=== PATIENT | female | born 1960 | race Caucasian/White ===

== ENCOUNTER 2018-08-16 14:37 | Observation (INO) | payer BC ==
[~2018-08-16] VITALS: Ht 154.9 cm; Wt 79.8 kg
[2018-08-16] MEDS ORDERED: HYDROMORPHONE 2MG/ML 2 MG/ML ML IM STA (14:42)
[2018-08-16] MEDS ORDERED: ONDANSETRON HCL 4 MG ORAL DISINTEGRATING TAB PO ONE (15:00)
--- NOTE | 2018-08-16 16:41 | Diagnostic Imaging Report ---
ADDENDUM #1 Dose modulation, iterative reconstruction, and/or weight based adjustment of the mA/kV was utilized to reduce the radiation dose to as low as reasonably achievable. Signed by: DR Jaun Darby M.D. on 09/03/2018 10:23 AM ORIGINAL REPORT History:Fall, hit right side of the face Comparison studies:CT head 5 28,016 Technique: Axial images were obtained from the brain, face and cervical spine. Coronal and sagittal reconstructions obtained from the axial data. Intravenous contrast: None Findings: Head CT: Scalp/skull: No abnormalities. No fractures, blastic or lytic lesions. Extra-axial spaces: No masses. No fluid collections. Brain sulci: Appropriate for age. Ventricles: Normal in size and configuration. No hydrocephalus. Parenchyma: Right subinsular and left insular small hypodensities, with mild volume loss, stable. No masses, hemorrhage or acute cortical vascular insults. Sellar/suprasellar region: No abnormalities Craniocervical junction: Patent foramen magnum. No Chiari one malformation. Maxillofacial CT: Soft tissues: Right central premaxillary soft tissue hematoma anterior aspect.. Bones: Nondisplaced fracture of the nasal spine and inferior nasal septum. No other facial fractures are seen. . Orbits: No abnormalities. Paranasal sinuses: Mucous retention cyst at the right maxillary sinus. Cervical spine CT: Fractures: None. Soft tissues: No gross abnormalities. Atlantoaxial articulation: No acute abnormality. Mild degenerative changes. Alignment: Normal lordosis. No scoliosis. Cervicomedullary junction: No abnormalities. The foramen magnum is patent. Vertebrae: No infection. Lucent lesions at C3, C4 and C5 vertebral bodies. Degenerative changes: Uncinate processes and facet hypertrophy results in moderate bilateral foraminal narrowing at C4-5. Decreased intervertebral space at C4-5 and C5-6.. Incidental findings: None. Impression: Head CT: 1. No acute intracranial abnormality. 2. Stable compared to previous examination. Facial CT: 1. Right central premaxillary hematoma. 2. Nondisplaced fracture of the nasal spine and adjacent nasal septum . Cervical spine CT: 1. No acute cervical abnormalities. 2. Cannot exclude ligament, spinal cord and or vascular abnormalities on the basis of this examination. 3. Nonspecific mucosal lesions in the cervical spine, this could be related to infiltrative marrow processes, recommend clinical correlation. Signed by: DR Juan Darby M.D. on 08/16/2018 4:37 PM
[2018-08-16] MEDS ORDERED: ONDANSETRON HCL 4 MG ORAL DISINTEGRATING TAB PO NR (17:15)
[2018-08-16] MEDS ORDERED: HYDROCODONE/APAP 10MG-325MG TAB PO NR (17:15)
[2018-08-16] MEDS ORDERED: HYDRALAZINE HCL 25 MG TAB PO ONE (17:30)
[2018-08-16] MEDS ORDERED: ALLERGY RELIEF10 M1 PO (17:36)
[2018-08-16] MEDS ORDERED: CYSTEX TABLET1 EACH PO (17:36)
[2018-08-16] MEDS ORDERED: TYLENOL # 31 EA PO (17:36)
[2018-08-16] MEDS ORDERED: MAXALT10 MG PO (17:36)
[2018-08-16] MEDS ORDERED: NORTRIPTYLINE H25 MG PO (17:36)
[2018-08-16] MEDS ORDERED: LINZESS PO (17:36)
[2018-08-16] MEDS ORDERED: XANAX1 MG PO (17:36)
--- NOTE | 2018-08-16 17:59 | Diagnostic Imaging Report ---
RIGHT SHOULDER, ELBOW, HAND, WRIST 2-3 VIEWS HISTORY: Pain status post fall COMPARISON: None FINDINGS: Bones: No displaced fracture. Incidentally noted, there is a bony exostosis at the attachment of the lateral epicondyle ligament. Osseous alignment is within normal limits. Joints: The joint spaces are well-maintained. Soft tissues: The soft tissues appear unremarkable. IMPRESSION: 1. No acute radiographic abnormality. 2. Incidentally found changes related to lateral epicondylitis Signed by: Dr. Dejan Lu M.D. on 08/16/2018 5:56 PM
[2018-08-16] MEDS ORDERED: PROMETHAZINE HCL 25 MG TAB PO NR (18:27)
[2018-08-16] MEDS ORDERED: ONDANSETRON HCL INJ 2 MG/ML VIAL IV NR (18:50)
[2018-08-16] MEDS: SODIUM CHLORIDE 0.9% 1000ML 1,000 ML IV SCH ×3 (19:13→21:35)
[2018-08-16] MEDS ORDERED: SODIUM CHLORIDE 0.9% 1000ML 1,000 ML IV SCH ×2 (19:28→20:15)
[2018-08-16] MEDS ORDERED: MORPHINE SULFATE 2 MG/ML SYR IV PRN ×2 (19:30→21:30)
[2018-08-16] MEDS ORDERED: ONDANSETRON HCL INJ 2 MG/ML VIAL IV PRN ×2 (19:30→21:30)
[2018-08-16] MEDS ORDERED: SODIUM CHLORIDE FLUSH 10 ML SYR INJ PRN ×2 (19:30→21:30)
[2018-08-16] MEDS ORDERED: SODIUM CHLORIDE 0.9% 1000ML 1,000 ML IV ONE (20:30)
[2018-08-16] MEDS ORDERED: KETOROLAC TROMETHAMINE 30 MG/ML VIAL IV PRN (20:45)
[2018-08-16] MEDS ORDERED: LABETALOL HCL 5 MG/ML 20ML VIAL IV PRN (20:45)
[2018-08-16] MEDS ORDERED: ACETAMINOPHEN 325 MG TAB PO PRN ×2 (21:00)
[2018-08-16 21:05] VITALS: BP 154/82
[2018-08-16] MEDS ORDERED: SODIUM CHLORIDE 0.9% 1000ML 1,000 ML ONE (21:06)
[2018-08-16] MEDS: KETOROLAC TROMETHAMINE 30 MG/ML VIAL IV PRN (21:35)
[2018-08-16 21:41] VITALS: BP 154/82
[2018-08-16] MEDS ORDERED: ALPRAZOLAM 1 MG TAB PO PRN (22:30)
[2018-08-16] MEDS ORDERED: METHENAMINE PO SCH (22:30)
[2018-08-16] MEDS ORDERED: SODIUM SALICYLATE PO SCH (22:30)
[2018-08-16 22:33] VITALS: BP 154/82
[2018-08-16] MEDS: NORTRIPTYLINE HCL 25 MG CAP PO SCH (23:01)
[2018-08-16 23:55] VITALS: BP 153/81
[2018-08-17] VITALS (8 sets, daily range): BP systolic 140–174; BP diastolic 60–98
[2018-08-17] MEDS: ACETAMINOPHEN 325 MG TAB PO PRN (04:12)
[2018-08-17 04:19] LABS: BASOPHILS % 0.2 % (0.0-1.0); EOSINOPHILS % 0.2 % (0.0-6.0); HEMATOCRIT 35.8 % (34.2-44.1); HEMOGLOBIN 11.8 g/dL (12.0-16.0); LYMPHOCYTES # (AUTO) 2.1 (1.0-3.2); LYMPHOCYTES % 21.4 % (18.0-39.1); MEAN CORPUSCULAR HEMOGLOBIN 31.1 pg (28-32); MEAN CORPUSCULAR VOLUME 94.2 fL (81-99); MONOCYTES % 10.2 % (4.4-11.3); NEUTROPHILS # (AUTO) 6.7 (2.1-6.9); NEUTROPHILS % 67.7 % (38.7-80.0); PLATELET COUNT 231 x10e3/uL (140-360); RED CELL DISTRIBUTION WIDTH 12.7 % (11.7-14.4)
[2018-08-17 04:23] LABS: INR 0.87; PROTHROMBIN TIME 12.6 seconds (11.9-14.5)
[2018-08-17 04:24] LABS: PARTIAL THROMBOPLASTIN TIME 29.4 seconds (23.8-35.5)
[2018-08-17 04:42] LABS: ALANINE AMINOTRANSFERASE 12 IU/L (0-55); ALBUMIN 3.2 g/dL (3.5-5.0); ALBUMIN/GLOBULIN RATIO 1.4 (0.8-2.0); ALKALINE PHOSPHATASE 61 IU/L (40-150); BLOOD UREA NITROGEN 9 mg/dL (7-26); BUN/CREATININE RATIO 14 (6-25); CALCIUM 9.2 mg/dL (8.4-10.2); CARBON DIOXIDE 29 mmol/L (22-29); CHLORIDE 106 mmol/L (98-107); CREATININE, SERUM 0.64 mg/dL (0.57-1.11); EST GLOMERULAR FILTRATION RATE > 60 ML/MIN (60-); GLUCOSE 111 mg/dL (74-118); POTASSIUM 3.6 mmol/L (3.5-5.1); SODIUM 137 mmol/L (136-145)
[2018-08-17 04:48] LABS: ANION GAP 5.6 mmol/L (8-16)
[2018-08-17] MEDS: SODIUM CHLORIDE 0.9% 1000ML 1,000 ML IV SCH (05:03)
[2018-08-17] MEDS: LORATADINE 10 MG TAB PO SCH (08:14)
[2018-08-17] MEDS ORDERED: LINZESS 72 MCG PO SCH (09:00)
[2018-08-17] MEDS: KETOROLAC TROMETHAMINE 30 MG/ML VIAL IV PRN ×2 (09:24→20:43)
[2018-08-17] MEDS: NORTRIPTYLINE HCL 25 MG CAP PO SCH ×2 (10:30→20:43)
[2018-08-17] MEDS: LABETALOL HCL 5 MG/ML 20ML VIAL IV PRN (11:45)
[2018-08-17] MEDS ORDERED: ZOLPIDEM TARTRATE 10 MG TAB PO PRN (12:30)
[2018-08-17] MEDS ORDERED: TETANUS/DIPHTHERIA TOX ADULT 0.5 ML SYR IM NR (12:45)
[2018-08-17] MEDS: SUMATRIPTAN SUCCINATE 25 MG TAB PO PRN (12:59)
--- NOTE | 2018-08-17 13:55 | History and Physical ---
HISTORY OF PRESENT ILLNESS: A 57 years old female with past medical history positive for migraine headaches. Apparently, she had a fall from chair, had a significant head injury. CT of head showed a nasal septal fracture. Cervical spine CT and x-ray of right arm and pelvis x-ray showed no evidence of any fracture. She is still complaining of severe right wrist pain. REVIEW OF SYSTEMS CARDIOVASCULAR: No chest pain or palpitation. RESPIRATORY: No shortness of breath. No cough. GASTROINTESTINAL: No nausea. No vomiting. No diarrhea. GENITOURINARY: No frequency. No dysuria. NEUROLOGIC: Severe migraine headache. PHYSICAL EXAMINATION VITAL SIGNS: Blood pressure 166/84, temperature 97.5 degrees Fahrenheit, heart rate is 93 per minute, respiratory rate 20 per minute, oxygen saturation 95%. HEART: Regular rhythm. Normal S1, S2 sounds. LUNGS: Clear bilaterally. ABDOMEN: Soft. EXTREMITIES: Show swelling on the right upper extremities. NEUROLOGIC: Alert and oriented x3. Cranial nerves II through XII within normal limits. Motor strength is 5/5 in upper and lower extremities. MUSCULOSKELETAL: She has significant swelling on the right forearm and right wrist and also on the facial examination, she has bruises around the both eyes. BLOOD WORK: We have BMP; sodium 137, potassium 3.6, chloride 106, CO2 of 29, BUN 9, creatinine 0.64, glucose 111. On the CBC; white blood count 9.87, hemoglobin 11.8, hematocrit 35.8, and platelet count 231,000. PT 12.6, INR 0.87, PTT 29.4, AST 13, ALT 12, total bilirubin 1.0, alkaline phosphatase 461. CT of the head showed no evidence of any bleed in the brain or skull fracture. CT of the head showed nasal fracture. CT of the cervical spine showed no evidence of any fractures. X-ray of the right arm showed no evidence of any fractures. FINAL IMPRESSION 1. Status post fall with a facial injury and nasal septal bone fracture. 2. Hypertension. 3. Migraine headache. 4. Right wrist pain. PLAN OF TREATMENT: We are going to continue Norvasc 5 mg daily, morphine 4 mg IV q.4 hours as needed, sumatriptan 50 mg IV q.6 hours as needed for migraine headaches, Toradol 15 mg IV q.8 h as needed, alprazolam 1 mg twice a day as needed, nortriptyline 25 mg at bedtime, labetalol 5 mg IV q.6 hours, Claritin 10 mg daily, Tylenol 650 mg IV q.6 hours as needed, and Tylenol with Codeine 1 tablet q.6 hours as needed. Job#: [id number] [place]
[2018-08-17] MEDS: ACETAMINOPHEN/CODEINE 300MG - 30MG TAB PO PRN (15:25)
[2018-08-18] VITALS (8 sets, daily range): BP systolic 130–182; BP diastolic 67–95
[2018-08-18] MEDS: SUMATRIPTAN SUCCINATE 25 MG TAB PO PRN ×2 (02:44→20:45)
--- NOTE | 2018-08-18 08:35 | Consultation ---
DATE OF CONSULTATION: August 18, 2018 HOSPITAL CONSULTATION HISTORY OF PRESENT ILLNESS: I was kindly asked to see this 57-year-old woman, who fell from a chair and hit her face on the cabinet and she experienced epistaxis initially, which had subsequently resolved. Workup with CT scan demonstrated nondisplaced fracture of the nasal spine and inferior nasal septum. Her history of present illness, past medical history, and past surgical history were reviewed in the chart and is pertinent for previous nasal surgery in 1999 for deviated nasal septum. EXAMINATION: The tympanic membranes and external auditory canals are normal. She has bilateral periorbital ecchymosis significantly worse on the right side. His ecchymosis has been felt from area and upper lip with extension of the ecchymosis around the oral cavity. Intranasal examination shows blood in the right side of the nose and minimal thick mucus on the left side of the nose. There is no palpable step-off. She has no palpable cervical adenopathy. Oral cavity examination is unremarkable. Posterior pharyngeal wall shows a small amount of old blood along the posterior pharyngeal wall. ASSESSMENT: Nondisplaced nasal fracture. PLAN 1. [place] nasal spray 2 puffs each side of nose q.4 h while awake. 2. Neosporin ointment applied inside each nostril t.i.d. Job#: [id number] CQ
[2018-08-18] MEDS: ACETAMINOPHEN 325 MG TAB PO PRN (08:46)
[2018-08-18] MEDS: LORATADINE 10 MG TAB PO SCH (08:51)
[2018-08-18] MEDS: AMLODIPINE BESYLATE 5 MG TAB PO SCH (08:51)
[2018-08-18] MEDS: NEOMYCIN/POLYMYXIN/BACITRACIN 15 GM TUBE TOP SCH ×3 (09:15→20:45)
[2018-08-18] MEDS: SALINE 0.65% NAS SOLN 1 SPRAY BTL SCH ×4 (09:20→20:45)
[2018-08-18] MEDS: KETOROLAC TROMETHAMINE 30 MG/ML VIAL IV PRN (13:43)
--- NOTE | 2018-08-18 14:18 | Diagnostic Imaging Report ---
TECHNIQUE: Magnetic resonance imaging of the RIGHT WRIST was performed WITHOUT injected contrast, on a 1.5 milo magnet. HISTORY: Pain, fall COMPARISON: None available. FINDINGS: Bone and bone marrow: Bone marrow edema within the volar lunate. The osseous alignment is within normal limits. Joints: Fluid within the joints is within physiologic limits. The joints spaces are well maintained. Ligaments: Scapholunate: Intact Lunotriquetral: Intact Triangular fibrocartilage complex: Intact Extrinsic ligaments: Mild edema in the dorsal carpal ligaments. Tendons: The flexor and extensor tendons are intact. Carpal tunnel: The median nerve is within normal limits. Other soft tissues: Otherwise, unremarkable. IMPRESSION: Mild edema/contusion in the volar lunate. No fracture. Dorsal carpal extrinsic ligament sprain. Signed by: Dr. Elias Puckett M.D. on 08/18/2018 2:15 PM
[2018-08-18] MEDS: LABETALOL HCL 5 MG/ML 20ML VIAL IV PRN (16:13)
[2018-08-18] MEDS: ALPRAZOLAM 1 MG TAB PO SCH (17:46)
[2018-08-18] MEDS: NORTRIPTYLINE HCL 25 MG CAP PO SCH (20:45)
[2018-08-19] VITALS: BP 135/80
[2018-08-19] MEDS: ACETAMINOPHEN/CODEINE 300MG - 30MG TAB PO PRN (02:26)
[2018-08-19 04:00] VITALS: BP 141/91
[2018-08-19] MEDS: SALINE 0.65% NAS SOLN 1 SPRAY BTL SCH ×2 (05:36→09:20)
[2018-08-19 07:30] VITALS: BP 137/84
[2018-08-19] MEDS: ALPRAZOLAM 1 MG TAB PO SCH (08:13)
[2018-08-19] MEDS: LORATADINE 10 MG TAB PO SCH (08:13)
[2018-08-19] MEDS: NEOMYCIN/POLYMYXIN/BACITRACIN 15 GM TUBE TOP SCH (08:13)
[2018-08-19] MEDS: AMLODIPINE BESYLATE 5 MG TAB PO SCH (08:13)
[2018-08-19] MEDS: SUMATRIPTAN SUCCINATE 25 MG TAB PO PRN (08:13)
[2018-08-19 08:46] VITALS: BP 141/91
[2018-08-19 11:49] VITALS: BP 156/87
--- OUTSIDE RECORDS SUMMARY | 2018-08-26 11:17 | XMS REPORT | Clinical Summary ---
Author Author [facility] Organization [facility] Address Unknown Phone Unavailable Care Team Providers Care Optical Sales Associate Name Role Phone Colby Farris DO PCP Allergies Active Allergy Reactions Severity Noted Date Comments Amoxicillin Other (See Comments), Low 02/01/2017 "messes my side up" Rash Unsure - several years Sulfamethoxazole-Trimetho Rash Low 06/18/2016 prim Codeine Other (See Comments) 02/16/2016 dizzy Levomilnacipran Anxiety, Rash, Other (See High 06/18/2016 Makes her feel bad Comments) Makes her feel bad Nitrofurantoin Other (See Comments) Medium 05/23/2017 Had reaction several Monohyd/M-Cryst years ago and unable to recall if it was a rash Had reaction several years ago and unable to recall if it was a rash Morphine Other (See Comments) Medium 09/05/2017 Causes headache/"migraine" Promethazine Rash, Other (See Low 06/18/2016 Jittery, feels bad Comments) Anxious Current Medications Prescription Sig. Disp. Refills Start End Date Status Date linaclotide (LINZESS) 145 Take 72 mcg by mouth Active mcg capsule daily before breakfast. olmesartan-hydrochlorothi Take 1 tablet by mouth Active azide (BENICAR HCT) every morning. 20-12.5 mg per tablet rizatriptan (MAXALT) 10 Take 10 mg by mouth once Active MG tablet as needed for migraine. May repeat in 2 hours if unresolved. Do not exceed 30 mg in 24 hours. estradiol (ESTRACE) 0.01 Insert 0.5 g into the 42.5 g 1 12/26/19 12/26/19 Active % (0.1 mg/gram) vaginal vagina 2 (two) times a 18 19 creamIndications: week. Dispense 1 tube. Prolapse of anterior vaginal wall, Urethral hypermobility, LEE (stress urinary incontinence, female), Vaginal atrophy, History of recurrent UTIs, Chronic interstitial cystitis tolterodine LA (DETROL 3 04/18/20 Active LA) 4 MG 24 hr capsule 18 ALPRAZolam (XANAX) 1 MG Take 1 mg by mouth Active tablet nightly as needed for anxiety. diazePAM (VALIUM) 5 MG Take 2.5-5 mg by mouth 3 12/02/19 Discontin tablet (three) times a day as 18 ued needed for anxiety. nortriptyline (PAMELOR) Take 25 mg by mouth 1 01/31/20 12/02/19 Discontin 25 MG capsule nightly. 17 18 ued ELMIRON 100 mg capsule Take 1 capsule by mouth 2 5 01/11/20 12/02/19 Discontin (two) times a day. 17 18 ued olmesartan-hydrochlorothi Take 1 tablet by mouth 0 01/25/20 12/02/19 Discontin azide (BENICAR HCT) every morning. 17 18 ued 20-12.5 mg per tablet rizatriptan (MAXALT) 10 Take 10 mg by mouth once 12/12/19 12/02/19 Discontin MG tablet as needed for migraine. 16 18 ued estradiol (ESTRACE) 0.01 Insert 0.5 g into the 42.5 g 1 05/08/20 10/24/20 Discontin % (0.1 mg/gram) vaginal vagina nightly. Every 17 17 ued creamIndications: Midline night for 2 weeks, then cystocele, Urethral three times a week. hypermobility, Vaginal atrophy, Stress incontinence in female, Dyspareunia in female LINZESS 145 mcg capsule Take 145 mcg by mouth 2 07/23/20 12/02/19 Discontin daily before breakfast. 17 18 ued sennosides-docusate Take 1 tablet by mouth 2 30 tablet 0 10/25/20 11/24/19 sodium (SENOKOT-S) 8.6-50 (two) times a day as 17 18 mg per tablet needed for constipation for up to 30 days. ciprofloxacin (CIPRO) 500 Take 1 tablet (500 mg 10 tablet 0 10/25/20 10/30/20 MG tablet total) by mouth 2 (two) 17 17 times a day for 5 days. amoxicillin-pot Take 1 tablet by mouth 2 11/05/20 11/14/19 clavulanate (AUGMENTIN) (two) times a day. 17 18 875-125 mg per tablet oseltamivir (TAMIFLU) 75 Take 1 capsule (75 mg 10 capsule 0 11/12/19 11/17/19 MG capsule total) by mouth 2 (two) 18 18 times a day for 5 days. buPROPion SR (WELLBUTRIN TK 1 T PO QAM 2 11/18/19 12/02/19 Discontin SR) 100 MG 12 hr tablet 18 18 ued diazePAM (VALIUM) 5 MG Take 2.5-5 mg by mouth 3 01/03/20 Discontin tablet (three) times a day as 18 ued needed for anxiety. pentosan polysulfate Take 100 mg by mouth 2 05/20/20 Discontin (ELMIRON) 100 mg capsule (two) times a day. 18 ued nortriptyline (PAMELOR) Take 25 mg by mouth 05/20/20 Discontin 25 MG capsule nightly. 18 ued ciprofloxacin (CIPRO) 500 Take 1 tablet (500 mg 12 tablet 0 12/04/19 12/10/19 MG tablet total) by mouth 2 (two) 18 18 times a day for 6 days. ondansetron (ZOFRAN) 4 MG Take 1 tablet (4 mg 20 tablet 0 12/29/19 01/03/20 Discontin tablet total) by mouth every 6 18 18 ued (six) hours for 5 days. traMADol (ULTRAM) 50 mg Take 1 tablet (50 mg 9 tablet 0 12/29/19 01/03/20 Discontin tablet total) by mouth every 8 18 18 ued (eight) hours as needed for moderate pain for up to 3 days. LORAZepam (ATIVAN) 0.5 MG Take 1 tablet (0.5 mg 30 tablet 0 01/03/20 02/01/20 tablet total) by mouth every 6 18 18 (six) hours as needed for anxiety for up to 30 doses. valsartan (DIOVAN) 80 MG Take 1 tablet (80 mg 30 tablet 0 01/04/20 02/04/20 tablet total) by mouth daily for 18 18 30 days. hydroCHLOROthiazide Take 1 capsule (12.5 mg 30 capsule 0 01/04/20 02/04/20 (MICROZIDE) 12.5 mg total) by mouth daily for 18 18 capsule 30 days. lubiprostone (AMITIZA) 8 Take 1 capsule (8 mcg 30 capsule 0 01/04/20 02/04/20 MCG capsule total) by mouth daily 18 18 with breakfast for 30 days. aspirin 81 mg chewable Chew 1 tablet (81 mg 30 tablet 0 01/04/20 02/04/20 tablet total) daily for 30 days. 18 18 atorvastatin (LIPITOR) 10 Take 1 tablet (10 mg 30 tablet 0 01/03/20 02/03/20 MG tablet total) by mouth nightly 18 18 for 30 days. Active Problems Problem Noted Date Fever, unknown origin 01/01/2018 Anxiety disorder 01/01/2018 History of seizure 01/01/2018 Polysubstance abuse (HCC) 01/01/2018 Hypertension 01/01/2018 Osteoarthritis 01/01/2018 Irritable bowel syndrome with constipation 01/01/2018 Altered mental status 12/31/2017 Intractable abdominal pain 12/02/2017 Tachycardia 11/10/2017 Abdominal pain in female 08/14/2017 SOB (shortness of breath) 02/01/2017 Chest pain on breathing 02/01/2017 Renal mass 07/12/2015 Overview: Overview: Incidentally noted Left Renal Mass on CT for LUQ pain Encounters Date Type Specialty Care Team Description 08/07/2018 Office Visit Urogynecology Dolores Mauro Recurrent UTI (Primary MD Davion Dx); Interstitial cystitis; Stress incontinence 07/22/2018 Telephone Urogynecology Dolores Mauro MD 07/21/2018 Emergency Emergency Medicine Rachelle Caldwell MD 07/03/2018 Telephone Obstetrics and Gynecology Dolores Mauro MD 07/01/2018 Telephone Obstetrics and Gynecology Dolores Mauro MD 06/23/2018 Telephone Urogynecology Dolores Mauro MD 05/22/2018 Telephone Urogynecology Daisy Grimm MA 05/20/2018 Office Visit Urogynecology Brenna Mujica NP Prolapse of anterior vaginal wall (Primary Dx); Midline cystocele; History of recurrent UTIs; Chronic interstitial cystitis; Encounter for fitting and adjustment of pessary; Vaginal atrophy 05/13/2018 Telephone Obstetrics and Gynecology Dolores Mauro MD 05/12/2018 Telephone Urogynecology Kelley Alvarez LVN 05/09/2018 [facility] Radiology Dolores Mauro Pelvic pain in female; Encounter MD Davion Pelvic pain 05/09/2018 Ancillary Radiology Dolores Mauro Pelvic pain Orders MD Davion 05/05/2018 Telephone Urogynecology Brenna Mujica, SUBGRADE TESTER 04/16/2018 Telephone Obstetrics and Gynecology Brenna Mujica, SUBGRADE TESTER 02/19/2018 Emergency Emergency Medicine Roman Larkin MD Flank pain (Primary Dx); Chronic thoracic back pain, unspecified back pain laterality; Anxiety 01/01/2018 Procedure Pass General Internal Medicine 12/31/2017 Emergency General Internal Medicine Kelsy Christian, Altered mental status, - MD unspecified altered 01/03/2018 Savage Pino, mental status type MD (Primary Dx); Marijuana abuse; Hypnotic intoxication with complication 12/29/2017 Emergency Emergency Medicine Juancarlos Mason Flank pain (Primary Dx); MD Mark Renal cyst 12/24/2017 Office Visit Urogynecology Brenna Mujica, ELIJAH Prolapse of anterior vaginal wall (Primary Dx); Urethral hypermobility; LEE (stress urinary incontinence, female); Vaginal atrophy; History of recurrent UTIs; Chronic interstitial cystitis 12/18/2017 Telephone Obstetrics and Gynecology Dolores Mauro MD 12/02/2017 Emergency General Internal Medicine Alphonso Gilliland MD Intractable abdominal - Talia Sahu MD pain (Primary Dx); 12/04/2017 Fabio Lewis MD Abdominal pain in female 11/10/2017 Emergency General Internal Medicine Ant Sandhu MD Tachycardia (Primary Dx); - Talia Sahu MD Nausea and vomiting, 11/12/2017 Emilio Sesay intractability of MD Kay vomiting not specified, unspecified vomiting type; Fever chills; Anxiety 10/24/2017 Emergency General Internal Medicine Fatou Dykes MD Abdominal pain in female - SharontonyaLuciano DO (Primary Dx); 10/25/2017 Acute cystitis without hematuria 09/05/2017 Emergency Emergency Medicine Fatou Dykes MD Generalized abdominal pain (Primary Dx) 08/19/2017 Telephone Urogynecology Dolores Mauro MD 08/19/2017 Telephone Obstetrics and Gynecology Dolores Mauro MD 08/16/2017 Telephone Obstetrics and Gynecology Dolores Mauro MD 08/15/2017 Orders Only Urogynecology Samantha Nguyen MA Pelvic pain in female (Primary Dx) 08/14/2017 Emergency General Internal Medicine Sidney Rodriguez DO Abdominal pain in female - Tate Driscoll MD (Primary Dx) 08/16/2017 after 08/15/2017 Immunizations Name Dates Previously Given Next Due FLUCELVAX QUAD PF (0.5mL 11/11/2017 syringe) Pneumococcal Conjugate 11/11/2017 13-Valent Family History Medical History Relation Name Comments Cancer Father Relation Name Status Comments Father Mother Alive Social History Tobacco Use Types Packs/Day Years Used Date Never Smoker Smokeless Tobacco: Never Used Alcohol Use Drinks/Week oz/Week Comments No Sex Assigned at Date Recorded Not on file Last Filed Vital Signs Vital Sign Reading Time Taken Blood Pressure 145/96 08/07/2018 2:17 PM CDT Pulse 79 08/07/2018 2:17 PM CDT Temperature 36.9 C (98.5 F) 08/07/2018 2:17 PM CDT Respiratory Rate 16 07/21/2018 6:46 PM CDT Oxygen Saturation 97% 07/21/2018 6:50 PM CDT Inhaled Oxygen - - Concentration Weight 79.4 kg (175 lb) 08/07/2018 2:17 PM CDT Height 154.9 cm (5' 1") 08/07/2018 2:17 PM CDT Body Mass Index 33.07 08/07/2018 2:17 PM CDT Plan of Treatment Date Type Specialty Care Team Description 09/19/2018 Office Visit Physical Therapy Dolores Mauro MD [address] [facility] [place] [address] Summer Staton, PT 02/05/2019 Office Visit Urogynecology Dolores Mauro MD [address] [facility] [place] [address] Health Maintenance Due Date Last Done Comments CERVICAL CANCER SCREENING 1981 BREAST CANCER SCREENING 2010 COLON CANCER SCREENING 2010 SHINGRIX VACCINE (#1) 2010 INFLUENZA VACCINE 06/11/2018 11/11/2017 Procedures Procedure Name Priority Date/Time Associated Diagnosis Comments MEASURE POST VOID Routine 08/07/2018 Recurrent UTI Results for this RESIDUAL 3:26 PM CDT procedure are in the results section. POC URINALYSIS DIPSTICK Routine 08/07/2018 Recurrent UTI Results for this 3:25 PM CDT procedure are in the results section. MICROSCOPIC EXAMINATION Routine 05/20/2018 Results for this 3:48 PM CDT procedure are in the results section. URINALYSIS, AUTOMATED Routine 05/20/2018 History of recurrent UTIs Results for this WITH MICROSCOPY 3:48 PM CDT Chronic interstitial procedure are in the cystitis results section. URINE CULTURE Routine 05/20/2018 Results for this 3:48 PM CDT procedure are in the results section. POC URINALYSIS DIPSTICK Routine 05/20/2018 History of recurrent UTIs Results for this 2:57 PM CDT Chronic interstitial procedure are in the cystitis results section. US PELVIC TRANSABDOMINAL Routine 05/09/2018 Pelvic pain Results for this 3:45 PM CDT procedure are in the results section. US PELVIC TRANSVAGINAL Routine 05/09/2018 Pelvic pain in female Results for this 3:45 PM CDT procedure are in the results section. XR CHEST 1 VW STAT 02/19/2018 Results for this 6:05 PM CDT procedure are in the results section. XR THORACIC SPINE 2 VW STAT 02/19/2018 Results for this 6:04 PM CDT procedure are in the results section. CT ABDOMEN PELVIS WO STAT 02/19/2018 Results for this CONTRAST 5:15 PM CDT procedure are in the results section. BLOOD CULTURE, AEROBIC & Routine 02/19/2018 Results for this ANAEROBIC 3:20 PM CDT procedure are in the results section. URINE CULTURE STAT 02/19/2018 Results for this 2:02 PM CDT procedure are in the results section. HCG QUALITATIVE, URINE STAT 02/19/2018 Results for this SCREEN 1:46 PM CDT procedure are in the results section. URINALYSIS SCREEN AND STAT 02/19/2018 Results for this MICROSCOPY, WITH REFLEX 1:46 PM CDT procedure are in the TO CULTURE results section. ZZESTIMATED GFR STAT 02/19/2018 Results for this 1:40 PM CDT procedure are in the results section. LIPASE LEVEL STAT 02/19/2018 Results for this 1:40 PM CDT procedure are in the results section. COMPREHENSIVE METABOLIC STAT 02/19/2018 Results for this PANEL 1:40 PM CDT procedure are in the results section. HC COMPLETE BLD COUNT STAT 02/19/2018 Results for this W/AUTO DIFF 1:40 PM CDT procedure are in the results section. ECG 12-LEAD STAT 02/19/2018 Results for this 1:30 PM CDT procedure are in the results section. CT ANGIOGRAM HEAD W WO Routine 01/03/2018 Results for this CONTRAST 7:10 PM DECORATING MACHINE TENDER procedure are in the results section. CT ANGIOGRAM NECK W WO Routine 01/03/2018 Results for this CONTRAST 7:10 PM DECORATING MACHINE TENDER procedure are in the results section. EEG AWAKE/DROWSY LESS Routine 01/01/2018 Results for this THAN 41 MIN 9:00 PM DECORATING MACHINE TENDER procedure are in the results section. MRI BRAIN W WO CONTRAST Routine 01/01/2018 Results for this 8:49 PM DECORATING MACHINE TENDER procedure are in the results section. LACTIC ACID LEVEL, SEPSIS Timed 12/31/2017 Results for this - NOW AND REPEAT 2X EVERY 11:16 PM DECORATING MACHINE TENDER procedure are in the 3 HOURS results section. RESPIRATORY PATHOGEN Routine 12/31/2017 Results for this PANEL 10:28 PM DECORATING MACHINE TENDER procedure are in the results section. LACTIC ACID LEVEL, SEPSIS Timed 12/31/2017 Results for this - NOW AND REPEAT 2X EVERY 7:27 PM DECORATING MACHINE TENDER procedure are in the 3 HOURS results section. ECG 12-LEAD STAT 12/31/2017 Results for this 4:50 PM DECORATING MACHINE TENDER procedure are in the results section. URINE DRUGS OF ABUSE STAT 12/31/2017 Results for this SCREEN 4:34 PM DECORATING MACHINE TENDER procedure are in the results section. URINALYSIS SCREEN AND STAT 12/31/2017 Results for this MICROSCOPY, WITH REFLEX 4:34 PM DECORATING MACHINE TENDER procedure are in the TO CULTURE results section. PROTHROMBIN TIME WITH INR STAT 12/31/2017 Results for this 4:34 PM DECORATING MACHINE TENDER procedure are in the results section. PARTIAL THROMBOPLASTIN STAT 12/31/2017 Results for this TIME (PTT) 4:34 PM DECORATING MACHINE TENDER procedure are in the results section. URINE CULTURE STAT 12/31/2017 Results for this 4:34 PM DECORATING MACHINE TENDER procedure are in the results section. BLOOD CULTURE, AEROBIC & Routine 12/31/2017 Results for this ANAEROBIC 4:34 PM DECORATING MACHINE TENDER procedure are in the results section. BLOOD CULTURE, AEROBIC & Routine 12/31/2017 Results for this ANAEROBIC 4:34 PM DECORATING MACHINE TENDER procedure are in the results section. T4 Routine 12/31/2017 Results for this 4:04 PM DECORATING MACHINE TENDER procedure are in the results section. THYROID STIMULATING Routine 12/31/2017 Results for this HORMONE 4:04 PM DECORATING MACHINE TENDER procedure are in the results section. ALCOHOL LEVEL, BLOOD STAT 12/31/2017 Results for this 4:04 PM DECORATING MACHINE TENDER procedure are in the results section. ZZESTIMATED GFR STAT 12/31/2017 Results for this 4:04 PM DECORATING MACHINE TENDER procedure are in the results section. TROPONIN STAT 12/31/2017 Results for this 4:04 PM DECORATING MACHINE TENDER procedure are in the results section. B NATRIURETIC PEPTIDE STAT 12/31/2017 Results for this 4:04 PM DECORATING MACHINE TENDER procedure are in the results section. COMPREHENSIVE METABOLIC STAT 12/31/2017 Results for this PANEL 4:04 PM DECORATING MACHINE TENDER procedure are in the results section. HC COMPLETE BLD COUNT STAT 12/31/2017 Results for this W/AUTO DIFF 4:04 PM DECORATING MACHINE TENDER procedure are in the results section. LACTIC ACID LEVEL, SEPSIS STAT 12/31/2017 Results for this - NOW AND REPEAT 2X EVERY 4:04 PM DECORATING MACHINE TENDER procedure are in the [address] HEAD WO CONTRAST STAT 12/31/2017 Results for this 3:39 PM DECORATING MACHINE TENDER procedure are in the results section. XR CHEST 1 VW PORTABLE STAT 12/31/2017 Results for this 3:33 PM DECORATING MACHINE TENDER procedure are in the results section. ECG ED PRELIMINARY Routine 12/31/2017 Results for this INTERPRETATION 3:11 PM DECORATING MACHINE TENDER procedure are in the results section. CT ABDOMEN PELVIS WO STAT 12/29/2017 Results for this CONTRAST 4:27 PM DECORATING MACHINE TENDER procedure are in the results section. ZZESTIMATED GFR STAT 12/29/2017 Results for this 3:50 PM DECORATING MACHINE TENDER procedure are in the results section. TROPONIN STAT 12/29/2017 Results for this 3:50 PM DECORATING MACHINE TENDER procedure are in the results section. LIPASE LEVEL STAT 12/29/2017 Results for this 3:50 PM DECORATING MACHINE TENDER procedure are in the results section. COMPREHENSIVE METABOLIC STAT 12/29/2017 Results for this PANEL 3:50 PM DECORATING MACHINE TENDER procedure are in the results section. URINALYSIS SCREEN AND STAT 12/29/2017 Results for this MICROSCOPY, WITH REFLEX 3:50 PM DECORATING MACHINE TENDER procedure are in the TO CULTURE results section. PARTIAL THROMBOPLASTIN STAT 12/29/2017 Results for this TIME (PTT) 3:50 PM DECORATING MACHINE TENDER procedure are in the results section. PROTHROMBIN TIME WITH INR STAT 12/29/2017 Results for this 3:50 PM DECORATING MACHINE TENDER procedure are in the results section. HC COMPLETE BLD COUNT STAT 12/29/2017 Results for this W/AUTO DIFF 3:50 PM DECORATING MACHINE TENDER procedure are in the results section. GRAM STAIN STAT 12/29/2017 Results for this 3:50 PM DECORATING MACHINE TENDER procedure are in the results section. URINE CULTURE STAT 12/29/2017 Results for this 3:50 PM DECORATING MACHINE TENDER procedure are in the results section. ZZESTIMATED GFR Routine 12/04/2017 Results for this 4:56 AM DECORATING MACHINE TENDER procedure are in the results section. COMPREHENSIVE METABOLIC Routine 12/04/2017 Results for this PANEL 4:56 AM DECORATING MACHINE TENDER procedure are in the results section. HC COMPLETE BLD COUNT Routine 12/04/2017 Results for this W/AUTO DIFF 4:56 AM DECORATING MACHINE TENDER procedure are in the results section. URINALYSIS SCREEN AND Routine 12/03/2017 Results for this MICROSCOPY, WITH REFLEX 12:01 AM DECORATING MACHINE TENDER procedure are in the TO CULTURE results section. GRAM STAIN Routine 12/02/2017 Results for this 11:40 PM DECORATING MACHINE TENDER procedure are in the results section. URINE CULTURE Routine 12/02/2017 Results for this 11:40 PM DECORATING MACHINE TENDER procedure are in the results section. CT ABDOMEN PELVIS WO STAT 12/02/2017 Results for this CONTRAST 2:48 PM DECORATING MACHINE TENDER procedure are in the results section. ZZESTIMATED GFR STAT 12/02/2017 Results for this 12:36 PM DECORATING MACHINE TENDER procedure are in the results section. HC COMPLETE BLD COUNT STAT 12/02/2017 Results for this W/AUTO DIFF 12:36 PM DECORATING MACHINE TENDER procedure are in the results section. LIPASE LEVEL STAT 12/02/2017 Results for this 12:36 PM DECORATING MACHINE TENDER procedure are in the results section. COMPREHENSIVE METABOLIC STAT 12/02/2017 Results for this PANEL 12:36 PM DECORATING MACHINE TENDER procedure are in the results section. MAGNESIUM LEVEL Routine 11/12/2017 Results for this 4:35 AM DECORATING MACHINE TENDER procedure are in the results section. ZZESTIMATED GFR Routine 11/12/2017 Results for this 4:35 AM DECORATING MACHINE TENDER procedure are in the results section. BASIC METABOLIC PANEL Routine 11/12/2017 Results for this 4:35 AM DECORATING MACHINE TENDER procedure are in the results section. HC COMPLETE BLD COUNT Routine 11/12/2017 Results for this W/AUTO DIFF 4:35 AM DECORATING MACHINE TENDER procedure are in the results section. MANUAL DIFFERENTIAL Routine 11/11/2017 Results for this 5:00 AM DECORATING MACHINE TENDER procedure are in the results section. ZZESTIMATED GFR Routine 11/11/2017 Results for this 5:00 AM DECORATING MACHINE TENDER procedure are in the results section. LACTIC ACID LEVEL Routine 11/11/2017 Results for this 5:00 AM DECORATING MACHINE TENDER procedure are in the results section. COMPREHENSIVE METABOLIC Routine 11/11/2017 Results for this PANEL 5:00 AM DECORATING MACHINE TENDER procedure are in the results section. PROTHROMBIN TIME WITH INR Routine 11/11/2017 Results for this 5:00 AM DECORATING MACHINE TENDER procedure are in the results section. CBC WITH PLATELET AND Routine 11/11/2017 Results for this DIFFERENTIAL 5:00 AM DECORATING MACHINE TENDER procedure are in the results section. RESPIRATORY PATHOGEN Routine 11/10/2017 Results for this PANEL 11:45 PM DECORATING MACHINE TENDER procedure are in the results section. CT CHEST W CONTRAST STAT 11/10/2017 Results for this ABDOMEN W CONTRAST PELVIS 5:20 PM DECORATING MACHINE TENDER procedure are in the W CONTRAST results section. URINE DRUGS OF ABUSE STAT 11/10/2017 Results for this SCREEN 5:14 PM DECORATING MACHINE TENDER procedure are in the results section. LACTIC ACID LEVEL Timed 11/10/2017 Results for this 4:45 PM DECORATING MACHINE TENDER procedure are in the results section. RESPIRATORY PATHOGEN Routine 11/10/2017 Results for this PANEL 4:40 PM DECORATING MACHINE TENDER procedure are in the results section. URINALYSIS SCREEN AND Routine 11/10/2017 Results for this MICROSCOPY, WITH REFLEX 4:00 PM DECORATING MACHINE TENDER procedure are in the TO CULTURE results section. URINE CULTURE Routine 11/10/2017 Results for this 4:00 PM DECORATING MACHINE TENDER procedure are in the results section. BLOOD CULTURE, AEROBIC & Routine 11/10/2017 Results for this ANAEROBIC 3:10 PM DECORATING MACHINE TENDER procedure are in the results section. XR CHEST 1 VW PORTABLE STAT 11/10/2017 Results for this 2:23 PM DECORATING MACHINE TENDER procedure are in the results section. MANUAL DIFFERENTIAL STAT 11/10/2017 Results for this 2:00 PM DECORATING MACHINE TENDER procedure are in the results section. ZZESTIMATED GFR STAT 11/10/2017 Results for this 2:00 PM DECORATING MACHINE TENDER procedure are in the results section. LACTIC ACID LEVEL STAT 11/10/2017 Results for this 2:00 PM DECORATING MACHINE TENDER procedure are in the results section. COMPREHENSIVE METABOLIC STAT 11/10/2017 Results for this PANEL 2:00 PM DECORATING MACHINE TENDER procedure are in the results section. PARTIAL THROMBOPLASTIN STAT 11/10/2017 Results for this TIME (PTT) 2:00 PM DECORATING MACHINE TENDER procedure are in the results section. PROTHROMBIN TIME WITH INR STAT 11/10/2017 Results for this 2:00 PM DECORATING MACHINE TENDER procedure are in the results section. CBC WITH PLATELET AND STAT 11/10/2017 Results for this DIFFERENTIAL 2:00 PM DECORATING MACHINE TENDER procedure are in the results section. BLOOD CULTURE, AEROBIC & Routine 11/10/2017 Results for this ANAEROBIC 2:00 PM DECORATING MACHINE TENDER procedure are in the results section. US GALLBLADDER STAT 10/25/2017 Results for this 7:15 AM DECORATING MACHINE TENDER procedure are in the results section. ZZESTIMATED GFR Routine 10/25/2017 Results for this 4:50 AM DECORATING MACHINE TENDER procedure are in the results section. COMPREHENSIVE METABOLIC Routine 10/25/2017 Results for this PANEL 4:50 AM DECORATING MACHINE TENDER procedure are in the results section. CBC WITH PLATELET AND Routine 10/25/2017 Results for this DIFFERENTIAL 4:50 AM DECORATING MACHINE TENDER procedure are in the results section. URINALYSIS SCREEN AND STAT 10/24/2017 Results for this MICROSCOPY, WITH REFLEX 12:00 PM DECORATING MACHINE TENDER procedure are in the TO CULTURE results section. GRAM STAIN STAT 10/24/2017 Results for this 12:00 PM DECORATING MACHINE TENDER procedure are in the results section. URINE CULTURE STAT 10/24/2017 Results for this 12:00 PM DECORATING MACHINE TENDER procedure are in the results section. CT ABDOMEN PELVIS W STAT 10/24/2017 Results for this CONTRAST 11:35 AM DECORATING MACHINE TENDER procedure are in the results section. ZZESTIMATED GFR STAT 10/24/2017 Results for this 10:40 AM DECORATING MACHINE TENDER procedure are in the results section. LIPASE LEVEL STAT 10/24/2017 Results for this 10:40 AM DECORATING MACHINE TENDER procedure are in the results section. AMYLASE LEVEL STAT 10/24/2017 Results for this 10:40 AM DECORATING MACHINE TENDER procedure are in the results section. COMPREHENSIVE METABOLIC STAT 10/24/2017 Results for this PANEL 10:40 AM DECORATING MACHINE TENDER procedure are in the results section. HC COMPLETE BLD COUNT STAT 10/24/2017 Results for this W/AUTO DIFF 10:40 AM DECORATING MACHINE TENDER procedure are in the results section. ECG ED PRELIMINARY Routine 09/05/2017 Results for this INTERPRETATION 2:06 PM CDT procedure are in the results section. URINALYSIS SCREEN AND Routine 09/05/2017 Results for this MICROSCOPY, WITH REFLEX 12:37 PM CDT procedure are in the TO CULTURE results section. GRAM STAIN Routine 09/05/2017 Results for this 12:37 PM CDT procedure are in the results section. URINE CULTURE Routine 09/05/2017 Results for this 12:37 PM CDT procedure are in the results section. ZZESTIMATED GFR STAT 09/05/2017 Results for this 11:22 AM CDT procedure are in the results section. HC COMPLETE BLD COUNT STAT 09/05/2017 Results for this W/AUTO DIFF 11:22 AM CDT procedure are in the results section. CREATINE KINASE, TOTAL STAT 09/05/2017 Results for this (CPK) 11:22 AM CDT procedure are in the results section. TROPONIN STAT 09/05/2017 Results for this 11:22 AM CDT procedure are in the results section. LIPASE LEVEL STAT 09/05/2017 Results for this 11:22 AM CDT procedure are in the results section. AMYLASE LEVEL STAT 09/05/2017 Results for this 11:22 AM CDT procedure are in the results section. COMPREHENSIVE METABOLIC STAT 09/05/2017 Results for this PANEL 11:22 AM CDT procedure are in the results section. ECG 12-LEAD STAT 09/05/2017 Results for this 10:48 AM CDT procedure are in the results section. CT ABDOMEN PELVIS W WO Routine 08/16/2017 Results for this CONTRAST 2:59 PM CDT procedure are in the results section. ZZESTIMATED GFR Routine 08/15/2017 Results for this 9:11 AM CDT procedure are in the results section. BASIC METABOLIC PANEL Routine 08/15/2017 Results for this 9:11 AM CDT procedure are in the results section. THYROID STIMULATING Routine 08/15/2017 Results for this HORMONE 9:11 AM CDT procedure are in the results section. after 08/15/2017 Results * Measure post void residual (08/07/2018 3:26 PM) Total volume, urine 32ml * POC urinalysis dipstick (08/07/2018 3:25 PM) Only the most recent of 2 results within the time period is included. Color urine, POC Yellow Clarity urine, POC Clear Glucose urine, POC Negative Negative Bilirubin urine, POC Negative Negative Ketones urine, POC Negative Negative Specific gravity urine, </=1.005 1.005 - 1.030 POC Blood urine, POC Negative Negative pH urine, POC 6.5 5.0, 5.5, 6.0, 6.5, 7.0, 7.5, 8.0, 8.5 Protein urine, POC Negative Negative Urobilinogen urine, POC <2.0 <2.0 Nitrite urine, POC Negative Negative Leukocyte esterase urine, Negative Negative POC Specimen Urine * Microscopic Examination (05/20/2018 3:48 PM) WBC, UA None seen 0 - 5 /hpf [facility] RBC, UA 0-2 0 - 2 /hpf [facility] Epithelial cells (non 0-10 0 - 10 /hpf [facility] renal) Bacteria, UA Few None seen/Few [facility] Narrative Performed At Performed at: [id number] Courtesy Car Driver: Rudi Correa MD, Phone:[phone] Performing Organization Address City/State/[facility] Phone Number [facility] * Urinalysis, automated with microscopy (05/20/2018 3:48 PM) Specific gravity, urine 1.009 1.005 - 1.030 [facility] pH, urine 7.0 5.0 - 7.5 [facility] Color, UA Yellow Yellow [facility] Appearance Clear Clear [facility] WBC esterase, urine Negative Negative [facility] Protein, UA Negative Negative/Trace [facility] Glucose, urine Negative Negative [facility] Ketones, UA Negative Negative [facility] Occult blood, urine Negative Negative [facility] Bilirubin, UA Negative Negative [facility] Urobilinogen, UA 0.2 0.2 - 1.0 mg/dL [facility] Nitrite, UA Negative Negative [facility] Microscopic examination CommentComment: Microscopic [facility] follows if indicated. Microscopic examination See below:Comment: Microscopic [facility] was indicated and was performed. Specimen Urine Narrative Performed At Performed at:[address] [place], [place] [id number] [employer] Car Driver: Rudi Correa MD, Phone:[phone] Performing Organization Address City/[facility] Phone Number [facility] * Urine culture (05/20/2018 3:48 PM) Only the most recent of 8 results within the time period is included. Urine culture No growth [facility] Narrative Performed At Performed at:01 - [facility] [place] [facility] [address], [id number] Courtesy Car Driver: Rudi Correa MD, Phone:[phone] Performing Organization Address City/[facility] Phone Number [facility] * US Pelvic Transabdominal (05/09/2018 3:45 PM) Narrative Performed At EXAMINATION:US PELVIC TRANSABDOMINAL [facility] CLINICAL HISTORY:R10.2 Pelvic and perineal pain COMPARISON:None. TECHNIQUE:Transabdominal and endovaginal sonographic images of the pelvis were obtained. Grayscale, color Doppler, and spectral waveform analysis of the ovarian vessels was performed. FINDINGS: Heterogeneous hypoechoic area is seen adjacent to the endometrial complex suggestive of a uterine fibroid, measuring approximately 1.3 x 0.5 x 1 cm. The uterus is otherwise unremarkable. The uterus measures 6.3 x 3.0 x 4.6 cm.. Nonspecific small amount of free fluid is seen within the endometrial cavity. The endometrial complex is otherwise unremarkable. The endometrial stripe measures 2 mm.. The ovaries are unremarkable. The right ovary measures 1.8 x 0.9 x 1.2 cm. Normal Doppler flow was present. The left ovary measures 1.9 x 1.2 x 2.5 cm. Normal Doppler flow was present. There is physiologic fluid in the pelvic cul-de-sac. Renal survey demonstrates no evidence of hydronephrosis. Impression: Unremarkable transabdominal and endovaginal pelvic ultrasound examination with the exception of probable small uterine fibroid and nonspecific small amount of free fluid within the endometrial cavity. [id number] Procedure Note Hm Interface, Radiology Results Incoming - 05/09/2018 4:23 PM CDT EXAMINATION: US PELVIC TRANSABDOMINAL CLINICAL HISTORY: R10.2 Pelvic and perineal pain COMPARISON: None. TECHNIQUE:Transabdominal and endovaginal sonographic images of the pelvis were obtained. Grayscale, color Doppler, and spectral waveform analysis of the ovarian vessels was performed. FINDINGS: Heterogeneous hypoechoic area is seen adjacent to the endometrial complex suggestive of a uterine fibroid, measuring approximately 1.3 x 0.5 x 1 cm. The uterus is otherwise unremarkable. The uterus measures 6.3 x 3.0 x 4.6 cm.. Nonspecific small amount of free fluid is seen within the endometrial cavity. The endometrial complex is otherwise unremarkable. The endometrial stripe measures 2 mm.. The ovaries are unremarkable. The right ovary measures 1.8 x 0.9 x 1.2 cm. Normal Doppler flow was present. The left ovary measures 1.9 x 1.2 x 2.5 cm. Normal Doppler flow was present. There is physiologic fluid in the pelvic cul-de-sac. Renal survey demonstrates no evidence of hydronephrosis. Impression: Unremarkable transabdominal and endovaginal pelvic ultrasound examination with the exception of probable small uterine fibroid and nonspecific small amount of free fluid within the endometrial cavity. [id number] Performing Organization Address City/State/Zipcode Phone Number [employer] [address] [place] [address] * US Pelvic Transvaginal (05/09/2018 3:45 PM) Narrative Performed At EXAMINATION:US PELVIC TRANSVAGINAL [facility] CLINICAL HISTORY:R10.2 Pelvic and perineal pain COMPARISON:None. TECHNIQUE:Transabdominal and endovaginal sonographic images of the pelvis were obtained. Grayscale, color Doppler, and spectral waveform analysis of the ovarian vessels was performed. FINDINGS: Heterogeneous hypoechoic area is seen adjacent to the endometrial complex suggestive of a uterine fibroid, measuring approximately 1.3 x 0.5 x 1 cm. The uterus is otherwise unremarkable. The uterus measures 6.3 x 3.0 x 4.6 cm.. Nonspecific small amount of free fluid is seen within the endometrial cavity. The endometrial complex is otherwise unremarkable. The endometrial stripe measures 2 mm.. The ovaries are unremarkable. The right ovary measures 1.8 x 0.9 x 1.2 cm. Normal Doppler flow was present. The left ovary measures 1.9 x 1.2 x 2.5 cm. Normal Doppler flow was present. There is physiologic fluid in the pelvic cul-de-sac. Renal survey demonstrates no evidence of hydronephrosis. Impression: Unremarkable transabdominal and endovaginal pelvic ultrasound examination with the exception of probable small uterine fibroid and nonspecific small amount of free fluid within the endometrial cavity. [id number] Procedure Note Interface, Radiology Results Incoming - 05/09/2018 4:24 PM CDT EXAMINATION: US PELVIC TRANSVAGINAL CLINICAL HISTORY: R10.2 Pelvic and perineal pain COMPARISON: None. TECHNIQUE:Transabdominal and endovaginal sonographic images of the pelvis were obtained. Grayscale, color Doppler, and spectral waveform analysis of the ovarian vessels was performed. FINDINGS: Heterogeneous hypoechoic area is seen adjacent to the endometrial complex suggestive of a uterine fibroid, measuring approximately 1.3 x 0.5 x 1 cm. The uterus is otherwise unremarkable. The uterus measures 6.3 x 3.0 x 4.6 cm.. Nonspecific small amount of free fluid is seen within the endometrial cavity. The endometrial complex is otherwise unremarkable. The endometrial stripe measures 2 mm.. The ovaries are unremarkable. The right ovary measures 1.8 x 0.9 x 1.2 cm. Normal Doppler flow was present. The left ovary measures 1.9 x 1.2 x 2.5 cm. Normal Doppler flow was present. There is physiologic fluid in the pelvic cul-de-sac. Renal survey demonstrates no evidence of hydronephrosis. Impression: Unremarkable transabdominal and endovaginal pelvic ultrasound examination with the exception of probable small uterine fibroid and nonspecific small amount of free fluid within the endometrial cavity. [id number] Performing Organization Address [facility] Phone Number [employer] [address] [place] [address] * XR Chest 1 Vw (02/19/2018 6:05 PM) Narrative Performed At EXAMINATION:XR CHEST 1 VW [facility] CLINICAL HISTORY:Chest Pain COMPARISON:December 31, 2017 chest IMPRESSION: Unremarkable single view chest The lungs are clear. The heart is not enlarged. The bony structures are within normal limits. [id number] Procedure Note Interface, Radiology Results Incoming - 02/19/2018 6:09 PM CDT EXAMINATION: XR CHEST 1 VW CLINICAL HISTORY: Chest Pain COMPARISON: December 31, 2017 chest IMPRESSION: Unremarkable single view chest The lungs are clear. The heart is not enlarged. The bony structures are within normal limits. [id number] Performing Organization Address [facility] Phone Number [employer] [address] [place] [address] * XR Thoracic Spine 2 Vw (02/19/2018 6:04 PM) Narrative Performed At EXAMINATION: XR THORACIC SPINE 2 VW [facility] CLINICAL HISTORY: Back pain COMPARISON:None IMPRESSION: Frontal and lateral views of the thoracic spine were obtained. Vertebral body heights are preserved. Endplates are intact without acute fracture. There are mild anterior ossified noted throughout the thoracic spine. There is no spondylolisthesis or acute osseous abnormality identified. Cardiac silhouette is normal. There is mild broad-based 5 degrees rightward curvature of the spine at T6. [facility]-[id number] Procedure Note Interface, Radiology Results Incoming - 02/19/2018 6:10 PM CDT EXAMINATION: XR THORACIC SPINE 2 VW CLINICAL HISTORY: Back pain COMPARISON: None IMPRESSION: Frontal and lateral views of the thoracic spine were obtained. Vertebral body heights are preserved. Endplates are intact without acute fracture. There are mild anterior ossified noted throughout the thoracic spine. There is no spondylolisthesis or acute osseous abnormality identified. Cardiac silhouette is normal. There is mild broad-based 5 degrees rightward curvature of the spine at T6. [facility]-[id number] Performing Organization Address City/State/Zipcode Phone Number [facility] [address] [place] [address] * CT Abdomen Pelvis Wo Contrast (02/19/2018 5:15 PM) Only the most recent of 3 results within the time period is included. Narrative Performed At EXAMINATION:CT ABDOMEN PELVIS WO CONTRAST [facility] CLINICAL HISTORY:ABDOMINAL PAIN TECHNIQUE:Multiple axial images of the abdomen and pelvis were obtained without intravenous administration of iodinated contrast. Sagittal and coronal computerized reformatted images were also obtained. The lack of intravenous contrast reduces the sensitivity of detecting solid organ disease. Scan was performed using radiation dose reduction techniques. COMPARISON:December 29, 2017 FINDINGS: Postsurgical change in the left kidney lower pole compatible with partial nephrectomy. Minimal adjacent fluid is seen. No hematoma or significant fluid collection. No hydronephrosis. Liver is mildly fatty. Grossly unremarkable gallbladder and pancreas. No significant bowel thickening or dilatation. Noninflamed appendix is at least partly visible. IMPRESSION: Grossly uncomplicated appearance status post partial left nephrectomy. [facility]-[id number] Procedure Note Interface, Radiology Results Incoming - 02/19/2018 5:24 PM CDT EXAMINATION: CT ABDOMEN PELVIS WO CONTRAST CLINICAL HISTORY: ABDOMINAL PAIN TECHNIQUE: Multiple axial images of the abdomen and pelvis were obtained without intravenous administration of iodinated contrast. Sagittal and coronal computerized reformatted images were also obtained. The lack of intravenous contrast reduces the sensitivity of detecting solid organ disease. Scan was performed using radiation dose reduction techniques. COMPARISON: December 29, 2017 FINDINGS: Postsurgical change in the left kidney lower pole compatible with partial nephrectomy. Minimal adjacent fluid is seen. No hematoma or significant fluid collection. No hydronephrosis. Liver is mildly fatty. Grossly unremarkable gallbladder and pancreas. No significant bowel thickening or dilatation. Noninflamed appendix is at least partly visible. IMPRESSION: Grossly uncomplicated appearance status post partial left nephrectomy. [facility]-[id number] Performing Organization Address [facility]/[place] [address] * Blood culture, aerobic & anaerobic (02/19/2018 3:20 PM) Only the most recent of 5 results within the time period is included. Blood culture isolate No growth after 5 days of [facility] DEPARTMENT OF incubation. PATHOLOGY AND Comment: GENOMIC MEDICINE Specimen Information Specimen Source: Blood Specimen Site: Arm Left Specimen Blood Performing Organization Address City/[facility] Phone Number [facility] DEPARTMENT OF [address] [place] [id number] PATHOLOGY AND GENOMIC MEDICINE * Urinalysis screen and microscopy, with reflex to culture (02/19/2018 1:46 PM) Only the most recent of 7 results within the time period is included. Specimen site Clean catch [facility] DEPARTMENT OF PATHOLOGY AND GENOMIC MEDICINE Color, UA Straw [facility] DEPARTMENT OF PATHOLOGY AND GENOMIC MEDICINE Appearance, UA Clear [facility] DEPARTMENT OF PATHOLOGY AND GENOMIC MEDICINE Specific gravity, UA 1.010 1.001 - 1.035 [facility] DEPARTMENT OF PATHOLOGY AND GENOMIC MEDICINE pH, UA 7.0 5.0 - 8.5 [facility] DEPARTMENT OF PATHOLOGY AND GENOMIC MEDICINE Protein, UA Negative Negative [facility] DEPARTMENT OF PATHOLOGY AND GENOMIC MEDICINE Glucose, UA Negative Negative [facility] DEPARTMENT OF PATHOLOGY AND GENOMIC MEDICINE Ketones, UA Trace (A) Negative [facility] DEPARTMENT OF PATHOLOGY AND GENOMIC MEDICINE Bilirubin, UA Negative Negative [facility] DEPARTMENT OF PATHOLOGY AND GENOMIC MEDICINE Blood, UA Negative Negative [facility] DEPARTMENT OF PATHOLOGY AND GENOMIC MEDICINE Nitrite, UA Negative Negative [facility] DEPARTMENT OF PATHOLOGY AND GENOMIC MEDICINE Urobilinogen, UA <2.0 <2.0 [facility] DEPARTMENT OF PATHOLOGY AND GENOMIC MEDICINE Leukocyte esterase, UA Negative Negative [facility] DEPARTMENT OF PATHOLOGY AND GENOMIC MEDICINE Epithelial cells, UA 3 /HPF [facility] DEPARTMENT OF PATHOLOGY AND GENOMIC MEDICINE WBC, UA 3 0 - 4 /HPF [facility] DEPARTMENT OF PATHOLOGY AND GENOMIC MEDICINE RBC, UA None seen 0 - 5 /HPF [facility] DEPARTMENT OF PATHOLOGY AND GENOMIC MEDICINE Bacteria, UA None seen None seen [facility] DEPARTMENT OF PATHOLOGY AND GENOMIC MEDICINE Yeast, UA None seen [facility] DEPARTMENT OF PATHOLOGY AND GENOMIC MEDICINE Yeast with pseudohyphae, None seen [facility] DEPARTMENT OF UA PATHOLOGY AND GENOMIC MEDICINE Specimen Urine Performing Organization Address City/[facility] Phone Number [facility] [place] [address] PATHOLOGY AND GENOMIC MEDICINE * hCG qualitative, urine screen (02/19/2018 1:46 PM) hCG qualitative, urine NegativeComment: Sensitivity [facility] DEPARTMENT OF of HCG test: 25 mIU/mL PATHOLOGY AND GENOMIC MEDICINE Specimen Urine Performing Organization Address [facility] [place] [address] PATHOLOGY AND GENOMIC MEDICINE * Estimated GFR (02/19/2018 1:40 PM) Only the most recent of 12 results within the time period is included. GFR Non Af Amer 86 mL/min/1.73 m2 [facility] DEPARTMENT OF PATHOLOGY AND GENOMIC MEDICINE GFR Af Amer >90 mL/min/1.73 m2 [facility] DEPARTMENT OF Comment: PATHOLOGY AND Chronic kidney disease: <60 GENOMIC MEDICINE mL/min/1.73m2 Kidney failure: <15 mL/min/1.73m2 The estimated GFR is calculated from the IDMS-traceable Modification of Diet in Renal Disease Equation. The accuracy of the calculation is poor when the creatinine is normal. Calculated values >90 mL/min/1.73m2 are not reported. This equation has not been validated in children (<18 years), women, the elderly (>70 years), or ethnic groups other than Caucasians and Americans. Specimen Plasma specimen Performing Organization Address City/[facility] Phone Number [facility] [place] [address] PATHOLOGY AND GENOMIC MEDICINE * CBC with platelet and differential (02/19/2018 1:40 PM) Only the most recent of 11 results within the time period is included. WBC 6.68 4.50 - 11.00 k/uL [facility] DEPARTMENT OF PATHOLOGY AND GENOMIC MEDICINE RBC 4.54 4.20 - 5.50 m/uL [facility] DEPARTMENT OF PATHOLOGY AND GENOMIC MEDICINE HGB 13.9 12.0 - 16.0 g/dL [facility] DEPARTMENT OF PATHOLOGY AND GENOMIC MEDICINE HCT 42.5 37.0 - 47.0 % [facility] DEPARTMENT OF PATHOLOGY AND GENOMIC MEDICINE MCV 93.6 82.0 - 100.0 fL [facility] DEPARTMENT OF PATHOLOGY AND GENOMIC MEDICINE MCH 30.6 27.0 - 34.0 pg [facility] DEPARTMENT OF PATHOLOGY AND GENOMIC MEDICINE MCHC 32.7 31.0 - 37.0 g/dL [facility] DEPARTMENT OF PATHOLOGY AND GENOMIC MEDICINE RDW - SD 43.3 37.0 - 55.0 fL [facility] DEPARTMENT OF PATHOLOGY AND GENOMIC MEDICINE MPV 9.7 8.8 - 13.2 fL [facility] DEPARTMENT OF PATHOLOGY AND GENOMIC MEDICINE Platelet count 289 150 - 400 k/uL [facility] DEPARTMENT OF PATHOLOGY AND GENOMIC MEDICINE Nucleated RBC 0.00 /100 WBC [facility] DEPARTMENT OF PATHOLOGY AND GENOMIC MEDICINE Neutrophils 51.8 39.0 - 69.0 % [facility] DEPARTMENT OF PATHOLOGY AND GENOMIC MEDICINE Lymphocytes 35.5 25.0 - 45.0 % [facility] DEPARTMENT OF PATHOLOGY AND GENOMIC MEDICINE Monocytes 8.5 0.0 - 10.0 % [facility] DEPARTMENT OF PATHOLOGY AND GENOMIC MEDICINE Eosinophils 3.3 0.0 - 5.0 % [facility] DEPARTMENT OF PATHOLOGY AND GENOMIC MEDICINE Basophils 0.6 0.0 - 1.0 % [facility] DEPARTMENT OF PATHOLOGY AND GENOMIC MEDICINE Immature granulocytes 0.3Comment: "Immature 0.0 - 1.0 % [facility] DEPARTMENT OF granulocytes" (promyelocytes, PATHOLOGY AND myelocytes, metamyelocytes) GENOMIC MEDICINE Specimen Blood Performing Organization Address City/[facility] [place] [address] PATHOLOGY AND GENOMIC MEDICINE * Lipase level (02/19/2018 1:40 PM) Only the most recent of 5 results within the time period is included. Lipase 27 13 - 60 U/L [facility] DEPARTMENT OF PATHOLOGY AND GENOMIC MEDICINE Specimen Plasma specimen Performing Organization Address City/[facility] [place] [address] PATHOLOGY AND GENOMIC MEDICINE * Comprehensive metabolic panel (02/19/2018 1:40 PM) Only the most recent of 10 results within the time period is included. Sodium 143 135 - 148 mEq/L [facility] DEPARTMENT OF PATHOLOGY AND GENOMIC MEDICINE Potassium 4.0 3.5 - 5.0 mEq/L [facility] DEPARTMENT OF PATHOLOGY AND GENOMIC MEDICINE Chloride 104 98 - 112 mEq/L [facility] DEPARTMENT OF PATHOLOGY AND GENOMIC MEDICINE CO2 26 24 - 31 mEq/L [facility] DEPARTMENT OF PATHOLOGY AND GENOMIC MEDICINE Anion gap 13 7 - 15 mEq/L [facility] DEPARTMENT OF Comment: PATHOLOGY AND Starting from February [facility] MEDICINE , anion gap calculation no longer incorporates potassium. Please note the change. BUN 12 6 - 20 mg/dL [facility] DEPARTMENT OF PATHOLOGY AND GENOMIC MEDICINE Creatinine 0.7 0.5 - 0.9 mg/dL [facility] DEPARTMENT OF PATHOLOGY AND GENOMIC MEDICINE Glucose 95 65 - 99 mg/dL [facility] DEPARTMENT OF PATHOLOGY AND GENOMIC MEDICINE Calcium 9.7 8.3 - 10.2 mg/dL [facility] [facility] DEPARTMENT OF PATHOLOGY AND GENOMIC MEDICINE Protein 7.0 6.3 - 8.3 g/dL [facility] DEPARTMENT OF Comment: PATHOLOGY AND GENOMIC MEDICINE 4.6-7.0 g/dL 1 week 4.4-7.6 g/dL 7 months-1year 5.1-7.3 g/dL 1-2 years5.6-7 .5 g/dL >3 years6.0-8 .0 g/dL 18-150 6.3-8.3 g/dL Albumin 3.7 3.5 - 5.0 g/dL [facility] DEPARTMENT OF PATHOLOGY AND GENOMIC MEDICINE A/G ratio 1.1 0.7 - 3.8 [facility] DEPARTMENT OF PATHOLOGY AND GENOMIC MEDICINE Alkaline phosphatase 63 35 - 104 U/L [facility] DEPARTMENT OF PATHOLOGY AND GENOMIC MEDICINE AST 17 10 - 35 U/L [facility] DEPARTMENT OF PATHOLOGY AND GENOMIC MEDICINE ALT 12 5 - 50 U/L [facility] DEPARTMENT OF PATHOLOGY AND GENOMIC MEDICINE Total bilirubin 1.3 (H) 0.0 - 1.2 mg/dL [facility] DEPARTMENT OF PATHOLOGY AND GENOMIC MEDICINE Specimen Plasma specimen Performing Organization Address City/State/Zipcode Phone Number [facility] DEPARTMENT OF [address] [place] [address] PATHOLOGY AND GENOMIC MEDICINE * ECG 12 lead (02/19/2018 1:30 PM) Only the most recent of 3 results within the time period is included. Ventricular rate 130 [facility] MUSE Atrial rate 130 [facility] MUSE VA interval 124 HM MUSE QRSD interval 76 [facility] MUSE QT interval 306 [facility] MUSE QTC interval 450 [facility] MUSE P axis 1 77 HM MUSE QRS axis 1 76 [facility] MUSE T wave axis 64 [facility] MUSE EKG impression Sinus tachycardia-Right atrial [facility] MUSE enlargement-Borderline ECG-In automated comparison with ECG of 31-DEC-2017 16:50,-No significant change was found- Performing Organization Address [facility] Phone Number [facility] MUSE [address] [place] [address] * CTA Neck W Wo Contrast (01/03/2018 7:10 PM) Narrative Performed At EXAMINATION:CT ANGIOGRAM NECK W WO CONTRAST [facility] COMPARISON:None CLINICAL HISTORY:altered mental status TECHNIQUE: 3-D and MPR reconstructed images are submitted. Up to date CT equipment and radiation dose reduction technique were utilized. FINDINGS: There is a tiny atherosclerotic plaque at the left bifurcation. However, using NASCET criteria, there is no significant stenosis. The right bifurcation is unremarkable. The vertebral and internal carotid arteries are otherwise unremarkable without evidence of dissection. IMPRESSION: Unremarkable study. 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 Up to date CT equipment and radiation dose reduction technique were utilized. FINDINGS: There is a tiny atherosclerotic plaque at the left bifurcation. However, using NASCET criteria, there is no significant stenosis. The right bifurcation is unremarkable. The vertebral and internal carotid arteries are otherwise unremarkable without evidence of dissection. IMPRESSION: Unremarkable study. [facility]-[id number] Performing Organization Address [facility] Phone Number [facility] [address] [place] [address] * CTA Head W Wo Contrast (01/03/2018 7:10 PM) Narrative Performed At EXAMINATION:CT ANGIOGRAM HEAD W WO CONTRAST [facility] COMPARISON:None CLINICAL HISTORY:altered mental status TECHNIQUE: 3-D and MPR images are submitted. Up to date CT equipment and radiation dose reduction technique were utilized. FINDINGS: There are no stenoses and no aneurysms. There is no evidence of spasm or dissection. There are no significant anatomic variants. IMPRESSION: Normal study. 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 Up to date CT equipment and radiation dose reduction technique were utilized. FINDINGS: There are no stenoses and no aneurysms. There is no evidence of spasm or dissection. There are no significant anatomic variants. IMPRESSION: Normal study. [facility]-[id number] Performing Organization Address City/[facility] Phone Number [facility] [address] [place] [address] * EEG (routine) (01/01/2018 9:00 PM) Impressions Performed At This abnormal electroencephalogram shows evidence of a mild generalized [facility] DEPARTMENT OF encephalopathy.No epileptiform activity is seen. PATHOLOGY AND Stacia Cano MD GENOMIC MEDICINE Narrative Performed At [facility] DEPARTMENT OF REFERRING PHYSICIAN: Dr Zazueta PATHOLOGY AND INTRODUCTION: GENOMIC MEDICINE The patient is a 57-year-old lady with altered mental status. EEG was performed to evaluate for seizures or other focal abnormalities. TECHNIQUE: This is a routine electroencephalogram recorded using the International 10/20 electrode placement system. The EEG is technically adequate for interpretation. FINDINGS: The background consists of frequencies in the theta range.There is superimposed diffuse low-voltage activity.No clear posterior dominant rhythm is seen. With the onset of drowsiness, there is mild attenuation and slowing of the background rhythm.No sleep patterns are seen. No epileptiform discharges, focal or lateralizing abnormalities are seen. Photic stimulation was performed with no abnormalities elicited. Performing Organization Address City/[facility] Phone Number [facility] [place] [place] [address] [place] [address] PATHOLOGY AND GENOMIC MEDICINE * MRI Brain W Wo Contrast (01/01/2018 8:49 PM) Narrative Performed At EXAMINATION:MRI BRAIN W WO CONTRAST [facility] COMPARISON: and December [address] CLINICAL HISTORY:altered mental statusrenal mass FINDINGS: Again noted is a prominent perivascular space on the right. There is one punctate focus of small vessel ischemic change in the left perifrontal white matter. There is no other abnormal signal intensity and no abnormal enhancement. No mass or extra-axial fluid collection. Intervals and sulci are normal in size shape and position. The major arteries and dural sinuses are patent. The sellar and pineal regions are normal. The craniovertebral junction and visualized portion of the upper cord are unremarkable. IMPRESSION: Unremarkable study. [facility]-[id number] Procedure Note Hm Interface, Radiology Results Incoming - 01/01/2018 8:58 PM DECORATING MACHINE TENDER EXAMINATION: MRI BRAIN W WO CONTRAST COMPARISON: and December [address] CLINICAL HISTORY: altered mental status renal mass FINDINGS: Again noted is a prominent perivascular space on the right. There is one punctate focus of small vessel ischemic change in the left perifrontal white matter. There is no other abnormal signal intensity and no abnormal enhancement. No mass or extra-axial fluid collection. Intervals and sulci are normal in size shape and position. The major arteries and dural sinuses are patent. The sellar and pineal regions are normal. The craniovertebral junction and visualized portion of the upper cord are unremarkable. IMPRESSION: Unremarkable study. [facility]-[id number] Performing Organization Address City/[facility]/Zipcode Phone Number [facility] [address] [place] [address] * Lactic acid level, SEPSIS - Now and repeat 2x every 3 hours (12/31/2017 11:16 PM) Only the most recent of 3 results within the time period is included. Lactic acid 0.6 0.5 - 2.2 mmol/L [facility] DEPARTMENT OF PATHOLOGY AND GENOMIC MEDICINE Specimen Plasma specimen Performing Organization Address City/[facility]/Zipcode Phone Number [facility] [place] [address] [place] [address] PATHOLOGY AND GENOMIC MEDICINE * Respiratory pathogen panel (12/31/2017 10:28 PM) Only the most recent of 3 results within the time period is included. Respiratory pathogen Negative for all pathogens [facility] DEPARTMENT OF panel tested: PATHOLOGY AND Negative for Adenovirus GENOMIC MEDICINE Negative for Coronavirus HKU1 Negative for Coronavirus NL63 Negative for Coronavirus 229E Negative for Coronavirus OC43 Negative for Human Metapneumovirus Negative for Rhinovirus/Enterovirus Negative for Influenza A Negative for Influenza A/H1 Negative for Influenza A/H3 Negative for Influenza A/H1-2009 Negative for Influenza B Negative for Parainfluenza Virus 1 Negative for Parainfluenza Virus 2 Negative for Parainfluenza Virus 3 Negative for Parainfluenza Virus 4 Negative for Respiratory Syncytial Virus Negative for Bordetella pertussis Negative for Chlamydophila pneumoniae Negative for Mycoplasma pneumoniae This real-time PCR assay detects the presence of nucleic acids (RNA or DNA) for the respiratory pathogens listed. A result of "Not-detected" does not exclude the possibility of the presence of one or more pathogens at concentrations less than the detectable limits of the assay. Comment: Specimen Information Specimen Source: Nares Specimen Site: Right and left lobes Specimen Nares - Right and left lobes Performing Organization Address City/State/Zipcode Phone Number [facility] DEPARTMENT OF [address] [place] [address] PATHOLOGY AND GENOMIC MEDICINE * Urine drugs of abuse screen (12/31/2017 4:34 PM) Only the most recent of 2 results within the time period is included. Amphetamine screen, urine Negative [facility] DEPARTMENT OF PATHOLOGY AND GENOMIC MEDICINE Methamphetamine screen, Negative [facility] DEPARTMENT OF urine PATHOLOGY AND GENOMIC MEDICINE Barbiturate screen, urine Negative [facility] DEPARTMENT OF PATHOLOGY AND GENOMIC MEDICINE Benzodiazepine screen, Positive (A) [facility] DEPARTMENT OF urine PATHOLOGY AND GENOMIC MEDICINE Cocaine screen, urine Negative [facility] DEPARTMENT OF PATHOLOGY AND GENOMIC MEDICINE Methadone screen, urine Negative [facility] DEPARTMENT OF PATHOLOGY AND GENOMIC MEDICINE Opiates screen, urine Negative [facility] DEPARTMENT OF PATHOLOGY AND GENOMIC MEDICINE Phencyclidine screen, Negative [facility] DEPARTMENT OF urine PATHOLOGY AND GENOMIC MEDICINE Cannabinoid screen, urine Positive (A) [facility] DEPARTMENT OF PATHOLOGY AND GENOMIC MEDICINE Tricyclic screen, urine Positive (A) [facility] DEPARTMENT OF Comment: PATHOLOGY AND Drug screen minimum [facility] MEDICINE concentration of detectability Amphetamines 1000 ng/mL Methamphetamines 1000 ng/mL Barbiturates 300 ng/mL Benzodiazepines 300 ng/mL Cocaine 300 ng/mL Methadone 300 ng/mL Opiates 300 ng/mL Phencyclidine 25 ng/mL Cannabinoids 50 ng/mL Tricyclics 1000 ng/mL Negative test results indicates presumptive evidence of lack of clinically significant drug concentration in this urine specimen. Positive test results are presumptive evidence of clinically significant drug concentration in this urine specimen. Testing performed for medical purposes only. Specimen Urine Performing Organization Address City/[facility]/Zipcode Phone Number [facility] [place] [place] [address] [place] [address] PATHOLOGY AND GENOMIC MEDICINE * Partial thromboplastin time, activated (12/31/2017 4:34 PM) Only the most recent of 3 results within the time period is included. PTT 27.5 23.0 - 36.0 sec [facility] DEPARTMENT OF Comment: PATHOLOGY AND PTT therapeutic range for GENOMIC MEDICINE unfractionated heparin is 61.0-112.0 seconds which corresponds to Anti-Xa 0.3-0.7 U/ml. Specimen Blood Performing Organization Address [facility] Phone Number [address] [place] [address] PATHOLOGY AND [employer] MED[facility]INE * Prothrombin time with INR (12/31/2017 4:34 PM) Only the most recent of 4 results within the time period is included. Prothrombin time 11.6 (L) 12.0 - 15.0 sec [facility] DEPARTMENT OF PATHOLOGY AND [employer] [facility]INE INR 0.8 [facility] DEPARTMENT OF Comment: PATHOLOGY AND The International Normalized [facility] Ratio (INR) is a therapeutic monitoring tool for patients who are stable on oral anticoagulant therapy. An INR of 2.0-3.0 is suggested for deep vein thrombosis/pulmonary embolism. Specimen Blood Performing Organization Address [facility] Phone Number [address] [place] [address] PATHOLOGY AND [employer] [facility]INE * Troponin (12/31/2017 4:04 PM) Only the most recent of 3 results within the time period is included. Troponin <0.300 0.000 - 0.300 ng/mL [facility] DEPARTMENT OF Comment: PATHOLOGY AND 0.30 - 1.49 GENOMIC MEDICINE ng/mlMay indicate increased risk of acute coronary syndrome. >=1.5 ng/ml Consistent with acute myocardial infarction. The diagnostic value of a single normal or non-diagnostic result is questionable.Serial samples at 2-6 hour intervals are required to rule out acute myocardial injury. Specimen Plasma specimen Performing Organization Address [facility] Phone Number [address] [place] [address] PATHOLOGY AND [employer] [facility]INE * Thyroid stimulating hormone (12/31/2017 4:04 PM) Only the most recent of 2 results within the time period is included. TSH 0.38 0.27 - 4.20 uIU/mL [facility] DEPARTMENT OF PATHOLOGY AND [employer] [facility]ICINE Specimen Plasma specimen Performing Organization Address [facility]/Zipcode Phone Number [address] [place] [address] PATHOLOGY AND GENOMIC MEDICINE * T4 (12/31/2017 4:04 PM) T4 9.5 4.5 - 11.7 ug/dL [facility] DEPARTMENT OF PATHOLOGY AND GENOMIC MEDICINE Specimen Plasma specimen Performing Organization Address [facility] Phone Number [address] [place] [address] PATHOLOGY AND GENOMIC MEDICINE * B natriuretic peptide (12/31/2017 4:04 PM) BNP 11 0 - 100 pg/mL [facility] DEPARTMENT OF PATHOLOGY AND GENOMIC MEDICINE Specimen Blood Performing Organization Address [facility] Phone Number [address] [place] [address] PATHOLOGY AND GENOMIC MEDICINE * Alcohol level, blood (12/31/2017 4:04 PM) Alcohol None Detected mg/dL [facility] DEPARTMENT OF Comment: PATHOLOGY AND Normal GENOMIC MEDICINE None Detected Legal Intoxication in [place]80 mg/dL (0.08%) - Whole Blood Toxic Concentration 200 mg/dL (0.2%) Potentially Fatal3 50 - 500 mg/dL (0.35 - 0.5%) Alcohol percent None Detected % [facility] DEPARTMENT OF PATHOLOGY AND GENOMIC MEDICINE Specimen Plasma specimen Performing Organization Address [facility] Phone Number [address] [place] [address] PATHOLOGY AND GENOMIC MEDICINE * CT Head Wo Contrast (12/31/2017 3:39 PM) Narrative Performed At EXAMINATION: CT HEAD WO CONTRAST HM [facility] CLINICAL HISTORY: AMS COMPARISON:CT brain noncontrast January 30, 2016 TECHNIQUE: Noncontrast enhanced images of the brain were obtained from the skull base to the vertex. Both soft tissue and bone reconstruction algorithms were performed. CT imaging was performed with iterative reconstruction technique and/or automated exposure control to reduce radiation dose. FINDINGS: The brain parenchyma is unremarkable. The tompkins-white matter differentiation is preserved. No evidence of acute intra or extra-axial hemorrhage, mass, mass effect or acute territorial infarction. There is no acute hydrocephalus. Basal cisterns are patent. Stable large perivascular space right basal ganglia unchanged. No acute soft tissue hematoma or laceration. Paranasal sinuses shows no acute air-fluid levels.Minimal chronic mucoperiosteal thickening anterior ethmoid air cells. Mastoid air cells are clear.No skull fractures or aggressive bony lesions. IMPRESSION: No acute intracranial abnormality identified. Prominent Virchow-Chuck space right basal ganglia unchanged [id number] Procedure Note Interface, Radiology Results Incoming - 12/31/2017 3:47 PM DECORATING MACHINE TENDER EXAMINATION: CT HEAD WO CONTRAST CLINICAL HISTORY: AMS COMPARISON: CT brain noncontrast January 30, 2016 TECHNIQUE: Noncontrast enhanced images of the brain were obtained from the skull base to the vertex. Both soft tissue and bone reconstruction algorithms were performed. CT imaging was performed with iterative reconstruction technique and/or automated exposure control to reduce radiation dose. FINDINGS: The brain parenchyma is unremarkable. The tompkins-white matter differentiation is preserved. No evidence of acute intra or extra-axial hemorrhage, mass, mass effect or acute territorial infarction. There is no acute hydrocephalus. Basal cisterns are patent. Stable large perivascular space right basal ganglia unchanged. No acute soft tissue hematoma or laceration. Paranasal sinuses shows no acute air-fluid levels. Minimal chronic mucoperiosteal thickening anterior ethmoid air cells. Mastoid air cells are clear. No skull fractures or aggressive bony lesions. IMPRESSION: No acute intracranial abnormality identified. Prominent Virchow-Chuck space right basal ganglia unchanged [id number] Performing Organization Address [facility] Phone Number [employer] [address] [place] [address] * XR Chest 1 Vw Portable (12/31/2017 3:33 PM) Only the most recent of 2 results within the time period is included. Narrative Performed At EXAMINATION:XR CHEST 1 VW PORTABLE [facility] CLINICAL HISTORY:Chest Pain COMPARISON:November 10, 2017 chest IMPRESSION: Unremarkable single view chest The lungs are clear. The heart is not enlarged. The bony structures are within normal limits. [id number] Procedure Note Interface, Radiology Results Incoming - 12/31/2017 3:38 PM DECORATING MACHINE TENDER EXAMINATION: XR CHEST 1 VW PORTABLE CLINICAL HISTORY: Chest Pain COMPARISON: November 10, 2017 chest IMPRESSION: Unremarkable single view chest The lungs are clear. The heart is not enlarged. The bony structures are within normal limits. [id number] Performing Organization Address [facility] Phone Number [facility] [address] [place] [address] * ECG ED Preliminary Interpretation - NOT AN ORDER (12/31/2017 3:11 PM) Only the most recent of 2 results within the time period is included. Narrative Performed At Kelsy Christian MD 12/31/20176:46 PM ECG ED Preliminary Interpretation - Not an Order Performed by: KELSY CHRISTIAN Authorized by: KELSY CHRISTIAN ECG reviewed by ED Physician in the absence of a radiology technologist: yes Interpretation: Interpretation: normal Rate: ECG rate:89 ECG rate assessment: normal Rhythm: Rhythm: sinus rhythm Ectopy: Ectopy: none QRS: QRS axis:Normal Conduction: Conduction: normal ST segments: ST segments:Normal T waves: T waves: normal * Gram stain (12/29/2017 3:50 PM) Only the most recent of 4 results within the time period is included. Gram stain result No WBC's [facility] DEPARTMENT OF Occasional Gram positive rods PATHOLOGY AND Comment: GENOMIC MEDICINE Specimen Information Specimen Source: Urine Specimen Site: Clean catch Specimen Urine Performing Organization Address City/[facility] [place] [place] [address] PATHOLOGY AND GENOMIC MEDICINE * Magnesium level (11/12/2017 4:35 AM) Magnesium 2.0 1.6 - 2.6 mg/dL [facility] DEPARTMENT OF PATHOLOGY AND GENOMIC MEDICINE Specimen Plasma specimen Performing Organization Address [facility] [place] [address] PATHOLOGY AND GENOMIC MEDICINE * Basic metabolic panel (11/12/2017 4:35 AM) Only the most recent of 2 results within the time period is included. Sodium 145 135 - 148 mEq/L [facility] DEPARTMENT OF PATHOLOGY AND GENOMIC MEDICINE Potassium 3.2 (L) 3.5 - 5.0 mEq/L [facility] DEPARTMENT OF PATHOLOGY AND GENOMIC MEDICINE Chloride 111 98 - 112 mEq/L [facility] DEPARTMENT OF PATHOLOGY AND GENOMIC MEDICINE CO2 23 (L) 24 - 31 mEq/L [facility] DEPARTMENT OF PATHOLOGY AND GENOMIC MEDICINE Anion gap 11 7 - 15 mEq/L [facility] DEPARTMENT OF Comment: PATHOLOGY AND Starting from February [employer] [facility]INE , anion gap calculation no longer incorporates potassium. Please note the change. BUN 12 6 - 20 mg/dL [facility] DEPARTMENT OF PATHOLOGY AND GENOMIC MEDICINE Creatinine 0.6 0.5 - 0.9 mg/dL [facility] DEPARTMENT OF PATHOLOGY AND GENOMIC MEDICINE Glucose 86 65 - 99 mg/dL [facility] DEPARTMENT OF PATHOLOGY AND GENOMIC MEDICINE Calcium 8.4 8.3 - 10.2 mg/dL [facility] DEPARTMENT OF PATHOLOGY AND GENOMIC MEDICINE Specimen Plasma specimen Performing Organization Address City/[facility] [place] [address] PATHOLOGY AND GENOMIC MEDICINE * Manual differential (11/11/2017 5:00 AM) Only the most recent of 2 results within the time period is included. Manual differential PERFORMED [facility] DEPARTMENT OF PATHOLOGY AND GENOMIC MEDICINE Neutrophils 29.0 (L) 39.0 - 69.0 % [facility] DEPARTMENT OF PATHOLOGY AND GENOMIC MEDICINE Lymphocytes 58.0 (H) 25.0 - 45.0 % [facility] DEPARTMENT OF PATHOLOGY AND GENOMIC MEDICINE Monocytes 9.0 0.0 - 10.0 % [facility] DEPARTMENT OF PATHOLOGY AND GENOMIC MEDICINE Eosinophils 3.0 0.0 - 5.0 % [facility] DEPARTMENT OF PATHOLOGY AND GENOMIC MEDICINE Basophils 0.0 0.0 - 1.0 % [facility] DEPARTMENT OF PATHOLOGY AND GENOMIC MEDICINE Metamyelocytes 0 % [facility] DEPARTMENT OF PATHOLOGY AND GENOMIC MEDICINE Promyelocytes 0 % [facility] DEPARTMENT OF PATHOLOGY AND GENOMIC MEDICINE Plasma cells 1 % [facility] DEPARTMENT OF PATHOLOGY AND GENOMIC MEDICINE Platelet slide review Alanna adequate [facility] [facility] DEPARTMENT OF PATHOLOGY AND GENOMIC MEDICINE Performing Organization Address [facility] Phone Number [facility] [place] [address] PATHOLOGY AND [employer] MEDICINE * Lactic acid level (11/11/2017 5:00 AM) Only the most recent of 3 results within the time period is included. Lactic acid 1.0 0.5 - 2.2 mmol/L [facility] DEPARTMENT OF PATHOLOGY AND GENOMIC MEDICINE Specimen Plasma specimen Performing Organization Address City/[facility] [place] [address] PATHOLOGY AND GENOMIC MEDICINE * CT Chest W Contrast Abdomen W Contrast Pelvis W Contrast (11/10/2017 5:20 PM) Narrative Performed At EXAMINATION:CT CHEST W CONTRAST ABDOMEN W CONTRAST PELVIS W CONTRAST HM [facility] CLINICAL HISTORY:tachycardiaabd pain TECHNIQUE:Multiple axial images of the chest, abdomen, and pelvis were obtained following intravenous administration of iodinated contrast. CT imaging was performed with iterative reconstruction technique and/or automated exposure control to reduce radiation dose. COMPARISON:10/24/2017 IMPRESSION: CHEST: 1. Aorta: Minimal calcification of the thoracic aorta. No aneurysm. 2. Heart: The heart is normal in size. Minimal coronary artery calcifications. 3. Pericardial Fluid: No pericardial effusion. 3. Mediastinum: No enlarged mediastinal or hilar lymphadenopathy. No mediastinal mass. 4. Airways: Central airways are patent. 5. Lungs: No acute infiltrates or suspicious pulmonary nodules or masses. The lungs are clear. 6. Pleural Fluid: No pleural effusions. 7. Bones: Degenerative changes of the osseous structures. No suspicious lesions. ABDOMEN: 1. Liver: There is fatty infiltration of liver. No focal mass. 2. Gallbladder: The gallbladder is normal. 3. Spleen: The spleen is not enlarged. 4. Pancreas: The pancreas is unremarkable. 5. Adrenal Glands: The adrenal glands are unremarkable. 6. Kidneys: Stable 1.6 cm enhancing mass in the lower pole medially in the left kidney. Small cyst in the left kidney. No change. The right kidney is unremarkable. No hydronephrosis. 7. Abdominal Aorta: Calcification of the abdominal aorta is noted. No aneurysm. 8. Nodes: No enlarged retroperitoneal or mesenteric lymphadenopathy. 9. Bowel: No bowel obstruction or inflammation. Diverticulosis without evidence of diverticulitis. The appendix is not seen. No inflammatory changes in the right lower quadrant. 10. Ascites: No ascites or fluid collections. PELVIS: 1.Pelvis: No mass, fluid collection or significant adenopathy. 2. Bones: Degenerative changes of the osseous structures. No suspicious lesions. 3. Other Findings: None [id number] Procedure Note [facility], Radiology Results [facility] - 11/10/2017 6:05 PM DECORATING MACHINE TENDER EXAMINATION: CT CHEST W CONTRAST ABDOMEN W CONTRAST PELVIS W CONTRAST CLINICAL HISTORY: tachycardia abd pain TECHNIQUE: Multiple axial images of the chest, abdomen, and pelvis were obtained following intravenous administration of iodinated contrast. CT imaging was performed with iterative reconstruction technique and/or automated exposure control to reduce radiation dose. COMPARISON: 10/24/2017 IMPRESSION: CHEST: 1. Aorta: Minimal calcification of the thoracic aorta. No aneurysm. 2. Heart: The heart is normal in size. Minimal coronary artery calcifications. 3. Pericardial Fluid: No pericardial effusion. 3. Mediastinum: No enlarged mediastinal or hilar lymphadenopathy. No mediastinal mass. 4. Airways: Central airways are patent. 5. Lungs: No acute infiltrates or suspicious pulmonary nodules or masses. The lungs are clear. 6. Pleural Fluid: No pleural effusions. 7. Bones: Degenerative changes of the osseous structures. No suspicious lesions. ABDOMEN: 1. Liver: There is fatty infiltration of liver. No focal mass. 2. Gallbladder: The gallbladder is normal. 3. Spleen: The spleen is not enlarged. 4. Pancreas: The pancreas is unremarkable. 5. Adrenal Glands: The adrenal glands are unremarkable. 6. Kidneys: Stable 1.6 cm enhancing mass in the lower pole medially in the left kidney. Small cyst in the left kidney. No change. The right kidney is unremarkable. No hydronephrosis. 7. Abdominal Aorta: Calcification of the abdominal aorta is noted. No aneurysm. 8. Nodes: No enlarged retroperitoneal or mesenteric lymphadenopathy. 9. Bowel: No bowel obstruction or inflammation. Diverticulosis without evidence of diverticulitis. The appendix is not seen. No inflammatory changes in the right lower quadrant. 10. Ascites: No ascites or fluid collections. PELVIS: 1. Pelvis: No mass, fluid collection or significant adenopathy. 2. Bones: Degenerative changes of the osseous structures. No suspicious lesions. 3. Other Findings: None [facility]-[id number] Performing Organization Address City/State/Zipcode Phone Number [facility] [address] [place] [address] * US Gallbladder (10/25/2017 7:15 AM) Narrative Performed At [facility] CLINICAL INDICATION:Cholecystitis COMPARISON:01/07/2017 FINDINGS: GALLBLADDER:No calculus or wall thickening. No findings for cholecystitis. CBD:CBD is normal in caliberand measures 5 mm. MAIN PORTAL VEIN:Doppler evaluation of the portal vein demonstrates normal hepatopedal flow. OTHER COMMENTS:Visualized portions of liver are homogeneous without mass. IMPRESSION: Negative gallbladder ultrasound. No findings for cholecystitis. Thank you for allowing us to participate in the care of your patient. [id number] Procedure Note Interface, Radiology Results Incoming - 10/25/2017 7:19 AM DECORATING MACHINE TENDER US GALLBLADDER CLINICAL INDICATION: Cholecystitis COMPARISON: 01/07/2017 FINDINGS: GALLBLADDER: No calculus or wall thickening. No findings for cholecystitis. CBD: CBD is normal in caliber and measures 5 mm. MAIN PORTAL VEIN: Doppler evaluation of the portal vein demonstrates normal hepatopedal flow. OTHER COMMENTS: Visualized portions of liver are homogeneous without mass. IMPRESSION: Negative gallbladder ultrasound. No findings for cholecystitis. Thank you for allowing us to participate in the care of your patient. [id number] Performing Organization Address City/State/Zipcode Phone Number [facility] [address] [place] [address] * CT Abdomen Pelvis W Contrast (10/24/2017 11:35 AM) Narrative Performed At EXAMINATION:[facility]BDOM[facility]EL[facility]:ABDOMINAL PAIN TECHNIQUE: Multiple axial images of the abdomen and pelvis were obtained following intravenous administration of iodinated contrast. Sagittal and coronal computerized reformatted images were also obtained. CT imaging was performed with iterative reconstruction technique and/or automated exposure control to reduce radiation dose. COMPARISON: August 16, 2017 CT abdomen pelvis FINDINGS: The lung bases are clear. There is no free intraperitoneal air or fluid. Abdomen: There is mild fatty infiltration of the liver. No focal hepatic abnormality. No abnormal enhancement. Gallbladder grossly unremarkable. No biliary distention. Portal veins patent. Spleen unremarkable. Adrenal glands normal size. Abdominal aorta normal caliber. Atherosclerosis abdominal aorta moderate in degree. No periaortic adenopathy. Symmetrical function from each kidney. 2.1 cm complex cyst medial aspect left kidney inferiorly similar to previous. Hounsfield units of 46. Less than 1 cm benign cortical cyst left mid kidney lateral posterior aspect unchanged as well. No tract calculi. No hydronephrosis. No bowel obstruction in the abdomen. Pelvis: Scattered fecal material in the colon. No bowel obstruction or distention. No diverticulitis. Appendix not identified. Uterus grossly unremarkable. No adnexal masses Bladder unremarkable in appearance as well. Punctate benign phleboliths in the pelvis as on previous. No ureteral distention or calculus. Minimal degenerative changes in the lower thoracic and upper lumbar spine. No compressive abnormality IMPRESSION: 2.1 cm complex enhancing cystic mass medial aspect left kidney stable in appearance compared to previous studies Additional 1 cm benign appearing cortical cyst left mid kidney unchanged as well. 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 Sagittal and coronal computerized reformatted images were also obtained. CT imaging was performed with iterative reconstruction technique and/or automated exposure control to reduce radiation dose. COMPARISON: August 16, 2017 CT abdomen pelvis FINDINGS: The lung bases are clear. There is no free intraperitoneal air or fluid. Abdomen: There is mild fatty infiltration of the liver. No focal hepatic abnormality. No abnormal enhancement. Gallbladder grossly unremarkable. No biliary distention. Portal veins patent. Spleen unremarkable. Adrenal glands normal size. Abdominal aorta normal caliber. Atherosclerosis abdominal aorta moderate in degree. No periaortic adenopathy. Symmetrical function from each kidney. 2.1 cm complex cyst medial aspect left kidney inferiorly similar to previous. Hounsfield units of 46. Less than 1 cm benign cortical cyst left mid kidney lateral posterior aspect unchanged as well. No tract calculi. No hydronephrosis. No bowel obstruction in the abdomen. Pelvis: Scattered fecal material in the colon. No bowel obstruction or distention. No diverticulitis. Appendix not identified. Uterus grossly unremarkable. No adnexal masses Bladder unremarkable in appearance as well. Punctate benign phleboliths in the pelvis as on previous. No ureteral distention or calculus. Minimal degenerative changes in the lower thoracic and upper lumbar spine. No compressive abnormality IMPRESSION: 2.1 cm complex enhancing cystic mass medial aspect left kidney stable in appearance compared to previous studies Additional 1 cm benign appearing cortical cyst left mid kidney unchanged as well. Fatty infiltration of the liver Otherwise unremarkable CT abdomen and pelvis [id number] Performing Organization Address [facility] Hospital[facility] Phone Number [facility] [address] [place] [address] * Amylase level (10/24/2017 10:40 AM) Only the most recent of 2 results within the time period is included. Amylase 55 13 - 73 U/L [facility] DEPARTMENT OF PATHOLOGY AND GENOMIC MEDICINE Specimen Plasma specimen Performing Organization Address [facility] Hospital[facility] Phone Number [address] [place] [address] PATHOLOGY AND GENOMIC MEDICINE * Creatine kinase, total (CPK) (09/05/2017 11:22 AM) Creatine kinase 49 26 - 192 U/L [facility] DEPARTMENT OF PATHOLOGY AND GENOMIC MEDICINE Specimen Plasma specimen Performing Organization Address [facility]/State/Zipcode Phone Number [facility] [place] [address] [place] [address] PATHOLOGY AND GENOMIC MEDICINE * CT Abdomen Pelvis W Wo Contrast (08/16/2017 2:59 PM) Narrative Performed At [facility] EXAMINATION:CT ABDOMEN PELVIS W WO CONTRAST CLINICAL HISTORY:PAINPELVIS, follow up on left kidney massabdominalpelvic pain TECHNIQUE: CT of the abdomen and pelvis was performed without contrast utilizing renal stone protocol. Subsequently, postcontrast CT of the abdomen and pelvis was obtained with multiphase renal mass and CT urogram protocol. Sagittal and coronal computerized reformatted images were also obtained. COMPARISON:December 26, 2015 FINDINGS: The liver and spleen appear normal in size. The liver demonstrates mild fatty infiltration. The gallbladder, adrenal glands pancreas appear unremarkable. The right kidney appears within normal limits. The left kidney is again noted to contain a small heterogeneously enhancing mass in the lower pole medially this measures approximately 2.2 x 2.2 cm which is consistent with malignant neoplasm and is increased slightly from previous at which time it measured 1.7 x 1.6 x 1.7 cm. There are no abnormal lymph nodes adjacent. The renal vein appears well-maintained. No extension into the adjacent fat is identified. The right kidney appears within normal limits. The urinary bladder appears unremarkable. There is no free fluid in the cul-de-sac or elsewhere in the abdomen or pelvis. IMPRESSION: 1. Increase in size in the malignant appearing small mass along the lower pole medially of the left kidney and clinical correlation is needed. There is no current evidence of distant metastatic disease. 2. The right kidney appears within normal limits. 3. Mild diffuse fatty infiltration of the liver . [id number] Procedure Note Interface, Radiology Results Incoming - 08/16/2017 3:21 PM CDT EXAMINATION: CT ABDOMEN PELVIS W WO CONTRAST CLINICAL HISTORY: PAIN PELVIS, follow up on left kidney mass abdominal pelvic pain TECHNIQUE: CT of the abdomen and pelvis was performed without contrast utilizing renal stone protocol. Subsequently, postcontrast CT of the abdomen and pelvis was obtained with multiphase renal mass and CT urogram protocol. Sagittal and coronal computerized reformatted images were also obtained. COMPARISON: December 26, 2015 FINDINGS: The liver and spleen appear normal in size. The liver demonstrates mild fatty infiltration. The gallbladder, adrenal glands pancreas appear unremarkable. The right kidney appears within normal limits. The left kidney is again noted to contain a small heterogeneously enhancing mass in the lower pole medially this measures approximately 2.2 x 2.2 cm which is consistent with malignant neoplasm and is increased slightly from previous at which time it measured 1.7 x 1.6 x 1.7 cm. There are no abnormal lymph nodes adjacent. The renal vein appears well-maintained. No extension into the adjacent fat is identified. The right kidney appears within normal limits. The urinary bladder appears unremarkable. There is no free fluid in the cul-de-sac or elsewhere in the abdomen or pelvis. IMPRESSION: 1. Increase in size in the malignant appearing small mass along the lower pole medially of the left kidney and clinical correlation is needed. There is no current evidence of distant metastatic disease. 2. The right kidney appears within normal limits. 3. Mild diffuse fatty infiltration of the liver . [id number] Performing Organization Address City/State/Zipcode Phone Number [facility] [address] [place] [address] after 08/15/2017 Insurance Payer Benefit Subscriber ID Type Phone Address Plan / Group BCBS BCBS OUT xxxxxxxxxxxx PPO OF STATE
--- OUTSIDE RECORDS SUMMARY | 2018-08-26 11:23 | XMS REPORT ---
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 Allergies, Adverse Reactions, Alerts This patient has no known allergies or adverse reactions. Medications This patient has no known medications. Results Test Description Test Time Test Comments Text Results Atomic Results Result Comments MRI WRIST RIGHT WO 2018-08-18 14:08:00 [facility] [address] [address] Patient Name: RJ FISCHER MR #: [id number] : 1960 Age/Sex: 57/F Req #: [id number] [facility] Physician: LUX BALLARD MD Ordered by: KENN ROBLES MD Report #: [id number] Location: [facility] Room/Bed: [place] [address] Procedure: [id number] MRI/MRI WRIST RIGHT WO Exam Date: Exam Time: REPORT STATUS: Signed TECHNIQUE: Magnetic resonance imaging of the RIGHT WRIST was performed WITHOUT injected contrast, on a 1.5 milo magnet. HISTORY: Pain, fall COMPARISON: None available. FINDINGS: Bone and bone marrow: Bone marrow edema within the volar lunate. The osseous alignment is within normal limits. Joints: Fluid within the joints is within physiologic limits. The joints spaces are well maintained. Ligaments: Scapholunate: Intact Lunotriquetral: Intact Triangular fibrocartilage complex: Intact Extrinsic ligaments: Mild edema in the dorsal carpal ligaments. Tendons: The flexor and extensor tendons are intact. Carpal tunnel: The median nerve is within normal limits. Other soft tissues: Otherwise, unremarkable. IMPRESSION: Mild edema/contusion in the volar lunate. No fracture. Dorsal carpal extrinsic ligament sprain. Signed by: Dr. Mery Jin M.D. on 08/18/2018 2:15 PM Dictated By: MERY JIN MD 14 Transcribed By: SYLVIA on 08/18/181414 COPY TO: KENN ROBLES MD WRIST COMPLETE LEFT 2018-08-16 17:53:00 [place] [address] Patient Name: RJ FISCHER MR #: [id number] : 1960 Age/Sex: 57/F Req #: [id number] Adm Physician: Ordered by: ELVIA CHAU BRIM SHAPER Report #: [id number] Location: ER Room/Bed: Procedure: [id number] DX/WRIST COMPLETE LEFT Exam Date: 08/16/18 Exam Time: 1532 REPORT STATUS: Signed RIGHT SHOULDER, ELBOW, HAND, WRIST 2-3 VIEWS HISTORY: Pain status post fall COMPARISON: None FINDINGS: Bones: No displaced fracture. Incidentally noted, there is a bony exostosis at the attachment of the lateral epicondyle ligament. Osseous alignment is within normal limits. Joints: The joint spaces are well-maintained. Soft tissues: The soft tissues appear unremarkable. IMPRESSION: 1. No acute radiographic abnormality. 2. Incidentally found changes related to lateral epicondylitis Signed by: Dr. Dejan Lu M.D. on 08/16/2018 5:56 PM Dictated By: DEJAN RESENDIZ MD 55 Transcribed By: SYLVIA on 08/16/181755 COPY TO: ELVIA CHAU NP HAND 3+ VIEWS LEFT 2018-08-16 17:53:00 [place] [address] Patient Name: RJ FISCHER MR #: [id number] : 1960 Age/Sex: 57/F Req #: [id number] Adm Physician: Ordered by: ELVIA CHAU NP Report #: [id number] Location: ER Room/Bed: Procedure: [id number] DX/HAND 3+ VIEWS LEFT Exam Date: 08/16/18 Exam Time: 1532 REPORT STATUS: Signed RIGHT SHOULDER, ELBOW, HAND, WRIST 2-3 VIEWS HISTORY: Pain status post fall COMPARISON: None FINDINGS: Bones: No displaced fracture. Incidentally noted, there is a bony exostosis at the attachment of the lateral epicondyle ligament. Osseous alignment is within normal limits. Joints: The joint spaces are well-maintained. Soft tissues: The soft tissues appear unremarkable. IMPRESSION: 1. No acute radiographic abnormality. 2. Incidentally found changes related to lateral epicondylitis Signed by: Dr. Dejan Lu M.D. on 08/16/2018 5:56 PM Dictated By: DEJAN RESENDIZ MD 55 Transcribed By: SYLVIA on 08/16/181755 COPY TO: KANDI,ELVIA BRIM SHAPER ELBOW RIGHT COMPLETE 2018-08-16 17:53:00 [address] [id number] [place] [address] Patient Name: RJ FISCHER MR #: [id number] : 1960 Age/Sex: 57/F Req #: [id number] Adm Physician: Ordered by: ELVIA CHAU BRIM SHAPER Report #: [id number] Location: ER Room/Bed: Procedure: [id number] DX/ELBOW RIGHT COMPLETE Exam Date: 08/16/18 Exam Time: 1532 REPORT STATUS: Signed RIGHT SHOULDER, ELBOW, HAND, WRIST 2-3 VIEWS HISTORY: Pain status post fall COMPARISON: None FINDINGS: Bones: No displaced fracture. Incidentally noted, there is a bony exostosis at the attachment of the lateral epicondyle ligament. Osseous alignment is within normal limits. Joints: The joint spaces are well-maintained. Soft tissues: The soft tissues appear unremarkable. IMPRESSION: 1. No acute radiographic abnormality. 2. Incidentally found changes related to lateral epicondylitis Signed by: Dr. Dejan Lu M.D. on 08/16/2018 5:56 PM Dictated By: DEJAN RESENDIZ MD 55 Transcribed By: SYLVIA on 08/16/181755 COPY TO: ELVIA CHAU NP SHOULDER RIGHT COMPLETE 2018-08-16 17:53:00 [address] [place] [id number] [place] [address] Patient Name: RJ FISCHER MR #: [id number] : 1960 Age/Sex: 57/F Req #: [id number] Adm Physician: Ordered by: ELVIA CHAU BRIM SHAPER Report #: [id number] Location: ER Room/Bed: Procedure: [id number] DX/SHOULDER RIGHT COMPLETE Exam Date: 08/16/18 Exam Time: 1532 REPORT STATUS: Signed RIGHT SHOULDER, ELBOW, HAND, WRIST 2-3 VIEWS HISTORY: Pain status post fall COMPARISON: None FINDINGS: Bones: No displaced fracture. Incidentally noted, there is a bony exostosis at the attachment of the lateral epicondyle ligament. Osseous alignment is within normal limits. Joints: The joint spaces are well-maintained. Soft tissues: The soft tissues appear unremarkable. IMPRESSION: 1. No acute radiographic abnormality. 2. Incidentally found changes related to lateral epicondylitis Signed by: Dr. Dejan Lu M.D. on 08/16/2018 5:56 PM Dictated By: DEJAN RESENDIZ MD 55 Transcribed By: SYLVIA on 08/16/181755 COPY TO: ELVIA CHAU BRIM SHAPER [facility] WO 2018-08-16 16:24:00 [place] [address] Patient Name: RJ FISCHER MR #: [id number] : 1960 Age/Sex: 57/F Req #: [id number] Adm Physician: Ordered by: ELVIA CHAU BRIM SHAPER Report #: [id number] Location: ER Room/Bed: Procedure: [id number] CT/CT MAXIO FAC/PARANAS WO Exam Date: 08/16/18 Exam Time: 1525 REPORT STATUS: Signed History:Fall, hit right side of the face Comparison studies:CT head 5 28,016 Technique: Axial images were obtained from the brain, face and cervical spine. Coronal and sagittal reconstructions obtained from the axial data. Intravenous contrast: None Findings: Head CT: Scalp/skull: No abnormalities. No fractures, blastic or lytic lesions. Extra-axial spaces: No masses. No fluid collections. Brain sulci: Appropriate for age. Ventricles: Normal in size and configuration. No hydrocephalus. Parenchyma: Right subinsular and left insular small hypodensities, with mild volume loss, stable. No masses, hemorrhage or acute cortical vascular insults. Sellar/suprasellar region: No abnormalities Craniocervical junction: Patent foramen magnum. No Chiari one malformation. Maxillofacial CT: Soft tissues: Right central premaxillary soft tissue hematoma anterior aspect.. Bones: Nondisplaced fracture of the nasal spine and inferior nasal septum. No other facial fractures are seen. . Orbits: No abnormalities. Paranasal sinuses: Mucous retention cyst at the right maxillary sinus. Cervical spine CT: Fractures: None. Soft tissues: No gross abnormalities. Atlantoaxial articulation: No acute abnormality. Mild degenerative changes. Alignment: Normal lordosis. No scoliosis. Cervicomedullary junction: No abnormalities. The foramen magnum is patent. Vertebrae: No infection. Lucent lesions at C3, C4 and C5 vertebral bodies. Degenerative changes: Uncinate processes and facet hypertrophy results in moderate bilateral foraminal narrowing at C4-5. Decreased intervertebral space at C4-5 and C5-6.. Incidental findings: None. Impression: Head CT: 1. No acute intracranial abnormality. 2. Stable compared to previous examination. Facial CT: 1. Right central premaxillary hematoma. 2. Nondisplaced fracture of the nasal spine and adjacent nasal septum . Cervical spine CT: 1. No acute cervical abnormalities. 2. Cannot exclude ligament, spinal cord and or vascular abnormalities on the basis of this examination. 3. Nonspecific mucosal lesions in the cervical spine, this could be related to infiltrative marrow processes, recommend clinical correlation. Signed by: DR Cole Darby M.D. on 08/16/2018 4:37 PM Dictated By: COLE NAVARRO MD 36 Transcribed By: SYLVIA on 08/16/181636 COPY TO: ELVIA CHAU NP CT CERVICAL SPINE WO 2018-08-16 16:24:00 [place] [address] Patient Name: RJ FISCHER MR #: [id number] : 1960 Age/Sex: 57/F Req #: [id number] Adm Physician: Ordered by: ELVIA CHAU BRIM SHAPER Report #: [id number] Location: ER Room/Bed: Procedure: [id number] CT/CT CERVICAL SPINE WO Exam Date: 08/16/18 Exam Time: 1525 REPORT STATUS: Signed History:Fall, hit right side of the face Comparison studies:CT head 5 28,016 Technique: Axial images were obtained from the brain, face and cervical spine. Coronal and sagittal reconstructions obtained from the axial data. Intravenous contrast: None Findings: Head CT: Scalp/skull: No abnormalities. No fractures, blastic or lytic lesions. Extra-axial spaces: No masses. No fluid collections. Brain sulci: Appropriate for age. Ventricles: Normal in size and configuration. No hydrocephalus. Parenchyma: Right subinsular and left insular small hypodensities, with mild volume loss, stable. No masses, hemorrhage or acute cortical vascular insults. Sellar/suprasellar region: No abnormalities Craniocervical junction: Patent foramen magnum. No Chiari one malformation. Maxillofacial CT: Soft tissues: Right central premaxillary soft tissue hematoma anterior aspect.. Bones: Nondisplaced fracture of the nasal spine and inferior nasal septum. No other facial fractures are seen. . Orbits: No abnormalities. Paranasal sinuses: Mucous retention cyst at the right maxillary sinus. Cervical spine CT: Fractures: None. Soft tissues: No gross abnormalities. Atlantoaxial articulation: No acute abnormality. Mild degenerative changes. Alignment: Normal lordosis. No scoliosis. Cervicomedullary junction: No abnormalities. The foramen magnum is patent. Vertebrae: No infection. Lucent lesions at C3, C4 and C5 vertebral bodies. Degenerative changes: Uncinate processes and facet hypertrophy results in moderate bilateral foraminal narrowing at C4-5. Decreased intervertebral space at C4-5 and C5-6.. Incidental findings: None. Impression: Head CT: 1. No acute intracranial abnormality. 2. Stable compared to previous examination. Facial CT: 1. Right central premaxillary hematoma. 2. Nondisplaced fracture of the nasal spine and adjacent nasal septum . Cervical spine CT: 1. No acute cervical abnormalities. 2. Cannot exclude ligament, spinal cord and or vascular abnormalities on the basis of this examination. 3. Nonspecific mucosal lesions in the cervical spine, this could be related to infiltrative marrow processes, recommend clinical correlation. Signed by: DR Cole Darby M.D. on 08/16/2018 4:37 PM Dictated By: COLE NAVARRO MD 1637 Transcribed By: SYLVIA on 08/16/18 1637 COPY TO: ELVIA CHAU NP CT BRAIN WO 2018-08-16 16:24:00 [place] [address] Patient Name: RJ FISCHER MR #: [id number] : 1960 Age/Sex: 57/F Req #: [id number] Adm Physician: Ordered by: ELVIA CHAU NP Report #: [id number] Location: ER Room/Bed: Procedure: [id number] CT/CT BRAIN WO Exam Date: 08/16/18 Exam Time: 1525 REPORT STATUS: Signed History:Fall, hit right side of the face Comparison studies:CT head 5 28,016 Technique: Axial images were obtained from the brain, face and cervical spine. Coronal and sagittal reconstructions obtained from the axial data. Intravenous contrast: None Findings: Head CT: Scalp/skull: No abnormalities. No fractures, blastic or lytic lesions. Extra-axial spaces: No masses. No fluid collections. Brain sulci: Appropriate for age. Ventricles: Normal in size and configuration. No hydrocephalus. Parenchyma: Right subinsular and left insular small hypodensities, with mild volume loss, stable. No masses, hemorrhage or acute cortical vascular insults. Sellar/suprasellar region: No abnormalities Craniocervical junction: Patent foramen magnum. No Chiari one malformation. Maxillofacial CT: Soft tissues: Right central premaxillary soft tissue hematoma anterior aspect.. Bones: Nondisplaced fracture of the nasal spine and inferior nasal septum. No other facial fractures are seen. . Orbits: No abnormalities. Paranasal sinuses: Mucous retention cyst at the right maxillary sinus. Cervical spine CT: Fractures: None. Soft tissues: No gross abnormalities. Atlantoaxial articulation: No acute abnormality. Mild degenerative changes. Alignment: Normal lordosis. No scoliosis. Cervicomedullary junction: No abnormalities. The foramen magnum is patent. Vertebrae: No infection. Lucent lesions at C3, C4 and C5 vertebral bodies. Degenerative changes: Uncinate processes and facet hypertrophy results in moderate bilateral fora lauryn narrowing at C4-5. Decreased intervertebral space at C4-5 and C5-6.. Incidental findings: None. Impression: Head CT: 1. No acute intracranial abnormality. 2. Stable compared to previous examination. Facial CT: 1. Right central premaxillary hematoma. 2. Nondisplaced fracture of the nasal spine and adjacent nasal septum . Cervical spine CT: 1. No acute cervical abnormalities. 2. Cannot exclude ligament, spinal cord and or vascular abnormalities on the basis of this examination. 3. Nonspecific mucosal lesions in the cervical spine, this could be related to infiltrative marrow processes, recommend clinical correlation. Signed by: DR Cole Darby M.D. on 08/16/2018 4:37 PM Dictated By: COLE NAAVRRO MD 1637 Transcribed By: SYLVIA on 08/16/18 1637 COPY TO: ELVIA CHAU NP
--- OUTSIDE RECORDS SUMMARY | 2018-08-26 11:23 | XMS REPORT | Clinical Summary ---
Author Author [employer] Organization [employer] Address Unknown Phone Unavailable Care Team Providers Care [facility] Quality Control Technician Name Role Phone Colby Farris DO PCP [...] 05/12/2018 Telephone Urogynecology Kelley Alvarez LVN 05/09/2018 [facility] Radiology Dolores Mauro Pelvic pain in female; Encounter MD Davion Pelvic pain 05/09/2018 Ancillary Radiology Dolores Mauro Pelvic pain Orders MD Davion 05/05/2018 Telephone Urogynecology Brenna Mujica, ORTHOPEDIC SHOES SALESPERSON 04/16/2018 Telephone Obstetrics and Gynecology Brenna Mujica, ORTHOPEDIC SHOES SALESPERSON 02/19/2018 Emergency Emergency Medicine Roman Larkin MD Flank pain (Primary Dx); Chronic thoracic back pain, unspecified back pain laterality; Anxiety 01/01/2018 Procedure Pass General Internal Medicine 12/31/2017 Emergency General Internal Medicine Kesly Christian, Altered mental status, - MD unspecified [...] Office Visit Physical Therapy Dolores Mauro MD [address] [facility] [place] [address] Summer Staton, PT 02/05/2019 Office Visit Urogynecology Dolores Mauro MD [address] [facility] [place] [address] Health Maintenance Due Date Last [...] 01/03/2018 Results for this CONTRAST 7:10 PM LEAD SECURITY OFFICER procedure are in the results section. CT ANGIOGRAM NECK W WO Routine 01/03/2018 Results for this CONTRAST 7:10 PM LEAD SECURITY OFFICER procedure are in the results section. EEG AWAKE/DROWSY LESS Routine 01/01/2018 Results for this THAN 41 MIN 9:00 PM LEAD SECURITY OFFICER procedure are in the results section. MRI BRAIN W WO CONTRAST Routine 01/01/2018 Results for this 8:49 PM LEAD SECURITY OFFICER procedure are in the results section. LACTIC ACID LEVEL, SEPSIS Timed 12/31/2017 Results for this - NOW AND REPEAT 2X EVERY 11:16 PM LEAD SECURITY OFFICER procedure are in the 3 HOURS results section. RESPIRATORY PATHOGEN Routine 12/31/2017 Results for this PANEL 10:28 PM LEAD SECURITY OFFICER procedure are in the results section. LACTIC ACID LEVEL, SEPSIS Timed 12/31/2017 Results for this - NOW AND REPEAT 2X EVERY 7:27 PM LEAD SECURITY OFFICER procedure are in the 3 HOURS results section. ECG 12-LEAD STAT 12/31/2017 Results for this 4:50 PM LEAD SECURITY OFFICER procedure are in the results section. URINE DRUGS OF ABUSE STAT 12/31/2017 Results for this SCREEN 4:34 PM LEAD SECURITY OFFICER procedure are in the results section. URINALYSIS SCREEN AND STAT 12/31/2017 Results for this MICROSCOPY, WITH REFLEX 4:34 PM LEAD SECURITY OFFICER procedure are in the TO CULTURE results section. PROTHROMBIN TIME WITH INR STAT 12/31/2017 Results for this 4:34 PM LEAD SECURITY OFFICER procedure are in the results section. PARTIAL THROMBOPLASTIN STAT 12/31/2017 Results for this TIME (PTT) 4:34 PM LEAD SECURITY OFFICER procedure are in the results section. URINE CULTURE STAT 12/31/2017 Results for this 4:34 PM LEAD SECURITY OFFICER procedure are in the results section. BLOOD CULTURE, AEROBIC & Routine 12/31/2017 Results for this ANAEROBIC 4:34 PM LEAD SECURITY OFFICER procedure are in the results section. BLOOD CULTURE, AEROBIC & Routine 12/31/2017 Results for this ANAEROBIC 4:34 PM LEAD SECURITY OFFICER procedure are in the results section. T4 Routine 12/31/2017 Results for this 4:04 PM LEAD SECURITY OFFICER procedure are in the results section. THYROID STIMULATING Routine 12/31/2017 Results for this HORMONE 4:04 PM LEAD SECURITY OFFICER procedure are in the results section. ALCOHOL LEVEL, BLOOD STAT 12/31/2017 Results for this 4:04 PM LEAD SECURITY OFFICER procedure are in the results section. ZZESTIMATED GFR STAT 12/31/2017 Results for this 4:04 PM LEAD SECURITY OFFICER procedure are in the results section. TROPONIN STAT 12/31/2017 Results for this 4:04 PM LEAD SECURITY OFFICER procedure are in the results section. B NATRIURETIC PEPTIDE STAT 12/31/2017 Results for this 4:04 PM LEAD SECURITY OFFICER procedure are in the results section. COMPREHENSIVE METABOLIC STAT 12/31/2017 Results for this PANEL 4:04 PM LEAD SECURITY OFFICER procedure are in the results section. HC COMPLETE BLD COUNT STAT 12/31/2017 Results for this W/AUTO DIFF 4:04 PM LEAD SECURITY OFFICER procedure are in the results section. LACTIC ACID LEVEL, SEPSIS STAT 12/31/2017 Results for this - NOW AND REPEAT 2X EVERY 4:04 PM LEAD SECURITY OFFICER procedure are in the [address] HEAD WO CONTRAST STAT 12/31/2017 Results for this 3:39 PM LEAD SECURITY OFFICER procedure are in the results section. XR CHEST 1 VW PORTABLE STAT 12/31/2017 Results for this 3:33 PM LEAD SECURITY OFFICER procedure are in the results section. ECG ED PRELIMINARY Routine 12/31/2017 Results for this INTERPRETATION 3:11 PM LEAD SECURITY OFFICER procedure are in the results section. CT ABDOMEN PELVIS WO STAT 12/29/2017 Results for this CONTRAST 4:27 PM LEAD SECURITY OFFICER procedure are in the results section. ZZESTIMATED GFR STAT 12/29/2017 Results for this 3:50 PM LEAD SECURITY OFFICER procedure are in the results section. TROPONIN STAT 12/29/2017 Results for this 3:50 PM LEAD SECURITY OFFICER procedure are in the results section. LIPASE LEVEL STAT 12/29/2017 Results for this 3:50 PM LEAD SECURITY OFFICER procedure are in the results section. COMPREHENSIVE METABOLIC STAT 12/29/2017 Results for this PANEL 3:50 PM LEAD SECURITY OFFICER procedure are in the results section. URINALYSIS SCREEN AND STAT 12/29/2017 Results for this MICROSCOPY, WITH REFLEX 3:50 PM LEAD SECURITY OFFICER procedure are in the TO CULTURE results section. PARTIAL THROMBOPLASTIN STAT 12/29/2017 Results for this TIME (PTT) 3:50 PM LEAD SECURITY OFFICER procedure are in the results section. PROTHROMBIN TIME WITH INR STAT 12/29/2017 Results for this 3:50 PM LEAD SECURITY OFFICER procedure are in the results section. HC COMPLETE BLD COUNT STAT 12/29/2017 Results for this W/AUTO DIFF 3:50 PM LEAD SECURITY OFFICER procedure are in the results section. GRAM STAIN STAT 12/29/2017 Results for this 3:50 PM LEAD SECURITY OFFICER procedure are in the results section. URINE CULTURE STAT 12/29/2017 Results for this 3:50 PM LEAD SECURITY OFFICER procedure are in the results section. ZZESTIMATED GFR Routine 12/04/2017 Results for this 4:56 AM LEAD SECURITY OFFICER procedure are in the results section. COMPREHENSIVE METABOLIC Routine 12/04/2017 Results for this PANEL 4:56 AM LEAD SECURITY OFFICER procedure are in the results section. HC COMPLETE BLD COUNT Routine 12/04/2017 Results for this W/AUTO DIFF 4:56 AM LEAD SECURITY OFFICER procedure are in the results section. URINALYSIS SCREEN AND Routine 12/03/2017 Results for this MICROSCOPY, WITH REFLEX 12:01 AM LEAD SECURITY OFFICER procedure are in the TO CULTURE results section. GRAM STAIN Routine 12/02/2017 Results for this 11:40 PM LEAD SECURITY OFFICER procedure are in the results section. URINE CULTURE Routine 12/02/2017 Results for this 11:40 PM LEAD SECURITY OFFICER procedure are in the results section. CT ABDOMEN PELVIS WO STAT 12/02/2017 Results for this CONTRAST 2:48 PM LEAD SECURITY OFFICER procedure are in the results section. ZZESTIMATED GFR STAT 12/02/2017 Results for this 12:36 PM LEAD SECURITY OFFICER procedure are in the results section. HC COMPLETE BLD COUNT STAT 12/02/2017 Results for this W/AUTO DIFF 12:36 PM LEAD SECURITY OFFICER procedure are in the results section. LIPASE LEVEL STAT 12/02/2017 Results for this 12:36 PM LEAD SECURITY OFFICER procedure are in the results section. COMPREHENSIVE METABOLIC STAT 12/02/2017 Results for this PANEL 12:36 PM LEAD SECURITY OFFICER procedure are in the results section. MAGNESIUM LEVEL Routine 11/12/2017 Results for this 4:35 AM LEAD SECURITY OFFICER procedure are in the results section. ZZESTIMATED GFR Routine 11/12/2017 Results for this 4:35 AM LEAD SECURITY OFFICER procedure are in the results section. BASIC METABOLIC PANEL Routine 11/12/2017 Results for this 4:35 AM LEAD SECURITY OFFICER procedure are in the results section. HC COMPLETE BLD COUNT Routine 11/12/2017 Results for this W/AUTO DIFF 4:35 AM LEAD SECURITY OFFICER procedure are in the results section. MANUAL DIFFERENTIAL Routine 11/11/2017 Results for this 5:00 AM LEAD SECURITY OFFICER procedure are in the results section. ZZESTIMATED GFR Routine 11/11/2017 Results for this 5:00 AM LEAD SECURITY OFFICER procedure are in the results section. LACTIC ACID LEVEL Routine 11/11/2017 Results for this 5:00 AM LEAD SECURITY OFFICER procedure are in the results section. COMPREHENSIVE METABOLIC Routine 11/11/2017 Results for this PANEL 5:00 AM LEAD SECURITY OFFICER procedure are in the results section. PROTHROMBIN TIME WITH INR Routine 11/11/2017 Results for this 5:00 AM LEAD SECURITY OFFICER procedure are in the results section. CBC WITH PLATELET AND Routine 11/11/2017 Results for this DIFFERENTIAL 5:00 AM LEAD SECURITY OFFICER procedure are in the results section. RESPIRATORY PATHOGEN Routine 11/10/2017 Results for this PANEL 11:45 PM LEAD SECURITY OFFICER procedure are in the results section. CT CHEST W CONTRAST STAT 11/10/2017 Results for this ABDOMEN W CONTRAST PELVIS 5:20 PM LEAD SECURITY OFFICER procedure are in the W CONTRAST results section. URINE DRUGS OF ABUSE STAT 11/10/2017 Results for this SCREEN 5:14 PM LEAD SECURITY OFFICER procedure are in the results section. LACTIC ACID LEVEL Timed 11/10/2017 Results for this 4:45 PM LEAD SECURITY OFFICER procedure are in the results section. RESPIRATORY PATHOGEN Routine 11/10/2017 Results for this PANEL 4:40 PM LEAD SECURITY OFFICER procedure are in the results section. URINALYSIS SCREEN AND Routine 11/10/2017 Results for this MICROSCOPY, WITH REFLEX 4:00 PM LEAD SECURITY OFFICER procedure are in the TO CULTURE results section. URINE CULTURE Routine 11/10/2017 Results for this 4:00 PM LEAD SECURITY OFFICER procedure are in the results section. BLOOD CULTURE, AEROBIC & Routine 11/10/2017 Results for this ANAEROBIC 3:10 PM LEAD SECURITY OFFICER procedure are in the results section. XR CHEST 1 VW PORTABLE STAT 11/10/2017 Results for this 2:23 PM LEAD SECURITY OFFICER procedure are in the results section. MANUAL DIFFERENTIAL STAT 11/10/2017 Results for this 2:00 PM LEAD SECURITY OFFICER procedure are in the results section. ZZESTIMATED GFR STAT 11/10/2017 Results for this 2:00 PM LEAD SECURITY OFFICER procedure are in the results section. LACTIC ACID LEVEL STAT 11/10/2017 Results for this 2:00 PM LEAD SECURITY OFFICER procedure are in the results section. COMPREHENSIVE METABOLIC STAT 11/10/2017 Results for this PANEL 2:00 PM LEAD SECURITY OFFICER procedure are in the results section. PARTIAL THROMBOPLASTIN STAT 11/10/2017 Results for this TIME (PTT) 2:00 PM LEAD SECURITY OFFICER procedure are in the results section. PROTHROMBIN TIME WITH INR STAT 11/10/2017 Results for this 2:00 PM LEAD SECURITY OFFICER procedure are in the results section. CBC WITH PLATELET AND STAT 11/10/2017 Results for this DIFFERENTIAL 2:00 PM LEAD SECURITY OFFICER procedure are in the results section. BLOOD CULTURE, AEROBIC & Routine 11/10/2017 Results for this ANAEROBIC 2:00 PM LEAD SECURITY OFFICER procedure are in the results section. US GALLBLADDER STAT 10/25/2017 Results for this 7:15 AM LEAD SECURITY OFFICER procedure are in the results section. ZZESTIMATED GFR Routine 10/25/2017 Results for this 4:50 AM LEAD SECURITY OFFICER procedure are in the results section. COMPREHENSIVE METABOLIC Routine 10/25/2017 Results for this PANEL 4:50 AM LEAD SECURITY OFFICER procedure are in the results section. CBC WITH PLATELET AND Routine 10/25/2017 Results for this DIFFERENTIAL 4:50 AM LEAD SECURITY OFFICER procedure are in the results section. URINALYSIS SCREEN AND STAT 10/24/2017 Results for this MICROSCOPY, WITH REFLEX 12:00 PM LEAD SECURITY OFFICER procedure are in the TO CULTURE results section. GRAM STAIN STAT 10/24/2017 Results for this 12:00 PM LEAD SECURITY OFFICER procedure are in the results section. URINE CULTURE STAT 10/24/2017 Results for this 12:00 PM LEAD SECURITY OFFICER procedure are in the results section. CT ABDOMEN PELVIS W STAT 10/24/2017 Results for this CONTRAST 11:35 AM LEAD SECURITY OFFICER procedure are in the results section. ZZESTIMATED GFR STAT 10/24/2017 Results for this 10:40 AM LEAD SECURITY OFFICER procedure are in the results section. LIPASE LEVEL STAT 10/24/2017 Results for this 10:40 AM LEAD SECURITY OFFICER procedure are in the results section. AMYLASE LEVEL STAT 10/24/2017 Results for this 10:40 AM LEAD SECURITY OFFICER procedure are in the results section. COMPREHENSIVE METABOLIC STAT 10/24/2017 Results for this PANEL 10:40 AM LEAD SECURITY OFFICER procedure are in the results section. HC COMPLETE BLD COUNT STAT 10/24/2017 Results for this W/AUTO DIFF 10:40 AM LEAD SECURITY OFFICER procedure are in the results section. ECG [...] seen/Few [facility] Narrative Performed At Performed at: [facility] [id number] Charge Nurse: Rudi Correa MD, Phone:[phone] Performing Organization Address City/State/[facility] Phone Number [facility] * Urinalysis, automated with [...] performed. Specimen Urine Narrative Performed At Performed at:[address] [place], [place] [id number] Charge Nurse: Rudi Correa MD, Phone:[phone] Performing Organization Address City/[facility] Phone Number [facility] * Urine culture (05/20/2018 3:48 PM) Only the most recent of 8 results within the time period is included. Urine culture No growth [facility] Narrative Performed At Performed at:01 - [facility] [address] [place], [id number] Charge Nurse: Rudi Correa MD, Phone:[phone] Performing Organization Address City/[facility] Phone Number [facility] * US Pelvic Transabdominal [...] of free fluid within the endometrial cavity. [id number] Procedure Note Hm Interface, Radiology Results Incoming [...] of free fluid within the endometrial cavity. [id number] Performing Organization Address City/State/Zipcode Phone Number [employer] [address] [place] [address] * US Pelvic Transvaginal (05/09/2018 3:45 PM) [...] of free fluid within the endometrial cavity. [id number] Procedure Note Interface, Radiology Results Incoming - [...] of free fluid within the endometrial cavity. [id number] Performing Organization Address [facility] Phone Number [facility] [address] [place] [address] * XR Chest 1 Vw (02/19/2018 6:05 PM) Narrative Performed At EXAMINATION:XR CHEST 1 VW [facility] CLINICAL HISTORY:Chest Pain COMPARISON:December 31, 2017 chest IMPRESSION: Unremarkable single view chest The lungs are clear. The heart is not enlarged. The bony structures are within normal limits. [id number] Procedure Note Interface, Radiology Results Incoming - 02/19/2018 6:09 PM CDT EXAMINATION: XR CHEST 1 VW CLINICAL HISTORY: Chest Pain COMPARISON: December 31, 2017 chest IMPRESSION: Unremarkable single view chest The lungs are clear. The heart is not enlarged. The bony structures are within normal limits. [id number] Performing Organization Address [facility] Phone Number [facility] [address] [place] [address] * XR Thoracic Spine 2 Vw (02/19/2018 [...] rightward curvature of the spine at T6. [id number] Procedure Note Interface, Radiology Results Incoming - [...] rightward curvature of the spine at T6. [facility]-[id number] Performing Organization Address City/State/Zipcode Phone Number [facility] [address] [place] [address] * CT Abdomen Pelvis Wo Contrast (02/19/2018 [...] uncomplicated appearance status post partial left nephrectomy. [facility]-[id number] Procedure Note Interface, Radiology Results Incoming - [...] uncomplicated appearance status post partial left nephrectomy. [facility]-[id number] Performing Organization Address [facility]/[place] [address] * Blood culture, aerobic & anaerobic (02/19/2018 3:20 PM) Only the most recent of 5 results within the time period is included. Blood culture isolate No growth after 5 days of [facility] DEPARTMENT OF incubation. PATHOLOGY AND Comment: GENOMIC MEDICINE Specimen Information Specimen Source: Blood Specimen Site: Arm Left Specimen Blood Performing Organization Address City/[facility] Phone Number [facility] DEPARTMENT OF [address] [place] [phone] PATHOLOGY AND GENOMIC MEDICINE * Urinalysis screen and microscopy, with reflex to culture (02/19/2018 1:46 PM) Only the most recent of 7 results within the time period is included. Specimen site Clean catch [facility] DEPARTMENT OF PATHOLOGY AND GENOMIC MEDICINE Color, UA Straw [facility] DEPARTMENT OF PATHOLOGY AND GENOMIC MEDICINE Appearance, UA Clear [facility] DEPARTMENT OF PATHOLOGY AND GENOMIC MEDICINE Specific gravity, UA 1.010 1.001 - 1.035 [facility] DEPARTMENT OF PATHOLOGY AND GENOMIC MEDICINE pH, UA 7.0 5.0 - 8.5 [facility] DEPARTMENT OF PATHOLOGY AND GENOMIC MEDICINE Protein, UA Negative Negative [facility] DEPARTMENT OF PATHOLOGY AND GENOMIC MEDICINE Glucose, UA Negative Negative [facility] DEPARTMENT OF PATHOLOGY AND GENOMIC MEDICINE Ketones, UA Trace (A) Negative [facility] DEPARTMENT OF PATHOLOGY AND GENOMIC MEDICINE Bilirubin, UA Negative Negative [facility] DEPARTMENT OF PATHOLOGY AND GENOMIC MEDICINE Blood, UA Negative Negative [facility] DEPARTMENT OF PATHOLOGY AND GENOMIC MEDICINE Nitrite, UA Negative Negative [facility] DEPARTMENT OF PATHOLOGY AND GENOMIC MEDICINE Urobilinogen, UA <2.0 <2.0 [facility] DEPARTMENT OF PATHOLOGY AND GENOMIC MEDICINE Leukocyte esterase, UA Negative Negative [facility] DEPARTMENT OF PATHOLOGY AND GENOMIC MEDICINE Epithelial cells, UA 3 /HPF [facility] DEPARTMENT OF PATHOLOGY AND GENOMIC MEDICINE WBC, UA 3 0 - 4 /HPF [facility] DEPARTMENT OF PATHOLOGY AND GENOMIC MEDICINE RBC, UA None seen 0 - 5 /HPF [facility] DEPARTMENT OF PATHOLOGY AND GENOMIC MEDICINE Bacteria, UA None seen None seen [facility] DEPARTMENT OF PATHOLOGY AND GENOMIC MEDICINE Yeast, UA None seen [facility] DEPARTMENT OF PATHOLOGY AND GENOMIC MEDICINE Yeast with pseudohyphae, None seen [facility] DEPARTMENT OF UA PATHOLOGY AND GENOMIC MEDICINE Specimen Urine Performing Organization Address City/[facility] Phone Number [facility] [place] [place] [address] PATHOLOGY AND GENOMIC MEDICINE * hCG qualitative, urine screen (02/19/2018 1:46 PM) hCG qualitative, urine NegativeComment: Sensitivity [facility] DEPARTMENT OF of HCG test: 25 mIU/mL PATHOLOGY AND GENOMIC MEDICINE Specimen Urine Performing Organization Address [facility] [place] [address] PATHOLOGY AND GENOMIC MEDICINE * Estimated GFR (02/19/2018 1:40 PM) Only the most recent of 12 results within the time period is included. GFR Non Af Amer 86 mL/min/1.73 m2 [facility] DEPARTMENT OF PATHOLOGY AND GENOMIC MEDICINE GFR Af Amer >90 mL/min/1.73 m2 [facility] DEPARTMENT OF Comment: PATHOLOGY AND Chronic kidney [...] Americans. Specimen Plasma specimen Performing Organization Address City/[facility] Phone Number [facility] [place] [address] PATHOLOGY AND GENOMIC MEDICINE * CBC with platelet and differential (02/19/2018 1:40 PM) Only the most recent of 11 results within the time period is included. WBC 6.68 4.50 - 11.00 k/uL [facility] DEPARTMENT OF PATHOLOGY AND GENOMIC MEDICINE RBC 4.54 4.20 - 5.50 m/uL [facility] DEPARTMENT OF PATHOLOGY AND GENOMIC MEDICINE HGB 13.9 12.0 - 16.0 g/dL [facility] DEPARTMENT OF PATHOLOGY AND GENOMIC MEDICINE HCT 42.5 37.0 - 47.0 % [facility] DEPARTMENT OF PATHOLOGY AND GENOMIC MEDICINE MCV 93.6 82.0 - 100.0 fL [facility] DEPARTMENT OF PATHOLOGY AND GENOMIC MEDICINE MCH 30.6 27.0 - 34.0 pg [facility] DEPARTMENT OF PATHOLOGY AND GENOMIC MEDICINE MCHC 32.7 31.0 - 37.0 g/dL [facility] DEPARTMENT OF PATHOLOGY AND GENOMIC MEDICINE RDW - SD 43.3 37.0 - 55.0 fL [facility] DEPARTMENT OF PATHOLOGY AND GENOMIC MEDICINE MPV 9.7 8.8 - 13.2 fL [facility] DEPARTMENT OF PATHOLOGY AND GENOMIC MEDICINE Platelet count 289 150 - 400 k/uL [facility] DEPARTMENT OF PATHOLOGY AND GENOMIC MEDICINE Nucleated RBC 0.00 /100 WBC [facility] DEPARTMENT OF PATHOLOGY AND GENOMIC MEDICINE Neutrophils 51.8 39.0 - 69.0 % [facility] DEPARTMENT OF PATHOLOGY AND GENOMIC MEDICINE Lymphocytes 35.5 25.0 - 45.0 % [facility] DEPARTMENT OF PATHOLOGY AND GENOMIC MEDICINE Monocytes 8.5 0.0 - 10.0 % [facility] DEPARTMENT OF PATHOLOGY AND GENOMIC MEDICINE Eosinophils 3.3 0.0 - 5.0 % [facility] DEPARTMENT OF PATHOLOGY AND GENOMIC MEDICINE Basophils 0.6 0.0 - 1.0 % [facility] DEPARTMENT OF PATHOLOGY AND GENOMIC MEDICINE Immature granulocytes 0.3Comment: "Immature 0.0 - 1.0 % [facility] DEPARTMENT OF granulocytes" (promyelocytes, PATHOLOGY AND myelocytes, metamyelocytes) GENOMIC MEDICINE Specimen Blood Performing Organization Address City/[facility] [place] [address] PATHOLOGY AND GENOMIC MEDICINE * Lipase level (02/19/2018 1:40 PM) Only the most recent of 5 results within the time period is included. Lipase 27 13 - 60 U/L [facility] DEPARTMENT OF PATHOLOGY AND GENOMIC MEDICINE Specimen Plasma specimen Performing Organization Address City/[facility] [place] [address] PATHOLOGY AND GENOMIC MEDICINE * Comprehensive metabolic panel (02/19/2018 1:40 PM) Only the most recent of 10 results within the time period is included. Sodium 143 135 - 148 mEq/L [facility] DEPARTMENT OF PATHOLOGY AND GENOMIC MEDICINE Potassium 4.0 3.5 - 5.0 mEq/L [facility] DEPARTMENT OF PATHOLOGY AND GENOMIC MEDICINE Chloride 104 98 - 112 mEq/L [facility] DEPARTMENT OF PATHOLOGY AND GENOMIC MEDICINE CO2 26 24 - 31 mEq/L [facility] DEPARTMENT OF PATHOLOGY AND GENOMIC MEDICINE Anion gap 13 7 - 15 mEq/L [facility] DEPARTMENT OF Comment: PATHOLOGY AND Starting from February [facility] MEDICINE , anion gap calculation no longer incorporates potassium. Please note the change. BUN 12 6 - 20 mg/dL [facility] DEPARTMENT OF PATHOLOGY AND GENOMIC MEDICINE Creatinine 0.7 0.5 - 0.9 mg/dL [facility] DEPARTMENT OF PATHOLOGY AND GENOMIC MEDICINE Glucose 95 65 - 99 mg/dL [facility] DEPARTMENT OF PATHOLOGY AND GENOMIC MEDICINE Calcium 9.7 8.3 - 10.2 mg/dL [facility] DEPARTMENT OF PATHOLOGY AND GENOMIC MEDICINE Protein 7.0 6.3 - 8.3 g/dL [facility] DEPARTMENT OF Comment: PATHOLOGY AND GENOMIC MEDICINE 4.6-7.0 g/dL 1 week 4.4-7.6 g/dL 7 months-1year 5.1-7.3 g/dL 1-2 years5.6-7 .5 g/dL >3 years6.0-8 .0 g/dL 18-150 6.3-8.3 g/dL Albumin 3.7 3.5 - 5.0 g/dL [facility] DEPARTMENT OF PATHOLOGY AND GENOMIC MEDICINE A/G ratio 1.1 0.7 - 3.8 [facility] DEPARTMENT OF PATHOLOGY AND GENOMIC MEDICINE Alkaline phosphatase 63 35 - 104 U/L [facility] DEPARTMENT OF PATHOLOGY AND GENOMIC MEDICINE AST 17 10 - 35 U/L [facility] DEPARTMENT OF PATHOLOGY AND GENOMIC MEDICINE ALT 12 5 - 50 U/L [facility] DEPARTMENT OF PATHOLOGY AND GENOMIC MEDICINE Total bilirubin 1.3 (H) 0.0 - 1.2 mg/dL [facility] DEPARTMENT OF PATHOLOGY AND GENOMIC MEDICINE Specimen Plasma specimen Performing Organization Address City/State/Zipcode Phone Number [facility] DEPARTMENT OF [address] [place] [address] PATHOLOGY AND GENOMIC MEDICINE * ECG 12 lead (02/19/2018 1:30 PM) Only the most recent of 3 results within the time period is included. Ventricular rate 130 HM MUSE Atrial rate 130 HM MUSE SC interval 124 HM MUSE QRSD interval 76 [facility] MUSE QT interval 306 [facility] MUSE QTC interval 450 [facility] MUSE P axis 1 77 HM MUSE QRS axis 1 76 [facility] MUSE T wave axis 64 [facility] MUSE EKG impression Sinus tachycardia-Right atrial [facility] MUSE enlargement-Borderline ECG-In automated comparison with ECG of 31-DEC-2017 16:50,-No significant change was found- Performing Organization Address [facility] Phone Number [facility] MUSE [address] [place] [address] * CTA Neck W Wo Contrast (01/03/2018 [...] without evidence of dissection. IMPRESSION: Unremarkable study. [facility]-[id number] Procedure Note Hm Interface, Radiology Results Incoming - 01/03/2018 7:20 PM LEAD SECURITY OFFICER EXAMINATION: CT ANGIOGRAM NECK W WO CONTRAST [...] without evidence of dissection. IMPRESSION: Unremarkable study. [id number] Performing Organization Address [facility] Phone Number [facility] [address] [place] [address] * CTA Head W Wo Contrast (01/03/2018 [...] no significant anatomic variants. IMPRESSION: Normal study. [facility]-[id number] Procedure Note Interface, Radiology Results Incoming - 01/03/2018 7:22 PM LEAD SECURITY OFFICER EXAMINATION: CT ANGIOGRAM HEAD W WO CONTRAST COMPARISON: None CLINICAL HISTORY: altered mental status TECHNIQUE: 3-D and MPR images are submitted. Up to date CT equipment and radiation dose reduction technique were utilized. FINDINGS: There are no stenoses and no aneurysms. There is no evidence of spasm or dissection. There are no significant anatomic variants. IMPRESSION: Normal study. [facility]-[id number] Performing Organization Address City/[facility] Phone Number [facility] [address] [place] [address] * EEG (routine) (01/01/2018 9:00 PM) Impressions Performed At This abnormal electroencephalogram shows evidence of a mild generalized [facility] DEPARTMENT OF encephalopathy.No epileptiform activity is seen. PATHOLOGY AND Stacia Cano MD GENOMIC MEDICINE Narrative Performed At [facility] DEPARTMENT OF REFERRING PHYSICIAN: Dr Zazueta [...] with no abnormalities elicited. Performing Organization Address City/[facility] Phone Number [facility] [place] [place] [address] [place] [address] PATHOLOGY AND GENOMIC MEDICINE * MRI Brain [...] upper cord are unremarkable. IMPRESSION: Unremarkable study. [facility]-[id number] Procedure Note Hm Interface, Radiology Results Incoming - 01/01/2018 8:58 PM LEAD SECURITY OFFICER EXAMINATION: MRI BRAIN W WO CONTRAST COMPARISON: [...] upper cord are unremarkable. IMPRESSION: Unremarkable study. [facility]-[id number] Performing Organization Address City/[facility]/Zipcode Phone Number [facility] [address] [place] [address] * Lactic acid level, SEPSIS - Now and repeat 2x every 3 hours (12/31/2017 11:16 PM) Only the most recent of 3 results within the time period is included. Lactic acid 0.6 0.5 - 2.2 mmol/L [facility] DEPARTMENT OF PATHOLOGY AND GENOMIC MEDICINE Specimen Plasma specimen Performing Organization Address City/[facility]/Zipcode Phone Number [facility] [place] [place] [address] [place] [address] PATHOLOGY AND GENOMIC MEDICINE * Respiratory pathogen panel (12/31/2017 10:28 PM) Only the most recent of 3 results within the time period is included. Respiratory pathogen Negative for all pathogens [facility] DEPARTMENT OF panel tested: PATHOLOGY AND Negative [...] lobes Performing Organization Address City/State/Zipcode Phone Number [facility] DEPARTMENT OF [address] [place] [address] PATHOLOGY AND GENOMIC MEDICINE * Urine drugs of abuse screen (12/31/2017 4:34 PM) Only the most recent of 2 results within the time period is included. Amphetamine screen, urine Negative [facility] DEPARTMENT OF PATHOLOGY AND GENOMIC MEDICINE Methamphetamine screen, Negative [facility] DEPARTMENT OF urine PATHOLOGY AND GENOMIC MEDICINE Barbiturate screen, urine Negative [facility] DEPARTMENT OF PATHOLOGY AND GENOMIC MEDICINE Benzodiazepine screen, Positive (A) [facility] DEPARTMENT OF urine PATHOLOGY AND GENOMIC MEDICINE Cocaine screen, urine Negative [facility] DEPARTMENT OF PATHOLOGY AND GENOMIC MEDICINE Methadone screen, urine Negative [facility] DEPARTMENT OF PATHOLOGY AND GENOMIC MEDICINE Opiates screen, urine Negative [facility] DEPARTMENT OF PATHOLOGY AND GENOMIC MEDICINE Phencyclidine screen, Negative [facility] DEPARTMENT OF urine PATHOLOGY AND GENOMIC MEDICINE Cannabinoid screen, urine Positive (A) [facility] DEPARTMENT OF PATHOLOGY AND GENOMIC MEDICINE Tricyclic screen, urine Positive (A) [facility] DEPARTMENT OF Comment: PATHOLOGY AND Drug screen minimum [facility] MEDICINE concentration of detectability Amphetamines 1000 ng/mL [...] purposes only. Specimen Urine Performing Organization Address City/[facility]/Zipcode Phone Number [facility] [place] [place] [address] [place] [address] PATHOLOGY AND GENOMIC MEDICINE * Partial thromboplastin time, activated (12/31/2017 4:34 PM) Only the most recent of 3 results within the time period is included. PTT 27.5 23.0 - 36.0 sec [facility] DEPARTMENT OF Comment: PATHOLOGY AND PTT therapeutic range for GENOMIC MEDICINE unfractionated heparin is 61.0-112.0 seconds which corresponds to Anti-Xa 0.3-0.7 U/ml. Specimen Blood Performing Organization Address [facility] Phone Number [address] [place] [address] PATHOLOGY AND [employer] MEDICINE * Prothrombin time with INR (12/31/2017 4:34 PM) Only the most recent of 4 results within the time period is included. Prothrombin time 11.6 (L) 12.0 - 15.0 sec [facility] DEPARTMENT OF PATHOLOGY AND [employer] MEDICINE INR 0.8 [facility] DEPARTMENT OF Comment: PATHOLOGY AND The International Normalized [facility] Ratio (INR) is a therapeutic monitoring tool for patients who are stable on oral anticoagulant therapy. An INR of 2.0-3.0 is suggested for deep vein thrombosis/pulmonary embolism. Specimen Blood Performing Organization Address [facility] Phone Number [address] [place] [address] PATHOLOGY AND [employer] MEDICINE * Troponin (12/31/2017 4:04 PM) Only the most recent of 3 results within the time period is included. Troponin <0.300 0.000 - 0.300 ng/mL [facility] DEPARTMENT OF Comment: PATHOLOGY AND 0.30 - 1.49 GENOMIC MEDICINE ng/mlMay indicate increased risk of acute coronary syndrome. >=1.5 ng/ml Consistent with acute myocardial infarction. The diagnostic value of a single normal or non-diagnostic result is questionable.Serial samples at 2-6 hour intervals are required to rule out acute myocardial injury. Specimen Plasma specimen Performing Organization Address [facility] Phone Number [address] [place] [address] PATHOLOGY AND [employer] MEDICINE * Thyroid stimulating hormone (12/31/2017 4:04 PM) Only the most recent of 2 results within the time period is included. TSH 0.38 0.27 - 4.20 uIU/mL [facility] DEPARTMENT OF PATHOLOGY AND [employer] MEDICINE Specimen Plasma specimen Performing Organization Address [facility]/Zipcode Phone Number [address] [place] [address] PATHOLOGY AND GENOMIC MEDICINE * T4 (12/31/2017 4:04 PM) T4 9.5 4.5 - 11.7 ug/dL [facility] DEPARTMENT OF PATHOLOGY AND GENOMIC MEDICINE Specimen Plasma specimen Performing Organization Address [facility] Phone Number [address] [place] [address] PATHOLOGY AND GENOMIC MEDICINE * B natriuretic peptide (12/31/2017 4:04 PM) BNP 11 0 - 100 pg/mL [facility] DEPARTMENT OF PATHOLOGY AND GENOMIC MEDICINE Specimen Blood Performing Organization Address [facility] Phone Number [address] [place] [address] PATHOLOGY AND GENOMIC MEDICINE * Alcohol level, blood (12/31/2017 4:04 PM) Alcohol None Detected mg/dL [facility] DEPARTMENT OF Comment: PATHOLOGY AND Normal GENOMIC MEDICINE None Detected Legal Intoxication in [place]80 mg/dL (0.08%) - Whole Blood Toxic Concentration 200 mg/dL (0.2%) Potentially Fatal3 50 - 500 mg/dL (0.35 - 0.5%) Alcohol percent None Detected % [facility] DEPARTMENT OF PATHOLOGY AND GENOMIC MEDICINE Specimen Plasma specimen Performing Organization Address [facility] Phone Number [address] [place] [address] PATHOLOGY AND GENOMIC MEDICINE * CT Head [...] Prominent Virchow-Chuck space right basal ganglia unchanged [id number] Procedure Note Interface, Radiology Results Incoming - 12/31/2017 3:47 PM LEAD SECURITY OFFICER EXAMINATION: CT HEAD WO CONTRAST CLINICAL HISTORY: [...] Prominent Virchow-Chuck space right basal ganglia unchanged [id number] Performing Organization Address [facility] Phone Number [employer] [address] [place] [address] * XR Chest 1 Vw Portable (12/31/2017 3:33 PM) Only the most recent of 2 results within the time period is included. Narrative Performed At EXAMINATION:XR CHEST 1 VW PORTABLE [facility] CLINICAL HISTORY:Chest Pain COMPARISON:November 10, 2017 chest IMPRESSION: Unremarkable single view chest The lungs are clear. The heart is not enlarged. The bony structures are within normal limits. [id number] Procedure Note Interface, Radiology Results Incoming - 12/31/2017 3:38 PM LEAD SECURITY OFFICER EXAMINATION: XR CHEST 1 VW PORTABLE CLINICAL HISTORY: Chest Pain COMPARISON: November 10, 2017 chest IMPRESSION: Unremarkable single view chest The lungs are clear. The heart is not enlarged. The bony structures are within normal limits. [id number] Performing Organization Address [facility] Phone Number [facility] [address] [place] [address] * ECG ED Preliminary Interpretation - NOT AN ORDER (12/31/2017 3:11 PM) Only the most recent of 2 results within the time period is included. Narrative Performed At Kelsy Christian MD 12/31/20176:46 PM ECG ED Preliminary Interpretation - Not an Order Performed by: KELSY CHRISTIAN Authorized by: KELSY CHRISTIAN ECG reviewed by ED Physician in the absence of a telegraphic service dispatcher: yes Interpretation: Interpretation: normal Rate: ECG rate:89 ECG rate assessment: normal Rhythm: Rhythm: sinus rhythm Ectopy: Ectopy: none QRS: QRS axis:Normal Conduction: Conduction: normal ST segments: ST segments:Normal T waves: T waves: normal * Gram stain (12/29/2017 3:50 PM) Only the most recent of 4 results within the time period is included. Gram stain result No WBC's [facility] DEPARTMENT OF Occasional Gram positive rods PATHOLOGY AND Comment: GENOMIC MEDICINE Specimen Information Specimen Source: Urine Specimen Site: Clean catch Specimen Urine Performing Organization Address City/[facility] [place] [address] PATHOLOGY AND GENOMIC MEDICINE * Magnesium level (11/12/2017 4:35 AM) Magnesium 2.0 1.6 - 2.6 mg/dL [facility] DEPARTMENT OF PATHOLOGY AND GENOMIC MEDICINE Specimen Plasma specimen Performing Organization Address [facility] [place] [address] PATHOLOGY AND GENOMIC MEDICINE * Basic metabolic panel (11/12/2017 4:35 AM) Only the most recent of 2 results within the time period is included. Sodium 145 135 - 148 mEq/L [facility] DEPARTMENT OF PATHOLOGY AND GENOMIC MEDICINE Potassium 3.2 (L) 3.5 - 5.0 mEq/L [facility] DEPARTMENT OF PATHOLOGY AND GENOMIC MEDICINE Chloride 111 98 - 112 mEq/L [facility] DEPARTMENT OF PATHOLOGY AND GENOMIC MEDICINE CO2 23 (L) 24 - 31 mEq/L [facility] DEPARTMENT OF PATHOLOGY AND GENOMIC MEDICINE Anion gap 11 7 - 15 mEq/L [facility] DEPARTMENT OF Comment: PATHOLOGY AND Starting from February [employer] MEDICINE , anion gap calculation no longer incorporates potassium. Please note the change. BUN 12 6 - 20 mg/dL [facility] DEPARTMENT OF PATHOLOGY AND GENOMIC MEDICINE Creatinine 0.6 0.5 - 0.9 mg/dL [facility] DEPARTMENT OF PATHOLOGY AND GENOMIC MEDICINE Glucose 86 65 - 99 mg/dL [facility] DEPARTMENT OF PATHOLOGY AND GENOMIC MEDICINE Calcium 8.4 8.3 - 10.2 mg/dL [facility] DEPARTMENT OF PATHOLOGY AND GENOMIC MEDICINE Specimen Plasma specimen Performing Organization Address City/[facility] [place] [address] PATHOLOGY AND GENOMIC MEDICINE * Manual differential (11/11/2017 5:00 AM) Only the most recent of 2 results within the time period is included. Manual differential PERFORMED [facility] DEPARTMENT OF PATHOLOGY AND GENOMIC MEDICINE Neutrophils 29.0 (L) 39.0 - 69.0 % [facility] DEPARTMENT OF PATHOLOGY AND GENOMIC MEDICINE Lymphocytes 58.0 (H) 25.0 - 45.0 % [facility] DEPARTMENT OF PATHOLOGY AND GENOMIC MEDICINE Monocytes 9.0 0.0 - 10.0 % [facility] DEPARTMENT OF PATHOLOGY AND GENOMIC MEDICINE Eosinophils 3.0 0.0 - 5.0 % [facility] DEPARTMENT OF PATHOLOGY AND GENOMIC MEDICINE Basophils 0.0 0.0 - 1.0 % [facility] DEPARTMENT OF PATHOLOGY AND GENOMIC MEDICINE Metamyelocytes 0 % [facility] DEPARTMENT OF PATHOLOGY AND GENOMIC MEDICINE Promyelocytes 0 % [facility] DEPARTMENT OF PATHOLOGY AND GENOMIC MEDICINE Plasma cells 1 % [facility] DEPARTMENT OF PATHOLOGY AND GENOMIC MEDICINE Platelet slide review Alanna adequate [facility] DEPARTMENT OF PATHOLOGY AND GENOMIC MEDICINE Performing Organization Address [facility] Phone Number [facility] [place] [address] PATHOLOGY AND [employer] MEDICINE * Lactic acid level (11/11/2017 5:00 AM) Only the most recent of 3 results within the time period is included. Lactic acid 1.0 0.5 - 2.2 mmol/L [facility] DEPARTMENT OF PATHOLOGY AND GENOMIC MEDICINE Specimen Plasma specimen Performing Organization Address City/[facility] [place] [address] PATHOLOGY AND GENOMIC MEDICINE * CT Chest [...] No suspicious lesions. 3. Other Findings: None [facility]-[id number] Procedure Note [facility], Radiology Results [facility] - 11/10/2017 6:05 PM LEAD SECURITY OFFICER EXAMINATION: CT CHEST W CONTRAST ABDOMEN W [...] No suspicious lesions. 3. Other Findings: None [facility]-[id number] Performing Organization Address City/State/Zipcode Phone Number [facility] [address] [place] [address] * US Gallbladder (10/25/2017 7:15 AM) Narrative Performed At [facility] CLINICAL INDICATION:Cholecystitis COMPARISON:01/07/2017 FINDINGS: GALLBLADDER:No calculus [...] participate in the care of your patient. [id number] Procedure Note Interface, Radiology Results Incoming - 10/25/2017 7:19 AM LEAD SECURITY OFFICER US GALLBLADDER CLINICAL INDICATION: Cholecystitis COMPARISON: 01/07/2017 [...] participate in the care of your patient. [id number] Performing Organization Address City/State/Zipcode Phone Number [facility] [address] [place] [address] * CT Abdomen Pelvis W Contrast (10/24/2017 11:35 AM) Narrative Performed At EXAMINATION:[facility] CLINICAL HISTORY:ABDOMINAL PAIN TECHNIQUE: Multiple axial images [...] liver Otherwise unremarkable CT abdomen and pelvis [id number] Procedure Note Interface, Radiology Results Incoming - 10/24/2017 12:29 PM LEAD SECURITY OFFICER EXAMINATION: CT ABDOMEN PELVIS W CONTRAST CLINICAL [...] liver Otherwise unremarkable CT abdomen and pelvis [id number] Performing Organization Address [facility] Phone Number [facility] [address] [place] [address] * Amylase level (10/24/2017 10:40 AM) Only the most recent of 2 results within the time period is included. Amylase 55 13 - 73 U/L [facility] DEPARTMENT OF PATHOLOGY AND GENOMIC MEDICINE Specimen Plasma specimen Performing Organization Address [facility] Phone Number [address] [place] [address] PATHOLOGY AND GENOMIC MEDICINE * Creatine kinase, total (CPK) (09/05/2017 11:22 AM) Creatine kinase 49 26 - 192 U/L [facility] DEPARTMENT OF PATHOLOGY AND GENOMIC MEDICINE Specimen Plasma specimen Performing Organization Address [facility]/State/Zipcode Phone Number [facility] [place] [place] [address] [place] [address] PATHOLOGY AND GENOMIC MEDICINE * CT Abdomen [...] diffuse fatty infiltration of the liver . [id number] Procedure Note Interface, Radiology Results Incoming - [...] diffuse fatty infiltration of the liver . [id number] Performing Organization Address City/State/Zipcode Phone Number [facility] [address] [place] [address] after 08/15/2017 Insurance Payer Benefit Subscriber ID Type Phone Address Plan / Group BCBS BCBS OUT xxxxxxxxxxxx PPO OF STATE
--- NOTE | 2018-10-09 02:36 | Discharge Summary ---
CHIEF COMPLAINT: Left renal mass. FINAL DIAGNOSES: Status post fall, facial contusion, nasal septal fracture, migraine headache. DISPOSITION: Home. A 57-year-old female presents to the ER after sustaining a fall injuring her head, face, right shoulder, right elbow, left wrist, and left hand. The injury occurred at home, where she had her fall. She complains of moderate pain. She states of no neck pain or loss of consciousness. No numbness or dizziness or loss of vision, weakness or headache. No nausea or vomiting. However, with her fall, she did sustain a skin laceration. She has history of cancer. She has a surgical history of left nephrectomy. She is a tobacco abuser. Underwent evaluation and review in the emergency room. X-rays of multiple sites were taken. Admission will be made for monitoring and observation regarding acute traumatic pain in the face, right upper extremity, left upper extremity, pain, acute anterior transient epistaxis, moderate closed head injury, closed nondisplaced nasal fracture. She was on the med surg floor undergoing care, cardiac diet. She was on IV fluids. Given morphine sulfate for pain management. Her daily medications were continuing as well. BP medications were being adjusted appropriately. Laboratory studies shows stable electrolytes. Kidney functions stable. Glucose 111. CBC stable. Underwent ENT review regarding her nasal fracture. Was reviewed by Dr. Salcedo. Patient can be cleared for discharge from an ENT standpoint. She was being maintained on a full liquid diet. Complaining also of right wrist pain, headache. On 08/18, it was noted that her BP was 182/89. Further adjustments were being made of her BP meds labs continued to be stable and she was able to be cleared for discharge on 08/19/2018, to be followed up with her PCP and ENT. Before discharge, she did receive a tetanus vaccination. She will continue on her current diet. No equipment or supplies necessary, drains or Haque needed. Activity level as directed by me, as well as by Dr. Salcedo. She will be returning to Dr. Salcedo's office for follow up ENT review in 1 week. She will be returning to her PCPs office in 1 week. She will continue with her routine daily medications. If she has any further complaints, symptoms, failed to be stable with medications, she will be calling her PCP. Dictated By: AUBREY Saleem Job#: [id number]
== END 2018-08-19 14:15 | disposition home or self-care (01) ==
LOC: ER 14:37 → MED/SURG 19:35 → ER 20:48 → IMCU 08-18 08:10
DX: S02.2XXA Fracture of nasal bones, initial encounter for closed fracture (principal); S09.8XXA Other specified injuries of head, initial encounter; Y92.019 Unspecified place in single-family (private) house as the place of occurrence of the external cause; M25.511 Pain in right shoulder; M25.521 Pain in right elbow; M25.532 Pain in left wrist; M79.642 Pain in left hand; R04.0 Epistaxis; W07.XXXA Fall from chair, initial encounter; I10 Essential (primary) hypertension; G43.909 Migraine, unspecified, not intractable, without status migrainosus; M25.531 Pain in right wrist; F41.9 Anxiety disorder, unspecified; W22.8XXA Striking against or struck by other objects, initial encounter
CPT/HCPCS: 36415; 70450; 70486; 72125; 73030; 73080; 73110; 73130; 73221; 80053; 82948; 85025; 85610; 85730; 90714; 96374; 96375; 96376; 99284; G0378 ×4; J1170; J1885 ×3; J2405; J3490; J7030 ×2; 90471

== ENCOUNTER 2018-11-16 22:59 | Emergency (ER) | payer BC ==
[~2018-11-16] VITALS: Ht 154.9 cm; Wt 81.6 kg
[~2018-11-16 22:59] MED LIST: ALLERGY RELIEF10 M1 PO; CYSTEX TABLET1 EACH PO; LINZESS PO; MAXALT10 MG PO; NORTRIPTYLINE H25 MG PO; TYLENOL # 31 EA PO; XANAX1 MG PO
--- OUTSIDE RECORDS SUMMARY | 2018-11-16 23:01 | XMS REPORT | Clinical Summary ---
Author Author [employer] Address Unknown Phone Unavailable Care Team Providers Care Micropaleontologist Name Role Phone Colby Farris DO PCP Allergies Comments Active Allergy Reactions Severity Noted Date "messes my side up" Unsure - several years Amoxicillin Other (See Low 02/01/2017 Comments), Rash Sulfamethoxazole-Trimetho Rash Low 06/18/2016 prim dizzy Codeine Other (See 02/16/2016 Comments) Makes her feel bad Makes her feel bad Levomilnacipran Anxiety, High 06/18/2016 Rash, Other (See Comments) Had reaction several years ago and unable to recall if it was a rash Had reaction several years ago and unable to recall if it was a rash Nitrofurantoin Other (See Medium 05/23/2017 Monohyd/M-Cryst Comments) Causes headache/"migraine" Morphine Other (See Medium 09/05/2017 Comments) Jittery, feels bad Anxious Promethazine Rash, Other Low 06/18/2016 (See Comments) Medications End Date Status Medication Sig Dispensed Refills Start Date Active linaclotide (LINZESS) 145 Take 72 mcg 0 mcg capsule by mouth daily before breakfast. Active olmesartan-hydrochlorothi Take 1 tablet 0 azide (BENICAR HCT) by mouth 20-12.5 mg per tablet every morning. Active rizatriptan (MAXALT) 10 Take 10 mg by 0 MG tablet mouth once as needed for migraine. May repeat in 2 hours if unresolved. Do not exceed 30 mg in 24 hours. 12/26/2018 Active estradiol (ESTRACE) 0.01 Insert 0.5 g 42.5 g 1 12/26/201 % (0.1 mg/gram) vaginal into the 8 creamIndications: vagina 2 Prolapse of anterior (two) times a vaginal wall, Urethral week. hypermobility, LEE Dispense 1 (stress urinary tube. incontinence, female), Vaginal atrophy, History of recurrent UTIs, Chronic interstitial cystitis Active tolterodine LA (DETROL 3 LA) 4 MG 24 hr capsule 8 Active ALPRAZolam (XANAX) 1 MG Take 1 mg by 0 tablet mouth nightly as needed for anxiety. 12/02/2017 Discontinued diazePAM (VALIUM) 5 MG Take 2.5-5 mg 0 tablet by mouth 3 (three) times a day as needed for anxiety. 12/02/2017 Discontinued nortriptyline (PAMELOR) Take 25 mg by 1 25 MG capsule mouth 7 nightly. 12/02/2017 Discontinued ELMIRON 100 mg capsule Take 1 5 capsule by 7 mouth 2 (two) times a day. 12/02/2017 Discontinued olmesartan-hydrochlorothi Take 1 tablet 0 azide (BENICAR HCT) by mouth 7 20-12.5 mg per tablet every morning. 12/02/2017 Discontinued rizatriptan (MAXALT) 10 Take 10 mg by 0 MG tablet mouth once as 6 needed for migraine. 12/02/2017 Discontinued LINZESS 145 mcg capsule Take 145 mcg 2 by mouth 7 daily before breakfast. 11/24/2017 sennosides-docusate Take 1 tablet 30 tablet 0 sodium (SENOKOT-S) 8.6-50 by mouth 2 7 mg per tablet (two) times a day as needed for constipation for up to 30 days. 11/17/2017 oseltamivir (TAMIFLU) 75 Take 1 10 capsule 0 MG capsule capsule (75 8 mg total) by mouth 2 (two) times a day for 5 days. 12/02/2017 Discontinued buPROPion SR (WELLBUTRIN TK 1 T PO 2 SR) 100 MG 12 hr tablet QAM 8 01/03/2018 Discontinued diazePAM (VALIUM) 5 MG Take 2.5-5 mg 0 tablet by mouth 3 (three) times a day as needed for anxiety. 05/20/2018 Discontinued pentosan polysulfate Take 100 mg 0 (ELMIRON) 100 mg capsule by mouth 2 (two) times a day. 05/20/2018 Discontinued nortriptyline (PAMELOR) Take 25 mg by 0 25 MG capsule mouth nightly. 12/10/2017 ciprofloxacin (CIPRO) 500 Take 1 tablet 12 tablet 0 MG tablet (500 mg 8 total) by mouth 2 (two) times a day for 6 days. 01/03/2018 Discontinued ondansetron (ZOFRAN) 4 MG Take 1 tablet 20 tablet 0 tablet (4 mg total) 8 by mouth every 6 (six) hours for 5 days. 01/03/2018 Discontinued traMADol (ULTRAM) 50 mg Take 1 tablet 9 tablet 0 tablet (50 mg total) 8 by mouth every 8 (eight) hours as needed for moderate pain for up to 3 days. 01/31/2018 LORAZepam (ATIVAN) 0.5 MG Take 1 tablet 30 tablet 0 tablet (0.5 mg 8 total) by mouth every 6 (six) hours as needed for anxiety for up to 30 doses. 02/03/2018 valsartan (DIOVAN) 80 MG Take 1 tablet 30 tablet 0 tablet (80 mg total) 8 by mouth daily for 30 days. 02/03/2018 hydroCHLOROthiazide Take 1 30 capsule 0 (MICROZIDE) 12.5 mg capsule (12.5 8 capsule mg total) by mouth daily for 30 days. 02/03/2018 lubiprostone (AMITIZA) 8 Take 1 30 capsule 0 MCG capsule capsule (8 8 mcg total) by mouth daily with breakfast for 30 days. 02/03/2018 aspirin 81 mg chewable Chew 1 tablet 30 tablet 0 tablet (81 mg total) 8 daily for 30 days. 02/02/2018 atorvastatin (LIPITOR) 10 Take 1 tablet 30 tablet 0 MG tablet (10 mg total) 8 by mouth nightly for 30 days. Active Problems Problem Noted Date Fever, unknown origin 01/01/2018 Anxiety disorder 01/01/2018 History of seizure 01/01/2018 Polysubstance abuse 01/01/2018 Hypertension 01/01/2018 Osteoarthritis 01/01/2018 Irritable bowel syndrome with constipation 01/01/2018 Altered mental status 12/31/2017 Intractable abdominal pain 12/02/2017 Tachycardia 11/10/2017 Abdominal pain in female 08/14/2017 SOB (shortness of breath) 02/01/2017 Chest pain on breathing 02/01/2017 Renal mass 07/12/2015 Overview: Overview: Incidentally noted Left Renal Mass on CT for LUQ pain Encounters Care Team Description Date Type Specialty Dolores Mauro MD 09/25/2018 Telephone Obstetrics and Gynecology Dolores Mauro MD 09/22/2018 Telephone Urogynecology Dolores Mauro MD Recurrent UTI (Primary Dx); Interstitial cystitis; Stress incontinence 08/07/2018 Office Visit Urogynecology Dolores Mauro MD 07/22/2018 Telephone Urogynecology Rachelle Caldwell MD 07/21/2018 Emergency Emergency Medicine Dolores Mauro MD 07/03/2018 Telephone Obstetrics and Gynecology Dolores Mauro MD 07/01/2018 Telephone Obstetrics and Gynecology Dolores Mauro MD 06/23/2018 Telephone Urogynecology Daisy Grimm MA 05/22/2018 Telephone Urogynecology Brenna Mujica NP Prolapse of anterior vaginal wall (Primary Dx); Midline cystocele; History of recurrent UTIs; Chronic interstitial cystitis; Encounter for fitting and adjustment of pessary; Vaginal atrophy 05/20/2018 Office Visit UrogynecologDolores Lawler MD 05/13/2018 Telephone Obstetrics and Gynecology Kelley Alvarez LVN 05/12/2018 Telephone Urogynecology Dolores Mauro MD Pelvic pain in female; Pelvic pain 05/09/2018 Hospital Radiology Encounter Brenna Mujica NP 05/05/2018 Telephone Urogynecology Brenna Mujica NP 04/16/2018 Telephone Obstetrics and Gynecology Roman Larkin MD Flank pain (Primary Dx); Chronic thoracic back pain, unspecified back pain laterality; Anxiety 02/19/2018 Emergency Emergency Medicine Kelsy Christian MD Mayen Nunez, Jose Isaias, MD Altered mental status, unspecified altered mental status type (Primary Dx); Marijuana abuse; Hypnotic intoxication with complication 12/31/2017 Emergency General Internal Medicine - 01/03/2018 Juancarlos Mason MD Flank pain (Primary Dx); Renal cyst 12/29/2017 Emergency Emergency Medicine Brenna Mujica NP Prolapse of anterior vaginal wall (Primary Dx); Urethral hypermobility; LEE (stress urinary incontinence, female); Vaginal atrophy; History of recurrent UTIs; Chronic interstitial cystitis 12/24/2017 Office Visit Urogynecology Dolores Mauro MD 12/18/2017 Telephone Obstetrics and Gynecology Alphonso Gilliland MD Joglekar, Swati, MD Cherian, Cecil, MD Intractable abdominal pain (Primary Dx); Abdominal pain in female 12/02/2017 Emergency General Internal Medicine - 12/04/2017 after 11/15/2017 Immunizations Name Dates Previously Given Next Due FLUCELVAX QUAD PF (0.5mL 11/11/2017 syringe) Pneumococcal Conjugate 11/11/2017 13-Valent Family History Medical History Relation Name Comments Cancer Father Relation Name Status Comments Father Mother Alive Social History Date Tobacco Use Types Packs/Day Years Used Never Smoker Smokeless Tobacco: Never Used Alcohol Use Drinks/Week oz/Week Comments No Sex Assigned at Date Recorded Not on file Industry Job Start Date Occupation Not on file Not on file Not on file Travel End Travel History Travel Start No recent travel history available. Last Filed Vital Signs Time Taken Vital Sign Reading 08/07/2018 2:17 PM CDT Blood Pressure 145/96 08/07/2018 2:17 PM CDT Pulse 79 08/07/2018 2:17 PM CDT Temperature 36.9 C (98.5 F) 07/21/2018 6:46 PM CDT Respiratory Rate 16 07/21/2018 6:50 PM CDT Oxygen Saturation 97% - Inhaled Oxygen - Concentration 08/07/2018 2:17 PM CDT Weight 79.4 kg (175 lb) 08/07/2018 2:17 PM CDT Height 154.9 cm (5' 1") 08/07/2018 2:17 PM CDT Body Mass Index 33.07 Plan of Treatment Care Team Description Date Type Specialty Dolores Mauro MD [address] [facility] [address] [place], [place] [id number] [phone] 02/05/2019 Office Visit Urogynecology Health Maintenance Due Date Last Done Comments CERVICAL CANCER SCREENING 1981 BREAST CANCER SCREENING 2010 COLON CANCER SCREENING 2010 SHINGLES VACCINES (1 of 2010 2) INFLUENZA VACCINE 06/11/2018 11/11/2017 Procedures Comments Procedure Name Priority Date/Time Associated Diagnosis MEASURE POST VOID Routine 08/07/2018 Recurrent UTI RESIDUAL 3:26 PM CDT POC URINALYSIS DIPSTICK Routine 08/07/2018 Recurrent UTI 3:25 PM CDT MICROSCOPIC EXAMINATION Routine 05/20/2018 3:48 PM CDT URINALYSIS, AUTOMATED Routine 05/20/2018 History of recurrent UTIs WITH MICROSCOPY 3:48 PM CDT Chronic interstitial cystitis URINE CULTURE Routine 05/20/2018 3:48 PM CDT POC URINALYSIS DIPSTICK Routine 05/20/2018 History of recurrent UTIs 2:57 PM CDT Chronic interstitial cystitis US PELVIC TRANSABDOMINAL Routine 05/09/2018 Pelvic pain 3:45 PM CDT US PELVIC TRANSVAGINAL Routine 05/09/2018 Pelvic pain in female 3:45 PM CDT XR CHEST 1 VW STAT 02/19/2018 6:05 PM CDT XR THORACIC SPINE 2 VW STAT 02/19/2018 6:[address] ABDOMEN PELVIS WO STAT 02/19/2018 CONTRAST 5:15 PM CDT BLOOD CULTURE, AEROBIC & Routine 02/19/2018 ANAEROBIC 3:20 PM CDT URINE CULTURE STAT 02/19/2018 2:02 PM CDT HCG QUALITATIVE, URINE STAT 02/19/2018 SCREEN 1:46 PM CDT URINALYSIS SCREEN AND STAT 02/19/2018 MICROSCOPY, WITH REFLEX 1:46 PM CDT TO CULTURE ZZESTIMATED GFR STAT 02/19/2018 1:40 PM CDT LIPASE LEVEL STAT 02/19/2018 1:40 PM CDT COMPREHENSIVE METABOLIC STAT 02/19/2018 PANEL 1:40 PM CDT HC COMPLETE BLD COUNT STAT 02/19/2018 W/AUTO DIFF 1:40 PM CDT ECG 12-LEAD STAT 02/19/2018 1:[address] ANGIOGRAM HEAD W WO Routine 01/03/2018 CONTRAST 7:[address] ANGIOGRAM NECK W WO Routine 01/03/2018 CONTRAST 7:10 PM RUBBER DOWN EEG AWAKE/DROWSY LESS Routine 01/01/2018 THAN 41 MIN 9:00 PM RUBBER DOWN MRI BRAIN W WO CONTRAST Routine 01/01/2018 8:49 PM RUBBER DOWN LACTIC ACID LEVEL, SEPSIS Timed 12/31/2017 - NOW AND REPEAT 2X EVERY 11:16 PM RUBBER DOWN 3 HOURS RESPIRATORY PATHOGEN Routine 12/31/2017 PANEL 10:28 PM RUBBER DOWN LACTIC ACID LEVEL, SEPSIS Timed 12/31/2017 - NOW AND REPEAT 2X EVERY 7:27 PM RUBBER DOWN 3 HOURS ECG 12-LEAD STAT 12/31/2017 4:50 PM RUBBER DOWN URINE DRUGS OF ABUSE STAT 12/31/2017 SCREEN 4:34 PM RUBBER DOWN URINALYSIS SCREEN AND STAT 12/31/2017 MICROSCOPY, WITH REFLEX 4:34 PM RUBBER DOWN TO CULTURE PROTHROMBIN TIME WITH INR STAT 12/31/2017 4:34 PM RUBBER DOWN PARTIAL THROMBOPLASTIN STAT 12/31/2017 TIME (PTT) 4:34 PM RUBBER DOWN URINE CULTURE STAT 12/31/2017 4:34 PM RUBBER DOWN BLOOD CULTURE, AEROBIC & Routine 12/31/2017 ANAEROBIC 4:34 PM RUBBER DOWN BLOOD CULTURE, AEROBIC & Routine 12/31/2017 ANAEROBIC 4:34 PM RUBBER DOWN T4 Routine 12/31/2017 4:04 PM RUBBER DOWN THYROID STIMULATING Routine 12/31/2017 HORMONE 4:04 PM RUBBER DOWN ALCOHOL LEVEL, BLOOD STAT 12/31/2017 4:04 PM RUBBER DOWN ZZESTIMATED GFR STAT 12/31/2017 4:04 PM RUBBER DOWN TROPONIN STAT 12/31/2017 4:04 PM RUBBER DOWN B NATRIURETIC PEPTIDE STAT 12/31/2017 4:04 PM RUBBER DOWN COMPREHENSIVE METABOLIC STAT 12/31/2017 PANEL 4:04 PM RUBBER DOWN HC COMPLETE BLD COUNT STAT 12/31/2017 W/AUTO DIFF 4:04 PM RUBBER DOWN LACTIC ACID LEVEL, SEPSIS STAT 12/31/2017 - NOW AND REPEAT 2X EVERY 4:04 PM RUBBER DOWN [address] HEAD WO CONTRAST STAT 12/31/2017 3:39 PM RUBBER DOWN XR CHEST 1 VW PORTABLE STAT 12/31/2017 3:33 PM RUBBER DOWN ECG ED PRELIMINARY Routine 12/31/2017 INTERPRETATION 3:[address] ABDOMEN PELVIS WO STAT 12/29/2017 CONTRAST 4:27 PM RUBBER DOWN ZZESTIMATED GFR STAT 12/29/2017 3:50 PM RUBBER DOWN TROPONIN STAT 12/29/2017 3:50 PM RUBBER DOWN LIPASE LEVEL STAT 12/29/2017 3:50 PM RUBBER DOWN COMPREHENSIVE METABOLIC STAT 12/29/2017 PANEL 3:50 PM RUBBER DOWN URINALYSIS SCREEN AND STAT 12/29/2017 MICROSCOPY, WITH REFLEX 3:50 PM RUBBER DOWN TO CULTURE PARTIAL THROMBOPLASTIN STAT 12/29/2017 TIME (PTT) 3:50 PM RUBBER DOWN PROTHROMBIN TIME WITH INR STAT 12/29/2017 3:50 PM RUBBER DOWN HC COMPLETE BLD COUNT STAT 12/29/2017 W/AUTO DIFF 3:50 PM RUBBER DOWN GRAM STAIN STAT 12/29/2017 3:50 PM RUBBER DOWN URINE CULTURE STAT 12/29/2017 3:50 PM RUBBER DOWN ZZESTIMATED GFR Routine 12/04/2017 4:56 AM RUBBER DOWN COMPREHENSIVE METABOLIC Routine 12/04/2017 PANEL 4:56 AM RUBBER DOWN HC COMPLETE BLD COUNT Routine 12/04/2017 W/AUTO DIFF 4:56 AM RUBBER DOWN URINALYSIS SCREEN AND Routine 12/03/2017 MICROSCOPY, WITH REFLEX 12:01 AM RUBBER DOWN TO CULTURE GRAM STAIN Routine 12/02/2017 11:40 PM RUBBER DOWN URINE CULTURE Routine 12/02/2017 11:[address] ABDOMEN PELVIS WO STAT 12/02/2017 CONTRAST 2:48 PM RUBBER DOWN ZZESTIMATED GFR STAT 12/02/2017 12:36 PM RUBBER DOWN HC COMPLETE BLD COUNT STAT 12/02/2017 W/AUTO DIFF 12:36 PM RUBBER DOWN LIPASE LEVEL STAT 12/02/2017 12:36 PM RUBBER DOWN COMPREHENSIVE METABOLIC STAT 12/02/2017 PANEL 12:36 PM RUBBER DOWN after 11/15/2017 Results * Measure post void residual (08/07/2018 3:26 PM CDT) Total volume, urine 32ml * POC urinalysis dipstick (08/07/2018 3:25 PM CDT) Only the most recent of 2 results [...] Specimen Urine * Microscopic Examination (05/20/2018 3:48 PM CDT) WBC, UA None seen 0 - 5 /hpf [facility] RBC, UA 0-2 0 - 2 /hpf [facility] Epithelial cells (non 0-10 0 - 10 /hpf [facility] renal) Bacteria, UA Few None seen/Few [facility] Narrative Performed At Performed at:01 - [facility] [place], [id number] Eyeglass Lens Cutter: Rudi Correa MD, Phone:[phone] Performing Organization Address City/State/[facility] Phone Number [facility] * Urinalysis, automated with microscopy (05/20/2018 3:48 PM CDT) Specific gravity, urine 1.009 1.005 - 1.030 [...] performed. Specimen Urine Narrative Performed At Performed at: [facility] [address] [place], [id number] Eyeglass Lens Cutter: Rudi Correa MD, Phone:[phone] Performing Organization Address [facility] Phone Number [facility] * Urine culture (05/20/2018 3:48 PM CDT) Only the most recent of 5 results within the time period is included. Urine culture No growth [facility] Narrative Performed At Performed at: - [facility] [address] [place], [id number] Eyeglass Lens Cutter: Rudi Correa MD, Phone:[phone] Performing Organization Address [facility] Phone Number [facility] * US Pelvic Transabdominal (05/09/2018 3:45 PM CDT) Narrative Performed At EXAMINATION:US PELVIC TRANSABDOMINAL RADIANT [...] of free fluid within the endometrial cavity. [id number] Procedure Note Hm Interface, Radiology Results Incoming [...] of free fluid within the endometrial cavity. [id number] Performing Organization Address City/State/Zipcode Phone Number [facility] [address] [place] [address] * US Pelvic Transvaginal (05/09/2018 3:45 PM CDT) Narrative Performed At EXAMINATION:US PELVIC TRANSVAGINAL TANG CLINICAL HISTORY:R10.2 Pelvic and perineal pain COMPARISON:None. [...] of free fluid within the endometrial cavity. [id number] Procedure Note Interface, Radiology Results Incoming - [...] of free fluid within the endometrial cavity. [id number] Performing Organization Address City/State/Zipcode Phone Number [facility] [address] [place] [address] * XR Chest 1 Vw (02/19/2018 6:05 PM CDT) Narrative Performed At EXAMINATION:XR CHEST 1 VW RADIANT CLINICAL HISTORY:Chest Pain COMPARISON:December 31, 2017 chest IMPRESSION: Unremarkable single view chest The lungs are clear. The heart is not enlarged. The bony structures are within normal limits. [id number] Procedure Note Interface, Radiology Results Incoming - 02/19/2018 6:09 PM CDT EXAMINATION: XR CHEST 1 VW CLINICAL HISTORY: Chest Pain COMPARISON: December 31, 2017 chest IMPRESSION: Unremarkable single view chest The lungs are clear. The heart is not enlarged. The bony structures are within normal limits. [id number] Performing Organization Address [facility]/Zipcode Phone Number [facility] [address] [place] [address] * XR Thoracic Spine 2 Vw (02/19/2018 6:04 PM CDT) Narrative Performed At EXAMINATION: XR THORACIC SPINE [...] rightward curvature of the spine at T6. [id number] Procedure Note Interface, Radiology Results Incoming - [...] rightward curvature of the spine at T6. [id number] Performing Organization Address [facility] Phone Number [facility] [address] [place] [address] * CT Abdomen Pelvis Wo Contrast (02/19/2018 5:15 PM CDT) Only the most recent of 3 results within the time period is included. Narrative Performed At EXAMINATION:[facility]EN [facility] CLINICAL H[facility]:ABDOMINAL PAIN TECHNIQUE:Multiple axial images of [...] uncomplicated appearance status post partial left nephrectomy. [facility]-[id number] Procedure Note [facility], Radiology Results Incoming - 02/19/2018 5:24 PM [...] uncomplicated appearance status post partial left nephrectomy. [facility]-[id number] Performing Organization Address [facility] [place] [address] * Blood culture, aerobic & anaerobic (02/19/2018 3:20 PM CDT) Only the most recent of 3 results within the time period is included. Blood culture isolate No growth after 5 days of [facility] DEPARTMENT OF incubation. PATHOLOGY AND Comment: GENOMIC MEDICINE Specimen Information Specimen Source: Blood Specimen Site: Arm Left Specimen Blood Performing Organization Address City/[facility] Phone Number [facility] DEPARTMENT OF [address] [place] [phone] PATHOLOGY AND GENOMIC MEDICINE * Urinalysis screen and microscopy, with reflex to culture (02/19/2018 1:46 PM CDT) Only the most recent of 4 results within the time period is included. Specimen site Clean catch [facility] DEPARTMENT OF PATHOLOGY AND GENOMIC MEDICINE Color, UA Straw [facility] DEPARTMENT OF PATHOLOGY AND GENOMIC MEDICINE Appearance, UA Clear [facility] DEPARTMENT OF PATHOLOGY AND GENOMIC MEDICINE Specific gravity, UA 1.010 1.001 - 1.035 [facility] DEPARTMENT OF PATHOLOGY AND GENOMIC MEDICINE pH, UA 7.0 5.0 - 8.5 [facility] DEPARTMENT OF PATHOLOGY AND GENOMIC MEDICINE Protein, UA Negative Negative [facility] DEPARTMENT OF PATHOLOGY AND GENOMIC MEDICINE Glucose, UA Negative Negative [facility] DEPARTMENT OF PATHOLOGY AND GENOMIC MEDICINE Ketones, UA Trace (A) Negative [facility] DEPARTMENT OF PATHOLOGY AND GENOMIC MEDICINE Bilirubin, UA Negative Negative [facility] DEPARTMENT OF PATHOLOGY AND GENOMIC MEDICINE Blood, UA Negative Negative [facility] DEPARTMENT OF PATHOLOGY AND GENOMIC MEDICINE Nitrite, UA Negative Negative [facility] DEPARTMENT OF PATHOLOGY AND GENOMIC MEDICINE Urobilinogen, UA <2.0 <2.0 [facility] DEPARTMENT OF PATHOLOGY AND GENOMIC MEDICINE Leukocyte esterase, UA Negative Negative [facility] DEPARTMENT OF PATHOLOGY AND GENOMIC MEDICINE Epithelial cells, UA 3 /HPF [facility] DEPARTMENT OF PATHOLOGY AND GENOMIC MEDICINE WBC, UA 3 0 - 4 /HPF [facility] DEPARTMENT OF PATHOLOGY AND GENOMIC MEDICINE RBC, UA None seen 0 - 5 /HPF [facility] DEPARTMENT OF PATHOLOGY AND GENOMIC MEDICINE Bacteria, UA None seen None seen [facility] DEPARTMENT OF PATHOLOGY AND GENOMIC MEDICINE Yeast, UA None seen [facility] DEPARTMENT OF PATHOLOGY AND GENOMIC MEDICINE Yeast with pseudohyphae, None seen [facility] DEPARTMENT OF PATHOLOGY AND GENOMIC MEDICINE Specimen Urine Performing Organization Address City/[facility] Cent[facility]ode Phone Number [address] [address] PATHOLOGY AND GENOMIC MEDICINE * hCG qualitative, urine screen (02/19/2018 1:46 PM CDT) hCG qualitative, urine NegativeComment: Sensitivity [facility] DEPARTMENT OF of HCG test: 25 mIU/mL PATHOLOGY AND GENOMIC MEDICINE Specimen Urine Performing Organization Address [facility] Phone Number [address] [address] PATHOLOGY AND GENOMIC MEDICINE * Estimated GFR (02/19/2018 1:40 PM CDT) Only the most recent of 5 results within the time period is included. GFR Non Af Amer 86 mL/min/1.73 m2 [facility] DEPARTMENT OF PATHOLOGY AND GENOMIC MEDICINE GFR Af Amer >90 mL/min/1.73 m2 [facility] DEPARTMENT OF Comment: PATHOLOGY AND [...] Americans. Specimen Plasma specimen Performing Organization Address City/[facility] Cent[facility]ode Phone Number [address] [address] PATHOLOGY AND GENOMIC MEDICINE * CBC with platelet and differential (02/19/2018 1:40 PM CDT) Only the most recent of 5 results within the time period is included. WBC 6.68 4.50 - 11.00 k/uL [facility] DEPARTMENT OF PATHOLOGY AND GENOMIC MEDICINE RBC 4.54 4.20 - 5.50 m/uL [facility] DEPARTMENT OF PATHOLOGY AND GENOMIC MEDICINE HGB 13.9 12.0 - 16.0 g/dL [facility] DEPARTMENT OF PATHOLOGY AND GENOMIC MEDICINE HCT 42.5 37.0 - 47.0 % [facility] DEPARTMENT OF PATHOLOGY AND GENOMIC MEDICINE MCV 93.6 82.0 - 100.0 fL [facility] DEPARTMENT OF PATHOLOGY AND GENOMIC MEDICINE MCH 30.6 27.0 - 34.0 pg [facility] DEPARTMENT OF PATHOLOGY AND GENOMIC MEDICINE MCHC 32.7 31.0 - 37.0 g/dL [facility] DEPARTMENT OF PATHOLOGY AND GENOMIC MEDICINE RDW - SD 43.3 37.0 - 55.0 fL [facility] DEPARTMENT OF PATHOLOGY AND GENOMIC MEDICINE MPV 9.7 8.8 - 13.2 fL [facility] DEPARTMENT OF PATHOLOGY AND GENOMIC MEDICINE Platelet count 289 150 - 400 k/uL [facility] DEPARTMENT OF PATHOLOGY AND GENOMIC MEDICINE Nucleated RBC 0.00 /100 WBC [facility] DEPARTMENT OF PATHOLOGY AND GENOMIC MEDICINE Neutrophils 51.8 39.0 - 69.0 % [facility] DEPARTMENT OF PATHOLOGY AND GENOMIC MEDICINE Lymphocytes 35.5 25.0 - 45.0 % [facility] DEPARTMENT OF PATHOLOGY AND GENOMIC MEDICINE Monocytes 8.5 0.0 - 10.0 % [facility] DEPARTMENT OF PATHOLOGY AND GENOMIC MEDICINE Eosinophils 3.3 0.0 - 5.0 % [facility] DEPARTMENT OF PATHOLOGY AND GENOMIC MEDICINE Basophils 0.6 0.0 - 1.0 % [facility] DEPARTMENT OF PATHOLOGY AND GENOMIC MEDICINE Immature granulocytes 0.3Comment: "Immature 0.0 - 1.0 % [facility] DEPARTMENT OF granulocytes" (promyelocytes, PATHOLOGY AND myelocytes, metamyelocytes) GENOMIC MEDICINE Specimen Blood Performing Organization Address City/State/Zipcode Phone Number [facility] OF [address] [place] [address] PATHOLOGY AND GENOMIC MEDICINE * Lipase level (02/19/2018 1:40 PM CDT) Only the most recent of 3 results within the time period is included. Lipase 27 13 - 60 U/L [facility] DEPARTMENT OF PATHOLOGY AND GENOMIC MEDICINE Specimen Plasma specimen Performing Organization Address City/[facility] [place] [facility] Cent[facility]ode Phone Number [facility] [address] [place] [address] PATHOLOGY AND GENOMIC MEDICINE * Comprehensive metabolic panel (02/19/2018 1:40 PM CDT) Only the most recent of 5 results within the time period is included. Sodium 143 135 - 148 mEq/L [facility] DEPARTMENT OF PATHOLOGY AND GENOMIC MEDICINE Potassium 4.0 3.5 - 5.0 mEq/L [facility] DEPARTMENT OF PATHOLOGY AND GENOMIC MEDICINE Chloride 104 98 - 112 mEq/L [facility] DEPARTMENT OF PATHOLOGY AND GENOMIC MEDICINE CO2 26 24 - 31 mEq/L [facility] DEPARTMENT OF PATHOLOGY AND GENOMIC MEDICINE Anion gap 13 7 - 15 mEq/L [facility] DEPARTMENT OF Comment: PATHOLOGY AND Starting from February GENOMIC MEDICINE , anion gap calculation no longer incorporates potassium. Please note the change. BUN 12 6 - 20 mg/dL [facility] DEPARTMENT OF PATHOLOGY AND GENOMIC MEDICINE Creatinine 0.7 0.5 - 0.9 mg/dL [facility] DEPARTMENT OF PATHOLOGY AND GENOMIC MEDICINE Glucose 95 65 - 99 mg/dL [facility] DEPARTMENT OF PATHOLOGY AND GENOMIC MEDICINE Calcium 9.7 8.3 - 10.2 mg/dL [facility] DEPARTMENT OF PATHOLOGY AND GENOMIC MEDICINE Protein 7.0 6.3 - 8.3 g/dL [facility] DEPARTMENT OF Comment: PATHOLOGY AND GENOMIC MEDICINE 4.6-7.0 g/dL 1 week 4.4-7.6 g/dL 7 months-1year 5.1-7.3 g/dL 1-2 years5.6-7 .5 g/dL >3 years6.0-8 .0 g/dL 18-150 6.3-8.3 g/dL Albumin 3.7 3.5 - 5.0 g/dL [facility] DEPARTMENT OF PATHOLOGY AND GENOMIC MEDICINE A/G ratio 1.1 0.7 - 3.8 [facility] DEPARTMENT OF PATHOLOGY AND GENOMIC MEDICINE Alkaline phosphatase 63 35 - 104 U/L [facility] DEPARTMENT OF PATHOLOGY AND GENOMIC MEDICINE AST 17 10 - 35 U/L [facility] DEPARTMENT OF PATHOLOGY AND GENOMIC MEDICINE ALT 12 5 - 50 U/L [facility] DEPARTMENT OF PATHOLOGY AND GENOMIC MEDICINE Total bilirubin 1.3 (H) 0.0 - 1.2 mg/dL [facility] DEPARTMENT OF PATHOLOGY AND GENOMIC MEDICINE Specimen Plasma specimen Performing Organization Address City/State/Zipcode Phone Number [facility] DEPARTMENT OF [address] [place] [address] PATHOLOGY AND GENOMIC MEDICINE * ECG 12 lead (02/19/2018 1:30 PM CDT) Only the most recent of 2 results within the time period is included. Ventricular rate 130 [facility] Atrial rate 130 [facility] OH interval 124 [facility] QRSD interval 76 [facility] QT interval 306 [facility] QTC interval 450 [facility] P axis 1 77 [facility] QRS axis 1 76 [facility] T wave axis 64 [facility] EKG impression Sinus tachycardia-Right atrial [facility] MUSE enlargement-Borderline ECG-In automated comparison with ECG of 31-DEC-2017 16:50,-No significant change was found- Performing Organization Address [facility] [place] [facility] Centercomt Phone Number [facility] MUSE [address] [place] [address] * CTA Neck W Wo Contrast (01/03/2018 7:10 PM RUBBER DOWN) Narrative Performed At EXAMINATION:CT ANGIOGRAM NECK W [...] without evidence of dissection. IMPRESSION: Unremarkable study. [facility]-[id number] Procedure Note Interface, Radiology Results Incoming - 01/03/2018 7:20 PM RUBBER DOWN EXAMINATION: CT ANGIOGRAM NECK W WO CONTRAST [...] without evidence of dissection. IMPRESSION: Unremarkable study. [facility]-[id number] Performing Organization Address [facility] [place] [facility] Centercomt Phone Number [facility] [address] [place] [address] * CTA Head W Wo Contrast (01/03/2018 7:10 PM RUBBER DOWN) Narrative Performed At EXAMINATION:CT ANGIOGRAM HEAD W WO CONTRAST [facility] COMPARISON:None CLINICAL HISTORY:altered mental status TECHNIQUE: 3-D and MPR images are submitted. Up to date CT equipment and radiation dose reduction technique were utilized. FINDINGS: There are no stenoses and no aneurysms. There is no evidence of spasm or dissection. There are no significant anatomic variants. IMPRESSION: Normal study. [facility]-[id number] Procedure Note Hm Interface, Radiology Results Incoming - 01/03/2018 7:22 PM RUBBER DOWN EXAMINATION: CT ANGIOGRAM HEAD W WO CONTRAST COMPARISON: None CLINICAL HISTORY: altered mental status TECHNIQUE: 3-D and MPR images are submitted. Up to date CT equipment and radiation dose reduction technique were utilized. FINDINGS: There are no stenoses and no aneurysms. There is no evidence of spasm or dissection. There are no significant anatomic variants. IMPRESSION: Normal study. [facility]-[id number] Performing Organization Address City/[facility] [place] [facility] Centercode Phone Number [facility] [address] [place] [address] * EEG (routine) (01/01/2018 9:00 PM RUBBER DOWN) Impressions Performed At This abnormal electroencephalogram shows evidence of a mild generalized [facility] DEPARTMENT OF encephalopathy.No epileptiform activity is seen. PATHOLOGY AND Stacia Cano MD GENOMIC MEDICINE Narrative Performed At [facility] DEPARTMENT OF REFERRING PHYSICIAN: Dr Zazueta PATHOLOGY [...] with no abnormalities elicited. Performing Organization Address City/State/Zipcode Phone Number [facility] DEPARTMENT OF [address] [place] [address] [place] [address] PATHOLOGY AND GENOMIC MEDICINE * MRI Brain W Wo Contrast (01/01/2018 8:49 PM RUBBER DOWN) Narrative Performed At EXAMINATION:MRI BRAIN W WO [...] upper cord are unremarkable. IMPRESSION: Unremarkable study. [facility]-[id number] Procedure Note Interface, Radiology Results Incoming - 01/01/2018 8:58 PM RUBBER DOWN EXAMINATION: MRI BRAIN W WO CONTRAST COMPARISON: [...] upper cord are unremarkable. IMPRESSION: Unremarkable study. [facility]-[id number] Performing Organization Address City/[facility]/Zipcode Phone Number [facility] [address] [place] [address] * Lactic acid level, SEPSIS - Now and repeat 2x every 3 hours (12/31/2017 11:16 PM RUBBER DOWN) Only the most recent of 3 results within the time period is included. Lactic acid 0.6 0.5 - 2.2 mmol/L [facility] DEPARTMENT OF PATHOLOGY AND GENOMIC MEDICINE Specimen Plasma specimen Performing Organization Address City/[facility]/Zipcode Phone Number [facility] DEPARTMENT OF [address] [place] [address] [place] [address] PATHOLOGY AND GENOMIC MEDICINE * Respiratory pathogen panel (12/31/2017 10:28 PM RUBBER DOWN) Respiratory pathogen Negative for all pathogens [facility] DEPARTMENT OF panel tested: PATHOLOGY [...] Right and left lobes Performing Organization Address City/[facility] [place] [facility] Centercode Phone Number [facility] DEPARTMENT OF [address] [place] [address] PATHOLOGY AND GENOMIC MEDICINE * Urine drugs of abuse screen (12/31/2017 4:34 PM RUBBER DOWN) Amphetamine screen, urine Negative [facility] DEPARTMENT OF PATHOLOGY AND GENOMIC MEDICINE Methamphetamine screen, Negative [facility] DEPARTMENT OF urine PATHOLOGY AND GENOMIC MEDICINE Barbiturate screen, urine Negative [facility] DEPARTMENT OF PATHOLOGY AND GENOMIC MEDICINE Benzodiazepine screen, Positive (A) [facility] DEPARTMENT OF urine PATHOLOGY AND GENOMIC MEDICINE Cocaine screen, urine Negative [facility] DEPARTMENT OF PATHOLOGY AND GENOMIC MEDICINE Methadone screen, urine Negative [facility] DEPARTMENT OF PATHOLOGY AND GENOMIC MEDICINE Opiates screen, urine Negative [facility] DEPARTMENT OF PATHOLOGY AND GENOMIC MEDICINE Phencyclidine screen, Negative [facility] DEPARTMENT OF urine PATHOLOGY AND GENOMIC MEDICINE Cannabinoid screen, urine Positive (A) [facility] DEPARTMENT OF PATHOLOGY AND GENOMIC MEDICINE Tricyclic screen, urine Positive (A) [facility] DEPARTMENT OF Comment: PATHOLOGY AND Drug screen minimum GENOMIC MEDICINE concentration of detectability Amphetamines 1000 ng/mL [...] purposes only. Specimen Urine Performing Organization Address City/State/Zipcode Phone Number [address] [place] [address] PATHOLOGY AND [facility] * Partial thromboplastin time, activated (12/31/2017 4:34 PM RUBBER DOWN) Only the most recent of 2 results within the time period is included. PTT 27.5 23.0 - 36.0 sec [facility] DEPARTMENT OF Comment: PATHOLOGY AND PTT therapeutic range for GENOMIC MEDICINE unfractionated heparin is 61.0-112.0 seconds which corresponds to Anti-Xa 0.3-0.7 U/ml. Specimen Blood Performing Organization Address [facility] Phone Number [address] [place] [address] PATHOLOGY AND [facility] MEDICINE * Prothrombin time with INR (12/31/2017 4:34 PM RUBBER DOWN) Only the most recent of 2 results within the time period is included. Prothrombin time 11.6 (L) 12.0 - 15.0 sec [facility] DEPARTMENT OF PATHOLOGY AND GENOMIC MEDICINE INR 0.8 [facility] DEPARTMENT OF Comment: PATHOLOGY AND The International Normalized [facility] MEDICINE Ratio (INR) is a therapeutic monitoring tool for patients who are stable on oral anticoagulant therapy. An INR of 2.0-3.0 is suggested for deep vein thrombosis/pulmonary embolism. Specimen Blood Performing Organization Address [facility] Phone Number [address] [place] [address] PATHOLOGY AND [facility] MEDICINE * Troponin (12/31/2017 4:04 PM RUBBER DOWN) Only the most recent of 2 results within the time period is included. Troponin <0.300 0.000 - 0.300 ng/mL [facility] DEPARTMENT OF Comment: PATHOLOGY AND 0.30 - 1.49 GENOMIC MEDICINE ng/mlMay indicate increased risk of acute coronary syndrome. >=1.5 ng/ml Consistent with acute myocardial infarction. The diagnostic value of a single normal or non-diagnostic result is questionable.Serial samples at 2-6 hour intervals are required to rule out acute myocardial injury. Specimen Plasma specimen Performing Organization Address [facility] [place] [facility] Centercode Phone Number [address] [place] [address] PATHOLOGY AND [facility]IC[facility] * Thyroid stimulating hormone (12/31/2017 4:04 PM RUBBER DOWN) TSH 0.38 0.27 - 4.20 uIU/mL [facility] DEPARTMENT OF PATHOLOGY AND GENOMIC MEDICINE Specimen Plasma specimen Performing Organization Address [facility] Phone Number [address] [place] [address] PATHOLOGY AND GENOMIC MEDICINE * T4 (12/31/2017 4:04 PM RUBBER DOWN) T4 9.5 4.5 - 11.7 ug/dL [facility] DEPARTMENT OF PATHOLOGY AND GENOMIC MEDICINE Specimen Plasma specimen Performing Organization Address [facility] Phone Number [address] [place] [address] PATHOLOGY AND GENOMIC MEDICINE * B natriuretic peptide (12/31/2017 4:04 PM RUBBER DOWN) BNP 11 0 - 100 pg/mL [facility] OF PATHOLOGY AND GENOMIC MEDICINE Specimen Blood Performing Organization Address [facility] Number [address] [place] [address] PATHOLOGY AND GENOMIC MEDICINE * Alcohol level, blood (12/31/2017 4:04 PM RUBBER DOWN) Alcohol None Detected mg/dL [facility] DEPARTMENT OF Comment: PATHOLOGY AND Normal GENOMIC MEDICINE None Detected Legal Intoxication in [place]80 mg/dL (0.08%) - Whole Blood Toxic Concentration 200 mg/dL (0.2%) Potentially Fatal3 50 - 500 mg/dL (0.35 - 0.5%) Alcohol percent None Detected % [facility] DEPARTMENT OF PATHOLOGY AND GENOMIC MEDICINE Specimen Plasma specimen Performing Organization Address [facility] Phone Number [address] [place] [address] PATHOLOGY AND GENOMIC MEDICINE * CT Head Wo Contrast (12/31/2017 3:39 PM RUBBER DOWN) Narrative Performed At EXAMINATION: CT HEAD WO [...] Prominent Virchow-Chuck space right basal ganglia unchanged [id number] Procedure Note Interface, Radiology Results Incoming - 12/31/2017 3:47 PM RUBBER DOWN EXAMINATION: CT HEAD WO CONTRAST CLINICAL HISTORY: [...] Prominent Virchow-Chuck space right basal ganglia unchanged [id number] Performing Organization Address City/State/Zipcode Phone Number [facility] [address] [place] [address] * XR Chest 1 Vw Portable (12/31/2017 3:33 PM RUBBER DOWN) Narrative Performed At EXAMINATION:XR [facility]ST [facility] CLINICAL H[facility]ORY:Chest Pain COMPARISON:November 10, 2017 chest IMPRESSION: Unremarkable single view chest The lungs are clear. The heart is not enlarged. The bony structures are within normal limits. [id number] Procedure Note Interface, Radiology Results Incoming - 12/31/2017 3:38 PM RUBBER DOWN EXAMINATION: XR CHEST 1 VW PORTABLE CLINICAL HISTORY: Chest Pain COMPARISON: November 10, 2017 chest IMPRESSION: Unremarkable single view chest The lungs are clear. The heart is not enlarged. The bony structures are within normal limits. [id number] Performing Organization Address [facility] [place] [facility] Centercomt Phone Number [facility] [address] [place] [address] * ECG ED Preliminary Interpretation - NOT AN ORDER (12/31/2017 3:11 PM RUBBER DOWN) Narrative Performed At Kelsy Christian MD 12/31/20176:46 PM ECG ED Preliminary Interpretation - Not an Order Performed by: KELSY CHRISTIAN Authorized by: KELSY CHRISTIAN ECG reviewed by ED Physician in the absence of a office rn: yes Interpretation: Interpretation: normal Rate: ECG rate:89 ECG rate assessment: normal Rhythm: Rhythm: sinus rhythm Ectopy: Ectopy: none QRS: QRS axis:Normal Conduction: Conduction: normal ST segments: ST segments:Normal T waves: T waves: normal * Gram stain (12/29/2017 3:50 PM RUBBER DOWN) Only the most recent of 2 results within the time period is included. Gram stain result No WBC's [facility] DEPARTMENT OF Occasional Gram positive rods PATHOLOGY AND Comment: GENOMIC MEDICINE Specimen Information Specimen Source: Urine Specimen Site: Clean catch Specimen Urine Performing Organization Address [facility] [place] [facility] Centercomt Phone Number [facility] DEPARTMENT OF [address] [place] [address] PATHOLOGY AND GENOMIC MEDICINE after 11/15/2017 Insurance Payer Benefit Subscriber ID Type Phone Address Plan / Group BCBS BCBS OUT xxxxxxxxxxxx PPO OF STATE ([place]) [place] [address] Advance Directives Patient has advance care planning documents, and code status on file. For more i nformation, please contact: Navneet Pate [address] [place] [address] Date Inactivated Comments Code Status Date Activated 01/04/2018 1:30 AM Full Code 12/31/2017 11:23 PM Code Status decision reached by: Patient 10/25/2017 4:33 PM Full Code 10/24/2017 3:39 PM Code Status decision reached by: Patient 08/16/2017 9:39 PM Full Code 08/14/2017 5:16 PM Code Status decision reached by: Patient
[2018-11-17 00:36] LABS: COLOR,URINE YELLOW (YELLOW)
[2018-11-17 00:37] LABS: BILIRUBIN,URINE NEGATIVE (NEGATIVE); CLARITY,URINE CLOUDY (CLEAR); KETONES,URINE NEGATIVE (NEGATIVE); LEUKOCYTE ESTERASE ,URINE 2+ (NEGATIVE); NITRITE,URINE NEGATIVE (NEGATIVE); PROTEIN,URINE DIPSTICK NEGATIVE (NEGATIVE); URINE UROBILINOGEN 0.2 mg/dL (0.2 - 1)
[2018-11-17 01:00] LABS: BACTERIA,URINE FEW /HPF; EPITHELIAL CELLS,URINE FEW /LPF; MUCUS,URINE FEW (RARE); RBC,URINE 21-50 /HPF (0-5); WBC,URINE (MAN) >50 /HPF (0-5)
[2018-11-17] MEDS ORDERED: CEFTRIAXONE SOD 1 GM VIAL IM ONE (01:15)
[2018-11-17] MEDS ORDERED: PHENAZOPYRIDINE HCL 100 MG TAB PO ONE (01:15)
[2018-11-17 01:28] VITALS: BP 142/87
== END 2018-11-17 01:55 | disposition home or self-care (01) ==
LOC: ER 22:59
DX: R30.0 Dysuria (principal); R10.2 Pelvic and perineal pain; N30.01 Acute cystitis with hematuria; Z85.528 Personal history of other malignant neoplasm of kidney
CPT/HCPCS: 81001; 87086; 87186; 99283; J0696

== ENCOUNTER 2019-03-31 20:09 | Emergency (ER) | payer BC ==
[~2019-03-31] VITALS: Ht 154.9 cm; Wt 81.6 kg
--- OUTSIDE RECORDS SUMMARY | 2019-03-31 20:11 | XMS REPORT | Clinical Summary ---
Author Author [facility] [facility] Organization [employer] [facility] Address Unknown Phone Unavailable Care Team Providers Care Tax Manager Cpa Name Role Phone Colby Farris DO PCP [...] not exceed 30 mg in 24 hours. Active tolterodine LA (DETROL 3 LA) 4 MG 24 hr capsule 8 Active ALPRAZolam (XANAX) 1 MG Take 1 mg by 0 tablet mouth nightly as needed for anxiety. 05/20/2018 Discontinued pentosan polysulfate Take 100 mg 0 (ELMIRON) 100 mg capsule by mouth 2 (two) times a day. 05/20/2018 Discontinued nortriptyline (PAMELOR) Take 25 mg by 0 25 MG capsule mouth nightly. 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 hypermobility, LEE Dispense 1 (stress urinary tube. incontinence, female), Vaginal atrophy, History of recurrent UTIs, Chronic interstitial cystitis Active Problems Problem Noted Date Fever, unknown [...] of pessary; Vaginal atrophy 05/20/2018 Office Visit Urogynecology Dolores Mauro MD 05/13/2018 Telephone Obstetrics and Gynecology Antonio KelleyLUIS 05/12/2018 Telephone Urogynecology Dolores Mauro MD Pelvic pain in female; Pelvic pain 05/09/2018 Hospital Radiology Encounter Brenna Mujica NP 05/05/2018 Telephone Urogynecology Brenna Mujica NP 04/16/2018 Telephone Obstetrics and Gynecology after 03/30/2018 Immunizations Name Dates Previously Given Next Due [...] Body Mass Index 33.07 Plan of Treatment Health Maintenance Due Date Last Done Comments BREAST CANCER SCREENING 2010 COLON CANCER SCREENING 2010 SHINGLES VACCINES (#1) 2010 INFLUENZA VACCINE 06/11/2019 11/11/2017 Procedures Comments Procedure Name Priority Date/Time [...] Pelvic pain in female 3:45 PM CDT after 03/30/2018 Results * Measure post void residual (08/07/2018 3:26 PM CDT) Total volume, 32ml urine * POC urinalysis dipstick (08/07/2018 3:25 PM CDT) Only the most recent of 2 results within the time period is included. Color urine, Yellow POC Clarity urine, Clear POC Glucose urine, Negative Negative POC Bilirubin Negative Negative urine, POC Ketones urine, Negative Negative POC Specific </=1.005 1.005 - 1.030 gravity urine, POC Blood urine, Negative Negative POC pH urine, POC 6.5 5.0, 5.5, 6.0, 6.5, 7.0, 7.5, 8.0, 8.5 Protein urine, Negative Negative POC Urobilinogen <2.0 <2.0 urine, POC Nitrite urine, Negative Negative POC Leukocyte Negative Negative esterase urine, POC Specimen Urine * Microscopic Examination (05/20/2018 3:48 PM CDT) WBC, UA None seen 0 - 5 /hpf [facility] RBC, UA 0-2 0 - 2 /hpf [facility] Epithelial 0-10 0 - 10 /hpf [facility] cells (non renal) Bacteria, UA Few None seen/Few [facility] Specimen Narrative Performed At Performed at:[address] [place], [place] [id number] African Studies Professor: Rudi Correa MD, Phone:[phone] Performing Organization Address [facility] Phone Number [facility] * Urinalysis, automated with microscopy (05/20/2018 3:48 PM CDT) Pathologist [facility] Specific 1.009 1.005 - 1.030 [facility] gravity, urine pH, urine 7.0 5.0 - 7.5 [facility] Color, UA Yellow Yellow [facility] Appearance Clear Clear [facility] WBC esterase, Negative Negative [facility] urine Protein, UA Negative Negative/Trace [facility] Glucose, urine Negative Negative [facility] Ketones, UA Negative Negative [facility] Occult blood, Negative Negative [facility] urine Bilirubin, UA Negative Negative [facility] Urobilinogen, 0.2 0.2 - 1.0 mg/dL [facility] UA Nitrite, UA Negative Negative [facility] Microscopic CommentComment: Microscopic [facility] examination follows if indicated. Microscopic See below:Comment: Microscopic [facility] examination was indicated and was performed. Specimen Urine Narrative Performed At Performed at:[address] [place], [place] [id number] African Studies Professor: Rudi Correa MD, Phone:[phone] Performing Organization Address [facility] Phone Number [facility] * Urine culture (05/20/2018 3:48 PM CDT) [facility] Urine culture No growth [facility] Specimen Narrative Performed At Performed at:[address] [place], [place] [id number] African Studies Professor: Rudi Correa MD, Phone:[phone] Performing Organization Address [facility] Phone Number [facility] * US Pelvic Transabdominal (05/09/2018 3:45 PM CDT) Specimen Narrative Performed At EXAMINATION:US PELVIC TRANSABDOMINAL [facility] CLINICAL HISTORY:R10.2 Pelvic and perineal pain [...] of free fluid within the endometrial cavity. [id number] Procedure Note Interface, Radiology Results - 05/09/2018 4:23 PM CDT EXAMINATION: US [...] of free fluid within the endometrial cavity. [id number] Performing Organization Address City/State/Zipcode Phone Number [facility] [address] [place] [address] * US Pelvic Transvaginal (05/09/2018 3:45 PM CDT) Specimen Narrative Performed At EXAMINATION:[facility]R10.2 Pelvic and perineal pain COMPARISON:None. [...] of free fluid within the endometrial cavity. [id number] Procedure Note Interface, Radiology Results Incoming - [...] of free fluid within the endometrial cavity. [id number] Performing Organization Address City/State/Zipcode Phone Number [facility] [address] [place] [address] after 03/30/2018 Insurance Type Payer Benefit Subscriber ID Effective Phone Address Plan / Dates Group PPO BCBS BCBS OUT xxxxxxxxxxxx 2015- OF STATE Present Advance Directives Patient has advance care planning documents, and code status on file. For more i nformation, please contact: Navneet Pate [address] [place] [address] Date Inactivated Comments Code Status Date Activated 01/04/2018 1:30 AM Full Code 12/31/2017 11:23 PM Code Status decision reached by: Patient 10/25/2017 4:33 PM Full Code 10/24/2017 3:39 PM Code Status decision reached by: Patient 08/16/2017 9:39 PM Full Code 08/14/2017 5:16 PM Code Status decision reached by: Patient
[2019-03-31] MEDS ORDERED: ONDANSETRON HCL INJ 2MG/ML 2ML 2 MG/ML VIAL IV NR (20:44)
[2019-03-31] MEDS ORDERED: MORPHINE SULFATE INJ 4 MG/ML INJ 1ML IV STA (20:44)
[2019-03-31] MEDS ORDERED: SODIUM CHLORIDE 0.9% 1000ML 1,000 ML IV STA (20:44)
[2019-03-31 22:46] LABS: BASOPHILS # (AUTO) 0.1 (0.0-0.1); BASOPHILS % 0.5 % (0.0-1.0); EOSINOPHILS # (AUTO) 0.1 (0.0-0.4); EOSINOPHILS % 0.4 % (0.0-6.0); HEMATOCRIT 43.9 % (34.2-44.1); HEMOGLOBIN 14.5 g/dL (12.0-16.0); LYMPHOCYTES # (AUTO) 3.1 (1.0-3.2); LYMPHOCYTES % 25.1 % (18.0-39.1); MEAN CORPUSCULAR HEMOGLOBIN 30.6 pg (28-32); MEAN CORPUSCULAR VOLUME 92.6 fL (81-99); MONOCYTES # (AUTO) 1.2 (0.2-0.8); MONOCYTES % 9.5 % (4.4-11.3); NEUTROPHILS # (AUTO) 7.9 (2.1-6.9); NEUTROPHILS % 64.1 % (38.7-80.0); PLATELET COUNT 277 x10e3/uL (140-360); RED BLOOD COUNT 4.74 x10e6/uL (3.6-5.1); RED CELL DISTRIBUTION WIDTH 13.1 % (11.7-14.4)
[2019-03-31 22:52] LABS: INR 0.82; PROTHROMBIN TIME 11.8 seconds (11.9-14.5)
[2019-03-31 22:53] LABS: PARTIAL THROMBOPLASTIN TIME 28.3 seconds (23.8-35.5)
[2019-03-31 23:03] LABS: ALANINE AMINOTRANSFERASE 21 IU/L (0-55); ALBUMIN 4.4 g/dL (3.5-5.0); ALBUMIN/GLOBULIN RATIO 1.5 (0.8-2.0); ALKALINE PHOSPHATASE 77 IU/L (40-150); AMYLASE 68 U/L (25-125); ANION GAP 20.6 mmol/L (8-16); BLOOD UREA NITROGEN 14 mg/dL (7-26); BUN/CREATININE RATIO 17 (6-25); CALCIUM 10.4 mg/dL (8.4-10.2); CARBON DIOXIDE 24 mmol/L (22-29); CHLORIDE 95 mmol/L (98-107); CREATINE KINASE 82 IU/L (29-168); CREATININE, SERUM 0.82 mg/dL (0.57-1.11); EST GLOMERULAR FILTRATION RATE > 60 ML/MIN (60-); GLUCOSE 113 mg/dL (74-118); LIPASE 41 U/L (8-78); MAGNESIUM 2.4 MG/DL (1.3-2.1); POTASSIUM 3.6 mmol/L (3.5-5.1); SODIUM 136 mmol/L (136-145)
[2019-04-01 00:24] LABS: CLARITY,URINE CLOUDY (CLEAR); COLOR,URINE YELLOW (YELLOW); KETONES,URINE NEGATIVE (NEGATIVE); LEUKOCYTE ESTERASE ,URINE NEGATIVE (NEGATIVE); NITRITE,URINE NEGATIVE (NEGATIVE); PROTEIN,URINE DIPSTICK NEGATIVE (NEGATIVE); URINE UROBILINOGEN 0.2 mg/dL (0.2 - 1)
[2019-04-01 00:25] LABS: BILIRUBIN,URINE NEGATIVE (NEGATIVE)
[2019-04-01] MEDS ORDERED: SODIUM CHLORIDE 0.9% 50ML 50 ML ONE (00:28)
[2019-04-01] MEDS ORDERED: IOPAMIDOL 370 MG/ML 200 ML INFUS..BTL INJ ONE (00:29)
[2019-04-01 00:35] LABS: BACTERIA,URINE FEW /HPF; EPITHELIAL CELLS,URINE MODERATE /LPF; RBC,URINE 0-5 /HPF (0-5)
--- NOTE | 2019-04-01 01:31 | Diagnostic Imaging Report ---
Examination: Single AP view of the chest. COMPARISON: None. INDICATION: Chest pain DISCUSSION: Lines/tubes: None. Lungs: The lungs are well inflated and clear. No pneumonia or pulmonary edema. Pleura: No pleural effusion or pneumothorax. Heart and mediastinum: The heart and the mediastinum are unremarkable. Bones and soft tissues: No acute bony abnormalities. IMPRESSION: 1. No acute cardiopulmonary abnormalities. Signed by: Dr. Elias Puckett M.D. on 04/01/2019 1:28 AM
--- NOTE | 2019-04-01 01:35 | NUR ---
REPORT GIVEN TO ANA PITTMAN.
--- NOTE | 2019-04-01 01:40 | Diagnostic Imaging Report ---
EXAMINATION: CT of the abdomen and pelvis with contrast. TECHNIQUE: Helical CT images of the abdomen and pelvis were performed from the lung bases to the lesser trochanters after the intravenous administration of 100 cc of Isovue 300 and the oral administration of none. Coronal and sagittal reformatted images were obtained.Dose modulation, iterative reconstruction, and/or weight based adjustment of the mA/kV was utilized to reduce the radiation dose to as low as reasonably achievable. COMPARISON: None. CLINICAL HISTORY:Abdominal pain DISCUSSION: ABDOMEN/PELVIS: LOWER THORAX:Unremarkable. HEPATOBILIARY: No focal hepatic lesions. No intra-or extrahepatic biliary ductal dilation. The gallbladder is normal. SPLEEN: No splenomegaly. PANCREAS: No focal masses or ductal dilatation. ADRENALS: No adrenal nodules. KIDNEYS/URETERS: No hydronephrosis, stones, or calculi. Subcentimeter cyst in the inferior pole left kidney. PELVIC ORGANS/BLADDER: The bladder is normal. PERITONEUM/RETROPERITONEUM: No free air or fluid. LYMPH NODES: No intra-abdominal, retroperitoneal, pelvic or inguinal lymphadenopathy. VESSELS: Limited evaluation. GI TRACT: No distention or wall thickening. BONES AND SOFT TISSUE: No bony destructive lesions. No soft tissue abnormalities. IMPRESSION: No acute CT finding. Signed by: Dr. Elias Pcukett M.D. on 04/01/2019 1:37 AM
[2019-04-01] MEDS ORDERED: KETOROLAC TROMETHAMINE 30 MG/ML VIAL IV STA (02:00)
[2019-04-01 02:53] VITALS: BP 115/85
== END 2019-04-01 03:07 | disposition home or self-care (01) ==
LOC: ER 20:09
DX: R07.89 Other chest pain (principal); I10 Essential (primary) hypertension; E86.0 Dehydration; R00.0 Tachycardia, unspecified; Z85.528 Personal history of other malignant neoplasm of kidney; N39.0 Urinary tract infection, site not specified; F41.9 Anxiety disorder, unspecified; Z88.6 Allergy status to analgesic agent; Z88.1 Allergy status to other antibiotic agents; Z88.8 Allergy status to other drugs, medicaments and biological substances; Z87.891 Personal history of nicotine dependence
CPT/HCPCS: 36415; 71045; 74177; 80053; 81001; 82150; 82550; 82553; 83690; 83735; 84484; 85025; 85610; 85730; 93005; 94760; 99284; J2270; J2405; J7030; Q9967; J1885

== ENCOUNTER 2019-06-19 11:51 | Observation (INO) | payer BC ==
[~2019-06-19] VITALS: Ht 154.9 cm; Wt 98.0 kg
--- OUTSIDE RECORDS SUMMARY | 2019-06-19 11:54 | XMS REPORT | Clinical Summary ---
Author Author [facility] Organization [facility] Address Unknown Phone Unavailable Care Team Providers Care Senior Director Creative Services Name Role Phone Colby Farris DO PCP [...] tablet mouth nightly as needed for anxiety. 12/26/2018 estradiol (ESTRACE) 0.01 Insert 0.5 g [...] Gynecology Dolores Mauro MD 06/23/2018 Telephone Urogynecology after 06/18/2018 Immunizations Name Dates Previously Given Next Due [...] Last Done Comments BREAST CANCER SCREENING 2010 COLONOSCOPY SCREENING 2010 SHINGLES VACCINES (#1) 2010 INFLUENZA VACCINE 06/11/2019 11/11/2017 Procedures Comments Procedure Name Priority Date/Time Associated Diagnosis MEASURE POST VOID Routine 08/07/2018 Recurrent UTI RESIDUAL 3:26 PM CDT POC URINALYSIS DIPSTICK Routine 08/07/2018 Recurrent UTI 3:25 PM CDT after 06/18/2018 Results * Measure post void residual (08/07/2018 3:26 PM CDT) Total volume, 32ml urine * POC urinalysis dipstick (08/07/2018 3:25 PM CDT) Color urine, Yellow POC Clarity urine, Clear [...] Negative Negative esterase urine, POC Specimen Urine after 06/18/2018 Insurance Type Payer Benefit Subscriber ID Effective Phone Address Plan / Dates Group PPO BCBS BCBS OUT xxxxxxxxxxxx 2015- OF STATE Present Advance Directives Patient has advance care planning documents, and code status on file. For more i nformation, please contact: Navneet Pate [address] [place] [address] Date Inactivated Comments Code Status Date Activated 01/04/2018 1:30 AM Full Code 12/31/2017 11:23 PM Code Status decision reached by: Patient 10/25/2017 4:33 PM Full Code 10/24/2017 3:39 PM Code Status decision reached by: Patient 08/16/2017 9:39 PM Full Code 08/14/2017 5:16 PM Code Status decision reached by: Patient
[2019-06-19] MEDS ORDERED: SODIUM CHLORIDE 0.9% 1000ML 1,000 ML IV STA (12:09)
[2019-06-19] MEDS ORDERED: HYDROMORPHONE 1MG/1ML INJ IV STA (12:09)
[2019-06-19] MEDS ORDERED: ONDANSETRON HCL INJ 2MG/ML 2ML 2 MG/ML VIAL IV STA (12:09)
[2019-06-19 12:35] LABS: BASOPHILS # (AUTO) 0.1 (0.0-0.1); BASOPHILS % 0.6 % (0.0-1.0); EOSINOPHILS # (AUTO) 0.2 (0.0-0.4); EOSINOPHILS % 1.8 % (0.0-6.0); HEMATOCRIT 46.1 % (34.2-44.1); HEMOGLOBIN 15.6 g/dL (12.0-16.0); LYMPHOCYTES # (AUTO) 2.4 (1.0-3.2); LYMPHOCYTES % 26.8 % (18.0-39.1); MEAN CORPUSCULAR HEMOGLOBIN 31.1 pg (28-32); MEAN CORPUSCULAR HGB CONC 33.8 g/dL (31-35); MEAN CORPUSCULAR VOLUME 91.8 fL (81-99); NEUTROPHILS # (AUTO) 5.4 (2.1-6.9); NEUTROPHILS % 59.4 % (38.7-80.0); PLATELET COUNT 362 x10e3/uL (140-360); RED BLOOD COUNT 5.02 x10e6/uL (3.6-5.1); RED CELL DISTRIBUTION WIDTH 12.7 % (11.7-14.4)
[2019-06-19 12:36] LABS: BILIRUBIN,URINE MODERATE (NEGATIVE); CLARITY,URINE CLEAR (CLEAR); COLOR,URINE YELLOW (YELLOW); KETONES,URINE 1+ (NEGATIVE); LEUKOCYTE ESTERASE ,URINE NEGATIVE (NEGATIVE); NITRITE,URINE NEGATIVE (NEGATIVE); PROTEIN,URINE DIPSTICK 1+ (NEGATIVE); URINE UROBILINOGEN 0.2 mg/dL (0.2 - 1)
[2019-06-19 12:53] LABS: ALANINE AMINOTRANSFERASE 27 IU/L (0-55); ALBUMIN 4.3 g/dL (3.5-5.0); ALBUMIN/GLOBULIN RATIO 1.3 (0.8-2.0); ALKALINE PHOSPHATASE 69 IU/L (40-150); ANION GAP 15.6 mmol/L (8-16); BLOOD UREA NITROGEN 12 mg/dL (7-26); BUN/CREATININE RATIO 15 (6-25); CALCIUM 10.1 mg/dL (8.4-10.2); CARBON DIOXIDE 24 mmol/L (22-29); CHLORIDE 102 mmol/L (98-107); CREATINE KINASE 81 IU/L (29-168); CREATININE, SERUM 0.78 mg/dL (0.57-1.11); EST GLOMERULAR FILTRATION RATE > 60 ML/MIN (60-); GLUCOSE 121 mg/dL (74-118); POTASSIUM 3.6 mmol/L (3.5-5.1); SODIUM 138 mmol/L (136-145)
[2019-06-19 13:10] LABS: INR 0.88; PROTHROMBIN TIME 12.4 seconds (11.9-14.5)
[2019-06-19 13:11] LABS: PARTIAL THROMBOPLASTIN TIME 32.6 seconds (23.8-35.5)
[2019-06-19 13:19] LABS: BACTERIA,URINE FEW /HPF; EPITHELIAL CELLS,URINE FEW /LPF; WBC,URINE (MAN) 0-5 /HPF (0-5)
--- NOTE | 2019-06-19 14:27 | Diagnostic Imaging Report ---
EXAMINATION: CHEST SINGLE (PORTABLE) INDICATION: Dizziness COMPARISON: Chest radiograph of 03/31/2019 FINDINGS: LINES/TUBES:EKG leads overlie the chest. LUNGS:The lungs are well-inflated. No focal consolidation or pulmonary edema. PLEURA:No pleural effusion or pneumothorax. MEDIASTINUM:The cardiomediastinal silhouette appears normal in size and shape. BONES/SOFT TISSUES:No acute osseous injury. ABDOMEN:No free air under the diaphragm. IMPRESSION: No focal pneumonia or pulmonary edema. Signed by: Thierno Rangel MD on 06/19/2019 2:24 PM
--- NOTE | 2019-06-19 14:33 | Diagnostic Imaging Report ---
EXAM: CT Abdomen and Pelvis WITH intravenous contrast INDICATION: Abdominal pain COMPARISON: CT abdomen pelvis of 08/05/2015 TECHNIQUE: Abdomen and pelvis were scanned utilizing a multidetector helical scanner from the lung base to the pubic symphysis after administration of IV contrast. Coronal and sagittal reformations were obtained. Routine protocol was performed. Scan was performed when during portal venous phase. IV CONTRAST: 100mL of Isovue 370 ORAL CONTRAST: Water COMPLICATIONS: None RADIATION DOSE: Total DLP: 763.8 mGy*cm Dose modulation, iterative reconstruction, and/or weight based adjustment of the mA/kV was utilized to reduce the radiation dose to as low as reasonably achievable. FINDINGS: LOWER THORAX: Normal. HEPATOBILIARY: Hepatic steatosis. No focal liver lesions. No biliary ductal dilatation. The gallbladder appears unremarkable. SPLEEN: No splenomegaly. PANCREAS: No focal masses or ductal dilatation. ADRENALS: No adrenal nodules. KIDNEYS/URETERS: No hydronephrosis or renal calculi. 1 cm left lower pole renal cyst. No solid mass lesion. PELVIC ORGANS/BLADDER: Unremarkable. PERITONEUM / RETROPERITONEUM: No free air or fluid. LYMPH NODES: No lymphadenopathy. VESSELS: Atherosclerotic calcifications of the nonaneurysmal abdominal aorta and major branches. GI TRACT: Mild colonic diverticulosis. No CT evidence of diverticulitis. No abnormal bowel wall thickening. No bowel obstruction. BONES AND SOFT TISSUES: No acute osseous injury. No suspicious lytic or blastic lesions. IMPRESSION: No acute findings in the abdomen or pelvis. Hepatic steatosis. Signed by: Thierno Rangel MD on 06/19/2019 2:29 PM
[2019-06-19] MEDS ORDERED: SODIUM CHLORIDE 0.9% 50ML 50 ML ONE (14:48)
[2019-06-19] MEDS ORDERED: IOPAMIDOL 370 MG/ML 200 ML INFUS..BTL INJ ONE (14:49)
[2019-06-19] MEDS: SODIUM CHLORIDE 0.9% 1000ML 1,000 ML IV SCH ×2 (15:30→23:46)
[2019-06-19] MEDS: ONDANSETRON HCL INJ 2MG/ML 2ML 2 MG/ML VIAL IV PRN ×2 (15:30→18:39)
--- OUTSIDE RECORDS SUMMARY | 2019-06-19 15:32 | XMS REPORT | Clinical Summary ---
Author Author [facility] Organization [facility] Address Unknown Phone Unavailable Care Team Providers Care Engraving Patternmaker Name Role Phone Colby Farris DO PCP [...] more i nformation, please contact: Navneet Pate [address] [place] [address] Date Inactivated Comments Code Status Date Activated 01/04/2018 1:30 AM Full Code 12/31/2017 11:23 PM Code Status decision reached by: Patient 10/25/2017 4:33 PM Full Code 10/24/2017 3:39 PM Code Status decision reached by: Patient 08/16/2017 9:39 PM Full Code 08/14/2017 5:16 PM Code Status decision reached by: Patient
[2019-06-19] MEDS ORDERED: ASPIR 8181 MG PO (15:58)
[2019-06-19] MEDS ORDERED: CIPRO500 MG PO (15:58)
[2019-06-19] MEDS ORDERED: MONTELUKAST SOD10 MG PO (15:59)
[2019-06-19] MEDS ORDERED: BENICAR20 MG PO (16:00)
--- NOTE | 2019-06-19 16:57 | NUR ---
RECEIVED REPORT FROM FARSHAD REDDY IN ER. AWAITING FOR PT TO ARRIVE TO FLOOR
--- NOTE | 2019-06-19 17:10 | NUR ---
RECEIVED PT TO FLOOR AA0X3 PT C/O PAIN TO LLQ 8/10 NO PAIN MED ON CHART . PAGING MD Scruggs BALLARD FOR ORDERS AT THIS TIME PT REPORTS TENDERNESS UPON PALPATION AND MOVEMENT TO ABD NO NAUSEA AT THIS TIME IV TO THE RIGHT FA 20 WITH NS AT 125CC.HR SITE IS CLEAN AND DRY WILL CONTINUE TO MONITOR PT AT THIS TIME . SIDE RAILSX2, BED WHEELS LOCKED ,CALL LIGHT IS WITHIN EASY REACH INSTRUCTED TO CALL FOR ASSISTANCE IF NEEDED
[2019-06-19 17:16] VITALS: BP 147/80
[2019-06-19 17:30] VITALS: BP 147/80
[2019-06-19 17:40] VITALS: BP 147/80
--- NOTE | 2019-06-19 17:54 | NUR ---
PAGED MD Sheba BALLARD FOR ORDERS ON PAIN MEDICATIONS AWAITING FOR CALL BACK
--- NOTE | 2019-06-19 18:11 | NUR ---
SPOKE WITH MD Sheba BALLARD REGARDING PT C/O OF PAIN NEW ORDERS RECEIVED HOME MEDICATION RENEWAL RECEIVED WELL
[2019-06-19] MEDS ORDERED: SODIUM SALICYLATE PO PRN (18:15)
[2019-06-19] MEDS ORDERED: METHENAMINE PO PRN (18:15)
[2019-06-19] MEDS: KETOROLAC TROMETHAMINE 30 MG/ML VIAL IM PRN (18:39)
[2019-06-19 19:10] VITALS: BP 139/82
--- NOTE | 2019-06-19 20:40 | NUR ---
PATIENT ASSISTED TO THE RESTROOM TO VOID, SHE'S NOW BACK IN BED WITH BED ALARM ON AND CALL LIGHT WITHIN EASY REACH. NO RESPIRATORY DISTRESS OBSERVED, PATIENT DENIES PAIN.
[2019-06-19] MEDS: MONTELUKAST SODIUM 10 MG TAB PO SCH (21:49)
[2019-06-19] MEDS: NORTRIPTYLINE HCL 25 MG CAP PO SCH (21:49)
[2019-06-19] MEDS: ALPRAZOLAM 1 MG TAB PO PRN (23:46)
[2019-06-20] VITALS (7 sets, daily range): BP systolic 106–117; BP diastolic 65–80
--- NOTE | 2019-06-20 01:51 | NUR ---
PATIENT IS ASLEEP, SHE'S EASY TO AROUSE. NO RESPIRATORY DISTRESS OBSERVED, SHE DENIES PAIN. CALL LIGHT WITHIN EASY REACH, BED ALARM ON.
--- NOTE | 2019-06-20 03:35 | NUR ---
WALKING ROUNDS MADE, OFFER TO ASSIST PATIENT TO THE RESTROOM BUT SHE STATES "I DON'T HAVE THE URGE TO VOID NOW". BED ALARM ON, CALL LIGHT WITHIN EASY REACH.
[2019-06-20 06:23] LABS: BASOPHILS % 0.5 % (0.0-1.0); EOSINOPHILS # (AUTO) 0.2 (0.0-0.4); HEMATOCRIT 35.6 % (34.2-44.1); HEMOGLOBIN 11.4 g/dL (12.0-16.0); LYMPHOCYTES # (AUTO) 2.5 (1.0-3.2); LYMPHOCYTES % 42.6 % (18.0-39.1); MEAN CORPUSCULAR HEMOGLOBIN 30.7 pg (28-32); MONOCYTES # (AUTO) 0.7 (0.2-0.8); MONOCYTES % 11.9 % (4.4-11.3); NEUTROPHILS # (AUTO) 2.5 (2.1-6.9); NEUTROPHILS % 41.7 % (38.7-80.0); PLATELET COUNT 231 x10e3/uL (140-360); RED BLOOD COUNT 3.71 x10e6/uL (3.6-5.1); RED CELL DISTRIBUTION WIDTH 12.8 % (11.7-14.4)
[2019-06-20 06:35] LABS: ANION GAP 10.5 mmol/L (8-16); BLOOD UREA NITROGEN 10 mg/dL (7-26); BUN/CREATININE RATIO 16 (6-25); CALCIUM 8.3 mg/dL (8.4-10.2); CARBON DIOXIDE 24 mmol/L (22-29); CHLORIDE 109 mmol/L (98-107); CREATININE, SERUM 0.64 mg/dL (0.57-1.11); EST GLOMERULAR FILTRATION RATE > 60 ML/MIN (60-); GLUCOSE 88 mg/dL (74-118); POTASSIUM 3.5 mmol/L (3.5-5.1); SODIUM 140 mmol/L (136-145)
[2019-06-20] MEDS: SODIUM CHLORIDE 0.9% 1000ML 1,000 ML IV SCH ×3 (08:10→18:33)
[2019-06-20] MEDS: ALPRAZOLAM 1 MG TAB PO PRN (08:10)
[2019-06-20] MEDS: OLMESARTAN 20 MG TAB PO SCH (08:38)
[2019-06-20] MEDS: LINZESS 72 MCG PO SCH (08:39)
[2019-06-20] MEDS: ONDANSETRON HCL INJ 2MG/ML 2ML 2 MG/ML VIAL IV PRN (08:57)
[2019-06-20] MEDS: KETOROLAC TROMETHAMINE 30 MG/ML VIAL IM PRN (08:57)
[2019-06-20] MEDS ORDERED: ASPIRIN 81 MG CHEW TAB PO SCH (09:00)
[2019-06-20] MEDS ORDERED: LORATADINE 10 MG TAB PO SCH ×2 (09:00→21:00)
[2019-06-20] MEDS ORDERED: ACETAMINOPHEN/CODEINE 300MG - 30MG TAB PO PRN (11:45)
[2019-06-20 13:50] LABS: BILIRUBIN,URINE NEGATIVE (NEGATIVE); CLARITY,URINE CLEAR (CLEAR); COLOR,URINE YELLOW (YELLOW); KETONES,URINE NEGATIVE (NEGATIVE); LEUKOCYTE ESTERASE ,URINE NEGATIVE (NEGATIVE); NITRITE,URINE NEGATIVE (NEGATIVE); PROTEIN,URINE DIPSTICK NEGATIVE (NEGATIVE); URINE UROBILINOGEN 0.2 mg/dL (0.2 - 1)
[2019-06-20 13:58] LABS: BACTERIA,URINE FEW /HPF; EPITHELIAL CELLS,URINE FEW /LPF; RBC,URINE 0-5 /HPF (0-5); WBC,URINE (MAN) 0-5 /HPF (0-5)
--- NOTE | 2019-06-20 14:46 | Diagnostic Imaging Report ---
EXAM: Renal Ultrasound INDICATION: ^LEFT KIDNEY COMPARISON: CT dated 06/19/2019 TECHNIQUE: Transverse and longitudinal images of the kidneys and bladder were obtained. FINDINGS: Right Kidney: Size: 11 cm Echogenicity: Normal Parenchymal thickness: Normal Collecting system: No hydronephrosis Stones: None Cyst/Mass: None Left Kidney: Size: 10.9 cm Echogenicity: Normal Parenchymal thickness: Normal Collecting system: No hydronephrosis Stones: None Cyst/Mass: Mid to inferior pole cyst measuring 1.1 x 0.9 x 1 cm. Bladder: Unremarkable. Bilateral ureteral jets were seen. IMPRESSION: Unremarkable renal ultrasound exam. 1.1 cm left renal simple cyst. Signed by: Dr. Jama Muller MD on 06/20/2019 2:43 PM
[2019-06-20] MEDS: MONTELUKAST SODIUM 10 MG TAB PO SCH (21:07)
[2019-06-20] MEDS: NORTRIPTYLINE HCL 25 MG CAP PO SCH (21:07)
[2019-06-21] VITALS: BP 105/57
[2019-06-21] MEDS: ALPRAZOLAM 1 MG TAB PO PRN ×2 (00:03→09:37)
[2019-06-21 04:00] VITALS: BP 113/76
[2019-06-21] MEDS: SODIUM CHLORIDE 0.9% 1000ML 1,000 ML IV SCH (05:55)
[2019-06-21 06:06] LABS: BASOPHILS % 0.6 % (0.0-1.0); EOSINOPHILS # (AUTO) 0.2 (0.0-0.4); EOSINOPHILS % 3.7 % (0.0-6.0); HEMOGLOBIN 11.2 g/dL (12.0-16.0); LYMPHOCYTES # (AUTO) 2.1 (1.0-3.2); LYMPHOCYTES % 38.7 % (18.0-39.1); MEAN CORPUSCULAR HEMOGLOBIN 30.8 pg (28-32); MEAN CORPUSCULAR VOLUME 96.2 fL (81-99); MONOCYTES # (AUTO) 0.6 (0.2-0.8); MONOCYTES % 11.4 % (4.4-11.3); NEUTROPHILS # (AUTO) 2.5 (2.1-6.9); NEUTROPHILS % 45.2 % (38.7-80.0); PLATELET COUNT 230 x10e3/uL (140-360); RED BLOOD COUNT 3.64 x10e6/uL (3.6-5.1); RED CELL DISTRIBUTION WIDTH 12.8 % (11.7-14.4)
[2019-06-21 06:10] LABS: ANION GAP 9.4 mmol/L (8-16); BLOOD UREA NITROGEN 5 mg/dL (7-26); BUN/CREATININE RATIO 8 (6-25); CALCIUM 8.2 mg/dL (8.4-10.2); CARBON DIOXIDE 25 mmol/L (22-29); CHLORIDE 113 mmol/L (98-107); CREATININE, SERUM 0.62 mg/dL (0.57-1.11); EST GLOMERULAR FILTRATION RATE > 60 ML/MIN (60-); GLUCOSE 78 mg/dL (74-118); POTASSIUM 3.4 mmol/L (3.5-5.1); SODIUM 144 mmol/L (136-145)
--- NOTE | 2019-06-21 07:07 | NUR ---
patient endorsed to next shift for continuity of care.
--- NOTE | 2019-06-21 07:12 | NUR ---
No stone noted in urine
[2019-06-21] MEDS: LINZESS 72 MCG PO SCH (07:55)
[2019-06-21] MEDS: OLMESARTAN 20 MG TAB PO SCH (07:55)
[2019-06-21 08:27] VITALS: BP 107/60
[2019-06-21 08:30] VITALS: BP 107/60
[2019-06-21] MEDS ORDERED: POTASSIUM CHLORIDE 20 MEQ TAB CR PO NR (10:00)
--- NOTE | 2019-06-21 10:52 | NUR ---
DC INSTRUCTIONS GIVEN PT VERBALIZED UNDERSTANDING IV DC PRESSURE DRESSING APPLIED AND TAPED PT IS NOW OFF UNIT TO HOME
[2019-06-21] MEDS ORDERED: ASPIRIN 81 MG CHEW TAB PO SCH (21:00)
--- NOTE | 2019-07-21 20:38 | Discharge Summary ---
CHIEF COMPLAINT: Constant left lower abdominal pain. FINAL DIAGNOSES: 1. Lower abdominal pain. 2. Interstitial cystitis. 3. Hypertension. DISPOSITION: Home. HOSPITAL COURSE: A 58-year-old female with history of hypertension, interstitial cystitis, history of left kidney CA, status post partial left nephrectomy, presents to the ER with a 1-week history of possible abdominal pain. No fever or chills. No dysuria or polyuria. No nausea or vomiting. No diarrhea. We reviewed in the emergency room. Studies were performed. The patient was demonstrating moderate , we will rule out tenderness. Clinical data and x-rays were performed. The patient was admitted to facility regarding left lower abdominal pain. History of left renal CA, status post partial nephrectomy, ataxia, sepsis, hypertension. We will be continuing home medications. We will be addressing IV hydration, analgesic issues to be addressed as well. From the emergency room, the patient was placed on the Med-Surg floor, was receiving a cardiac diet. The patient was continuing to complain of lower abdominal pain, aggravated with movement. She was placed on appropriate medications. Laboratory studies were being reviewed. UTI studies were being evaluated. Ultrasound of left kidney was being requested. the patient had improved. She was resting comfortably, is in no acute distress. Responded well to medications. Ultrasound of the kidney was unremarkable. The patient is cleared for discharge and was able to be released home on 06/21/2019 in stable condition. IMAGING: Chest x-ray revealing no focal pneumonia or pulmonary edema. X-rays of abdomen and pelvis CT, no acute findings in the abdomen and pelvis. Hepatic steatosis. Final studies of renal ultrasound revealing unremarkable renal ultrasound study. A 1.1 cm left renal simple cyst. CULTURES: Urine, unremarkable. LABORATORY STUDIES: CBC showing normal white cell counts, H and H were stable. Platelets were stable. Followup CBCs continued to reveal stable white cell counts, H and H values fell, as her stay continued. Final H and H are 11.2 and 35.0. Urinalysis; 1+ protein, 1+ ketones, large amount of bilirubin, 0-5 wbc's per high-power field, and few bacteria. Chemistries reveals initial electrolyte panel to be normal. Kidney functions are normal. Glucose is 121. Initial total bilirubin was 1.4. AST, ALT normal. Followup chemistries shows a slow decline in potassium showed final study of 3.4, BUN and creatinine remained stable. Final glucose 78. As mentioned the patient responded well and was able to be discharged home. IVs were discontinued. With discharge, she will be continuing on her current diet. No equipments or supplies are necessary. No drains or Haque was needed. Activity level as directed by myself. Followup care should be returning to her PCP within 7-10 days. DISCHARGE MEDICATIONS: She will be continuing on: 1. Codeine. 2. Acetaminophen 300 mg tablet one every 6 hours as needed for pain. 3. Xanax 1 mg p.o. b.i.d. 4. Aspirin 81 mg 1 tablet p.o. daily. 5. Cipro 500 mg p.o. q.12 #30. 6. Loratadine 10 mg p.o. daily. 7. Cystex one tablet p.o. p.r.n. 8. Montelukast sodium 10 mg p.o. daily. 9. Nortriptyline 50 mg p.o. at bedtime. 10. Benicar 20 mg p.o. daily. 11. Maxalt 10 mg p.o. b.i.d. 12. Linzess 72 mcg p.o. daily. She was instructed if she was to have recurrence of symptoms or other questions or concerns, she is to contact her PCP. Dictated by AUBREY Saleem MD JAYE Jordan/KOJO /[id number]
== END 2019-06-21 10:48 | disposition home or self-care (01) ==
LOC: ER 11:51 → ERHOLD 15:01 → MED/SURG 17:05
DX: N30.10 Interstitial cystitis (chronic) without hematuria (principal); R53.1 Weakness; R10.32 Left lower quadrant pain; Z88.1 Allergy status to other antibiotic agents; Z88.5 Allergy status to narcotic agent; Z88.8 Allergy status to other drugs, medicaments and biological substances; I10 Essential (primary) hypertension; Z87.442 Personal history of urinary calculi; Z87.440 Personal history of urinary (tract) infections; F41.9 Anxiety disorder, unspecified; Z83.3 Family history of diabetes mellitus; Z82.49 Family history of ischemic heart disease and other diseases of the circulatory system; Z85.53 Personal history of malignant neoplasm of renal pelvis; Z90.5 Acquired absence of kidney; K76.0 Fatty (change of) liver, not elsewhere classified
CPT/HCPCS: 36415 ×3; 71045; 74177; 76770; 80048 ×2; 80053; 81001 ×2; 82550; 82553; 83036; 84484; 85025 ×3; 85610; 85730; 87086 ×2; 93005; 99284; G0378 ×3; J1170; J1885 ×2; J2405 ×2; J7030 ×3; Q9967

== ENCOUNTER 2019-12-30 11:48 | Emergency (ER) | payer BC ==
[~2019-12-30] VITALS: Ht 154.9 cm; Wt 90.7 kg
[~2019-12-30 11:48] MED LIST changes: +ASPIR 8181 MG PO; +BENICAR20 MG PO; +CIPRO500 MG PO; +MONTELUKAST SOD10 MG PO
--- OUTSIDE RECORDS SUMMARY | 2019-12-30 11:50 | XMS REPORT | Summary of Care ---
Author Author [facility] Organization [facility] Address Unknown Phone Unavailable Care Team Providers Care Administrative Professional Name Role Phone Colby Farris MD PCP Reason for Referral * Consult, Test & Treat (Routine) Referred By Contact Referred To Contact Status Reason Specialty Diagnoses / Procedures Khris Streeter MD [address], [facility] [place] [address] [place] [facility] [address] [place] [address], [facility] [place] [address] E-Auth Not Urology Diagnoses Needed Female stress incontinence Recurrent UTI P rocedures VIDEO URODYNAMICS UT COMPLEX CYSTOMETROGRAM VOIDING PRESSURE STUDIES UT ELECTRO-UROFLOWMET RY, FIRST UT ANAL/URINARY MUSCLE STUDY UT VOIDING PRESS STUDY INTRA-ABDOMINAL VOID UT X-RAY URETHROCYSTOGRAM+V OIDING UT INJECTION FOR BLADDER X-RAY CHG URINALYSIS NONAUTO W/O SCOPE Reason for Visit * Reason Comments Medical Concern * Consult, Test & Treat (Routine) Referred By Contact Referred To Contact Status Reason Specialty Diagnoses / Procedures Ronni Oreilly MD [address] [id number] Khris Streeter MD [address], [facility] [place] [address] Authorization Consult, Test, and Urology Diagnoses Not Needed Treat Chronic interstitial cystitis P rocedures UT OFFICE OUTPATIENT NEW 30 MINUTES UT OFFICE OUTPATIENT VISIT 15 MINUTES Encounter Details Care Team Description Date Type Department Khris Streeter MD [address], [place] [address] Medical Concern 06/30/2019 Office Visit [facility] Medicine Urology [address], [place] [address] Allergies Comments Active Allergy Reactions Severity Noted Date "messes my side up" Unsure - several years "messes my side up" Amoxicillin Other (See Low 02/01/2017 Comments), Rash dizzy Codeine Other (See 02/16/2016 Comments) Duloxetine Hcl 05/25/2019 headache Duloxetine Hydrochloride Other (See 05/01/2018 Comments) Makes her feel bad Makes her feel bad Makes her feel bad Levomilnacipran Anxiety, High 06/18/2016 Other (See Comments), Rash Lexapro 05/25/2019 Causes headache/"migraine" Morphine Other (See Medium 09/05/2017 Comments) Had reaction several years ago and unable to recall if it was a rash Had reaction several years ago and unable to recall if it was a rash Had reaction several years ago and unable to recall if it was a rash Nitrofurantoin Other (See Medium 05/23/2017 Comments) Jittery, feels bad Anxious Jittery, feels bad Promethazine Other (See Low 06/18/2016 Comments), Rash Sulfamethoxazole-Trimetho Rash Low 06/18/2016 prim Bupropion Hydrobromide 05/25/2019 documented as of this encounter (statuses as of 06/30/2019) Medications End Date Status Medication Sig Dispensed Refills Start Date Active LINZESS 72 MCG CAPS TK 1 C PO QD 0 9 Active lorazepam (ATIVAN) 1 MG 0 tablet 9 Active rizatriptan (MAXALT) 10 TK 1 T PO QD 2 MG tablet PRN 9 Active acetaminophen-codeine Take 1 Tab by 0 (TYLENOL #3) 300-30 MG mouth. 8 per tablet Active estradiol (ESTRACE Place 2 g 0 VAGINAL) 0.1 MG/GM vaginally vaginal cream daily. Active hydrOXYzine (ATARAX) 25 Take 1 Tab by 30 Tab 3 MG tabletIndications: mouth at 9 Chronic interstitial bedtime. cystitis Active Meth-Hyo-M Bl-Na Phos-Ph Take 118 mg 90 Cap 3 Baldemar (URIBEL) 118 MG by mouth 3 9 CAPSIndications: Chronic times daily interstitial cystitis, as needed for Recurrent UTI Pain or Other (chronic interstitial cystitis). Active nortriptyline (PAMELOR) Take 50 mg by 0 50 MG capsule mouth nightly. 06/30/2019 Discontinued cefdinir (OMNICEF) 300 MG TK 1 C PO Q 0 capsule 12 H FOR 10 9 DAYS 06/30/2019 Discontinued Nutritional Supplements Take by 0 (BENECALORIE OR) mouth. 06/30/2019 Discontinued Methenamine-Sodium Take by 0 Salicylate (CYSTEX OR) mouth. documented as of this encounter (statuses as of 06/30/2019) Active Problems No known active problemsdocumented as of this encounter (statuses as of 06/30/2019) Social History Date Tobacco Use Types Packs/Day Years Used Never Smoker Smokeless Tobacco: Never Used Drinks/Week oz/Week Comments Alcohol Use Never Alcohol Habits Answer Date Recorded How often do you have a drink containing alcohol? Never 05/25/2019 How many drinks containing alcohol do you have on Not asked a typical day when you are drinking? How often do you have six or more drinks on one Not asked occasion? Sex Assigned at Date Recorded Not on file Industry Job Start Date Occupation Not on file Not on file Not on file Travel End Travel History Travel Start No recent travel history available. documented as of this encounter Last Filed Vital Signs Reading Time Taken Comments Vital Sign 120/76 06/30/2019 1:37 PM CDT Blood Pressure 96 06/30/2019 1:37 PM CDT Pulse - - Temperature - - Respiratory Rate - - Oxygen Saturation - - Inhaled Oxygen Concentration - - Weight 154.9 cm (5' 1") 06/30/2019 1:37 PM CDT Height - - Body Mass Index documented in this encounter Progress Notes * Raine Ace CMA - 06/30/2019 2:32 PM CDT Review of Systems Constitutional: Positive for activity change, appetite change, chills, diaphores is and fatigue. HENT: Positive for sinus pressure and voice change. Eyes: Negative. Respiratory: Positive for cough. Cardiovascular: Negative for chest pain. Gastrointestinal: Positive for abdominal pain and constipation. Endocrine: Negative. Genitourinary: Positive for flank pain, frequency and urgency. Musculoskeletal: Positive for back pain. Allergic/Immunologic: Negative. Neurological: Positive for headaches. Hematological: Bruises/bleeds easily. Psychiatric/Behavioral: Positive for agitation, behavioral problems and confusio n. The patient is nervous/anxious. All other systems reviewed and are negative. * Khris Streeter MD - 06/30/2019 1:50 PM CDT Referring Physician Ronni Oreilly MD [address] [place] [address] Patient Name: Kimberly Nagy :1960 [facility] ID#:[id number] Ms. Nagy is a 58 y.o. year old female who present to me for evaluation. Pt referred by Dr. Oreilly with symptoms of recurrent UTI's vs IC (prior diagnosis 10 years ago), LEE and pelvic prolapse. Pt also with h/o RCCA s/p partial left n ephrectomy but followed at [facility]. Pt gets "UTI" symptoms once a month that keeps h er in bed for one week although cultures negative. Symptoms of UTI include legs hurting, emotional, pain in lower abdomen and left side and dysuria. Nocturia x 1, freq q2hr, urgency, no urge incontinence, + LEE to coughing/sneezing. . Has done 1 session of pelvic floor therapy. On estrace cream. Tried maribell ila but did not help. Past Medical History: Diagnosis Date Anxiety Arthritis back Bladder prolapse, female, acquired Cyst of left kidney H/O seasonal allergies High blood pressure History of recurrent UTIs Interstitial cystitis Migraine Personal history of kidney cancer 2018 Past Surgical History: Procedure Laterality Date HX PARTIAL NEPHRECTOMY HX TONSILLECTOMY Medications Outpatient Medications Prior to Visit Medication Sig Dispense Refill acetaminophen-codeine Take 1 Tab by mouth. cefdinir TK 1 C PO Q 12 H FOR [address] 2 g vaginally daily. LINZESS TK 1 C PO QD 0 lorazepam Methenamine-Sodium Salicylate (CYSTEX OR) Take by mouth. Nutritional Supplements (BENECALORIE OR) Take by mouth. rizatriptan TK 1 T PO QD PRN 2 No facility-administered medications prior to visit. Current Outpatient Medications: acetaminophen-codeine (TYLENOL #3) 300-30 MG per tablet, Take 1 Tab by mout h., Disp: , Rfl: cefdinir (OMNICEF) 300 MG capsule, TK 1 C PO Q 12 H FOR 10 DAYS, Disp: , Rf l: 0 estradiol (ESTRACE VAGINAL) 0.1 MG/GM vaginal cream, Place 2 g vaginally da sheree., Disp: , Rfl: LINZESS 72 MCG CAPS, TK 1 C PO QD, Disp: , Rfl: 0 lorazepam (ATIVAN) 1 MG tablet, , Disp: , Rfl: Methenamine-Sodium Salicylate (CYSTEX OR), Take by mouth., Disp: , Rfl: Nutritional Supplements (BENECALORIE OR), Take by mouth., Disp: , Rfl: rizatriptan (MAXALT) 10 MG tablet, TK 1 T PO QD PRN, Disp: , Rfl: 2 Social History Socioeconomic History Marital status: Spouse name: Not on file Number of children: Not on file Years of education: Not on file Highest education level: Not on file Occupational History Not on file Social Needs Financial resource strain: Not on file Food insecurity: Worry: Not on file Inability: Not on file Transportation needs: Medical: Not on file Non-medical: Not on file Tobacco Use Smoking status: Never Smoker Smokeless tobacco: Never Used Substance and Sexual Activity Alcohol use: Never Frequency: Never Drug use: Not on file Sexual activity: Not on file Lifestyle Physical activity: Days per week: Not on file Minutes per session: Not on file Stress: Not on file Relationships Social connections: Talks on phone: Not on file Gets together: Not on file Attends amish service: Not on file Active member of club or organization: Not on file Attends meetings of clubs or organizations: Not on file Relationship status: Not on file Intimate partner violence: Fear of current or ex partner: Not on file Emotionally abused: Not on file Physically abused: Not on file Forced sexual activity: Not on file Other Topics Concerns: Not on file Social History Narrative Not on file family history includes Cancer in her father; HIV/AIDS in her sister; brain inju ry in her brother. Allergies Allergen Reactions Levomilnacipran Anxiety, Other (See Comments) and Rash Makes her feel bad Makes her feel bad Makes her feel bad Morphine Other (See Comments) Causes headache/"migraine" Nitrofurantoin Other (See Comments) Had reaction several years ago and unable to recall if it was a rash Had reaction several years ago and unable to recall if it was a rash Had reaction several years ago and unable to recall if it was a rash Codeine Other (See Comments) dizzy Cymbalta [Duloxetine Hcl] Duloxetine Hydrochloride Other (See Comments) headache Lexapro Wellbutrin [Bupropion Hydrobromide] Amoxicillin Other (See Comments) and Rash "messes my side up" Unsure - several years "messes my side up" Promethazine Other (See Comments) and Rash Jittery, feels bad Anxious Jittery, feels bad Sulfamethoxazole-Trimethoprim Rash Review of Systems: Constitutional: Positive for activity change, appetite change, chills, diaphores is and fatigue. HENT: Positive for sinus pressure and voice change. Eyes: Negative. Respiratory: Positive for cough. Cardiovascular: Negative for chest pain. Gastrointestinal: Positive for abdominal pain and constipation. Endocrine: Negative. Genitourinary: Positive for flank pain, frequency and urgency. Musculoskeletal: Positive for back pain. Allergic/Immunologic: Negative. Neurological: Positive for headaches. Hematological: Bruises/bleeds easily. Psychiatric/Behavioral: Positive for agitation, behavioral problems and confusio n. The patient is nervous/anxious. All other systems reviewed and are negative. Physical Exam: Vitals: see in note above GENERAL: Well developed, well nourished, in no acute distress HEAD: Normocephalic and atraumatic CHEST Regular respiratory rate CV Regular rate and rhythm ABDOMEN: Soft and non-tender without masses, BACK: No CVAT PELVIC EXAM Vulva: Normal appearance, normal hair distribution, no lesions or masses. Urethra: Normal, no masses, non-tender, no discharge. Bladder: Normal, no masses, non-tender, non-distended. Vagina: Normal, + cystourethrocele, + urethral hypermobility NEURO: ROTHMAN well. Patient alert and oriented x3. PSYCH: Alert and cooperative; normal mood and affect; normal attention span and con centration Most Recent Labs: Results for orders placed or performed in visit on 06/30/19 (from the past 4032 hour(s)) POCT URINALYSIS DIPSTICK Collection Time: 06/30/19 12:00 AM Result Value Ref Range COLOR UA Yellow YELLOW/STRAW CLARITY UA Clear CLEAR GLUCOSE UA Negative NEGATIVE BILIRUBIN UA Negative NEGATIVE KETONES UA Negative NEGATIVE SPECIFIC GRAVITY UA 1.005 1.005 - 1.035 BLOOD UA Negative NEGATIVE PH UA 6.0 5 - 9 PROTEIN UA Negative NEGATIVE UROBILINOGEN UA 0.02 E.U/DL NORMAL MG/DL LEUKOCYTE ESTERASE UA Negative NEGATIVE NITRITE UA Negative NEGATIVE REDUCING SUBSTANCES URINE NEGATIVE Results for orders placed or performed in visit on 05/25/19 (from the past 4032 hour(s)) POCT URINALYSIS DIPSTICK Collection Time: 05/25/19 12:00 AM Result Value Ref Range COLOR UA Yellow YELLOW/STRAW CLARITY UA Clear CLEAR GLUCOSE UA Negative NEGATIVE BILIRUBIN UA Negative NEGATIVE KETONES UA Negative NEGATIVE SPECIFIC GRAVITY UA 1.005 1.005 - 1.035 BLOOD UA Negative NEGATIVE PH UA 7.5 5 - 9 PROTEIN UA Negative NEGATIVE UROBILINOGEN UA 0.02 E.U/DL NORMAL MG/DL LEUKOCYTE ESTERASE UA Negative NEGATIVE NITRITE UA Negative NEGATIVE REDUCING SUBSTANCES URINE NEGATIVE URINALYSIS W REFLEX MICRO Collection Time: 05/26/19 12:00 AM Result Value Ref Range COLOR UA YELLOW YELLOW-STRAW CLARITY UA CLEAR CLEAR SPECIFIC GRAVITY UA 1.010 1.005 - 1.035 LEUKOCYTE ESTERASE UA NEGATIVE NEGATIVE NITRITE UA NEGATIVE NEGATIVE PH UA 7.5 5.0 - 9.0 PROTEIN UA NEGATIVE NEGATIVE GLUCOSE UA NEGATIVE NEGATIVE KETONES UA NEGATIVE NEGATIVE UROBILINOGEN UA 0.2 <=2.0 MG/DL BILIRUBIN UA NEGATIVE NEGATIVE OCCULT BLOOD UA NEGATIVE NEGATIVE CULTURE, URINE/SENSITIVITY ON ALL Collection Time: 05/26/19 6:19 PM Result Value Ref Range CULTURE, URINE/SENSITIVITY ON ALL SPECIMEN NUMBER: [id number] Urinalysis: neg PVR: 80 ml Most Recent Imaging: No images are attached to the encounter. Assessment: 1. IC vs UTI 2. LEE with cystourethrocele Plan: 1. Standing order for urine culture 2. Florajen/ellura info, continue estrace 3. Rx hydroxyzine 25mg po qhs and uribelle prn 4. RTC for VUDS documented in this encounter Plan of Treatment Care Team Description Date Type Specialty Khris Streeter MD [address] [place] [address] [address], [place] [address] 07/28/2019 Procedure visit Urology Order Schedule Name Type Priority Associated Diagnoses Ordered: 06/30/2019 DOMINGO,POST-VOID Procedure Routine Chronic interstitial RES,US,NON-IMG cystitis 1 Occurrences starting 06/30/2019 until 06/30/2020 VIDEO URODYNAMICS Procedure Routine Female stress incontinence Recurrent UTI Health Maintenance Due Date Last Done Comments COLON CANCER SCREENIN1960 COLONOSCOPY MAMMOGRAM ANNUAL 1960 TETANUS SHOT (ADULT) 1975 BMI FOLLOW UP PLAN 1978 HEPATITIS C SCREENING 1978 HIV SCREENING 1978 CERVICAL CANCER SCREENING 1981 3 YEAR FOLLOW UP FLU VACCINE > 6 MONTHS 06/11/2019 PREVNAR >=65 (PCV13) 2025 11/11/2017 documented as of this encounter Procedures Comments Procedure Name Priority Date/Time Associated Diagnosis POCT URINALYSIS DIPSTICK Routine 06/30/2019 Chronic interstitial cystitis documented in this encounter Results * POCT URINALYSIS DIPSTICK (06/30/2019) COLOR UA Yellow YELLOW/STRAW CLARITY UA Clear CLEAR GLUCOSE UA Negative NEGATIVE BILIRUBIN UA Negative NEGATIVE KETONES UA Negative NEGATIVE SPECIFIC 1.005 1.005 - 1.035 GRAVITY UA BLOOD UA Negative NEGATIVE PH UA 6.0 5 - 9 PROTEIN UA Negative NEGATIVE UROBILINOGEN UA 0.02 E.U/DL NORMAL MG/DL LEUKOCYTE Negative NEGATIVE ESTERASE UA NITRITE UA Negative NEGATIVE REDUCING NEGATIVE SUBSTANCES URINE Specimen documented in this encounter Visit Diagnoses Diagnosis Chronic interstitial cystitis - Primary Female stress incontinence Recurrent UTI Urinary tract infection, site not specified documented in this encounter Insurance Type Payer Benefit Subscriber ID Effective Phone Address Plan / Dates Group PPO BLUE CROSS BLUE SHIELD OUT OF xxxxxxxxxxxx 2015- [facility] BCBS Present [id number] - PPO - [place], [place] BC[place] [id number] documented as of this encounter
[2019-12-30] MEDS ORDERED: MAGNESIUM/ALUMINUM/SIMETHICONE 30 ML UDC PO ONE (12:15)
[2019-12-30] MEDS ORDERED: MAGNESIUM/ALUMINUM/SIMETHICONE 30 ML UDC ONE (12:35)
[2019-12-30] MEDS ORDERED: LORAZEPAM INJ 2 MG/ML VIAL IM ONE (13:30)
== END 2019-12-30 14:00 | disposition home or self-care (01) ==
LOC: FSED 11:48
DX: F41.1 Generalized anxiety disorder (principal); R09.89 Other specified symptoms and signs involving the circulatory and respiratory systems; Z85.528 Personal history of other malignant neoplasm of kidney; Z90.5 Acquired absence of kidney
CPT/HCPCS: 99282; J2060

== ENCOUNTER 2020-03-28 14:45 | Observation (INO) | payer BC, OTHER ==
[~2020-03-28] VITALS: Ht 154.9 cm; Wt 104.3 kg
--- OUTSIDE RECORDS SUMMARY | 2020-03-28 14:48 | XMS REPORT | Clinical Summary ---
Author Author [facility] Organization [facility] Address Unknown Phone Unavailable Care Team Providers Care Manager Transportation Planning Name Role Phone Colby Farris DO PCP Allergies Comments Active Allergy Reactions Severity Noted Date "messes my side up" Unsure - several years "messes my side up" Unsure - several years "messes my side up" Amoxicillin Other (See Low 02/01/2017 Comments), Rash Bupropion Hydrobromide Headache 05/25/2019 dizzy Codeine Other (See 02/16/2016 Comments) headache headache Duloxetine Other (See 05/01/2018 Comments) Escitalopram Oxalate Headache 05/25/2019 Makes her feel bad Makes her feel [...] (See Medium 05/23/2017 Monohyd/M-Cryst Comments) Causes headache/"migraine" Causes headache/"migraine" Morphine Other (See Medium 09/05/2017 Comments) Had reaction several years ago and unable to recall if it was a rash Had reaction several years ago and unable to recall if it was a rash Had reaction several years ago and unable to recall if it was a rash Nitrofurantoin Other (See Medium 05/23/2017 Comments) Jittery, feels bad Anxious Jittery, feels bad Anxious Jittery, feels bad Promethazine Rash, Other Low 06/18/2016 (See Comments) Sulfamethoxazole-Trimetho Rash Low 08/06/2016 prim Medications End Date Status Medication Sig Dispensed [...] tablet mouth nightly as needed for anxiety. Active tiZANidine (ZANAFLEX) 4 tizanidine 4 0 MG tablet mg tablet Active acetaminophen-codeine every 6 (six) 0 01/14/20 1 (TYLENOL WITH CODEINE #3) hours. 8 300-30 mg per tablet Active ciprofloxacin (CIPRO) 500 0 08/04/ MG tablet 9 Active fluticasone propionate 0 (FLONASE) 50 9 mcg/actuation nasal spray Active hydrOXYzine (ATARAX) 25 hydroxyzine 0 MG tablet HCl 25 mg 9 tablet Active rizatriptan (MAXALT) 10 TK 1 T PO QD 0 03/25/ 201 MG tablet PRN 9 Active olmesartan-hydrochlorothi olmesartan 20 0 azide (BENICAR HCT) mg-hydrochlor 20-12.5 mg per tablet othiazide 12.5 mg tablet Active LINZESS 72 mcg capsule Take 72 mcg 1 07/12/ 01 by mouth 9 daily. Active estradiol (ESTRACE) 0.01 Estrace 0.01% 42.5 g 0 % (0.1 mg/gram) vaginal (0.1 mg/gram) 9 cream vaginal cream- insert 0.5 gram into Vagina at night time 2-3 times per week 10/23/2019 Discontinued (Reorder) estradiol (ESTRACE) 0.01 Estrace 0.01% 0 % (0.1 mg/gram) vaginal (0.1 mg/gram) cream vaginal cream Active Problems Problem Noted Date Fever, unknown origin 01/01/2018 Anxiety disorder 01/01/2018 History of seizure 01/01/2018 Polysubstance abuse 01/01/2018 Hypertension 01/01/2018 Osteoarthritis 01/01/2018 Irritable bowel syndrome with constipation 8 Altered mental status 12/31/2017 Intractable abdominal pain 12/02/2017 Tachycardia 11/10/2017 Abdominal pain in female 08/14/2017 SOB (shortness of breath) 02/01/2017 Chest pain on breathing 02/01/2017 Renal mass 07/12/2015 Overview: Overview: Incidentally noted Left Renal Mass on C T for LUQ pain Encounters Care Team Description Date Type Specialty Donna Garces LVN 10/23/2019 Orders Only Urogynecology Hector Sosa RN 10/22/2019 Refill Urogynecology Dolores Mauro MD 10/22/2019 Telephone Obstetrics and Gyne cology Denice Willams MD 08/19/2019 Telephone Obstetrics and Gyne cology Denice Willams MD 08/18/2019 Telephone Obstetrics and Gyne cology Denice Willams MD 08/17/2019 Telephone Obstetrics and Gyne cology Denice Willams MD 08/05/2019 Lab Lab Denice Willams MD Postmenopausal bleeding 08/05/2019 Ancillary Obstetrics and Gyne cology Procedure Denice Willams MD Postmenopausal bleeding (Primary Dx); Vaginal atrophy 08/05/2019 Office Visit Obstetrics and Gyne cology after 03/28/2019 Immunizations Name Administration Dates Next Due FLUCELVAX QUAD PF 11/11/2017 Pneumococcal Conjugate 11/11/2017 13-Valent Family History Medical History Relation Name Comments Cancer Father Relation Name Status Comments Father Mother Alive Social History Date Tobacco Use Types Packs/Day Years Used Never Smoker Smokeless Tobacco: Never Used Drinks/Week oz/Week Comments Alcohol Use No Sex Assigned at Date Recorded Not on file Industry Job Start Date Occupation Not on file Not on file Not on file Travel End Travel History Travel Start No recent travel history available. Last Filed Vital Signs Reading Time Taken Comments Vital Sign 145/93 08/05/2019 11:41 AM CDT Blood Pressure 132 08/05/2019 11:41 AM CDT Pulse - - Temperature - - Respiratory Rate - - Oxygen Saturation - - Inhaled Oxygen Concentration 90.3 kg (199 lb) 08/05/2019 11:41 AM CDT Weight 154.9 cm (5' 1") 08/05/2019 11:41 AM CDT Height 37.6 08/05/2019 11:41 AM CDT Body Mass Index Plan of Treatment Health Maintenance Due Date Last Done Comments CERVICAL CANCER SCREENING 1981 BREAST CANCER SCREENING 2010 COLONOSCOPY SCREENING 2010 SHINGLES VACCINES (#1) 2010 INFLUENZA VACCINE 06/11/2020 11/11/2017 Procedures Comments Procedure Name Priority Date/Time Associated Diag nosis US PELVIC TRANSVAGINAL Routine 08/05/2019 Postmen opausal bleeding 1:27 PM CDT AL BIOPSY OF UTERUS Routine 08/05/2019 Postmenopa usal bleeding LINING 11:15 AM CDT SURGICAL PATHOLOGY Routine 08/05/2019 REQUEST 7:55 AM CDT after 03/28/2019 Results * US Pelvic Transvaginal (08/05/2019 1:27 PM CDT) Specimen Narrative Performed At [facility] Uterus: 5.91 x 3.06 x 3.05 cm He terogenous uterus Endometrium: 5.39mm Free Fluid: no Rt Ovary: Not seen Rt Adnexa: wnl Lt Ovary: 1.09 x 0.97 x 0.82cm Lt Adnexa: wnl 6cm uterus, endometrium >5mm with some heterogeneity Correspond findings with endometrial bi opsy Denice Willams MD Performing Organization Address [facility] Number [facility] [address] [place] [address] * Endometrial biopsy (08/05/2019 11:15 AM CDT) Narrative Performed At Denice Willams MD 08/06/20 8:12 AM Endometrial biopsy Date/Time: 08/06/2019 8:11 AM Performed by: Denice Willams MD Authorized by: Denice Willams M D Consent: Consent obtained: Verbal and writte n Procedural risks discussed: Bleedin g, possible continued pain and infection (perforation of uterus) Patient questions answered: yes Patient agrees, verbalizes understand ing, and wants to proceed: yes Indication: Indications: Post-menopausal bleeding Pre-procedure: Pre-procedure timeout performed: yes Prepped with: Betadine Procedure: Procedure performed: Endometrial bi opsy Procedure details: endometrial biopsy with Pipelle Cervix cleaned and prepped: yes Tenaculum applied to cervix: yes Uterus sounded: yes Uterus sound depth (cm): 6 Cervix dilated: no Specimen collected: specimen collecte d and sent to pathology Findings: Normal Post-procedure: No complications: yes Estimated blood loss (mL): 0 Patient tolerated procedure well with no complications: yes Findings: Uterus size: <6 weeks Cervix: normal Adnexa: normal * Surgical pathology request (08/05/2019 7:55 AM CDT) [facility] DEPARTMENT OF PATHOLOGY AND GENOMIC MEDICINE Surgical See link below for PDF Lab [facility] DEPART [facility] pathology Report OF PATHOLOGY report AND GENOMIC MEDICINE Result status This is Final Report for [facility] DEPARTME NT [id number] OF PATHOLOGY AND GENOMIC MEDICINE Specimen Performing Organization Address City/State[facility] Ph [facility] Number [facility] DEPARTMENT OF [address] [place] [phone] PATHOLOGY AND GENOMIC MEDICINE after 03/28/2019 Insurance Type Payer Benefit Subscriber ID Effective Phone Address Plan / Dates Group PPO BCBS BCBS OUT xxxxxxxxxxxx 2015- OF STATE Present Advance Directives For more information, please contact: [phone] Patient [employer] Explanation Type Date Recorded Advance Directives, 12/31/2017 3:43 PM Living Will and Medical Power of Patented Hogshead As[employer]er Date Inactivated Comments Code Status Date Activated 01/04/2018 1:30 AM Full Code 12/31/2017 11:23 PM Code Status decision reached by: Patient 10/25/2017 4:33 PM Full Code 10/24/2017 3:39 PM Code Status decision reached by: Patient 08/16/2017 9:39 PM Full Code 08/14/2017 5:16 PM Code Status decision reached by: Patient
--- OUTSIDE RECORDS SUMMARY | 2020-03-28 14:48 | XMS REPORT ---
Author Author [facility] t Organization [facility] t Address [address] [place] [address] Phone Unavailable Care Team Providers Care Oil Sprayer Name Role Phone RALPH SAUCEDO DO PCP Donna Garces LVN Attphys Unavailable Ian PEREZ, Ria Young Attphys Unavailable Zunilda PALMER, Chuckie Bernal Attphys [phone] Imer PALMER, Soumya Galdamez Attphys Ferdinand PALMER, P Khris Attphys BALLARD, SOUHEIL Attphys Unavailable Neymar DODSON LAIRD Attphys Unavailable BALLARD, SOUHEIL Admphys Unavailable Payers Payer Name Policy Type Policy Number Effective Date Expiration Date S ource [employer] [facility] [id number] 2015 00:00:00 [facility] BCBSBCBS OUT OF [id number]/2014-PresentPPO xxxxxxxxxxxx 2015 00:00:00 Navneet [employer] [facility] [id number] 2015 00:00:00 [facility] [id number] 2015 00:00:00 [facility] [id number] 2015 00:00:00 [facility] [id number] 2015 00:00:00 [facility] Problems Condition Name Condition Details Condition Category Status Onset Date Resolution Date Last Treatment Date Treating Clinician Comments Source Fever, unknown origin Fever, unknown origin Disease Active 201 06-12-21 00:00:00 Navneet justin Anxiety disorder Anxiety disorder Disease Active 2018-01-01 00:00:00 Navneet Pate History of seizure History of seizure Disease Active 2018-01-01 00:00:0 0 Navneet Pate Polysubstance abuse Polysubstance abuse Disease Active 2018-01-01 00:00 :00 Navneet Pate Hypertension Hypertension Disease Active 2018-01-01 00:00:00 Navneet Pate Osteoarthritis Osteoarthritis Disease Active 2018-01-01 00:00:00 Navneet Pate Irritable bowel syndrome with constipation Irritable b owel syndrome with constipation Disease Active 2018-01-01 00:00:00 Navneet Pate Altered mental status Altered mental status Disease Active 201 06-12-20 00:00:00 Navneet justin Intractable abdominal pain Intractable abdominal pain Disease Active 2017-12-02 00:00:00 Navneet singh Tachycardia Tachycardia Disease Active 2017-11-10 00:00:00 Navneet Pate Abdominal pain in female Abdominal pain in female Disease Acti ve 2017-08-14 00:00:[address] SOB (shortness of breath) SOB (shortness of breath) Disease Ac tive 2017-02-01 00:00:[address] Chest pain on breathing Chest pain on breathing Disease Active 2017-02-01 00:00:[address] Renal mass Renal mass Disease Active 2015-07-12 00:00:00 Overview: Overview: Incidentally noted Left Renal Mass on CT for LUQ pain Navneet Pate Allergies, Adverse Reactions, Alerts Allergy Name Allergy Type Status Severity Reaction(s) Onset Date Inacti ve Date Treating Clinician Comments Source Bupropion Hydrobromide Propensity to adverse reactions to drug Acti ve Headache 2019-05-25 00:00:00 Navneet Pate Escitalopram Oxalate Propensity to adverse reactions to drug Active Headache 2019-05-25 00:00:00 Navneet Meth odist Morphine Propensity to adverse reactions Active Unknown head ache 2019-03-31 00:00:00 [facility] Sulfamethoxazole Allergy to Substance Active Unknown unk 2018-11-16 00:00:00 [facility] Trimethoprim Allergy to Substance Active Unknown unk 2018-11-16 00:00: 00 [facility] Amoxicillin Allergy to Substance Active Moderate rash 2018-11-16 00:00: 00 [facility] Promethazine Allergy to Substance Active Moderate panic attack 2018-11-16 00:00:00 [facility] Bupropion Allergy to Substance Active Mild headache 2018-11-16 00:00:00 [facility] Duloxetine Allergy to Substance Active Mild headache 2018-11-16 00:00:0 0 [facility] Escitalopram Allergy to Substance Active Mild headache 2018-11-16 00 :00:00 [facility] Levomilnacipran Allergy to Substance Active Unknown headache 2018-11-16 00:00:00 [facility] Duloxetine Propensity to adverse reactions to drug Active Other (See Comments) 2018-05-01 00:00:00 headacheheadache Sara ston Taoism Morphine Propensity to adverse reactions to drug Active Other (See Comments) 2017-09-05 00:00:00 Causes headache/"migraine"Ca uses headache/"migraine" Navneet Pate Nitrofurantoin Monohyd/M-Cryst Propensity to adverse reactions to d rug Active Other (See Comments) 2017-05-23 00:00:00 Had howard ction several years ago and unable to recall if it was a rash Had reaction several years ago and unable to recall if it was a rash Navneet Pate Nitrofurantoin Propensity to adverse reactions to drug Active Other (See Comments) 2017-05-23 00:00:00 Had reaction several years ago and unable to recall if it was a rash Had reaction several years ago and unable to recall if it was a rash Had reaction several years ago and unable to recall if it was a rash Navneet Pate Amoxicillin Propensity to adverse reactions to drug Active Other (See Comments), Rash 2017-02-01 00:00:00 "messes my s quincy up"Unsure - several years "messes my side up"Unsure - several years "messes my side up" Navneet Pate Levomilnacipran Propensity to adverse reactions to drug Active Anxiety, Rash, Other (See Comments) 2016-06-18 00:00:00 Makes h er feel badMakes her feel badMakes her feel badMakes her feel badMakes her feel bad Navneet Pate Promethazine Propensity to adverse reactions to drug Active Rash, Other (See Comments) 2016-06-18 00:00:00 Jittery, fee ls badAnxious Jittery, feels badAnxious Jittery, feels bad Navneet Pate Sulfamethoxazole-Trimethoprim Propensity to adverse reactions to dr ug Active Rash 2016-06-18 00:00:00 Navneet Pate Codeine Propensity to adverse reactions to drug Active Other (See Comments) 2016-02-16 00:00:00 dizzy Navneet Meth odist Family History Family Member Diagnosis Comments Start Date Stop Date Source Natural father Cancer [facility]odist Social History Social Habit Start Date Stop Date Quantity Comments Source Sex Assigned At Sara morenoli Pate Alcohol intake 2019-08-06 00:00:00 2019-08-06 00:00:00 Current non-drinker of alcohol (finding) Navneet Pate Smoking Status Start Date Stop Date Source Never smoker Navneet justin Medications Ordered Medication Name Filled Medication Name Start Date Stop Da te Current Medication? Ordering Clinician Indication Dosage Frequency Signature (SIG) Comments Components Source estradiol (ESTRACE) 0.01 % (0.1 mg/gram) vaginal cream 2019-10-23 15:02:19 2019-10-23 00:00:00 No Estrace 0.01% (0.1 m g/gram) vaginal cream Navneet Pate estradiol (ESTRACE) 0.01 % (0.1 mg/gram) vaginal cream 2019-10-23 00:00:00 Yes Estrace 0.01% ( 0.1 mg/gram) vaginal cream- insert 0.5 gram into Vagina at night time 2-3 times per week Navneet Pate olmesartan-hydrochlorothiazide (BENICAR HCT) 20-12.5 mg per tablet 2019-08-05 17:00:12 Yes olmesartan 20 mg-hydrochlorot hiazide 12.5 mg tablet Navneet Pate rizatriptan (MAXALT) 10 MG tablet 2019-08-05 16:59:08 Yes 10mg Take 10 mg by mouth once as needed for migraine. May repeat in 2 hours if unresolved. Do not exceed 30 mg in 24 hours. Navneet hernandez tiZANidine (ZANAFLEX) 4 MG tablet 2019-08-05 16:59:08 Yes tizanidine 4 mg tablet Navneet Pate linaclotide (LINZESS) 145 mcg capsule 2019-08-05 16:51:57 Y es 72ug QD Take 72 mcg by mouth daily before breakfast. Navneet Pate olmesartan-hydrochlorothiazide (BENICAR HCT) 20-12.5 mg per tablet 2019-08-05 16:51:57 Yes 1{tbl} QD Take 1 tablet by mouth every morning. Navneet Pate ALPRAZolam (XANAX) 1 MG tablet 2019-08-05 16:51:57 Yes 1mg QD Take 1 mg by mouth nightly as needed for anxiety. Navneet Pate ciprofloxacin (CIPRO) 500 MG tablet 2019-08-04 00:00:00 Yes Navneet Pate fluticasone propionate (FLONASE) 50 mcg/actuation nasal spra y 2019-08-04 00:00:00 Yes Navneet Pate LINZESS 72 mcg capsule 2019-07-12 00:00:00 Yes 72ug QD Take 72 mcg by mouth daily. Navneet Pate hydrOXYzine (ATARAX) 25 MG tablet 2019-06-30 00:00:00 Yes hydroxyzine HCl 25 mg tablet Navneet lombardi rizatriptan (MAXALT) 10 MG tablet 2019-03-25 00:00:00 Yes TK 1 T PO QD PRN Navneet Pate tolterodine LA (DETROL LA) 4 MG 24 hr capsule 2018-04-18 00:00:0 0 Yes Navneet justin acetaminophen-codeine (TYLENOL WITH CODEINE #3) 300-30 mg pe r tablet 2018-01-13 00:00:00 Yes Q6H every 6 (six) hour bianca Pate Acetaminophen/Codeine Phosphate (Tylenol # 3*) 1 Ea Ta b Acetaminophen/Codeine Phosphate (Tylenol # 3*) 1 Ea Tab Yes 1 Every 6 Hours as needed for Pain [facility] Alprazolam (Xanax*) 1 Mg Tablet Alprazolam (Xanax*) 1 Mg Tablet Yes 1 Twice A Day as needed for Anxiety [facility] Aspirin (Aspir 81) 81 Mg Tablet. Aspirin (Aspir 81) 81 Mg Tablet. Yes 1 Daily [facility] Ciprofloxacin Hcl (Cipro) 500 Mg Tablet Ciprofloxacin Hcl (C ipro) 500 Mg Tablet Yes 500 Every 12 Hours [facility] Linzess Linzess Yes 72 Daily [facility] Loratadine (Allergy Relief) 10 Mg Tablet Loratadine (A llergy Relief) 10 Mg Tablet Yes 10 Daily [facility] Methenamine/Sodium Salicylate (Cystex Tablet) 1 Each T ablet Methenamine/Sodium Salicylate (Cystex Tablet) 1 Each Tablet Yes 1 As Needed for Urinary Pain [facility] Montelukast Sodium 10 Mg Tablet Montelukast Sodium 10 Mg Tablet Yes 10 Daily [facility] Nortriptyline Hcl 25 Mg Capsule Nortriptyline Hcl 25 Mg Capsule Yes 50 Bedtime [facility] Olmesartan Medoxomil (Benicar) 20 Mg Tablet Olmesartan Medoxomil (Benicar) 20 Mg Tablet Yes 20 Daily [facility] Rizatriptan Benzoate (Maxalt) 10 Mg Tablet Rizatriptan Benzoate (Maxalt) 10 Mg Tablet Yes 10 Twice A Day as needed for Migra ine [facility] Immunizations Ordered Immunization Name Filled Immunization Name Date Status Comments Source Pneumococcal Conjugate 13-Valent 2017-11-11 00:00:00 Compl eted Navneet Carbajalist FLUCELVAX QUAD PF 2017-11-11 00:00:00 Completed Navneet Pate Vital Signs Vital Name Observation Time Observation Value Comments Source Systolic blood pressure 2019-08-05 16:41:00 145 mm[Hg] Navneet Pate Diastolic blood pressure 2019-08-05 16:41:00 93 mm[Hg] Navneet Pate Heart rate 2019-08-05 16:41:00 132 /min Navneet Pate Body height 2019-08-05 16:41:00 154.9 cm Navneet Pate Body weight 2019-08-05 16:41:00 90.266 kg Navneet Pate BMI 2019-08-05 16:41:00 37.60 kg/m2 Navneet Pate Procedures Procedure Date / Time Performed Performing Clinician [facility] e US PELVIC TRANSVAGINAL 2019-08-05 18:27:42 Denice Willams [place] BIOPSY OF UTERUS LINING 2019-08-05 16:15:00 Denice Willams SURGICAL PATHOLOGY REQUEST 2019-08-05 12:55:00 Denice Willams Ultrasound, renal 2019-06-20 00:00:00 LUX BALLARD [facility] Computed tomography of abdomen and pelvis with contrast 2018 00:00:00 [facility] Computed tomography of abdomen and pelvis with contrast 2018 00:00:00 [facility] Plan of Care Planned Activity Planned Date Details Comments Source Future Scheduled Test 2020-06-11 00:00:00 INFLUENZA VACCINE [code = INFLUENZA VACCINE] [facility] Future Scheduled Test 2010 00:00:00 BREAST CANCER SCRE ENING [code = BREAST CANCER SCREENING] [facility] Future Scheduled Test 2010 00:00:00 COLONOSCOPY SCREEN ING [code = COLONOSCOPY SCREENING] [facility] Future Scheduled Test 2010 00:00:00 SHINGLES VACCINES (#1) [code = SHINGLES VACCINES (#1)] [facility] Future Scheduled Test 1981 00:00:00 Screening for roddy gnant neoplasm of cervix (procedure) [code = 285232342] Navneet Olivas t Encounters Start Date/Time End Date/Time Encounter Type Admission Type Attendi [facility] Care Department Encounter ID Source 2019-12-30 11:48:00 2019-12-30 14:00:00 Departed Emergency Room [facility] [id number] [facility] 2019-06-30 13:17:39 2019-06-30 14:11:40 Office Visit Ferdinand Khris [facility] [id number] 2019-06-19 15:01:00 2019-06-21 10:48:00 Discharged Inpatient (obs) 1 [facility] [id number] [facility] 2019-03-31 20:09:00 2019-04-01 03:07:00 Departed Emergency Room 1 GERALDO DODSON [facility] [id number] [facility] 2018-11-16 22:59:00 2018-11-17 01:55:00 Departed Emergency Room [facility] [id number] [facility] 2018-08-16 19:35:00 2018-08-19 14:15:00 Discharged Inpatient (obs) 1 [facility]ALLARD[facility] [id number] [facility] Results Test Description Test Time Test Comments Results Result Comments Source Surgical pathology request 2019-08-09 15:37:24 Test Item Case number (test code = [id number]) [id number] Surgical pathology report (test code = 2255) See link below for PDF Lab Report Result status (test code = 2668448) This is Final Report for [id number] Navneet Fitzgerald Pelvic [id number] 19:46:10Uterus: 5.91 x 3.06 x 3.05 cm Heterogenous uterus Endometrium: 5.39mm Free Fluid: no Rt Ovary: Not seenRt Adnexa: wnl Lt Ovary: 1.09 x 0.97 x 0.82cmLt Adnexa: wnl 6cm uterus, endometrium >5mm with some heterogeneityCorrespond findings with endometrial biopsy [facility] Willams [facility] [id number] 16:15:00Denice Willams MD 08/06/2019 8:12 AMEndometrial biopsyDate/Time: 08/06/2019 8:11 AMPerformed by: Denice Willams MDAuthorized by: Denice Willams MD Consent: Consent obtained: Verbal and written Procedural risks discussed: Bleeding, possible continued pain and infection (perforation of uterus) Patient questions answered: yes Patient agrees, verbalizes understanding, and wants to proceed: yes Indication: Indications: Post-menopausal bleeding Pre-procedure: Pre- procedure timeout performed: yes Prepped with: Betadine Procedure: Procedure performed: Endometrial biopsy Procedure details: endometrial biopsy with Pipelle Cervix cleaned and prepped: yes Tenaculum applied to cervix: yes Uterus sounded: yes Uterus sound depth (cm): 6 Cervix dilated: no Specimen collected: specimen collected and sent to pathology Findings: NormalPost-procedure: No complications: yes Estimated blood loss (mL): 0 Patient tolerated procedure well with no complications: yes Findings: Uterus size: <6 weeks Cervix: normal Adnexa: [facility] 2019-06-21 06:43:00* Test Item Value Reference Range Interpretation Comments Sodium Level (test code = 2951-2) 144 136-145 [facility] CampusPotassium [id number] 06:43:00* Test Item Value Reference Range Interpretation Comments Potassium Level (test code = 2823-3) 3.4 3.5-5.1 [facility] CampusChloride Erfsk0679-02-06 06:43:00* Test Item Value Reference Range Interpretation Comments Chloride Level (test code = 2075-0) 113 98-107 [facility] CampusCarbon Dioxide [id number] 06:43:00* Test Item Value Reference Range Interpretation Comments Carbon Dioxide Level (test code = 2028-9) 25 22-29 [facility] CampusAnion [id number] 06:43:00* Test Item Value Reference Range Interpretation Comments Anion Gap (test code = 43107-4) 9.4 8-16 [facility] CampusBlood Urea [id number] 06:43:00* Test Item Value Reference Range Interpretation Comments Blood Urea Nitrogen (test code = 3094-0) 5 7-26 [facility] CampusCreatinine2019-08-11 06:43:00* Test Item Value Reference Range Interpretation Comments Creatinine (test code = 2160-0) 0.62 0.57-1.11 [facility] CampusBUN/Creatinine [id number] 06:43:00* Test Item Value Reference Range Interpretation Comments BUN/Creatinine Ratio (test code = 3097-3) 8 6-25 [facility] CampusEstimat Glomerular Filtration Rate 2019-06-21 06:43:00* Test Item Value Reference Range Interpretation Comments Estimat Glomerular Filtration Rate (test code = 826629873) > 60 >60 Ranges were taken from the National Kidney Disease Education Program and the [facility] Kid[facility] Foundation literature.Reference ranges:60 or greater: Iyxfxz43-45 ( for 3 consecutive months): Chronic kidney disease 15 or less: Kidney failureThe [facility] of [facility] CampusGlucose [id number] 06:43:00* Test Item Value Reference Range Interpretation Comments Glucose Level (test code = IFJ5115) 78 74-118 [facility] CampusCalcium [id number] 06:43:00* Test Item Value Reference Range Interpretation Comments Calcium Level (test code = 05660-0) 8.2 8.4-10.2 [facility] CampusWhite Blood [id number] 06:38:00* Test Item Value Reference Range Interpretation Comments White Blood Count (test code = 6690-2) 5.42 4.8-10.8 [facility] CampusRed Blood [id number] 06:38:00* Test Item Value Reference Range Interpretation Comments Red Blood Count (test code = 789-8) 3.64 3.6-5.1 [facility] CampusHemoglobin2019-08-11 06:38:00* Test Item Value Reference Range Interpretation Comments Hemoglobin (test code = 48193-9) 11.2 12.0-16.0 [facility] CampusHematocrit2019-08-11 06:38:00* Test Item Value Reference Range Interpretation Comments Hematocrit (test code = 4544-3) 35.0 34.2-44.1 [facility] CampusMean Corpuscular [id number] 06:38:00* Test Item Value Reference Range Interpretation Comments Mean Corpuscular Volume (test code = 787-2) 96.2 81-99 [facility] CampusMean Corpuscular Tvjkrkbibj0806-07-31 06:38:00* Test Item Value Reference Range Interpretation Comments Mean Corpuscular Hemoglobin (test code = 785-6) 30.8 28-32 [facility] CampusMean Corpuscular Hemoglobin Concent 2019-06-21 06:38:00* Test Item Value Reference Range Interpretation Comments Mean Corpuscular Hemoglobin Concent (test code = 786-4) 32.0 31-35 [facility] CampusRed Cell Distribution [id number] 06:38:00* Test Item Value Reference Range Interpretation Comments Red Cell Distribution Width (test code = 87908-2) 12.8 11.7 -14.4 [facility] CampusPlatelet [id number] 06:38:00* Test Item Value Reference Range Interpretation Comments Platelet Count (test code = 777-3) 230 140-360 [facility] CampusNeutrophils (%) (Auto)2019-06-21 06:38:00 * Test Item Value Reference Range Interpretation Comments Neutrophils (%) (Auto) (test code = 91196-1) 45.2 38.7-80.0 [facility] CampusLymphocytes (%) (Auto)2019-06-21 06:38:00 * Test Item Value Reference Range Interpretation Comments Lymphocytes (%) (Auto) (test code = 736-9) 38.7 18.0-39.1 [facility] CampusMonocytes (%) (Auto)2019-06-21 06:38:00* Test Item Value Reference Range Interpretation Comments Monocytes (%) (Auto) (test code = 5905-5) 11.4 4.4-11.3 [facility] CampusEosinophils (%) (Auto)2019-06-21 06:38:00 * Test Item Value Reference Range Interpretation Comments Eosinophils (%) (Auto) (test code = 713-8) 3.7 0.0-6.0 [facility] CampusBasophils (%) (Auto)2019-06-21 06:38:00* Test Item Value Reference Range Interpretation Comments Basophils (%) (Auto) (test code = 706-2) 0.6 0.0-1.0 [facility] CampusIM GRANULOCYTES %2019-06-21 06:38:00* Test Item Value Reference Range Interpretation Comments IM GRANULOCYTES % (test code = IM GRANULOCYTES %) 0.4 0.0- 1.0 [facility] CampusNeutrophils # (Auto)2019-06-21 06:38:00* Test Item Value Reference Range Interpretation Comments Neutrophils # (Auto) (test code = 751-8) 2.5 2.1-6.9 [facility] CampusLymphocytes # (Auto)2019-06-21 06:38:00* Test Item Value Reference Range Interpretation Comments Lymphocytes # (Auto) (test code = 50512-6) 2.1 1.0-3.2 [facility] CampusMonocytes # (Auto)2019-06-21 06:38:00* Test Item Value Reference Range Interpretation Comments Monocytes # (Auto) (test code = 742-7) 0.6 0.2-0.8 [facility] CampusEosinophils # (Auto)2019-06-21 06:38:00* Test Item Value Reference Range Interpretation Comments Eosinophils # (Auto) (test code = 711-2) 0.2 0.0-0.4 [facility] CampusBasophils # (Auto)2019-06-21 06:38:00* Test Item Value Reference Range Interpretation Comments Basophils # (Auto) (test code = 704-7) 0.0 0.0-0.1 [facility] CampusAbsolute Immature Granulocyte (auto 2019-06-21 06:38:00* Test Item Value Reference Range Interpretation Comments Absolute Immature Granulocyte (auto (gregory t code = Absolute Immature Granulocyte (auto) 0.02 0-0.1 [facility] CampusUS RENAL RETROPERITONEAL [id number] 14:29:00 [facility] [address] [place] [address] Patient Name: RJ FISCHER MR #: [id number] : 1960 Age/Sex: 58/F Req #: [id number] Adm Physician: LUX BALLARD MD Ordered by: LUX BALLARD MD Report #: [id number] Location: MED/SURG Room/Bed: [facility] Procedure: [id number] US/US RENAL RETROPERITONEAL COMP Exam Date: 06/20/19 Exam Time: 1302 REPORT STATUS: Sig floyd EXAM: Renal Ultrasound INDICATION: LEFT KIDNEY COMPARISO N: CT dated 06/19/2019 TECHNIQUE: Transverse and longitudinal images of the kid neys and bladder were obtained. FINDINGS: Right Kidney: Size: 11 cm Echogenicity: Normal Parenchymal thickness: Norm al Collecting system: No hydronephrosis Stones: None Cyst/ Mass: None Left Kidney: Size: 10.9 cm Echogenicity: Normal Parenchymal thickness: Normal Collecting system: No hydronephro sis Stones: None Cyst/Mass: Mid to inferior pole cyst measuring 1. 1 x 0.9 x 1 cm. Bladder: Unremarkable. Bilateral ureteral jets were seen . IMPRESSION: Unremarkable renal ultrasound exam. 1.1 cm left renal sim ple cyst. Signed by: Dr. Jama Leggett MD on 06/20/2019 2:43 PM Dict ated By: JAMA LEGGETT MD 1443 COPY TO: LUX BALLARD MD Urine [id number] 13:58:00* Test Item Value Reference Range Interpretation Comments Urine WBC (test code = 5821-4) 0-5 0-5 [facility] CampusUrine [id number] 13:58:00* Test Item Value Reference Range Interpretation Comments Urine RBC (test code = 24951-5) 0-5 0-5 [facility] CampusUrine Vvishrzn8642-04-97 13:58:00* Test Item Value Reference Range Interpretation Comments Urine Bacteria (test code = 47607-7) FEW NONE [facility] Epithelial Afkat1554-28-54 13:58:00 * Test Item Value Reference Range Interpretation Comments Urine Epithelial Cells (test code = 56089-7) FEW NONE [facility] Msefy5348-84-21 13:54:00* Test Item Value Reference Range Interpretation Comments Urine Color (test code = 5778-6) YELLOW YELLOW [facility] Zmlnmxm2997-36-13 13:54:00* Test Item Value Reference Range Interpretation Comments Urine Clarity (test code = 20908-5) CLEAR CLEAR [facility] Specific Ixplhgv6400-93-36 13:54:00 * Test Item Value Reference Range Interpretation Comments Urine Specific [place] (test code = 5811-5) <=1.005 1.010-1.02 5 [facility] tO1411-05-47 13:54:00* Test Item Value Reference Range Interpretation Comments Urine pH (test code = 74852-8) 6.5 5-7 [facility] Leukocyte Ccebgvxi7172-56-63 13:54:00* Test Item Value Reference Range Interpretation Comments Urine Leukocyte Esterase (test code = 96754-9) NEGATIVE NEGATIV E [facility] Fbhyfgn4500-20-09 13:54:00* Test Item Value Reference Range Interpretation Comments Urine Nitrite (test code = 27277-2) NEGATIVE NEGATIVE [facility] Ybwlppx7213-51-72 13:54:00* Test Item Value Reference Range Interpretation Comments Urine Protein (test code = 03679-0) NEGATIVE NEGATIVE [facility] Glucose (UA)2019-06-20 13:54:00* Test Item Value Reference Range Interpretation Comments Urine Glucose (UA) (test code = 17107-8) NEGATIVE NEGATIVE [facility] Sigumdc4582-20-59 13:54:00* Test Item Value Reference Range Interpretation Comments Urine Ketones (test code = 77015-4) NEGATIVE NEGATIVE [facility] Nkuaqnahfvid3223-84-46 13:54:00* Test Item Value Reference Range Interpretation Comments Urine Urobilinogen (test code = 46852-1) 0.2 0.2-1 [facility] Jvxqldvco2524-89-77 13:54:00* Test Item Value Reference Range Interpretation Comments Urine Bilirubin (test code = 1977-8) NEGATIVE NEGATIVE [facility] Hlyad2131-15-91 13:54:00* Test Item Value Reference Range Interpretation Comments Urine Blood (test code = 91670-6) NEGATIVE NEGATIVE [facility] CampusHemoglobin A1c Rgovave1831-74-05 12:05:00 * Test Item Value Reference Range Interpretation Comments Hemoglobin A1c Percent (test code = Hemoglobin A1c Percent) 5.5 4.0-7.0 [facility] CampusCT ABDOMEN/PELVIS U0517-18-83 14:24:00 [place] [address] Patient Name: RJ FISCHER MR #: [id number] : 1960 Age/Sex: 58/F Req #: [id number] Adm Physician: Ordered by: KELLY MORA WATER RESOURCE CONSULTANT Report #: [id number] Location: ER Room/Bed: Procedure: [id number] CT/ CT ABDOMEN/PELVIS W Exam Date: 06/19/19 Exam Time: 1 403 REPORT STATUS: Signed EXAM: CT Abdomen and Pelvis WITH intravenous contrast INDICATION: Abdominal jonathan n COMPARISON: CT abdomen pelvis of 08/05/2015 TECHNIQUE: Abdomen and pe lvis were scanned utilizing a multidetector helical scanner from the lung base to the pubic symphysis after administration of IV contrast. Coronal and sagit jeremy reformations were obtained. Routine protocol was performed. Scan was perfo rmed when during portal venous phase. IV CONTRAST: 100mL of Isovue 370 ORAL CONTRAST: Water COMPLICATIONS: None RADIATION DOSE: Total DLP: 763.8 mGy*cm Dose modulation, iterative reconstruction, and/or weight based adjustment of the mA/kV was utilized to reduce the radiat ion dose to as low as reasonably achievable. FINDINGS: LOWER THORAX: N ormal. HEPATOBILIARY: Hepatic steatosis. No focal liver lesions. No biliary ductal dilatation. The gallbladder appears unremarkable. SPLEEN: No sple nomegaly. PANCREAS: No focal masses or ductal dilatation. ADRENALS: No adrenal nodules. KIDNEYS/URETERS: No hydronephrosis or renal calculi. 1 cm le ft lower pole renal cyst. No solid mass lesion. PELVIC ORGANS/BLADDER: Unrem arkable. PERITONEUM / RETROPERITONEUM: No free air or fluid. LYMPH NODES: No lymphadenopathy. VESSELS: Atherosclerotic calcifications of the nonaneurys mal abdominal aorta and major branches. GI TRACT: Mild colonic diverticul osis. No CT evidence of diverticulitis. No abnormal bowel wall thickening. No bowel obstruction. BONES AND SOFT TISSUES: No acute osseous injury. No susp icious lytic or blastic lesions. IMPRESSION: No acute findings in the abdomen or pelvis. Hepatic steatosis. Signed by: Rosenda De La Rosa MD on 06/19/2019 2:29 PM Dictated By: ROSENDA DE LA ROSA MD 28 BARREL MARKER Y TO: KELLY MORA NP CHEST SINGLE (PORTABLE)2019-06-19 14:23:00 [facility] [address] [place] [address] Patient Name: RJ FISCHER MR #: [id number] : 1960 Age/Sex: 58/F Req #: [id number] Adm Physician: Ordered by: KELLY MORA NP Report #: [id number] Location: ER Room/Bed: Procedure: [id number] DX/ CHEST SINGLE (PORTABLE) Exam Date: 06/19/19 Exam Richard e: 1340 REPORT STATUS: Signed EX AMINATION: CHEST SINGLE (PORTABLE) INDICATION: Dizziness COMPARIS ON: Chest radiograph of 03/31/2019 FINDINGS: LINES/TUBES:EKG leads overlie the chest. LUNGS:The lungs are well-inflated. No focal consolidati on or pulmonary edema. PLEURA:No pleural effusion or pneumothorax. MED IASTINUM:The cardiomediastinal silhouette appears normal in size and shape. BONES/SOFT TISSUES:No acute osseous injury. ABDOMEN:No free air under the diaphragm. IMPRESSION: No focal pneumonia or pulmonary edema. Si gned by: Rosenda De La Rosa MD on 06/19/2019 2:24 PM Dictated By: ROSENDA DE LA ROSA MD E lectronically Signed By: ROSENDA DE LA ROSA MD on 06/19/191423 Transcribed By: SYLVIA on 06/19/191423 COPY TO: KELLY MORA NP Prothrombin Time 2019-06-19 13:15:00* Test Item Value Reference Range Interpretation Comments Prothrombin Time (test code = 5902-2) 12.4 11.9-14.5 [facility] International Ratio 2019-06-19 13:15:00* Test Item Value Reference Range Interpretation Comments Prothromb Time International Ratio (test code = 6301-6) 0.88 Oral Anticoagulant Therapy INR Values:1. Low Intensity Therapy 1.5 - 2.02 . Moderate Intensity Therapy 2.0 - 3.03. High Intensity Therapy(1) 2.5 - 3. 54. High Intensity Therapy(2) 3.0 - 4.05. Panic Value INR > 5.0 [facility] CampusActivated Partial Thromboplast Time 2019-06-19 13:15:00* Test Item Value Reference Range Interpretation Comments Activated Partial Thromboplast Time (test code = 16099-4) 32.6 23.8-35.5 [facility] CampusCreatine Kinase LF7780-96-80 13:01:00* Test Item Value Reference Range Interpretation Comments Creatine Kinase MB (test code = 89518-0) 1.10 0-5.0 [facility] CampusTroponin H9800-34-80 13:01:00* Test Item Value Reference Range Interpretation Comments Troponin I (test code = FUT2291) < 0.001 0-0.300 [facility] CampusTotal Gbpkrpcvz9559-11-97 12:55:00* Test Item Value Reference Range Interpretation Comments Total Bilirubin (test code = 1975-2) 1.4 0.2-1.2 [facility] CampusAspartate Amino Transf (AST/SGOT) 2019-06-19 12:55:00* Test Item Value Reference Range Interpretation Comments Aspartate Amino Transf (AST/SGOT) (test code = Aspartate Amino Transf (AST/SGOT)) 27 5-34 [facility] CampusAlanine Aminotransferase (ALT/SGPT) 2019-06-19 12:55:00* Test Item Value Reference Range Interpretation Comments Alanine Aminotransferase (ALT/SGPT) (test code = 1742-6) 27 0-55 [facility] CampusTotal Gutdrlw1873-81-61 12:55:00* Test Item Value Reference Range Interpretation Comments Total Protein (test code = 2885-2) 7.6 6.5-8.1 [facility] CampusAlbumin2019-08-09 12:55:00* Test Item Value Reference Range Interpretation Comments Albumin (test code = 1751-7) 4.3 3.5-5.0 [facility] CampusGlobulin2019-08-09 12:55:00* Test Item Value Reference Range Interpretation Comments Globulin (test code = 52554-3) 3.3 2.3-3.5 [facility] CampusAlbumin/Globulin Elnmv1246-82-02 12:55:00 * Test Item Value Reference Range Interpretation Comments Albumin/Globulin Ratio (test code = 1759-0) 1.3 0.8-2.0 [facility] CampusAlkaline Xxrwhtncdam6574-22-00 12:55:00* Test Item Value Reference Range Interpretation Comments Alkaline Phosphatase (test code = 6768-6) 69 40-150 [facility] CampusCreatine Fvotnr2246-50-73 12:55:00* Test Item Value Reference Range Interpretation Comments Creatine Kinase (test code = 2157-6) 81 29-168 [facility] CampusCT ABDOMEN/PELVIS Q8140-37-42 01:28:00 [place] [address] Patient Name: RJ FISCHER MR #: [id number] : 1960 Age/Sex: 58/F Req #: [id number] Adm Physician: Ordered by: KELLY MORA W[employer] RESOURCE CONSULTANT Report #: [id number] Location: ER Room/Bed: Procedure: [id number] CT/ CT ABDOMEN/PELVIS W Exam Date: 04/01/19 Exam Time: 0 030 REPORT STATUS: Signed EXAMIN ATION: CT of the abdomen and pelvis with contrast. TECHNIQUE: Helical CT images of the abdomen and pelvis were performed from the lung bases to the le sser trochanters after the intravenous administration of 100 cc of Isovue 300 and the oral administration of none. Coronal and sagittal reformatted images were obtained.Dose modulation, iterative reconstruction, and/or weight based a djustment of the mA/kV was utilized to reduce the radiation dose to as low as reasonably achievable. COMPARISON: None. CLINICAL HISTORY:Abdominal pain DISCUSSION: ABDOMEN/PELVIS: LOWER THORAX:Unremarkable. HEPATOBILIARY: No focal hepatic lesions. No intra-or extrahepatic biliary ductal dilation. The gallbladder is normal. SPLEEN: No splenomegaly. PANCREAS: No focal masses or ductal dilatation. ADRENALS: No adrenal nodules. KIDNEYS/URETERS: No hydronephrosis, stones, or calculi. Subcentime ter cyst in the inferior pole left kidney. PELVIC ORGANS/BLADDER: The penelope dder is normal. PERITONEUM/RETROPERITONEUM: No free air or fluid. LY MPH NODES: No intra-abdominal, retroperitoneal, pelvic or inguinal lymphadenop athy. VESSELS: Limited evaluation. GI TRACT: No distention or wall thi ckening. BONES AND SOFT TISSUE: No bony destructive lesions. No soft tis luis abnormalities. IMPRESSION: No acute CT finding. Signed b y: Dr. Mery Jin M.D. on 04/01/2019 1:37 AM Dictated By: MERY DOMINGUEZ MD 6 Transc ribed By: SYLVIA on 04/01/19136 COPY TO: KELLY MORA NP CHEST SINGLE (PORTABLE)2019-04-01 01:27:00 [place] [address] Patient Name: RJ FISCHER MR #: [id number] : 1960 Age/Sex: 58/F Req #: [id number] Adm Physician: Ordered by: KELLY MORA NP Report #: [id number] Location: ER Room/Bed: Procedure: [id number] DX/ CHEST SINGLE (PORTABLE) Exam Date: 03/31/19 Exam Richard e: 2138 REPORT STATUS: Signed Ex amination: Single AP view of the chest. COMPARISON: None. INDICATION: Chest pain DISCUSSION: Lines/tubes: None. Lungs: The lungs are well inflated and clear. No pneumonia or pulmonary edema. Pleura: No pleural effusion or pneumothorax. Heart and mediastinum: The heart and the mediastinum are unremarkable. Bones and soft tissues: No acute bony abnor malities. IMPRESSION: 1. No acute cardiopulmonary abnormalities. Signed by: Dr. Mery Jin M.D. on 04/01/2019 1:28 AM Dictated By: MERY JIN MD 7 Transcribed By: SYLVIA on 04/01/19127 COPY TO: KELLY MORA W[employer] RESOURCE CONSULTANT Magnesium Igaxr1692-06-94 23:03:00* Test Item Value Reference Range Interpretation Comments Magnesium Level (test code = 15419-2) 2.4 1.3-2.1 [facility] CampusAmylase Xvcrb1319-58-56 23:03:00* Test Item Value Reference Range Interpretation Comments Amylase Level (test code = 1798-8) 68 25-125 [facility] CampusLipase2019-05-21 23:03:00* Test Item Value Reference Range Interpretation Comments Lipase (test code = 3040-3) 41 8-78 [facility] CampusMRI WRIST RIGHT TZ4450-81-78 14:08:00 [place] [address] Patient Name: RJ FISCHER MR #: [id number] : 1960 Age/Sex: 57/F Req #: [id number] Adm Physician: LUX BALLARD MD Ordered by: KENN ROBLES MD Report #: [id number] Locat ion: IMCU Room/Bed: [facility] 186-1 Procedure: [id number] M RI/MRI WRIST RIGHT WO Exam Date: Exam Time: REPORT STATUS: Signed TECHNIQUE: Magnetic resonance imaging of the RIGHT WR IST was performed WITHOUT injected contrast, on a 1.5 milo magnet. HIST ORY: Pain, fall COMPARISON: None available. FINDINGS: Bone and bone m arrow: Bone marrow edema within the volar lunate. The osseous alignment is within normal limits. Joints: Fluid within the joints is within ph ysiologic limits. The joints spaces are well maintained. Ligaments: Scapholunate: Intact Lunotriquetral: Intact Triangular f ibrocartilage complex: Intact Extrinsic ligaments: Mild edema in the do rsal carpal ligaments. Tendons: The flexor and extensor tendons are intac t. Carpal tunnel: The median nerve is within normal limits. Other s oft tissues: Otherwise, unremarkable. IMPRESSION: Mild edema/contu damien in the volar lunate. No fracture. Dorsal carpal extrinsic ligament sp rain. Signed by: Dr. Mery Jin M.D. on 08/18/2018 2:15 PM Dicta kim By: MERY JIN MD 1415 COPY TO: KENN ROBLES MD WRIST COMPLETE JRBT9319-33-32 17:53:00 [place] [address] Patient Name: RJ FISCHER MR #: [id number] : 1960 Age/Sex: 57/F Req #: [id number] Adm Physician: Ordered by: ELVIA CHAU W[employer] RESOURCE CONSULTANT Report #: [id number] Location: ER Room/Bed: Procedure: [id number] DX/WRIST COMPLETE LEFT Ex am Date: 08/16/18 Exam Time: 1532 REPORT STATUS : Signed RIGHT SHOULDER, ELBOW, HAND, WRIST 2-3 VIEWS HISTORY: Pain sta tus post fall COMPARISON: None FINDINGS: Bones: No displaced fracture. Incidentally noted, there is a bony exostosis at the attachment of the lateral epicondyle ligament. Osseous alignment is within normal limits. Joints: The joint spaces are well-maintained. Soft tissues: The s oft tissues appear unremarkable. IMPRESSION: 1. No acute radiographi c abnormality. 2. Incidentally found changes related to lateral epicondylitis Signed by: Dr. Cuba Lu M.D. on 08/16/2018 5:56 PM Dictated By: CUBA RESENDIZ MD 55 COPY TO: ELVIA CHAU W[employer] RESOURCE CONSULTANT HAND 3+ VIEWS [id number] 17:53:00 [place] [address] Patient Name: RJ FISCHER MR #: [id number] : 1960 Age/Sex: 57/F Req #: [id number] Adm Physician: Ordered by: ELVIA CHAU W[employer] RESOURCE CONSULTANT Report #: [id number] Location: ER Room/Bed: Procedure: [id number] DX/HAND 3+ VIEWS LEFT Exa m Date: 08/16/18 Exam Time: 1532 REPORT STATUS: Signed RIGHT SHOULDER, ELBOW, HAND, WRIST 2-3 VIEWS HISTORY: Pain stat us post fall COMPARISON: None FINDINGS: Bones: No displaced f racture. Incidentally noted, there is a bony exostosis at the attachment of the lateral epicondyle ligament. Osseous alignment is within normal limits. Joints: The joint spaces are well-maintained. Soft tissues: The so ft tissues appear unremarkable. IMPRESSION: 1. No acute radiographic abnormality. 2. Incidentally found changes related to lateral epicondylitis Signed by: Dr. Cuba Lu M.D. on 08/16/2018 5:56 PM Dictated By: Ria RESENDIZ MD 55 COPY TO: Ney CHAU WATER RESOURCE CONSULTANT ELBOW RIGHT [id number] 17:53:00 [place] [address] Patient Name: RJ FISCHER MR #: [id number] : 1960 Age/Sex: 57/F Req #: [id number] Adm Physician: Ordered by: ELVIA CHAU W[employer] RESOURCE CONSULTANT Report #: [id number] Location: ER Room/Bed: Procedure: [id number] DX/ELBOW RIGHT COMPLETE E xam Date: 08/16/18 Exam Time: 1532 REPORT STATU S: Signed RIGHT SHOULDER, ELBOW, HAND, WRIST 2-3 VIEWS HISTORY: Pain st atus post fall COMPARISON: None FINDINGS: Bones: No displaced fracture. Incidentally noted, there is a bony exostosis at the attachment of the lateral epicondyle ligament. Osseous alignment is within normal limits. Joints: The joint spaces are well-maintained. Soft tissues: The soft tissues appear unremarkable. IMPRESSION: 1. No acute radiograph ic abnormality. 2. Incidentally found changes related to lateral epicondyliti s Signed by: Dr. Cuba Lu M.D. on 08/16/2018 5:56 PM Dictated By: CUBA RESENDIZ MD 55 COPY TO: ELVIA CHAU NP SHOULDER RIGHT [id number] 17:53:00 [place] [address] Patient Name: RJ FISCHER MR #: [id number] : 1960 Age/Sex: 57/F Req #: [id number] Adm Physician: Ordered by: ELVIA CHAU NP Report #: [id number] Location: ER Room/Bed: Procedure: [id number] DX/SHOULDER RIGHT COMPLETE Exam Date: 08/16/18 Exam Time: [address] ATUS: Signed RIGHT SHOULDER, ELBOW, HAND, WRIST 2-3 VIEWS HISTORY: Pain status post fall COMPARISON: None FINDINGS: Bones: No displa ivory fracture. Incidentally noted, there is a bony exostosis at the attachmen t of the lateral epicondyle ligament. Osseous alignment is within normal becerra its. Joints: The joint spaces are well-maintained. Soft tissues: T he soft tissues appear unremarkable. IMPRESSION: 1. No acute radiogr aphic abnormality. 2. Incidentally found changes related to lateral epicondyl itis Signed by: Dr. Cuba Lu M.D. on 08/16/2018 5:56 PM Dictated By: CUBA RESENDIZ MD 55 COPY TO: ELVIA MEJIA NP CT MAXIO FAC/PARANAS [id number] 16:24:00 [place] [address] Patient Name: RJ FISCHER MR #: [id number] : 1960 Age/Sex: 57/F Req #: [id number] Adm Physician: LUX BALLARD MD Ordered by: ELVIA CHAU NP Report #: [id number] Location: [facility] Room/Bed: [place] [address] Procedure: [id number]/CT MAXIO FAC/PARANAS WO Exam Date: 08/16/18 Ex am Time: 1525 REPORT STATUS: Signed ADDENDUM #1 Dose modulation, iterative reconstruct ion, and/or weight based adjustment of the mA/kV was utilized to reduce the ra diation dose to as low as reasonably achievable. Signed by: DR Cole Darby M.D. on 09/03/2018 10:23 AM ORIGINAL REPORT History:Fall, hit right side of the face Comparison studies:CT head 5 28,016 Technique: Axial images were obtained from the brain, face and cervical s pine. Coronal and sagittal reconstructions obtained from the axial data. Int ravenous contrast: None Findings: Head CT: Scalp/skull: No abn ormalities. No fractures, blastic or lytic lesions. Extra-axial spaces: No masses. No fluid collections. Brain sulci: Appropriate for age. Ventricl es: Normal in size and configuration. No hydrocephalus. Parenchyma: Righ t subinsular and left insular small hypodensities, with mild volume loss, stab le. No masses, hemorrhage or acute cortical vascular insults. Sellar/sup rasellar region: No abnormalities Craniocervical junction: Patent foramen magn um. No Chiari one malformation. Maxillofacial CT: Soft tissues: Ri ght central premaxillary soft tissue hematoma anterior aspect.. Bones: N ondisplaced fracture of the nasal spine and inferior nasal septum. No other fa cial fractures are seen. . Orbits: No abnormalities. Paranasal sin uses: Mucous retention cyst at the right maxillary sinus. Cervical spine CT: Fractures: None. Soft tissues: No gross abnormalities. Atlantoax ial articulation: No acute abnormality. Mild degenerative changes. Alignment: Normal lordosis. No scoliosis. Cervicomedullary junction: No abnormalities. Th e foramen magnum is patent. Vertebrae: No infection. Lucent lesions at C 3, C4 and C5 vertebral bodies. Degenerative changes: Uncinate processes and facet hypertrophy results in moderate bilateral foraminal narrowing at C4- 5. Decreased intervertebral space at C4-5 and C5-6.. Incidental findings: None. Impression: Head CT: 1. No acute intracranial abnormality. 2. Stable compared to previous examination. Facial CT: 1. Right central premaxillary hematoma. 2. Nondisplaced fracture of the nasal spine and adj acent nasal septum . Cervical spine CT: 1. No acute cervical abnormaliti es. 2. Cannot exclude ligament, spinal cord and or vascular abnormalities on the basis of this examination. 3. Nonspecific mucosal lesions in the cervic al spine, this could be related to infiltrative marrow processes, recommend cl inical correlation. Signed by: DR Cole Darby M.D. on 08/16/2018 4 :37 PM Dictated By: COLE NAVARRO MD 1023 Transcribed By: SYLVIA on 08/16/18 1637 COPY TO: ELVIA CHAU WATER RESOURCE CONSULTANT CT CERVICAL SPINE [id number] 16:24:00 [place] [address] Patient Name: RJ FISCHER MR #: [id number] : [birth year] Age/Sex: 57/F Req #: [id number] Adm Physician: LUX BALLARD MD Ordered by: ELVIA CHAU W[employer] RESOURCE CONSULTANT Report #: [id number] Location: [facility] Room/Bed: [place] [address] Procedure: [id number]/CT CERVICAL SPINE WO Exam Date: 08/16/18 Exam Time: 1525 REPORT STATUS: Signed ADDENDUM #1 Dose modulation, iterative reconstruction, and/or weight based adjustment of the mA/kV was utilized to reduce the radia tion dose to as low as reasonably achievable. Signed by: DR Cole Darby M.D. on 09/03/2018 10:23 AM ORIGINAL REPORT Hi story:Fall, hit right side of the face Comparison studies:CT head 5 28,016 Technique: Axial images were obtained from the brain, face and cervical spin e. Coronal and sagittal reconstructions obtained from the axial data. Intrav enous contrast: None Findings: Head CT: Scalp/skull: No abnorm alities. No fractures, blastic or lytic lesions. Extra-axial spaces: No mas ses. No fluid collections. Brain sulci: Appropriate for age. Ventricles: Normal in size and configuration. No hydrocephalus. Parenchyma: Right s ubinsular and left insular small hypodensities, with mild volume loss, stable. No masses, hemorrhage or acute cortical vascular insults. Sellar/supras ellar region: No abnormalities Craniocervical junction: Patent foramen magnum. No Chiari one malformation. Maxillofacial CT: Soft tissues: Right central premaxillary soft tissue hematoma anterior aspect.. Bones: Nond isplaced fracture of the nasal spine and inferior nasal septum. No other facia l fractures are seen. . Orbits: No abnormalities. Paranasal sinuse s: Mucous retention cyst at the right maxillary sinus. Cervical spine CT: Fractures: None. Soft tissues: No gross abnormalities. Atlantoaxial articulation: No acute abnormality. Mild degenerative changes. Alignment: Nor mal lordosis. No scoliosis. Cervicomedullary junction: No abnormalities. The f oramen magnum is patent. Vertebrae: No infection. Lucent lesions at C3, C4 and C5 vertebral bodies. Degenerative changes: Uncinate processes an d facet hypertrophy results in moderate bilateral foraminal narrowing at C4-5. Decreased intervertebral space at C4-5 and C5-6.. Incidental findings: N one. Impression: Head CT: 1. No acute intracranial abnormality. 2 . Stable compared to previous examination. Facial CT: 1. Right central premaxillary hematoma. 2. Nondisplaced fracture of the nasal spine and adjace nt nasal septum . Cervical spine CT: 1. No acute cervical abnormalities. 2. Cannot exclude ligament, spinal cord and or vascular abnormalities on the basis of this examination. 3. Nonspecific mucosal lesions in the cervical spine, this could be related to infiltrative marrow processes, recommend clini abdiaziz correlation. Signed by: DR Cole Darby M.D. on 08/16/2018 4:37 PM Dictated By: COLE NAVARRO MD 1020 Transcribed By: SYLVIA on 08/16/18 3937 COPY TO: ELVIA CHAU NP CT BRAIN [id number] 16:24:00 [facility] [address] [address] Patient Name: RJ FISCHER MR #: [id number] : 1960 Age/Sex: 57/F Req #: [id number] Adm Physician: LUX BALLARD MD Ordered by: ELVIA CHAU NP Report #: [id number] Location: [facility] Room/Bed: [place] [address] Procedure: 1006-[id number]/CT BRAIN WO Exam Date: 08/16/18 Exam Time: 152 5 REPORT STATUS: Signed ADDENDUM #1 Dose modulation, iterative reconstruction, and/or weight based adjustment of the mA/kV was utilized to reduce the radiation dose to as low as reasonably achievable. Signed by: DR Cole Darby M.D. on 09/03/2018 10:23 AM ORIGINAL REPORT History:Fal l, hit right side of the face Comparison studies:CT head 5 28,016 [employer] ue: Axial images were obtained from the brain, face and cervical spine. Kyle nal and sagittal reconstructions obtained from the axial data. Intravenous con trast: None Findings: Head CT: Scalp/skull: No abnormalities. No fractures, blastic or lytic lesions. Extra-axial spaces: No masses. No fluid collections. Brain sulci: Appropriate for age. Ventricles: Normal i n size and configuration. No hydrocephalus. Parenchyma: Right subinsular and left insular small hypodensities, with mild volume loss, stable. No ma sses, hemorrhage or acute cortical vascular insults. Sellar/suprasellar reg ion: No abnormalities Craniocervical junction: Patent foramen magnum. No Marciano ri one malformation. Maxillofacial CT: Soft tissues: Right central premaxillary soft tissue hematoma anterior aspect.. Bones: Nondisplaced fracture of the nasal spine and inferior nasal septum. No other facial fractur es are seen. . Orbits: No abnormalities. Paranasal sinuses: Muco us retention cyst at the right maxillary sinus. Cervical spine CT: Fra ctures: None. Soft tissues: No gross abnormalities. Atlantoaxial articula tion: No acute abnormality. Mild degenerative changes. Alignment: Normal lordo sis. No scoliosis. Cervicomedullary junction: No abnormalities. The foramen ma gnum is patent. Vertebrae: No infection. Lucent lesions at C3, C4 and C5 vertebral bodies. Degenerative changes: Uncinate processes and facet h ypertrophy results in moderate bilateral foraminal narrowing at C4-5. Decrease d intervertebral space at C4-5 and C5-6.. Incidental findings: None. Impression: Head CT: 1. No acute intracranial abnormality. 2. Stable compared to previous examination. Facial CT: 1. Right central premaxill yaya hematoma. 2. Nondisplaced fracture of the nasal spine and adjacent nasal septum . Cervical spine CT: 1. No acute cervical abnormalities. 2. Ca nnot exclude ligament, spinal cord and or vascular abnormalities on the basis of this examination. 3. Nonspecific mucosal lesions in the cervical spine, th is could be related to infiltrative marrow processes, recommend clinical corre lation. Signed by: DR Cole Darby M.D. on 08/16/2018 4:37 PM Dictated By: COLE NAVARRO MD 1023 Transcribed By: SYLVIA on 08/16/18 1177 COPY TO: ELVIA CHAU NP
[2020-03-28] MEDS ORDERED: ONDANSETRON HCL INJ 2MG/ML 2ML 2 MG/ML VIAL IV STA (16:23)
[2020-03-28] MEDS ORDERED: MORPHINE SULFATE INJ 4 MG/ML INJ 1ML IV STA (16:23)
[2020-03-28] MEDS ORDERED: SODIUM CHLORIDE 0.9% 1000ML 1,000 ML IV STA (16:23)
[2020-03-28 16:37] LABS: BILIRUBIN,URINE NEGATIVE (NEGATIVE); CLARITY,URINE SL CLOUDY (CLEAR); COLOR,URINE YELLOW (YELLOW); KETONES,URINE NEGATIVE (NEGATIVE); LEUKOCYTE ESTERASE ,URINE NEGATIVE (NEGATIVE); NITRITE,URINE NEGATIVE (NEGATIVE); PROTEIN,URINE DIPSTICK NEGATIVE (NEGATIVE); URINE UROBILINOGEN 0.2 mg/dL (0.2 - 1)
--- NOTE | 2020-03-28 17:08 | Diagnostic Imaging Report ---
Examination: Single AP view of the chest. COMPARISON: Portable chest 04/19/2019 INDICATION: Frequent UTI, mid abdominal pain IMPRESSION: 1. Lines and Tubes: None 2. Lungs are grossly clear. No consolidation or effusion. 3. Cardiomediastinal silhouette is normal. Pulmonary vasculature is normal. 4. No acute bony abnormalities. Signed by: Dr. Wu Jack M.D. on 03/28/2020 5:05 PM
[2020-03-28 17:26] LABS: BASOPHILS # (AUTO) 0.1 (0.0-0.1); BASOPHILS % 0.7 % (0.0-1.0); EOSINOPHILS # (AUTO) 0.1 (0.0-0.4); EOSINOPHILS % 1.6 % (0.0-6.0); HEMATOCRIT 46.7 % (34.2-44.1); HEMOGLOBIN 15.1 g/dL (12.0-16.0); LYMPHOCYTES # (AUTO) 2.7 (1.0-3.2); LYMPHOCYTES % 31.9 % (18.0-39.1); MEAN CORPUSCULAR HEMOGLOBIN 29.7 pg (28-32); MEAN CORPUSCULAR HGB CONC 32.3 g/dL (31-35); MEAN CORPUSCULAR VOLUME 91.9 fL (81-99); MONOCYTES # (AUTO) 0.8 (0.2-0.8); MONOCYTES % 9.8 % (4.4-11.3); NEUTROPHILS # (AUTO) 4.6 (2.1-6.9); NEUTROPHILS % 55.5 % (38.7-80.0); PLATELET COUNT 328 x10e3/uL (140-360); RED BLOOD COUNT 5.08 x10e6/uL (3.6-5.1); RED CELL DISTRIBUTION WIDTH 13.8 % (11.7-14.4)
[2020-03-28 17:35] LABS: INR 0.8; PROTHROMBIN TIME 11.5 seconds (11.9-14.5)
[2020-03-28 17:36] LABS: PARTIAL THROMBOPLASTIN TIME 29.6 seconds (23.8-35.5)
[2020-03-28 17:45] LABS: ALANINE AMINOTRANSFERASE 35 IU/L (0-55); ALBUMIN 4.3 g/dL (3.5-5.0); ALBUMIN/GLOBULIN RATIO 1.2 (0.8-2.0); ALKALINE PHOSPHATASE 65 IU/L (40-150); ANION GAP 17.7 mmol/L (8-16); BLOOD UREA NITROGEN 12 mg/dL (7-26); BUN/CREATININE RATIO 15 (6-25); CALCIUM 10.3 mg/dL (8.4-10.2); CARBON DIOXIDE 23 mmol/L (22-29); CHLORIDE 104 mmol/L (98-107); CREATINE KINASE 144 IU/L (29-168); CREATININE, SERUM 0.81 mg/dL (0.57-1.11); EST GLOMERULAR FILTRATION RATE > 60 ML/MIN (60-); GLUCOSE 122 mg/dL (74-118); POTASSIUM 3.7 mmol/L (3.5-5.1); SODIUM 141 mmol/L (136-145)
--- NOTE | 2020-03-28 19:04 | Diagnostic Imaging Report ---
EXAMINATION: CT of the abdomen and pelvis with contrast. TECHNIQUE: Spiral CT images of the abdomen and pelvis were performed from the lung bases to the lesser trochanters after the intravenous administration of 100 cc of Isovue 370 and the oral administration of moderate. Coronal and sagittal reformatted images were obtained. COMPARISON: CT abdomen and pelvis with contrast 06/19/2019 CLINICAL HISTORY:Abdominal pain, bladder pressure for 5 days, recent UTI DISCUSSION: ABDOMEN/PELVIS: LOWER THORAX:Unremarkable. HEPATOBILIARY: Diffuse hepatic steatosis. The liver is borderline enlarged, measuring 15.4 cm in the right midclavicular line. No focal hepatic lesions. No intra or extrahepatic biliary ductal dilation. GALLBLADDER: No radio-opaque stones or sludge. No wall thickening. SPLEEN: No splenomegaly. PANCREAS: No focal masses or ductal dilatation. ADRENALS: No adrenal nodules. KIDNEYS/URETERS: No hydronephrosis, stones, or solid mass lesions. No perinephric stranding. Stable 7 mm hypodense lesion in the left mid to inferior aspect, which is too small to characterize (series 2, image 41). PELVIC ORGANS/BLADDER: Bladder is unremarkable, without focal lesions or wall thickening. Uterus is unremarkable. No adnexal masses. Multiple pelvic phleboliths. PERITONEUM/RETROPERITONEUM: No free air or fluid. LYMPH NODES: No intra-abdominal, retroperitoneal, pelvic or inguinal lymphadenopathy. VESSELS: The celiac trunk,superior and inferior mesenteric and bilateral renal arteries are patent The portal, superior mesenteric and splenic veins are patent. Mild atherosclerotic calcification of the distal abdominal aorta. GI TRACT: No bowel dilation or evidence of obstruction. No pericolonic inflammatory changes. Stomach is unremarkable. Appendix is well visualized and unremarkable. BONES AND SOFT TISSUE: No aggressive lytic lesions. Mildly degenerated discs in the lower thoracic spine. Small fat-containing umbilical hernia, stable IMPRESSION: 1. No acute abdominopelvic abnormalities. No CT evidence of pyelonephritis. 2. Borderline enlarged liver with diffuse hepatic steatosis. No focal lesions. Signed by: Dr. Wu Jack M.D. on 03/28/2020 7:01 PM
[2020-03-28] MEDS ORDERED: MORPHINE SULFATE 2 MG/ML SYR 1ML IV PRN (19:15)
--- OUTSIDE RECORDS SUMMARY | 2020-03-28 19:15 | XMS REPORT | Clinical Summary ---
Author Author [facility] Organization [facility] Address Unknown Phone Unavailable Care Team Providers Care Arbitrator Name Role Phone Colby Farris DO PCP [...] 08/05/2019 Postmen opausal bleeding 1:27 PM CDT HI BIOPSY OF UTERUS Routine 08/05/2019 Postmenopa usal [...] opsy Denice Willams MD Performing Organization [facility] [address] [place] [address] * Endometrial biopsy (08/05/2019 11:15 AM CDT) Narrative Performed At Denice Willams MD 08/06/20 8:12 AM Endometrial biopsy Date/Time: 08/06/2019 8:11 AM Performed by: Denice Willams MD Authorized by: Denice Willasm M D Consent: Consent obtained: Verbal and [...] Surgical pathology request (08/05/2019 7:55 AM CDT) [facility] DEPARTMENT OF PATHOLOGY AND GENOMIC MEDICINE Surgical See link below for PDF Lab [facility] DEPART [facility] pathology Report OF PATHOLOGY report AND GENOMIC MEDICINE Result status This is Final Report for [facility] DEPARTME NT [id number] OF PATHOLOGY AND GENOMIC MEDICINE Specimen Performing Organization Address [facility] DEPARTMENT OF [address] [place] [id number] PATHOLOGY AND GENOMIC MEDICINE after 03/28/2019 Insurance Type Payer Benefit Subscriber ID Effective Phone Address Plan / Dates Group PPO BCBS BCBS OUT xxxxxxxxxxxx 2015- OF STATE Present Advance Directives For more information, please contact: [phone] 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
--- OUTSIDE RECORDS SUMMARY | 2020-03-28 19:16 | XMS REPORT ---
Author Author [facility] t Organization [facility] t Address [address] [place] [address] Phone Unavailable Care Team Providers Care Biological Chemist Name Role Phone RALPH SAUCEDO DO PCP ELEAZAR ALLEN Attphys Unavailable Mili MCNAMARAN, Donna Attphys Unavailable Ian PEREZ, Ria Young Attphys Unavailable Chuckie Mauro MD Attphys [phone] Imer PALMER, Soumya Galdamez Attphys Ferdinand PALMER, Georgiana Pinedo Attphys BALLARD, SOUHEIL Attphys Unavailable Neymar DODSON Attphys Unavailable BALLARD, SOUHEIL Admphys Unavailable Payers Payer Name Policy Type Policy Number Effective Date Expiration Date S renate [employer] [facility] [id number] 2015 00:00:00 [facility] BCBSBCBS OUT OF [id number]/11/2014-PresentPPO [id number] 2015 00:00:00 Navneet Pate [facility] [id number] 2015 00:00:00 [facility] [id number] 2015 00:00:00 [facility] [id number] 2015 00:00:00 [facility] [id number] 2015 00:00:00 [facility] Problems Condition Name Condition Details Condition Category [...] of breath) Disease Ac tive 2017-02-01 00:00:[address] Chest pain on breathing Chest pain on breathing Disease Active 2017-02-01 00:00:00 Navneet Luis Daniel singh Renal mass Renal mass Disease Active 2015-07-12 [...] reactions Active Unknown head ache 2019-03-31 00:00:00 [facility] Sulfamethoxazole Allergy to Substance Active Unknown unk 2018-11-16 00:00:00 [facility] Trimethoprim Allergy to Substance Active Unknown unk 2018-11-16 00:00: 00 [facility] Amoxicillin Allergy to Substance Active Moderate rash 2018-11-16 00:00: 00 [facility] Promethazine Allergy to Substance Active Moderate panic attack 2018-11-16 00:00:00 [facility] Bupropion Allergy to Substance Active Mild headache 2018-11-16 00:00:00 [facility] Duloxetine Allergy to Substance Active Mild headache 2018-11-16 00:00:0 0 [facility] Escitalopram Allergy to Substance Active Mild headache 2018-11-16 00 :00:00 [facility] Levomilnacipran Allergy to Substance Active Unknown headache 2018-11-16 00:00:00 [facility] Duloxetine Propensity to adverse reactions to drug Active Other (See Comments) 2018-05-01 00:00:00 headacheheadache Sara ston [facility] Morphine Propensity to adverse reactions to drug [...] Quantity Comments Source Sex Assigned At Sara Pate Alcohol intake 2019-08-06 00:00:00 2019-08-06 00:00:00 [...] 00:00:00 Yes Q6H every 6 (six) hour sBarry Pate Acetaminophen/Codeine Phosphate (Tylenol # 3*) 1 Ea Ta b Acetaminophen/Codeine Phosphate (Tylenol # 3*) 1 Ea Tab Yes 1 Every 6 Hours as needed for Pain [facility] Alprazolam (Xanax*) 1 Mg Tablet Alprazolam (Xanax*) 1 Mg Tablet Yes 1 Twice A Day as needed for Anxiety [facility] Aspirin (Aspir 81) 81 Mg Tablet. Aspirin (Aspir 81) 81 Mg Tablet. Yes 1 Daily [facility] Ciprofloxacin Hcl (Cipro) 500 Mg Tablet Ciprofloxacin Hcl (C ipro) 500 Mg Tablet Yes 500 Every 12 Hours [facility] Linzess Linzess Yes 72 Daily [facility] Loratadine (Allergy Relief) 10 Mg Tablet Loratadine (A llergy Relief) 10 Mg Tablet Yes 10 Daily [facility] Methenamine/Sodium Salicylate (Cystex Tablet) 1 Each T ablet Methenamine/Sodium Salicylate (Cystex Tablet) 1 Each Tablet Yes 1 As Needed for Urinary Pain [facility] Montelukast Sodium 10 Mg Tablet Montelukast Sodium 10 Mg Tablet Yes 10 Daily [facility] Nortriptyline Hcl 25 Mg Capsule Nortriptyline Hcl 25 Mg Capsule Yes 50 Bedtime [facility] Olmesartan Medoxomil (Benicar) 20 Mg Tablet Olmesartan Medoxomil (Benicar) 20 Mg Tablet Yes 20 Daily [facility] Rizatriptan Benzoate (Maxalt) 10 Mg Tablet Rizatriptan Benzoate (Maxalt) 10 Mg Tablet Yes 10 Twice A Day as needed for Migra ine [facility] Immunizations Ordered Immunization Name Filled Immunization Name [...] Procedure Date / Time Performed Performing Clinician [facility] e US PELVIC TRANSVAGINAL 2019-08-05 18:27:42 Denice Willmas MA BIOPSY OF UTERUS LINING 2019-08-05 16:15:00 Denice Willams SURGICAL PATHOLOGY REQUEST 2019-08-05 12:55:00 Denice Willams Ultrasound, renal 2019-06-20 00:00:00 LUX BALLARD [facility] Computed tomography of abdomen and pelvis with contrast 2018 00:00:00 [facility] Computed tomography of abdomen and pelvis with contrast 2018 00:00:00 [facility] Plan of Care Planned Activity Planned Date [...] gnant neoplasm of cervix (procedure) [code = 035221130] [facility] Encounters Start Date/Time End Date/Time Encounter Type Admission Type Attendi [facility] Care Department Encounter ID Source 2019-12-30 11:48:00 2019-12-30 14:00:00 Departed Emergency Room [facility] [id number] [facility] 2019-06-30 13:17:39 2019-06-30 14:11:40 Office Visit Khris Streeter [facility] [id number] 2019-06-19 15:01:00 2019-06-21 10:48:00 Discharged Inpatient (obs) 1 BALLARD, [facility] [id number] [facility] 2019-03-31 20:09:00 2019-04-01 03:07:00 Departed Emergency Room 1 GERALDO DODSON [facility] [id number] [facility] 2018-11-16 22:59:00 2018-11-17 01:55:00 Departed Emergency Room [facility] [id number] [facility] 2018-08-16 19:35:00 2018-08-19 14:15:00 Discharged Inpatient (obs) 1 [facility] [id number] [facility] Results Test Description Test Time Test Comments Results Result Comments Source CT ABDOMEN/PELVIS W 2020-03-28 18:53:00 [facility] [address] [address] Patient Name: RJ FISCHER MR #: [id number] : 1960 Age/Sex: 59/F Req #: [id number] Adm Physician: Ordered by: ELEAZAR ALLEN DO Report #: [id number] Location: ER Room/Bed: Procedure: [id number] CT/CT ABDOMEN/PELVIS W Exam Date: 03/28/20 Exam Time: 1824 REPORT STATUS: Signed EXAMINATION: CT of the abdomen and pelvis with contrast. TECHNIQUE: Spiral CT images of the abdomen and pelvis were performed from the lung bases to the lesser trochanters after the intravenous administration of 100 cc of Isovue 370 and the oral administration of moderate. Coronal and sagittal reformatted images were obtained. COMPARISON: CT abdomen and pelvis with contrast 06/19/2019 CLINICAL HISTORY:Abdominal pain, bladder pressure for 5 days, recent UTI DISCUSSION: ABDOMEN/PELVIS: LOWER THORAX:Unremarkable. HEPATOBILIARY: Diffuse hepatic steatosis. The liver is borderline enlarged, measuring 15.4 cm in the right midclavicular line. No focal hepatic lesions. No intra or extrahepatic biliary ductal dilation. GALLBLADDER: No radio- opaque stones or sludge. No wall thickening. SPLEEN: No splenomegaly. PANCREAS: No focal masses or ductal dilatation. ADRENALS: No adrenal nodules. KIDNEYS/URETERS: No hydronephrosis, stones, or solid mass lesions. No perinephric stranding. Stable 7 mm hypodense lesion in the left mid to inferior aspect, which is too small to characterize (series 2, image 41). PELVIC ORGANS/BLADDER: Bladder is unremarkable, without focal lesions or wall thickening. Uterus is unremarkable. No adnexal masses. Multiple pelvic phleboliths. PERITONEUM/RETROPERITONEUM: No free air or fluid. LYMPH NODES: No intra-abdominal, retroperitoneal, pelvic or inguinal lymphadenopathy. VESSELS: The celiac trunk,superior and inferior mesenteric and bilateral renal arteries are patent The portal, superior mesenteric and splenic veins are patent. Mild atherosclerotic calcification of the distal abdominal aorta. GI TRACT: No bowel dilation or evidence of obstruction. No pericolonic inflammatory changes. Stomach is unremarkable. Appendix is well visualized and unremarkable. BONES AND SOFT TISSUE: No aggressive lytic lesions. Mildly degenerated discs in the lower thoracic spine. Small fat- containing umbilical hernia, stable IMPRESSION: 1. No acute abdominopelvic abnormalities. No CT evidence of pyelonephritis. 2. Borderline enlarged liver with diffuse hepatic steatosis. No focal lesions. Signed by: Dr. Wu Jay M.D. on 03/28/2020 7:01 PM Dictated By: WU JAY MD 00 Transcribed By: SYLVIA on 03/28/201900 COPY TO: ELEAZAR ALLEN DO CHEST SINGLE (PORTABLE) 2020-03-28 17:04:[address] [address] Patient Name: RJ FISCHER MR #: [id number] : 1960 Age/Sex: 59/F Req #: [id number] Adm Physician: Ordered by: KELLY MORA NP Report #: [id number] Location: ER Room/Bed: Procedure: [id number] DX/CHEST SINGLE (PORTABLE) Exam Date: Exam Time: REPORT STATUS: Signed Examination: Single AP view of the chest. COMPARISON: Portable chest 04/19/2019 INDICATION: Frequent UTI, mid abdominal pain IMPRESSION: 1. Lines and Tubes: None 2. Lungs are grossly clear. No consolidation or effusion. 3. Cardiomediastinal silhouette is normal. Pulmonary vasculature is normal. 4. No acute bony abnormalities. Signed by: Dr. Wu Jay M.D. on 03/28/2020 5:05 PM Dictated By: WU JAY MD 04 Transcribed By: SYLVIA on 03/28/201704 COPY TO: KELLY MORA NP Surgical pathology request 2019-08-09 15:37:24 Test Item Case number (test code = 7300100) [id number] Surgical pathology report (test code = 2255) See link below for PDF Lab Report Result status (test code = 9985974) This is Final Report for [id number] [facility] Uuupkfvotanz7903-44-85 19:46:10Uterus: 5.91 x 3.06 x 3.05 cm Heterogenous uterus Endometrium: 5.39mm Free Fluid: no Rt Ovary: Not seenRt Adnexa: wnl Lt Ovary: 1.09 x 0.97 x 0.82cmLt Adnexa: wnl 6cm uterus, endometrium >5mm with some heterogeneityCorrespond findings with endometrial biopsy Denice Willams MD [facility] nudodp7651-72-53 16:15:00Denice Willams MD 08/06/2019 8:12 AMEndometrial biopsyDate/Time: [...] size: <6 weeks Cervix: normal Adnexa: normal [facility] 2019-06-21 06:43:00* Test Item Value Reference Range Interpretation Comments Sodium Level (test code = 2951-2) 144 136-145 [facility] CenterPotassium Rjdiz9509-61-33 06:43:00* Test Item Value Reference Range Interpretation Comments Potassium Level (test code = 2823-3) 3.4 3.5-5.1 [facility] CenterChloride Sztdt5682-74-21 06:43:00* Test Item Value Reference Range Interpretation Comments Chloride Level (test code = 2075-0) 113 98-107 [facility] CenterCarbon Dioxide Ckvyo8803-42-85 06:43:00* Test Item Value Reference Range Interpretation Comments Carbon Dioxide Level (test code = 2028-9) 25 22-29 [facility] CenterAnion Old3027-61-23 06:43:00* Test Item Value Reference Range Interpretation Comments Anion Gap (test code = 05965-1) 9.4 8-16 [facility] CenterBlood Urea Ylqetvao5280-36-46 06:43:00* Test Item Value Reference Range Interpretation Comments Blood Urea Nitrogen (test code = 3094-0) 5 7-26 [facility] CenterCreatinine2019-08-11 06:43:00* Test Item Value Reference Range Interpretation Comments Creatinine (test code = 2160-0) 0.62 0.57-1.11 [facility] CenterBUN/Creatinine Fkpwq7547-87-74 06:43:00* Test Item Value Reference Range Interpretation Comments BUN/Creatinine Ratio (test code = 3097-3) 8 6-25 [facility] CenterEstimat Glomerular Filtration Rate 2019-06-21 06:43:00* Test Item Value Reference Range Interpretation Comments Estimat Glomerular Filtration Rate (test code = 137832519) > 60 >60 Ranges were taken from the National Kidney Disease Education Program and the [employer] [facility] healthcare systemsal Kid[employer] Foundation literature.Reference ranges:60 or greater: Flhfbv92-66 ( for 3 consecutive months): Chronic kidney disease 15 or less: Kidney failureConnally Memorial Medical CenterGlucose Tpzoa4575-36-37 06:43:00* Test Item Value Reference Range Interpretation Comments Glucose Level (test code = SMM0262) 78 74-118 [facility] CenterCalcium Qfnpa8907-55-45 06:43:00* Test Item Value Reference Range Interpretation Comments Calcium Level (test code = 71386-6) 8.2 8.4-10.2 [facility] CenterWhite Blood Jbxrh8133-20-74 06:38:00* Test Item Value Reference Range Interpretation Comments White Blood Count (test code = 6690-2) 5.42 4.8-10.8 [facility] CenterRed Blood Fylwb8550-94-31 06:38:00* Test Item Value Reference Range Interpretation Comments Red Blood Count (test code = 789-8) 3.64 3.6-5.1 [facility] CenterHemoglobin2019-08-11 06:38:00* Test Item Value Reference Range Interpretation Comments Hemoglobin (test code = 17960-7) 11.2 12.0-16.0 [facility] CenterHematocrit2019-08-11 06:38:00* Test Item Value Reference Range Interpretation Comments Hematocrit (test code = 4544-3) 35.0 34.2-44.1 [facility] CenterMean Corpuscular Nwqasb5288-97-11 06:38:00* Test Item Value Reference Range Interpretation Comments Mean Corpuscular Volume (test code = 787-2) 96.2 81-99 [facility] CenterMean Corpuscular Hepkhhpztv8753-23-33 06:38:00* Test Item Value Reference Range Interpretation Comments Mean Corpuscular Hemoglobin (test code = 785-6) 30.8 28-32 [facility] CenterMean Corpuscular Hemoglobin Concent 2019-06-21 06:38:00* Test Item Value Reference Range Interpretation Comments Mean Corpuscular Hemoglobin Concent (test code = 786-4) 32.0 31-35 [facility] CenterRed Cell Distribution Vmdmo0717-93-69 06:38:00* Test Item Value Reference Range Interpretation Comments Red Cell Distribution Width (test code = 10063-3) 12.8 11.7 -14.4 [facility] CenterPlatelet Utzmd7262-64-21 06:38:00* Test Item Value Reference Range Interpretation Comments Platelet Count (test code = 777-3) 230 140-360 [facility] CenterNeutrophils (%) (Auto)2019-06-21 06:38:00 * Test Item Value Reference Range Interpretation Comments Neutrophils (%) (Auto) (test code = 62954-9) 45.2 38.7-80.0 [facility] CenterLymphocytes (%) (Auto)2019-06-21 06:38:00 * Test Item Value Reference Range Interpretation Comments Lymphocytes (%) (Auto) (test code = 736-9) 38.7 18.0-39.1 [facility] CenterMonocytes (%) (Auto)2019-06-21 06:38:00* Test Item Value Reference Range Interpretation Comments Monocytes (%) (Auto) (test code = 5905-5) 11.4 4.4-11.3 [facility] CenterEosinophils (%) (Auto)2019-06-21 06:38:00 * Test Item Value Reference Range Interpretation Comments Eosinophils (%) (Auto) (test code = 713-8) 3.7 0.0-6.0 [facility] CenterBasophils (%) (Auto)2019-06-21 06:38:00* Test Item Value Reference Range Interpretation Comments Basophils (%) (Auto) (test code = 706-2) 0.6 0.0-1.0 [facility] CenterIM GRANULOCYTES %2019-06-21 06:38:00* Test Item Value Reference Range Interpretation Comments IM GRANULOCYTES % (test code = IM GRANULOCYTES %) 0.4 0.0- 1.0 [facility] CenterNeutrophils # (Auto)2019-06-21 06:38:00* Test Item Value Reference Range Interpretation Comments Neutrophils # (Auto) (test code = 751-8) 2.5 2.1-6.9 [facility] CenterLymphocytes # (Auto)2019-06-21 06:38:00* Test Item Value Reference Range Interpretation Comments Lymphocytes # (Auto) (test code = 75567-0) 2.1 1.0-3.2 [facility] CenterMonocytes # (Auto)2019-06-21 06:38:00* Test Item Value Reference Range Interpretation Comments Monocytes # (Auto) (test code = 742-7) 0.6 0.2-0.8 [facility] CenterEosinophils # (Auto)2019-06-21 06:38:00* Test Item Value Reference Range Interpretation Comments Eosinophils # (Auto) (test code = 711-2) 0.2 0.0-0.4 [facility] CenterBasophils # (Auto)2019-06-21 06:38:00* Test Item Value Reference Range Interpretation Comments Basophils # (Auto) (test code = 704-7) 0.0 0.0-0.1 [facility] CenterAbsolute Immature Granulocyte (auto 2019-06-21 06:38:00* Test Item Value Reference Range Interpretation Comments Absolute Immature Granulocyte (auto (gregory t code = Absolute Immature Granulocyte (auto) 0.02 0-0.1 [facility] CenterUS RENAL RETROPERITONEAL GDEU8435-34-72 14:29:[address] [address] Patient Name: RJ FISCHER MR #: [id number] : 1960 Age/Sex: 58/F Req #: [id number] Adm Physician: LUX BALLARD MD Ordered by: LUX BALLARD MD Report #: [id number] Location: MED/SURG Room/Bed: [facility] Procedure: [id number] US/US RENAL RETROPERITONEAL COMP Exam Date: 06/20/19 [...] 1443 COPY TO: LUX BALLARD MD Urine WJZ7756-99-74 13:58:00* Test Item Value Reference Range Interpretation Comments Urine WBC (test code = 5821-4) 0-5 0-5 [facility] CenterUrine ONG8233-64-99 13:58:00* Test Item Value Reference Range Interpretation Comments Urine RBC (test code = 47359-5) 0-5 0-5 [facility] CenterUrine Zvuzjuyq8233-28-50 13:58:00* Test Item Value Reference Range Interpretation Comments Urine Bacteria (test code = 28051-3) FEW NONE [facility] CenterUrine Epithelial Mzeko1629-46-70 13:58:00 * Test Item Value Reference Range Interpretation Comments Urine Epithelial Cells (test code = 05519-1) FEW NONE [facility] CenterUrine Oynil6970-88-55 13:54:00* Test Item Value Reference Range Interpretation Comments Urine Color (test code = 5778-6) YELLOW YELLOW [facility] CenterUrine Mhsmbrt4099-44-65 13:54:00* Test Item Value Reference Range Interpretation Comments Urine Clarity (test code = 69534-2) CLEAR CLEAR [facility] CenterUrine Specific Yohnwdn5979-92-21 13:54:00 * Test Item Value Reference Range Interpretation Comments Urine Specific [place] (test code = 5811-5) <=1.005 1.010-1.02 5 [facility] CenterUrine oI4367-43-83 13:54:00* Test Item Value Reference Range Interpretation Comments Urine pH (test code = 20499-1) 6.5 5-7 [facility] CenterUrine Leukocyte Fdyzunxp5514-30-37 13:54:00* Test Item Value Reference Range Interpretation Comments Urine Leukocyte Esterase (test code = 31498-7) NEGATIVE NEGATIV E [facility] CenterUrine Sgeeexs8735-73-95 13:54:00* Test Item Value Reference Range Interpretation Comments Urine Nitrite (test code = 40222-5) NEGATIVE NEGATIVE [facility] Oheailo9958-04-33 13:54:00* Test Item Value Reference Range Interpretation Comments Urine Protein (test code = 64111-5) NEGATIVE NEGATIVE [facility] Glucose (UA)2019-06-20 13:54:00* Test Item Value Reference Range Interpretation Comments Urine Glucose (UA) (test code = 93613-7) NEGATIVE NEGATIVE [facility] CenterUrine Abqcfqd2418-93-68 13:54:00* Test Item Value Reference Range Interpretation Comments Urine Ketones (test code = 70131-1) NEGATIVE NEGATIVE [facility] Xuvpcdbsauom1069-27-86 13:54:00* Test Item Value Reference Range Interpretation Comments Urine Urobilinogen (test code = 71649-2) 0.2 0.2-1 [facility] CenterUrine Gujiualdw6557-68-55 13:54:00* Test Item Value Reference Range Interpretation Comments Urine Bilirubin (test code = 1977-8) NEGATIVE NEGATIVE [facility] CenterUrine Wlblu9334-58-46 13:54:00* Test Item Value Reference Range Interpretation Comments Urine Blood (test code = 26637-1) NEGATIVE NEGATIVE [facility] CenterHemoglobin A1c Nyfhtar0837-48-87 12:05:00 * Test Item Value Reference Range Interpretation Comments Hemoglobin A1c Percent (test code = Hemoglobin A1c Percent) 5.5 4.0-7.0 [facility] CenterCT [facility]BDOMEN[facility]PELVIS A0850-28-36 14:24:00 [facility] [address] [address] Patient Name: RJ FISCHER MR #: [id number] : 1960 Age/Sex: 58/F Req #: [id number] Adm Physician: Ordered by: KELLY MORA DESKIDDING MACHINE OPERATOR Report #: [id number] Location: ER Room/Bed: Procedure: [id number] CT/ CT ABDOMEN/PELVIS W Exam Date: 06/19/19 [...] By: ROSENDA DE LA ROSA MD 28 Transcribed By: SYLVIA on 06/19/191428 TREE PLANTER Y TO: KELLY MORA NP CHEST SINGLE (PORTABLE)2019-06-19 14:23:00 [address] [address] Patient Name: RJ FISCHER MR #: [id number] : 1960 Age/Sex: 58/F Req #: [id number] Adm Physician: Ordered by: KELLY MORA NP Report #: [id number] Location: ER Room/Bed: Procedure: [id number] DX/ CHEST SINGLE (PORTABLE) Exam Date: 06/19/19 [...] Time (test code = 5902-2) 12.4 11.9-14.5 [facility] CenterProthromb Time International Ratio 2019-06-19 13:15:00* Test Item Value Reference Range Interpretation Comments Prothromb Time International Ratio (test code = 6301-6) 0.88 Oral Anticoagulant Therapy INR Values:1. Low Intensity Therapy 1.5 - 2.02 . Moderate Intensity Therapy 2.0 - 3.03. High Intensity Therapy(1) 2.5 - 3. 54. High Intensity Therapy(2) 3.0 - 4.05. Panic Value INR > 5.0 [facility] CenterActivated Partial Thromboplast Time 2019-06-19 13:15:00* Test Item Value Reference Range Interpretation Comments Activated Partial Thromboplast Time (test code = 09120-2) 32.6 23.8-35.5 [facility] CenterCreatine Kinase HP8911-14-07 13:01:00* Test Item Value Reference Range Interpretation Comments Creatine Kinase MB (test code = 49457-4) 1.10 0-5.0 [facility] CenterTroponin N6277-59-32 13:01:00* Test Item Value Reference Range Interpretation Comments Troponin I (test code = NWL1090) < 0.001 0-0.300 [facility] CenterTotal Vhxajldnp6693-42-34 12:55:00* Test Item Value Reference Range Interpretation Comments Total Bilirubin (test code = 1975-2) 1.4 0.2-1.2 [facility] CenterAspartate Amino Transf (AST/SGOT) 2019-06-19 12:55:00* Test Item Value Reference Range Interpretation Comments Aspartate Amino Transf (AST/SGOT) (test code = Aspartate Amino Transf (AST/SGOT)) 27 5-34 [facility] CenterAlanine Aminotransferase (ALT/SGPT) 2019-06-19 12:55:00* Test Item Value Reference Range Interpretation Comments Alanine Aminotransferase (ALT/SGPT) (test code = 1742-6) 27 0-55 [facility] CenterTotal Ywvppyd8172-52-82 12:55:00* Test Item Value Reference Range Interpretation Comments Total Protein (test code = 2885-2) 7.6 6.5-8.1 [facility] CenterAlbumin2019-08-09 12:55:00* Test Item Value Reference Range Interpretation Comments Albumin (test code = 1751-7) 4.3 3.5-5.0 [facility] CenterGlobulin2019-08-09 12:55:00* Test Item Value Reference Range Interpretation Comments Globulin (test code = 27244-1) 3.3 2.3-3.5 [facility] CenterAlbumin/Globulin Atvge9066-69-23 12:55:00 * Test Item Value Reference Range Interpretation Comments Albumin/Globulin Ratio (test code = 1759-0) 1.3 0.8-2.0 [facility] CenterAlkaline Qjqsstmbvam3866-59-74 12:55:00* Test Item Value Reference Range Interpretation Comments Alkaline Phosphatase (test code = 6768-6) 69 40-150 [facility] CenterCreatine Yhicit1700-40-60 12:55:00* Test Item Value Reference Range Interpretation Comments Creatine Kinase (test code = 2157-6) 81 29-168 [facility] CenterCT ABDOMEN/PELVIS C2719-12-59 01:28:00 [address] [address] Patient Name: RJ FISCHER MR #: [id number] : 1960 Age/Sex: 58/F Req #: [id number] Adm Physician: Ordered by: KELLY MORA DESKIDDING MACHINE OPERATOR Report #: [id number] Location: ER Room/Bed: Procedure: [id number] CT/ CT ABDOMEN/PELVIS W Exam Date: 04/01/19 [...] KELLY MORA NP CHEST SINGLE (PORTABLE)2019-04-01 01:27:00 [facility] [address] [address] Patient Name: RJ FISCHER MR #: [id number] : 1960 Age/Sex: 58/F Req #: [id number] Adm Physician: Ordered by: KELLY MORA NP Report #: [id number] Location: ER Room/Bed: Procedure: [id number] DX/ CHEST SINGLE (PORTABLE) Exam Date: 03/31/19 Exam Richard e: [id number] REPORT STATUS: Signed Ex amination: Single AP [...] SYLVIA on 04/01/19127 COPY TO: KELLY MORA DESKIDDING MACHINE OPERATOR Magnesium [id number] 23:03:00* Test Item Value Reference Range Interpretation Comments Magnesium Level (test code = 50714-1) 2.4 1.3-2.1 [facility] [id number] 23:03:00* Test Item Value Reference Range Interpretation Comments Amylase Level (test code = 1798-8) 68 25-125 [facility]2019[facility] 23:03:00* Test Item Value Reference Range Interpretation Comments Lipase (test code = 3040-3) 41 8-78 [facility] [id number] 14:08:00 [facility] [address] [address] Patient Name: RJ FISCHER MR #: [id number] : 1960 Age/Sex: 57/F Req #: [id number] Adm Physician: LUX BALLARD MD Ordered by: KENN ROBLES MD Report #: [id number] Locat ion: IMCU Room/Bed: [place] [address] Procedure: [id number] M RI/MRI WRIST RIGHT WO Exam Date: [...] PM Dicta kim By: MERY JIN MD 14 COPY TO: KENN ROBLES MD WRIST COMPLETE [id number] 17:53:[address] [place] [address] [address] Patient Name: RJ FISCHER MR #: [id number] : 1960 Age/Sex: 57/F Req #: [id number] Adm Physician: Ordered by: ELVIA CHAU NP Report #: [id number] Location: ER Room/Bed: Procedure: [id number] DX/WRIST COMPLETE LEFT Ex am Date: 08/16/18 [...] RESENDIZ MD 55 COPY TO: ELVIA CHAU DESKIDDING MACHINE OPERATOR HAND 3+ VIEWS [id number] 17:53:00 [facility] [address] [address] Patient Name: RJ FISCHER MR #: [id number] : 1960 Age/Sex: 57/F Req #: [id number] Adm Physician: Ordered by: ELVIA CHAU DESKIDDING MACHINE OPERATOR Report #: [id number] Location: ER Room/Bed: Procedure: [id number] DX/HAND 3+ VIEWS LEFT Exa m Date: [...] RESENDIZ MD 55 COPY TO: Ney CHAU DESKIDDING MACHINE OPERATOR ELBOW RIGHT [id number] 17:53:[id number] [address] Patient Name: RJ FISCHER MR #: [id number] : 1960 Age/Sex: 57/F Req #: [id number] Adm Physician: Ordered by: ELVIA CHAU DESKIDDING MACHINE OPERATOR Report #: [id number] Location: ER Room/Bed: Procedure: [id number] DX/ELBOW RIGHT COMPLETE E xam Date: 08/16/18 [...] RESENDIZ MD 55 COPY TO: ELVIA CHAU DESKIDDING MACHINE OPERATOR SHOULDER RIGHT [id number] 17:53:[address] [address] Patient Name: RJ FISCHER MR #: [id number] : 1960 Age/Sex: 57/F Req #: [id number] Adm Physician: Ordered by: ELVIA CHAU DESKIDDING MACHINE OPERATOR Report #: [id number] Location: ER Room/Bed: Procedure: [id number] DX/SHOULDER RIGHT COMPLETE Exam Date: 08/16/18 Exam [...] 55 COPY TO: ELVIA MEJIA NP CT EDUARDO PHIPPS/KENDRA [id number] 16:24:00 [address] [address] Patient Name: RJ FISCHER MR #: [id number] : 1960 Age/Sex: 57/F Req #: [id number] Adm Physician: LUX BALLARD MD Ordered by: ELVIA CHAU NP Report #: [id number] Location: [facility] Room/Bed: [place] [address] Procedure: 1006-[address]/CT ZEVIO DESIRE/TACOPHILLIP WO Exam Date: 08/16/18 Ex am Time: [...] on 08/16/18 1637 COPY TO: ELVIA CHAU DESKIDDING MACHINE OPERATOR CT CERVICAL SPINE [id number] 16:24:[address] [address] Patient Name: RJ FISCEHR MR #: [id number] : [birth year] Age/Sex: 57/F Req #: [id number] [facility] Physician: LUX BALLARD MD Ordered by: ELVIA CHAU DESKIDDING MACHINE OPERATOR Report #: [id number] Location: [facility] Room/Bed: [place] [address] Procedure: 1006-[address]/CT CERVICAL SPINE WO [...] on 08/16/18 1637 COPY TO: ELVIA CHAU DESKIDDING MACHINE OPERATOR CT BRAIN [id number] 16:24:00 [address] [place] [address] Patient Name: RJ FISCHER MR #: [id number] : 1960 Age/Sex: 57/F Req #: [id number] Adm Physician: LUX BALLARD MD Ordered by: ELVIA CHAU DESKIDDING MACHINE OPERATOR Report #: [id number] Location: [facility] Room/Bed: [address] [address] Procedure: 1006-[address]/CT BRAIN WO Exam [...]
[2020-03-28] MEDS: SODIUM CHLORIDE 0.9% 1000ML 1,000 ML IV SCH (19:32)
[2020-03-28] MEDS ORDERED: DOCUSATE SODIU100 MG PO (19:53)
[2020-03-28] MEDS ORDERED: METOPROLOL SUCC25 MG PO (19:53)
[2020-03-28] MEDS ORDERED: NORTRIPTYLINE H50 MG PO (19:53)
[2020-03-28] MEDS ORDERED: ATIVAN0.5 MG PO (19:53)
[2020-03-28] MEDS ORDERED: TIZANIDINE HCL4 M1 PO (19:53)
[2020-03-28] MEDS ORDERED: HYDROXYZINE HCL25 MG PO (19:53)
--- NOTE | 2020-03-28 20:02 | Emergency Department Note ---
History of Present Illnes History of Present Illness Chief Complaint: Abdominal Complaints History of Present Illness This is a 59 year old female . Historian: Patient Arrival Mode: Car Anime Artist Required: No Onset (how long ago): day(s) (5 days) Location: abd Quality: pressure Radiation: abdomen, flank Severity: severe (06/20) Onset quality: gradual Duration (how long): day(s) Timing of current episode: constant Progression: worsening Relieving factors: none Exacerbating factors: none Associated symptoms: denies other symptoms Treatments prior to arrival: none (KELLY MORA NP) Past Medical/Family History Physician Review I have reviewed the patient's past medical and family history. Any updates have been documented here. (KELLY MORA NP) Past Medical History Recent Fever: No Clinical Suspicion of Infectio: No New/Unexplained Change in Ment: No Past Medical History: Hypertension, Kidney Stones, UTI's, Migraines, Anxiety Other Medical History: unkn "kidney problem" left kidney ca INTERSTISIAL CYSTITIS PAD Past Surgical History: T&A, Tubal Ligation Other Surgery: PARTIAL NEPHRECTOMY KIDNEY CANCER (KELLY MORA NP) Social History Smoking Cessation: Never Smoker Alcohol Use: Occasional Any Illegal Drug Use: No TB Exposure/Symptoms: No Physically hurt or threatened: No (KELLY MORA NP) Family History Family history of heart diseas: No (KELLY MORA NP) Other Last Tetanus: 2018 Any Pre-Existing Lines (PICC,: No Is patient up to date on immun: Yes Last Flu: none Last Pneumovax: none (KELLY MORA NP) Review of Systems Review of Systems Constitutional: no symptoms EENTM: no symptoms Cardiovascular: no symptoms Respiratory: no symptoms Gastrointestinal: abdominal pain, nausea Genitourinary: no symptoms ("bladder pressure") Musculoskeletal: no symptoms Neurological: no symptoms Psychological: no symptoms Endocrine: no symptoms Hematological/Lymphatic: no symptoms Review of other systems All other systems reviewed and negative. (KELLY MORA NP) Physical Exam Related Data Allergies: Coded Allergies: amoxicillin (Verified Allergy, Intermediate, rash, 11/16/18) promethazine (Verified Allergy, Intermediate, panic attack, 11/16/18) bupropion (Verified Allergy, Mild, headache, 11/16/18) duloxetine (Verified Allergy, Mild, headache, 11/16/18) escitalopram (Verified Allergy, Mild, headache, 11/16/18) levomilnacipran (Verified Allergy, Unknown, headache, 11/16/18) sulfamethoxazole (Verified Allergy, Unknown, unk, 11/16/18) trimethoprim (Verified Allergy, Unknown, unk, 11/16/18) morphine (Verified Adverse Reaction, Unknown, headache, 03/31/19) Triage Vital Signs Vital Signs Date Time Temp Pulse Resp B/P (MAP) Pulse Ox O2 Delivery O2 Flow Rate FiO2 03/28/20 15:05 99.2 124 20 139/104 94 Vital signs reviewed: Yes (KELLY MORA NP) Physical Exam CONSTITUTIONAL Constitutional: well-developed, morbidly obese HENT HENT: normocephalic, atraumatic HENT L/R: left ext ear normal, right ext ear normal EYES Eyes: PERRL, conjunctivae normal NECK Neck: ROM normal PULMONARY Pulmonary: effort normal (bases diminished) CARDIOVASCULAR Cardiovascular: regular rhythm, heart sounds normal, capillary refill normal, normal rate GASTROINTESTINAL Abdominal: soft, bowel sounds normal, tender (diffuse tenderness ,worse on left lower) GENITOURINARY Genitourinary: exam deferred SKIN Skin: warm, dry MUSCULOSKELETAL Musculoskeletal: ROM normal NEUROLOGICAL Neurological: alert, oriented x 3, no gross motor or sensory deficits PSYCHOLOGICAL Psychological: mood/affect normal, judgement normal (KELLY MORA NP) Results Laboratory Result Diagram: 03/28/20 1714 03/28/20 1714 Laboratory Laboratory Tests Test 03/28/20 18:55 03/28/20 17:14 03/28/20 15:00 Lactic Acid Level 1.2 mmol/L (0.5-2.0) White Blood Count 8.35 x10e3/uL (4.8-10.8) Red Blood Count 5.08 x10e6/uL (3.6-5.1) Hemoglobin 15.1 g/dL (12.0-16.0) Hematocrit 46.7 % (34.2-44.1) Mean Corpuscular Volume 91.9 fL (81-99) Mean Corpuscular Hemoglobin 29.7 pg (28-32) Mean Corpuscular Hemoglobin Concent 32.3 g/dL (31-35) Red Cell Distribution Width 13.8 % (11.7-14.4) Platelet Count 328 x10e3/uL (140-360) Neutrophils (%) (Auto) 55.5 % (38.7-80.0) Lymphocytes (%) (Auto) 31.9 % (18.0-39.1) Monocytes (%) (Auto) 9.8 % (4.4-11.3) Eosinophils (%) (Auto) 1.6 % (0.0-6.0) Basophils (%) (Auto) 0.7 % (0.0-1.0) Neutrophils # (Auto) 4.6 (2.1-6.9) Lymphocytes # (Auto) 2.7 (1.0-3.2) Monocytes # (Auto) 0.8 (0.2-0.8) Eosinophils # (Auto) 0.1 (0.0-0.4) Basophils # (Auto) 0.1 (0.0-0.1) Absolute Immature Granulocyte (auto 0.04 x10e3/uL (0-0.1) Prothrombin Time 11.5 seconds (11.9-14.5) Prothromb Time International Ratio 0.80 Activated Partial Thromboplast Time 29.6 seconds (23.8-35.5) Sodium Level 141 mmol/L (136-145) Potassium Level 3.7 mmol/L (3.5-5.1) Chloride Level 104 mmol/L (98-107) Carbon Dioxide Level 23 mmol/L (22-29) Anion Gap 17.7 mmol/L (8-16) Blood Urea Nitrogen 12 mg/dL (7-26) Creatinine 0.81 mg/dL (0.57-1.11) Estimat Glomerular Filtration Rate > 60 ML/MIN (60-) BUN/Creatinine Ratio 15 (6-25) Glucose Level 122 mg/dL (74-118) Calcium Level 10.3 mg/dL (8.4-10.2) Total Bilirubin 0.8 mg/dL (0.2-1.2) Aspartate Amino Transf (AST/SGOT) 33 IU/L (5-34) Alanine Aminotransferase (ALT/SGPT) 35 IU/L (0-55) Alkaline Phosphatase 65 IU/L (40-150) Creatine Kinase 144 IU/L (29-168) Creatine Kinase MB 2.10 ng/mL (0-5.0) Troponin I 0.002 ng/mL (0-0.300) Total Protein 7.9 g/dL (6.5-8.1) Albumin 4.3 g/dL (3.5-5.0) Globulin 3.6 g/dL (2.3-3.5) Albumin/Globulin Ratio 1.2 (0.8-2.0) Urine Color Yellow (YELLOW) Urine Clarity Sl cloudy (CLEAR) Urine pH 7.5 (5 - 7) Urine Specific [place] 1.025 (1.010-1.025) Urine Protein Negative (NEGATIVE) Urine Glucose (UA) Negative (NEGATIVE) Urine Ketones Negative (NEGATIVE) Urine Blood Negative (NEGATIVE) Urine Nitrite Negative (NEGATIVE) Urine Bilirubin Negative (NEGATIVE) Urine Urobilinogen 0.2 mg/dL (0.2 - 1) Urine Leukocyte Esterase Negative (NEGATIVE) Urine RBC None /HPF (0-5) Urine WBC None /HPF (0-5) Urine Epithelial Cells None /LPF (NONE) Urine Bacteria None /HPF (NONE) Lab results reviewed: Yes (KELLY MORA NP) Imaging Imaging results reviewed: Yes (KELLY MORA NP) Diagnostics Tests Diagnostic test(s) reviewed: Yes (KELLY MORA NP) Critical Care Time Subsequent provider I assumed direction of critical care for this patient from another provider of my specialty. (KELLY MORA NP) Assessment & Plan Assessment & Plan Problems: (1) Abdominal pain Assessment & Plan PATIENT IN FROM HOME WITH COMPLAINTS OF ABDOMINAL PAIN, AND PRESSURE IN BLADDER X 5 DAYS; STATES WAS RECENTLY TREATED FOR A URINARY TRACT INFECTION BUT IS NOT FEELING ANY BETTER. PATIENT ALERT AND ORIENTED, RESP EVEN AND NONLABORED, A MBULATORY WITHOUT ASSISTANCE, RATES PAIN 8/10 (KELLY MORA NP) Reassessment Reassessment 1800-DISCUSSED WITH DR ALLEN PATIENT PRESENTATION,EXAM AND PLAN OF CARE. AGREES WITH TREATMENT PLAN. 1940-PATIENT STATES ABD PAIN IS NOW A 6/10. SPEAKING IN SHORT PHASES, DISCUSSED WITH DR ALLEN TO ADMIT OVER NIGHT. ALL QUESTIONS ANSWERED (KELYL MORA NP) Depart Disposition: ADMITTED Last Vital Signs Date Time Temp Pulse Resp B/P (MAP) Pulse Ox O2 Delivery O2 Flow Rate FiO2 03/28/20 19:08 99.2 106 20 117/62 99 (KELLY MORA NP) Home Meds Reported Medications Docusate Sodium (DOCUSATE SODIUM) 100 Mg Capsule, 100 MG PO BID, CAP 03/28/20 Tizanidine Hcl (TIZANIDINE HCL) 4 Mg Capsule, 4 MG PO QID 03/28/20 Nortriptyline Hcl (NORTRIPTYLINE HCL) 50 Mg Capsule, 50 MG PO HS 03/28/20 Metoprolol Succinate (METOPROLOL SUCCINATE) 25 Mg Tab.er.24h, 25 MG PO DAILY 03/28/20 Hydroxyzine Hcl (HYDROXYZINE HCL) 25 Mg Tablet, 25 MG PO HS, #30 TAB 03/28/20 Lorazepam* (ATIVAN*) 0.5 Mg Tablet, 1 MG PO BID PRN for ANXIETY, #60 TAB 03/28/20 Olmesartan Medoxomil (BENICAR) 20 Mg Tablet, 20 MG PO DAILY, #30 TAB 06/19/19 Montelukast Sodium (MONTELUKAST SODIUM) 10 Mg Tablet, 10 MG PO DAILY, #30 TAB 06/19/19 Ciprofloxacin Hcl (CIPRO) 500 Mg Tablet, 500 MG PO Q12H, #30 TAB 06/19/19 Rizatriptan Benzoate (MAXALT) 10 Mg Tablet, 10 MG PO DAILY PRN for MIGRAINE, #10 08/16/18 Discontinued Reported Medications Aspirin (ASPIR 81) 81 Mg Tablet.dr, 1 TAB PO DAILY 06/19/19 Methenamine/Sodium Salicylate (CYSTEX TABLET) 1 Each Tablet, 1 TAB PO PRN for URINARY PAIN 08/16/18 Alprazolam* (XANAX*) 1 Mg Tablet, 1 MG PO BID PRN for ANXIETY 08/16/18 Loratadine (ALLERGY RELIEF) 10 Mg Tablet, 10 MG PO DAILY 08/16/18 Nortriptyline Hcl (NORTRIPTYLINE HCL) 25 Mg Capsule, 50 MG PO HS 08/16/18 Acetaminophen/Codeine* (TYLENOL # 3*) 1 Ea Tab, 1 TAB PO Q6H PRN for PAIN, #50 08/16/18 [Linzess] No Conflict Check, 72 MCG PO DAILY, #30 08/16/18 Medications in the ED Sodium Chloride 1,000 ml @ 0 mls/hr Q0M STAT IV Last administered on 03/28/20at 17:19; Admin Dose 1,000 MLS/HR; Start 03/28/20 at 16:23; Stop 03/28/20 at 16:24 Morphine Sulfate 4 mg ONCE STAT IV Last administered on 03/28/20at 17:19; Admin Dose 4 MG; Start 03/28/20 at 16:23; Stop 03/28/20 at 16:24 Ondansetron HCl 4 mg ONCE STAT IV Last administered on 03/28/20at 17:19; Admin Dose 4 MG; Start 03/28/20 at 16:23; Stop 03/28/20 at 16:24 (KELLY MORA NP) Attestation Provider Attestation The patient's history, exam findings, diagnostics, and a summary of any interventions or procedures was reviewed in detail with our JARETH. I personally interviewed and examined the patient, and I have reviewed and agree with the HPI andexam. My personal exam shows [lower abdominal pain. UA reviewed which was normal. Initial triage vitals showed SIRS. CT ordered ]. I confirm the diagnosis as documented by the JARETH. I have reviewed and agree with the care plan articulated in the disposition section. (ELEAZAR ALLEN DO) KELLY MORA NP March 28, 2020 19:52 ELEAZAR ALLEN DO March 29, 2020 17:17
[2020-03-28] MEDS: ACETAMINOPHEN 325 MG TAB PO PRN (20:44)
[2020-03-28 21:06] VITALS: BP 111/94
[2020-03-28 21:10] VITALS: BP 111/94
--- NOTE | 2020-03-28 21:10 | NUR ---
RECEIVED REPORT FROM DELVIS, ER NURSE. PATIENT ARRIVED VIA WHEELCHAIR WITH BELONGINGS. PATIENT IS A&OX3 AND AMBULATES. CALL LIGHT WITHIN REACH.
[2020-03-28] MEDS ORDERED: IOPAMIDOL 370 MG/ML 200 ML INFUS..BTL INJ ONE (21:19)
[2020-03-28] MEDS ORDERED: SODIUM CHLORIDE 0.9% 50ML 50 ML ONE (21:19)
--- NOTE | 2020-03-28 23:36 | NUR ---
CALLED AND TALKED TO DR. Sheba BALLARD ABOUT PATIENT'S NIGHT TIME MEDICATION AND DR. Sheba BALLARD SAID TO RESUME ALL HOME MEDS.
[2020-03-28] MEDS ORDERED: LORAZEPAM 1 MG TAB PO PRN (23:45)
[2020-03-29] VITALS (9 sets, daily range): BP systolic 89–128; BP diastolic 55–80
[2020-03-29] MEDS ORDERED: CIPROFLOXACIN 500 MG TAB PO ONE (00:15)
[2020-03-29] MEDS ORDERED: NORTRIPTYLINE HCL 25 MG CAP PO ONE (00:15)
[2020-03-29] MEDS: HYDROXYZINE HCL 25 MG TAB PO SCH ×2 (00:23→21:22)
[2020-03-29 05:46] LABS: BASOPHILS % 0.5 % (0.0-1.0); EOSINOPHILS # (AUTO) 0.2 (0.0-0.4); EOSINOPHILS % 2.3 % (0.0-6.0); HEMATOCRIT 39.1 % (34.2-44.1); HEMOGLOBIN 12.5 g/dL (12.0-16.0); LYMPHOCYTES % 41.2 % (18.0-39.1); MEAN CORPUSCULAR HEMOGLOBIN 30.2 pg (28-32); MEAN CORPUSCULAR VOLUME 94.4 fL (81-99); MONOCYTES # (AUTO) 0.9 (0.2-0.8); MONOCYTES % 12.2 % (4.4-11.3); NEUTROPHILS # (AUTO) 3.2 (2.1-6.9); NEUTROPHILS % 43.3 % (38.7-80.0); PLATELET COUNT 248 x10e3/uL (140-360); RED BLOOD COUNT 4.14 x10e6/uL (3.6-5.1)
[2020-03-29 06:05] LABS: ALANINE AMINOTRANSFERASE 25 IU/L (0-55); ALBUMIN 3.1 g/dL (3.5-5.0); ALBUMIN/GLOBULIN RATIO 1.1 (0.8-2.0); ALKALINE PHOSPHATASE 46 IU/L (40-150); ANION GAP 8.4 mmol/L (8-16); BLOOD UREA NITROGEN 9 mg/dL (7-26); BUN/CREATININE RATIO 13 (6-25); CALCIUM 8.3 mg/dL (8.4-10.2); CARBON DIOXIDE 25 mmol/L (22-29); CHLORIDE 109 mmol/L (98-107); CREATININE, SERUM 0.69 mg/dL (0.57-1.11); EST GLOMERULAR FILTRATION RATE > 60 ML/MIN (60-); GLUCOSE 99 mg/dL (74-118); POTASSIUM 3.4 mmol/L (3.5-5.1); SODIUM 139 mmol/L (136-145)
[2020-03-29] MEDS: SODIUM CHLORIDE 0.9% 1000ML 1,000 ML IV SCH ×3 (06:13→21:50)
--- NOTE | 2020-03-29 07:23 | NUR ---
GAVE BEDSIDE SHIFT REPORT TO ONCOMING NURSE. CALL LIGHT WITHIN REACH. PATIENT IN BED.
[2020-03-29] MEDS: MONTELUKAST SODIUM 10 MG TAB PO SCH (09:06)
[2020-03-29] MEDS: TIZANIDINE HCL 4 MG TAB PO SCH ×5 (09:06→21:22)
[2020-03-29] MEDS: MORPHINE SULFATE INJ 4 MG/ML INJ 1ML IV PRN ×2 (09:06→13:46)
[2020-03-29] MEDS: DOCUSATE SODIUM 100 MG CAP PO SCH ×2 (09:06→17:32)
[2020-03-29] MEDS: OLMESARTAN 20 MG TAB PO SCH (09:06)
[2020-03-29] MEDS: METOPROLOL SUCCINATE 25 MG TAB XL PO SCH (09:06)
[2020-03-29] MEDS: CIPROFLOXACIN 500 MG TAB PO SCH ×2 (09:06→17:32)
[2020-03-29] MEDS: ONDANSETRON HCL INJ 2MG/ML 2ML 2 MG/ML VIAL IV PRN ×2 (09:11→13:46)
--- NOTE | 2020-03-29 11:25 | Diagnostic Imaging Report ---
EXAMINATION: MRI of the lumbar spine without contrast HISTORY: Low back pain COMPARISON: Abdomen CT 03/28/2020 TECHNIQUE: Sagittal T1, T2, STIR; axial T2 and proton density. FINDINGS: It is assumed that there are 5 lumbar vertebrae. Curvature/Alignment: Normal lordosis. Vertebrae: No evidence of recent fracture, infection, or neoplasm. Conus: Normal, terminating at L1 Cauda equina: Unremarkable. Lower thoracic: Unremarkable. Paraspinal soft tissues: Partially visualized small T2 hyperintense probable cyst in the left kidney. Degenerative changes: L1-L2: Minimal decreased disc height and T2 signal intensity, minimal symmetric disc bulge. No spinal canal or foraminal stenosis. L2-L3: Unremarkable. L3-L4: Minimal symmetric disc bulge and moderate facet arthrosis. Minimal inferior foraminal narrowing. Minimal right facet joint effusion, bone marrow edema and periarticular soft tissue swelling, likely related to degenerative facet synovitis. L4-L5: Minimal symmetric disc bulge with a small left posterolateral annular fissure. Moderate facet arthrosis and mild degenerative facet joints synovitis the right side. Minimal inferior foraminal narrowing. L5-S1: Normal disc. Moderate facet arthrosis. No spinal canal or foraminal stenosis. IMPRESSION: 1. Moderate facet arthrosis from L3-L4 to L5-S1, additional mild degenerative facet joints synovitis on the right at L3-L4 and L4-L5. 2. Minimal degenerative inferior foraminal narrowing at L3-L4 and L4-L5 without evidence of nerve root compression. 3. Mild degenerative changes of the disc as detailed above, without significant spinal canal or foraminal stenosis. Signed by: Dr. Humera Oconnor M.D. on 03/29/2020 11:21 AM
--- NOTE | 2020-03-29 19:00 | NUR ---
RECEIVED REPORT FROM PREVIOUS NURSE. PATIENT IN BED. CALL LIGHT WITHIN REACH.
[2020-03-29] MEDS ORDERED: NORTRIPTYLINE HCL 25 MG CAP PO SCH (21:00)
[2020-03-29] MEDS: ACETAMINOPHEN 325 MG TAB PO PRN (21:22)
[2020-03-29] MEDS ORDERED: RIZATRIPTAN BENZOATE 10 MG PO PRN (22:45)
--- NOTE | 2020-03-29 22:59 | NUR ---
CALLED DR. Sheba BALLARD OFFICE AND TALKED TO HIM ABOUT THE PATIENT HAVING A LOW BLOOD PRESSURE AND REQUESTING TO HAVE ANOTHER PAIN MEDICATION EXCEPT MORPHINE. DR. Sheba BALLARD ORDERED A BOLUS OF NORMAL SALINE AND TYLENOL #3 Q6H AND TO DC THE MORPHINE
[2020-03-29] MEDS ORDERED: ACETAMINOPHEN/CODEINE 300MG - 30MG TAB PO PRN (23:00)
[2020-03-29] MEDS ORDERED: HYDROXYZINE HCL 25 MG TAB PO SCH (23:55)
[2020-03-29] MEDS ORDERED: NORTRIPTYLINE HCL 10 MG CAP PO SCH (23:55)
[2020-03-30] VITALS: BP 90/50
[2020-03-30 04:00] VITALS: BP 120/70
[2020-03-30] MEDS: SODIUM CHLORIDE 0.9% 1000ML 1,000 ML IV SCH ×2 (04:00→11:15)
--- NOTE | 2020-03-30 07:14 | NUR ---
GAVE BEDSIDE SHIFT REPORT TO ONCOMING NURSE. CALL LIGHT WITHIN REACH. PATIENT IN BED.
[2020-03-30 07:42] VITALS: BP 133/102
[2020-03-30] MEDS: MONTELUKAST SODIUM 10 MG TAB PO SCH (08:23)
[2020-03-30] MEDS: OLMESARTAN 20 MG TAB PO SCH (08:23)
[2020-03-30] MEDS: METOPROLOL SUCCINATE 25 MG TAB XL PO SCH (08:23)
[2020-03-30] MEDS: CIPROFLOXACIN 500 MG TAB PO SCH (08:23)
[2020-03-30] MEDS: DOCUSATE SODIUM 100 MG CAP PO SCH (08:23)
[2020-03-30] MEDS: TIZANIDINE HCL 4 MG TAB PO SCH ×2 (08:24→13:00)
[2020-03-30 08:25] VITALS: BP 133/102
[2020-03-30] MEDS ORDERED: POTASSIUM CHLORIDE 10MEQ EA PO ONE (13:00)
[2020-03-30 13:23] VITALS: BP 133/80
[2020-03-30] MEDS ORDERED: FUROSEMIDE INJ 10 MG/ML 4 ML VIAL IV SCH (14:50)
== END 2020-03-30 16:53 | disposition home or self-care (01) ==
LOC: ER 14:45 → ERHOLD 19:13 → MED/SURG 21:06
DX: N30.10 Interstitial cystitis (chronic) without hematuria (principal); I10 Essential (primary) hypertension; K59.00 Constipation, unspecified; N20.0 Calculus of kidney; G43.829 Menstrual migraine, not intractable, without status migrainosus; F41.9 Anxiety disorder, unspecified
CPT/HCPCS: 36415 ×2; 71045; 72148; 74177; 80053 ×2; 81001; 82550; 82553; 83605; 84484; 85025 ×2; 85610; 85730; 87040; 87086; 87635; 93005; 96361; 99284; G0378 ×3; J1940; J2270 ×2; J2405 ×2; J3410; J7030 ×3; Q9967

== ENCOUNTER → 2020-08-09 | Outpatient (CLI) | payer BC ==
[~2020-08-09] MED LIST changes: +ATIVAN0.5 MG PO; +DOCUSATE SODIU100 MG PO; +HYDROXYZINE HCL25 MG PO; +METOPROLOL SUCC25 MG PO; +NORTRIPTYLINE H50 MG PO; +TIZANIDINE HCL4 M1 PO
--- NOTE | 2020-08-09 17:46 | Diagnostic Imaging Report ---
EXAM: Abdomen Radiograph INDICATION: CALCULUS OF KIDNEY COMPARISON: None FINDINGS: TUBES and LINES: None. LOWER CHEST: No abnormalities in the lower chest. ABDOMEN: The bowel loops are unremarkable with no dilatation or signs of obstruction. No pneumoperitoneum. No radiopaque renal stones seen. Multiple phleboliths are seen. BONES AND SOFT TISSUES: No acute osseous lesion. Soft tissues are unremarkable. IMPRESSION: No acute abdominal radiographic abnormality. No radiopaque renal stones seen. Signed by: Reyes John MD on 08/09/2020 5:43 PM
== END ==
LOC: RAD 16:38
PROVIDERS: ATTEND Urology
DX: N20.0 Calculus of kidney (principal)
CPT/HCPCS: 74018

== ENCOUNTER 2020-10-06 13:22 | Emergency (ER) | payer BC ==
[~2020-10-06] VITALS: Ht 154.9 cm; Wt 104.3 kg
[2020-10-06] MEDS ORDERED: SODIUM CHLORIDE 0.9% 1000ML 1,000 ML IV SCH (13:45)
[2020-10-06 14:17] LABS: BASOPHILS % 0.6 % (0.0-1.0); EOSINOPHILS # (AUTO) 0.1 (0.0-0.4); EOSINOPHILS % 1.9 % (0.0-6.0); HEMOGLOBIN 14.4 g/dL (12.0-16.0); LYMPHOCYTES # (AUTO) 2.2 (1.0-3.2); LYMPHOCYTES % 33.5 % (18.0-39.1); MEAN CORPUSCULAR HEMOGLOBIN 30.1 pg (28-32); MEAN CORPUSCULAR HGB CONC 32.7 g/dL (31-35); MEAN CORPUSCULAR VOLUME 92.1 fL (81-99); MONOCYTES # (AUTO) 0.5 (0.2-0.8); MONOCYTES % 7.2 % (4.4-11.3); NEUTROPHILS # (AUTO) 3.6 (2.1-6.9); NEUTROPHILS % 56.5 % (38.7-80.0); PLATELET COUNT 281 x10e3/uL (140-360); RED BLOOD COUNT 4.78 x10e6/uL (3.6-5.1)
[2020-10-06 14:37] LABS: ALANINE AMINOTRANSFERASE 24 IU/L (0-55); ALBUMIN 3.9 g/dL (3.5-5.0); ALBUMIN/GLOBULIN RATIO 1.1 (0.8-2.0); ALKALINE PHOSPHATASE 27 IU/L (40-150); BLOOD UREA NITROGEN 11 mg/dL (7-26); BUN/CREATININE RATIO 18 (6-25); CARBON DIOXIDE 26 mmol/L (22-29); CHLORIDE 102 mmol/L (98-107); CREATININE, SERUM 0.61 mg/dL (0.57-1.11); EST GLOMERULAR FILTRATION RATE > 60 ML/MIN (60-); GLUCOSE 180 mg/dL (74-118); SODIUM 138 mmol/L (136-145)
[2020-10-06 15:48] LABS: BILIRUBIN,URINE NEGATIVE (NEGATIVE); CLARITY,URINE CLEAR (CLEAR); COLOR,URINE YELLOW (YELLOW); KETONES,URINE NEGATIVE (NEGATIVE); LEUKOCYTE ESTERASE ,URINE NEGATIVE (NEGATIVE); NITRITE,URINE NEGATIVE (NEGATIVE); PROTEIN,URINE DIPSTICK NEGATIVE (NEGATIVE); URINE UROBILINOGEN 0.2 mg/dL (0.2 - 1)
[2020-10-06 15:49] LABS: EPITHELIAL CELLS,URINE RARE /LPF; MUCUS,URINE FEW (RARE); RBC,URINE 0-5 /HPF (0-5); WBC,URINE (MAN) 0-5 /HPF (0-5)
== END 2020-10-06 16:17 | disposition home or self-care (01) ==
LOC: ER 13:33
DX: R53.1 Weakness (principal); I10 Essential (primary) hypertension; F41.9 Anxiety disorder, unspecified; Z85.528 Personal history of other malignant neoplasm of kidney
CPT/HCPCS: 36415; 71045; 80053; 81001; 85025; 87086; 93005; 99283; J7030

== ENCOUNTER 2022-07-20 11:59 | Observation (INO) | payer BC ==
[~2022-07-20] VITALS: Ht 154.9 cm; Wt 104.3 kg
[2022-07-20] MEDS ORDERED: SODIUM CHLORIDE 0.9% 1000ML 1,000 ML IV ONE ×2 (12:15→15:00)
[2022-07-20] MEDS ORDERED: ONDANSETRON HCL INJ 2MG/ML 2ML 2 MG/ML VIAL IV PRN ×3 (12:15→18:00)
[2022-07-20 12:54] LABS: BASOPHILS # (AUTO) 0.1 (0.0-0.1); BASOPHILS % 0.5 % (0.0-1.0); EOSINOPHILS # (AUTO) 0.1 (0.0-0.4); EOSINOPHILS % 1.4 % (0.0-6.0); HEMATOCRIT 48.9 % (34.2-44.1); HEMOGLOBIN 16.8 g/dL (12.0-16.0); LYMPHOCYTES % 29.3 % (18.0-39.1); MEAN CORPUSCULAR HEMOGLOBIN 30.8 pg (28-32); MEAN CORPUSCULAR HGB CONC 34.4 g/dL (31-35); MEAN CORPUSCULAR VOLUME 89.7 fL (81-99); MONOCYTES # (AUTO) 0.9 (0.2-0.8); MONOCYTES % 8.4 % (4.4-11.3); NEUTROPHILS # (AUTO) 6.2 (2.1-6.9); NEUTROPHILS % 59.9 % (38.7-80.0); PLATELET COUNT 335 x10e3/uL (140-360); RED BLOOD COUNT 5.45 x10e6/uL (3.6-5.1); RED CELL DISTRIBUTION WIDTH 13.1 % (11.7-14.4)
[2022-07-20 13:05] LABS: CLARITY,URINE SL CLOUDY (CLEAR); COLOR,URINE YELLOW (YELLOW); KETONES,URINE 2+ (NEGATIVE); LEUKOCYTE ESTERASE ,URINE NEGATIVE (NEGATIVE); NITRITE,URINE NEGATIVE (NEGATIVE); PROTEIN,URINE DIPSTICK TRACE (NEGATIVE); URINE UROBILINOGEN 0.2 mg/dL (0.2 - 1)
[2022-07-20 13:09] LABS: BACTERIA,URINE MODERATE /HPF; EPITHELIAL CELLS,URINE MODERATE /LPF; RBC,URINE 0-5 /HPF (0-5)
[2022-07-20 13:10] LABS: WBC,URINE (MAN) 0-5 /HPF (0-5)
[2022-07-20 13:20] LABS: ALBUMIN 4.5 g/dL (3.5-5.0); ALBUMIN/GLOBULIN RATIO 1.2 (0.8-2.0); ANION GAP 20.1 mmol/L (8-16); CALCIUM 10.1 mg/dL (8.4-10.2); CREATININE, SERUM 0.81 mg/dL (0.57-1.11); POTASSIUM 5.1 mmol/L (3.5-5.1)
[2022-07-20] MEDS ORDERED: CLONAZEPAM 1 MG TAB PO ONE (15:00)
[2022-07-20] MEDS ORDERED: DICYCLOMINE HCL20 MG PO (15:53)
[2022-07-20] MEDS ORDERED: ONDANSETRON ODT4 MG PO (15:53)
[2022-07-20] MEDS ORDERED: LABETALOL HCL 5 MG/ML 20ML VIAL IV STA (16:06)
[2022-07-20] MEDS: SODIUM CHLORIDE 0.9% 1000ML 1,000 ML IV SCH (17:07)
[2022-07-20] MEDS ORDERED: LORAZEPAM 1 MG TAB PO PRN (18:00)
[2022-07-20] MEDS: DICYCLOMINE HCL 20 MG TAB PO SCH ×2 (18:00→21:00)
[2022-07-20] MEDS: TIZANIDINE HCL 4 MG TAB PO SCH ×3 (18:00→23:50)
[2022-07-20] MEDS ORDERED: DICYCLOMINE HCL 20 MG TAB PO SCH (18:00)
[2022-07-20 19:32] VITALS: BP 121/73
[2022-07-20] MEDS ORDERED: NORTRIPTYLINE HCL 25 MG CAP PO SCH (21:00)
[2022-07-20] MEDS ORDERED: HYDROXYZINE HCL 25 MG TAB PO SCH (21:00)
[2022-07-20 22:00] VITALS: BP 121/73
[2022-07-20] MEDS ORDERED: PROTONIX20 MG PO (22:50)
[2022-07-20] MEDS ORDERED: AMITRIPTYLINE H10 MG PO (22:50)
[2022-07-20] MEDS ORDERED: CELEBREX200 MG PO (22:50)
[2022-07-20] MEDS ORDERED: MINOCYCLINE HCL50 MG PO (22:50)
[2022-07-20] MEDS ORDERED: CYMBALTA20 MG PO (22:50)
[2022-07-20 23:27] VITALS: BP 121/73
[2022-07-21 00:16] VITALS: BP 134/84
[2022-07-21] MEDS: SODIUM CHLORIDE 0.9% 1000ML 1,000 ML IV SCH ×2 (05:43→09:00)
[2022-07-21 05:48] VITALS: BP 102/57
[2022-07-21 07:46] LABS: BASOPHILS % 0.5 % (0.0-1.0); EOSINOPHILS # (AUTO) 0.1 (0.0-0.4); EOSINOPHILS % 1.5 % (0.0-6.0); HEMATOCRIT 39.2 % (34.2-44.1); HEMOGLOBIN 12.9 g/dL (12.0-16.0); LYMPHOCYTES # (AUTO) 2.7 (1.0-3.2); LYMPHOCYTES % 33.4 % (18.0-39.1); MEAN CORPUSCULAR HEMOGLOBIN 30.1 pg (28-32); MEAN CORPUSCULAR HGB CONC 32.9 g/dL (31-35); MEAN CORPUSCULAR VOLUME 91.6 fL (81-99); MONOCYTES # (AUTO) 0.7 (0.2-0.8); NEUTROPHILS # (AUTO) 4.4 (2.1-6.9); NEUTROPHILS % 55.2 % (38.7-80.0); PLATELET COUNT 243 x10e3/uL (140-360); RED BLOOD COUNT 4.28 x10e6/uL (3.6-5.1); RED CELL DISTRIBUTION WIDTH 13.3 % (11.7-14.4)
[2022-07-21 08:00] VITALS: BP 101/56
[2022-07-21 08:11] LABS: ANION GAP 11.6 mmol/L (8-16); CALCIUM 8.3 mg/dL (8.4-10.2); CREATININE, SERUM 0.67 mg/dL (0.57-1.11); POTASSIUM 3.6 mmol/L (3.5-5.1)
[2022-07-21 08:37] VITALS: BP 101/56
[2022-07-21] MEDS ORDERED: METOPROLOL SUCCINATE 25 MG TAB XL PO SCH (09:00)
[2022-07-21] MEDS: TIZANIDINE HCL 4 MG TAB PO SCH ×2 (09:00→12:36)
[2022-07-21] MEDS ORDERED: MONTELUKAST SODIUM 10 MG TAB PO SCH (09:00)
[2022-07-21] MEDS ORDERED: OLMESARTAN 20 MG TAB PO SCH (09:00)
[2022-07-21] MEDS: DICYCLOMINE HCL 20 MG TAB PO SCH ×2 (09:00→12:36)
[2022-07-21] MEDS ORDERED: DIPHENOXYLATE/ATROPINE TAB PO ONE ×2 (12:15→12:50)
[2022-07-21 12:20] VITALS: BP 118/65
[2022-07-21] MEDS ORDERED: RIFAXIMIN 550 MG TABLET PO SCH (13:00)
[2022-07-21] MEDS ORDERED: XIFAXAN550 MG PO (13:11)
== END 2022-07-21 14:31 | disposition home or self-care (01) ==
LOC: ER 12:03 → ERHOLD 16:55 → MED/SURG 21:53
DX: E86.0 Dehydration (principal); G43.909 Migraine, unspecified, not intractable, without status migrainosus; I10 Essential (primary) hypertension; Z20.822 Contact with and (suspected) exposure to COVID-19; F41.9 Anxiety disorder, unspecified; K52.9 Noninfective gastroenteritis and colitis, unspecified
CPT/HCPCS: 36415 ×2; 71045; 76705; 80048; 80053; 81001; 83605; 83880; 84484; 85025 ×2; 85379; 87040; 87086; 93005; 99284; G0378 ×2; J0696; J2405; J3410; J3490; J7030 ×2; U0002

== ENCOUNTER 2024-09-17 14:06 | Emergency (ER) | payer BC, OTHER ==
[~2024-09-17] VITALS: Ht 154.9 cm; Wt 108.9 kg
[~2024-09-17 14:06] MED LIST changes: +AMITRIPTYLINE H10 MG PO; +CELEBREX200 MG PO; +CYMBALTA20 MG PO; +DICYCLOMINE HCL20 MG PO; +MINOCYCLINE HCL50 MG PO; +ONDANSETRON ODT4 MG PO; +PROTONIX20 MG PO; +XIFAXAN550 MG PO
[2024-09-17 14:45] VITALS: TEMP 98.9
[2024-09-17 15:56] LABS: BASOPHILS # (AUTO) 0.1 (0.0-0.1); BASOPHILS % 0.6 % (0.0-1.0); EOSINOPHILS # (AUTO) 0.1 (0.0-0.4); EOSINOPHILS % 1.1 % (0.0-6.0); HEMATOCRIT 51.2 % (34.2-44.1); HEMOGLOBIN 16.5 g/dL (12.0-16.0); LYMPHOCYTES # (AUTO) 2.7 (1.0-3.2); LYMPHOCYTES % 31.2 % (18.0-39.1); MEAN CORPUSCULAR HEMOGLOBIN 30.3 pg (28-32); MEAN CORPUSCULAR HGB CONC 32.2 g/dL (31-35); MEAN CORPUSCULAR VOLUME 93.9 fL (81-99); MONOCYTES # (AUTO) 0.9 (0.2-0.8); MONOCYTES % 10.4 % (4.4-11.3); NEUTROPHILS # (AUTO) 4.8 (2.1-6.9); NEUTROPHILS % 56.3 % (38.7-80.0); PLATELET COUNT 257 x10e3/uL (140-360); RED BLOOD COUNT 5.45 x10e6/uL (3.6-5.1); RED CELL DISTRIBUTION WIDTH 13.3 % (11.7-14.4); WHITE BLOOD COUNT 8.55 x10e3/uL (4.8-10.8)
[2024-09-17 16:08] LABS: ALBUMIN 3.8 g/dL (3.5-5.0); ALBUMIN/GLOBULIN RATIO 1.1 (0.8-2.0); ANION GAP 14.6 mmol/L (8-16); BILIRUBIN,TOTAL 2.1 mg/dL (0.2-1.2); CALCIUM 9.7 mg/dL (8.4-10.2); CREATININE, SERUM 0.88 mg/dL (0.57-1.11); POTASSIUM 3.6 mmol/L (3.5-5.1); TOTAL PROTEIN 7.3 g/dL (6.5-8.1)
[2024-09-17 16:49] LABS: CLARITY,URINE SL CLOUDY (CLEAR); COLOR,URINE YELLOW (YELLOW); LEUKOCYTE ESTERASE ,URINE NEGATIVE (NEGATIVE); NITRITE,URINE NEGATIVE (NEGATIVE); PH,URINE 7 (5 - 7)
[2024-09-17 16:50] LABS: BILIRUBIN,URINE SMALL (NEGATIVE); GLUCOSE, URINE NEGATIVE (NEGATIVE); KETONES,URINE NEGATIVE (NEGATIVE); PROTEIN,URINE DIPSTICK NEGATIVE (NEGATIVE); URINE UROBILINOGEN 0.2 mg/dL (0.2 - 1)
[2024-09-17] MEDS ORDERED: IOPAMIDOL 370 MG/ML 100 ML INFUS..BTL INJ ONE (16:57)
[2024-09-17 17:00] LABS: BACTERIA,URINE MODERATE /HPF; EPITHELIAL CELLS,URINE MODERATE /LPF; WBC,URINE (MAN) 0-5 /HPF (0-5)
[2024-09-17] MEDS: ONDANSETRON HCL INJ 2MG/ML 2ML 2 MG/ML VIAL IV STA (17:37)
[2024-09-17] MEDS: SODIUM CHLORIDE 0.9% 1000ML 1,000 ML IV STA (17:37)
[2024-09-17] MEDS ORDERED: DICYCLOMINE HCL20 MG PO (19:29)
[2024-09-17] MEDS ORDERED: ONDANSETRON ODT4 MG PO (19:29)
[2024-09-17 19:30] VITALS: RESP 16
[2024-09-17] MEDS: DICYCLOMINE HCL 20 MG/2 ML VIAL IM ONE (19:45)
[2024-09-17 20:15] VITALS: PULSE 98
[2024-09-17 20:24] VITALS: BP 119/89; PULSE 98; O2SAT 93
== END 2024-09-17 20:25 | disposition home or self-care (01) ==
LOC: ER 16:47
DX: R10.84 Generalized abdominal pain (principal); K52.9 Noninfective gastroenteritis and colitis, unspecified; E86.0 Dehydration; I10 Essential (primary) hypertension; F41.9 Anxiety disorder, unspecified; Z85.528 Personal history of other malignant neoplasm of kidney; Z87.442 Personal history of urinary calculi
CPT/HCPCS: 36415; 71045; 74177; 80053; 81001; 83690; 85025; 93005; 99284; J0500; J2405; J2470; J7030; Q9967